=== PATIENT | male | born 1945 | race Caucasian/White ===

== ENCOUNTER 2024-03-20 13:51 | Outpatient (CLI) | payer OTHER, SELFPAY ==
--- OUTSIDE RECORDS SUMMARY | 2024-03-17 13:03 | XMS_ITS | Continuity of Care Document ---
Author Name [facility] Organization [facility] Care Team Providers Care Neon Sign Maker Name Role Phone [facility] Unavailable Unavailable Problems Combined list of problems from Department of Defense and Veterans Affairs facilities. It does not include entries that were removed or entered in error. Problem Status Onset Date Problem Type Date of Resolution Comments Source Numbness Active 010 Condition Apr 17, 2008 Entered By: DENNIS ROLLE Comment: ? left meralgia pareshetica [facility] Acquired complex renal cyst Active Condition [facility] Adenomatous polyp of colon Active Condition Dec 05, 2012 Entered By: LIT MOORE ON B Comment: tubular adenoma x3 12/02/2012 [facility] ASCVD Active Condition Jan 12 05 Entered By: BRINA KAM Comment: 4v CAB 1996 @ [facility] Benign essential hypertension Active Condition [facility] Blood in urine Active Condition [facility] Cerebral infarction due to cerebral artery occlusion Active Condition [facility] Diabetes mellitus type II (SNOMED CT [id number]) Active Condition August 11, 2005 Entered By: BRINA KAM Comment: Diagnosis @ 1999 [facility] Exposure to Agent [place] Active Condition [facility] Exposure to potentially hazardous substance (SCT [id number]) Active Condition Jun 22 4 Entered By: TAO ABARCA Comment: Entered automatically through YURIY Problem List documentation program [facility] Hypercholesterolemia * (ICD-9-CM 272.0) Active Condition [place] [facility] Impotence of organic origin Active Condition [facility] Intracranial hemorrhage Active Condition [facility] Kidney stone Active Condition [place] [facility] Ob[facility], Unspec [facility] Posterior vitreous detachment Active Condition [facility] Shoulder joint pain Active [place] [facility] Thrombosis Active Condition [facility] CAD * (ICD-9-CM 414.9) Inactive Condition 01/12/2005 [facility] Gastroesophageal Reflux Disorder Inactive Condition 01/05/2013 [place] [facility] Hemorrhage, Retinal Inactive Condition 08/11/2005 [facility] Diagnosis: ICD-10-CM H90.3 Sensorineural hearing loss, bilateral Active Diagnosis [facility] Diagnosis: ICD-10-CM H40.003 Preglaucoma, unspecified, bilateral Active Diagnosis [place] [facility] Diagnosis: ICD-10-CM G56.03 Carpal tunnel syndrome, bilateral upper limbs Active Diagnosis [facility] Diagnosis: ICD-10-CM Z02.89 Encounter for other administrative examinations Active Diagnosis [facility] Diagnosis: ICD-10-CM G56.02 Carpal tunnel syndrome, left upper limb Active Diagnosis [facility] Diagnosis: ICD-10-CM M79.10 Myalgia, unspecified site [facility] Diagnosis: ICD-10-CM R52 Pain, unspecified Active Diagnosis KARTHIK MONCADA [facility] Diagnosis: ICD-10-CM M79.642 Pain in left hand Active Diagnosis [facility] Diagnosis: ICD-10-CM M25.551 Pain in right hip Active Diagnosis [facility] Diagnosis: ICD-10-CM M67.442 Ganglion, left hand Active Diagnosis [facility] Diagnosis: ICD-10-CM K63.5 Polyp of colon Active Diagnosis MELINA MELISSA [facility] Diagnosis: ICD-10-CM E11.649 Type 2 diabetes mellitus with hypoglycemia without coma Active Diagnosis [facility] Diagnosis: ICD-10-CM E11.9 Type 2 diabetes mellitus without complications Active Diagnosis [facility] Diagnosis: ICD-10-CM Z23 Encounter for immunization Active Diagnosis [facility] Diagnosis: ICD-10-CM H93.13 Tinnitus, bilateral Active Diagnosis [facility] Medications Combined list of outpatient medications from Department of Defense and [facility] Affairs facilities.Medications provided include 1) outpatient medications from the last 15 months, and 2) patient-reported medications. Medication Details Route Status Patient Instructions Prescription Expires Prescription Number Last Dispense Date Ordering Provider Order Date Order Qty Source ASPIRIN 81MG TAB,EC TAKE ONE TABLET BY MOUTH EVERY DAY ORAL ACTIVE KATTY KAPLAN 2015 [facility] ATORVASTATI N [place] 80MG TAB TAKE ONE TABLET BY MOUTH AT BEDTIME FOR CHOLESTE ROL ORAL ACTIVE 09/20/2024 [id number] 4 SEMAJ LOYD 2023 90 [facility] AT[place]STAT[place] N [place] 80MG TAB TAKE ONE TABLET BY MOUTH AT BEDTIME FOR CHOLESTE ROL ORAL DISCONT INUED 07/25/2023 [id number] 4 SEMAJ LOYD 2022 90 [place] [facility] BISACODYL 5MG TAB,EC TAKE TWO TABLETS BY MOUTH ONCE FOR COLON PREP ORAL 06/30/2023 [id number] BECIVONNEEDA VID A 2023 2 [place] [facility] CARBOXYMETH YLCELLULOSE NA 0.25% SOLN,OPH INSTILL 1 DROP IN BOTH EYES FOUR TIMES A DAY OPHTHA LMIC 03/11/2024 [id number] 4 NATANAEL BALL 2022 15 [place] [facility] CICLOPIROX 8% SOLN,TOP APPLY TOPICALL Y EVERY DAY TO AFFECTED NAILS(S) REMOVE WITH RUBBING ALCOHOL EVERY 7 DAYS* TREAT UNTIL NAIL CLEARANC E OR 48 WEEKS FOR NAIL FUNGUS TO AFFECTED NAILS(S) REMOVE WITH RUBBING ALCOHOL EVERY 7 DAYS* TREAT UNTIL NAIL CLEARANC E OR 48 WEEKS FOR NAIL FUNGUS TOPICA L ACTIVE 03/29/2024 [id number] Kiki NAILS ENJAMIN E 2023 13.2 [place] [facility] EMPAGLIFLOZ IN 25MG TAB TAKE ONE-HALF TABLET BY MOUTH EVERY DAY FOR DIABETES ORAL ACTIVE 05/17/2024 [id number] 4 SEMAJ LOYD 2023 45 [place] [facility] EMPAGLIFLOZ IN 25MG TAB TAKE ONE-HALF TABLET BY MOUTH EVERY DAY FOR DIABETES ORAL DISCONT INUED 04/24/2023 [id number] SEMAJ LOYD 2022 45 [place] [facility] GLIPIZIDE 2.5MG TAB,SA TAKE ONE TABLET BY MOUTH EVERY DAY FOR DIABETES WITH BREAKFAS T ORAL ACTIVE 05/17/2024 [id number] 4 SEMAJ LOYD 2023 90 [place] [facility] GLIPIZIDE 2.5MG TAB,SA TAKE ONE TABLET BY MOUTH EVERY DAY FOR DIABETES WITH BREAKFAS T ORAL DISCONT INUED 09/09/2023 [id number] 3 SEMAJ LOYD 2022 90 [place] [facility] LORATADINE 10MG TAB TAKE ONE TABLET BY MOUTH EVERY MORNING FOR ALLERGIE S ORAL 07/28/2023 [id number] 3 Kiki NAILS ENJAMIN E 2022 90 [place] [facility] LOSARTAN 25MG TAB TAKE ONE-HALF TABLET BY MOUTH TWICE A DAY FOR BLOOD PRESSURE ORAL ACTIVE 07/05/2024 [id number] 4 SEMAJ LOYD 2023 90 [place] [facility] [place] 25MG TAB TAKE ONE-HALF TABLET BY MOUTH TWICE A DAY FOR BLOOD PRESSURE ORAL DISCONT INUED 06/09/2023 [id number] 4 SEMAJ LOYD 2022 90 [place] [facility] POLYETHYLEN E GLYCOL 3350 PWDR,ORAL TAKE ONE BOTTLE BY MOUTH DIRECTED FOR COLON PREP ORAL 06/30/2023 [id number] BECCUE,DA VID A 2023 238 [place] [facility] SEMAGLUTIDE 0.25MG/0.37 5ML INJ,SOLN,PE N,3ML INJECT 0.5MG UNDER THE SKIN EVERY WEEK FOR DIABETES -INJECT ON THE SAME DAY EVERY WEEK -REFRIGE RATE - PEN CONTAINS MULTIPLE DOSES SUBCUT ANEOUS ACTIVE 09/21/2024 [id number] 4 SEMAJ LOYD 2023 1 [place] [facility] SEMAGLUTIDE 0.25MG/0.37 5ML INJ,SOLN,PE N,3ML INJECT 0.5MG UNDER THE SKIN EVERY WEEK FOR DIABETES -INJECT ON THE SAME DAY EVERY WEEK -REFRIGE RATE - PEN CONTAINS MULTIPLE DOSES SUBCUT ANEOUS DISCONT INUED 01/22/2024 [id number] 4 SEMAJ LOYD 2022 1 [place] [facility] SEMAGLUTIDE 0.25MG/0.37 5ML INJ,SOLN,PE N,3ML INJECT 0.5MG UNDER THE SKIN EVERY WEEK FOR DIABETES -INJECT ON THE SAME DAY EVERY WEEK -REFRIGE RATE - PEN CONTAINS MULTIPLE DOSES SUBCUT EFRAIN [place] INUED 07/01/2023 [id number] SEMAJ LOYD 2022 1 [facility] TIZANIDINE HCL 4MG TAB TAKE ONE TABLET BY MOUTH TWICE A DAY NEEDED FOR MUSCLE SPASMS FOR RIGHT GROIN PAIN ORAL ACTIVE 10/12/2024 [id number] 4 OSVALDO SR T 2023 180 [facility] Allergies, Adverse Reactions, Alerts Combined list of allergies from Department of [facility] and [facility] facilities. It does not include entries that were removed or entered in error. Substance Category Reaction Severity Reaction type Status Date Reported Comments Source EZETIMIBE Propensity to adverse reactions to drug (finding) Generalized aches and pains active 7 [facility] LISINOPRIL Propensity to adverse reactions to drug (finding) Cough active 5 [facility] MERTHIOLATE TINCTURE Propensity to adverse reactions to drug (finding) OTHER REACTION, BLISTERING active 4 [facility] METFORMIN Propensity to adverse reactions to drug (finding) Diarrhea active 5 [facility] MINOCYCLINE Propensity to adverse reactions to drug (finding) Headache, Abdominal discomfort active 3 [facility] NIACIN Propensity to adverse reactions to drug (finding) Flushing active 7 [facility] ROSIGLITAZON E Propensity to adverse reactions to drug (finding) Low back pain active 8 [facility] ROSUVASTATIN Propensity to adverse reactions to drug (finding) Paresthesia , Muscle pain active 9 [facility] Immunizations Combined list of available immunizations from the Department of [facility] and [facility] Affairs facilities. Immunization Series Date Given Administered By Site Reaction Lot Number CVX Code Drug Director Chemistry Status Comments Source INFLUENZA, HIGH-DOSE, TRIVALENT, PF 2023 INDER FALK LEFT DELTO ID [id number] 135 complet ed [facility] TDAP 2023 JOHANNA HADDAD LEFT DELTO ID [id number] 115 complet ed [facility] INFLUENZA, HIGH-DOSE, QUADRIVALENT 2022 SULEMNA HENDRICKSON SE E LEFT DELTO ID [id number] 197 complet ed [facility] INFLUENZA VACCINE, QUADRIVALENT, ADJUVANTED 2021 205 complet ed [facility] COVID-19 (PFIZER), MRNA, LNP-S, PF, 30 MCG/0.3 ML DOSE 3 2020 208 complet ed PRF; [id number]; 2 [facility] INFLUENZA, INJECTABLE, QUADRIVALENT, PRESERVATIVE FREE 2020 150 complet ed [facility] COVID-19 (PFIZER), MRNA, LNP-S, PF, 30 MCG/0.3 ML DOSE 2 2020 208 complet ed PFR; [id number]; 1 [facility] COVID-19 (NormOxys), MRNA, LNP-S, PF, 30 MCG/0.3 ML DOSE 1 2020 208 complet ed PFR; [id number]; 1 [facility] INFLUENZA, HIGH-DOSE, QUADRIVALENT 2019 197 complet ed [facility] INFLUENZA, INJECTABLE, MDCK, QUADRIVALENT 2018 186 complet ed [facility] Administ[facility] red by: [facility]ician (NPI=Not Provided) . Partner 7 Lot#: [id number] Mfr: SEQIRUS [facility] ZOSTER RECOMBINANT 2 2018 187 complet ed [facility] ZOSTER RECOMBINANT 1 2018 187 complet ed [facility] INFLUENZA, SEASONAL, INJECTABLE, PRESERVATIVE FREE 2017 140 complet ed [facility] INFLUENZA, HIGH DOSE SEASONAL 2016 135 complet ed [facility] INFLUENZA, HIGH DOSE SEASONAL 2015 135 complet ed [facility] INFLUENZA, SEASONAL, INJECTABLE, PRESERVATIVE FREE 2014 140 complet ed [facility] PNEUMOCOCCAL CONJUGATE PCV 13 2014 133 complet ed carrie'''L [id number]'''0 05/08 [facility] INFLUENZA, HIGH DOSE SEASONAL 2014 135 complet ed [facility] INFLUENZA, UNSPECIFIED FORMULATION 2013 88 complet ed [facility] INFLUENZA, UNSPECIFIED FORMULATION 2012 88 complet ed [facility] PNEUMOCOCCAL, UNSPECIFIED FORMULATION 2012 109 complet ed [id number] [facility] TDAP 2012 115 complet ed [id number] A/ 5 [facility] ZOSTER LIVE 2012 121 [place] [id number] [facility] INFLUENZA, UNSPECIFIED FORMULATION 2011 88 complet ed [facility] INFLUENZA, UNSPECIFIED FORMULATION 2010 88 complet ed [facility] INFLUENZA, UNSPECIFIED FORMULATION 2010 88 complet ed [facility] INFLUENZA, UNSPECIFIED FORMULATION 2008 88 complet ed [facility] INFLUENZA, UNSPECIFIED FORMULATION 2007 88 complet ed [facility] INFLUENZA (HISTORICAL) 2006 88 complet ed [facility] INFLUENZA, UNSPECIFIED FORMULATION 2006 88 complet ed [facility] INFLUENZA, UNSPECIFIED FORMULATION 2005 88 complet ed [facility] INFLUENZA, UNSPECIFIED FORMULATION 2004 88 complet ed [facility] INFLUENZA, UNSPECIFIED FORMULATION 2003 88 complet ed [facility] PNEUMOCOCCAL, UNSPECIFIED FORMULATION 2003 109 complet ed [facility] INFLUENZA, WHOLE 2002 16 complet ed [facility] TD(ADULT) UNSPECIFIED FORMULATION 2002 139 complet ed [facility] Results Combined list of recent chemistry, hematology and other laboratory results from Department of Defense and Veterans Affairs, ranging from 15 months to all on record, depending upon the facility. Order Name Results Value Reference Range Date Interpretation Specimen Comments Source ALBUMIN/C REATININE RATIO URINE CREATININE [MASS/VOLUM E] IN URINE 65.6 mg/dL 58.0 - 161.0 11/17 Specimen Type: URINE Comment: Urine albumin <5 mg/L, unable to calculate ratio Ordering Provider: EMI NAILS Report Released Date/Time: Nov 18, 2023 02:43 PM Reporting Lab: [facility] [address] Performing Lab: [facility] [address] [facility] ALBUMIN/C REATININE RATIO URINE MICROALBUMI N/CREATININ E [MASS RATIO] IN URINE cancmg /g{cre at} <29.9 - 29.9 11/17 Specimen Type: URINE Comment: Urine albumin <5 mg/L, unable to calculate ratio Ordering Provider: EMI NAILS Report Released Date/Time: Nov 18, 2023 02:43 PM Reporting Lab: [facility] [address] Performing Lab: [facility] [address] [facility] ALBUMIN/C REATININE RATIO URINE MICROALBUMI N [MASS/VOLUM E] IN URINE <5.0mg /L <29.9 - 29.9 11/17 Specimen Type: URINE Comment: Urine albumin <5 mg/L, unable to calculate ratio Ordering Provider: EMI NAILS Report Released Date/Time: Nov 18, 2023 02:43 PM Reporting Lab: [facility] [address] Performing Lab: [facility] [address] [facility] HEMOGLOBI N A1C HEMOGLOBIN A1C/HEMOGLO BIN.TOTAL IN BLOOD 7.7 4.0 - 6.0 08/29 H Specimen Type: BLOOD Comment: Values obtained from A1C measurement s can vary. For typical A1C assays, a reported value of 7.0 could actually be between 6.7 and 7.3 if measured by a reference method. A reported value of 9.0 could actually be between 8.7 and 9.3. Ref: http://www. ngsp.org/[place] Pdata.asp Ordering Provider: EMI NAILS Report Released Date/Time: Mar 29, 2023 12:39 PM Reporting Lab: [facility] [address] Performing Lab: [facility] [address] [place] [facility] HEMOGLOBI N A1C HEMOGLOBIN A1C/HEMOGLO BIN.TOTAL IN BLOOD 7.4 4.0 - 6.0 03/11 H Specimen Type: BLOOD Comment: Values obtained from A1C measurement s can vary. For typical A1C assays, a reported value of 7.0 could actually be between 6.7 and 7.3 if measured by a reference method. A reported value of 9.0 could actually be between 8.7 and 9.3. Ref: http://www. ngsp.org/[place] Pdata.asp Ordering Provider: EMI NAILS Report Released Date/Time: Feb 19, 2022 12:12 PM Reporting Lab: [facility] [address] Performing Lab: [facility] [address] [facility] CBC LEUKOCYTES [#/VOLUME] IN BLOOD BY AUTOMATED COUNT 7.09 10*3/u L 4.0 - 11.0 03/11 Specimen Type: BLOOD No comment entered. Ordering Provider: EMI NAILS Report Released Date/Time: Feb 19, 2022 12:12 PM Reporting Lab: [facility] [address] Performing Lab: [facility] [address] [facility] CBC ERYTHROCYTE S [#/VOLUME] IN BLOOD BY AUTOMATED COUNT 4.96 10*6/u L 4.6 - 6.2 03/11 Specimen Type: BLOOD No comment entered. Ordering Provider: EMI NAILS Report Released Date/Time: Feb 19, 2022 12:12 PM Reporting Lab: [facility] [address] Performing Lab: [facility] [address] [facility] CBC HEMOGLOBIN [MASS/VOLUM E] IN BLOOD 15.7 g/dL 13.5 - 17.9 03/11 Specimen Type: BLOOD No comment entered. Ordering Provider: EMI NAILS Report Released Date/Time: Feb 19, 2022 12:12 PM Reporting Lab: [facility] [address] Performing Lab: [facility] [address] [facility] CBC HEMATOCRIT [VOLUME FRACTION] OF BLOOD BY AUTOMATED COUNT 47.5 41 - 54 03/11 Specimen Type: BLOOD No comment entered. Ordering Provider: EMI NAILS Report Released Date/Time: Feb 19, 2022 12:12 PM Reporting Lab: [facility] [address] Performing Lab: [facility] [address] [place] [facility] CBC MCV [ENTITIC VOLUME] BY AUTOMATED COUNT 95.8 fL 80 - 100 03/11 Specimen Type: BLOOD No comment entered. Ordering Provider: EMI NAILS Report Released Date/Time: Feb 19, 2022 12:12 PM Reporting Lab: [facility] [address] Performing Lab: [facility] [address] [place] [facility] CBC MCH [ENTITIC MASS] BY AUTOMATED COUNT 31.7 pg 27 - 33 03/11 Specimen Type: BLOOD No comment entered. Ordering Provider: EMI NAILS Report Released Date/Time: Feb 19, 2022 12:12 PM Reporting Lab: [facility] [address] Performing Lab: [facility] [address] [place] [facility] CBC MCHC [MASS/VOLUM E] BY AUTOMATED COUNT 33.1 g/dL 32.0 - 37.5 03/11 Specimen Type: BLOOD No comment entered. Ordering Provider: EMI NAILS Report Released Date/Time: Feb 19, 2022 12:12 PM Reporting Lab: [facility] [address] Performing Lab: [facility] [address] [place] [facility] CBC PLATELETS [#/VOLUME] IN BLOOD BY AUTOMATED COUNT 220 10*3/u L 150 - 400 03/11 Specimen Type: BLOOD No comment entered. Ordering Provider: EMI NAILS Report Released Date/Time: Feb 19, 2022 12:12 PM Reporting Lab: [facility] [address] Performing Lab: [facility] [address] [place] [facility] CBC PLATELET MEAN VOLUME [ENTITIC VOLUME] IN BLOOD BY AUTOMATED COUNT 9.0 fL 7.4 - 10.4 03/11 Specimen Type: BLOOD No comment entered. Ordering Provider: EMI NAILS Report Released Date/Time: Feb 19, 2022 12:12 PM Reporting Lab: [facility] [address] Performing Lab: [facility] [address] [place] [facility] CBC ERYTHROCYTE DISTRIBUTIO N WIDTH [RATIO] BY AUTOMATED COUNT 12.7 11.5 - 14.5 03/11 Specimen Type: BLOOD No comment entered. Ordering Provider: EMI NAILS Report Released Date/Time: Feb 19, 2022 12:12 PM Reporting Lab: [facility] [address] Performing Lab: [facility] [address] [place] [facility] COMPREHEN SIVE METABOLIC PANEL+MG CREATININE [MASS/VOLUM E] IN SERUM OR PLASMA 1.0 mg/dL 0.7 - 1.2 03/11 Specimen Type: PLASMA No comment entered. Ordering Provider: EMI NAILS Report Released Date/Time: Feb 19, 2022 12:12 PM Reporting Lab: [facility] [address] Performing Lab: [facility] [address] [place] [facility] COMPREHEN SIVE METABOLIC PANEL+MG UREA NITROGEN [MASS/VOLUM E] IN SERUM OR PLASMA 12 mg/dL 8 - 26 03/11 Specimen Type: PLASMA No comment entered. Ordering Provider: EMI NAILS Report Released Date/Time: Feb 19, 2022 12:12 PM Reporting Lab: [facility] [address] Performing Lab: [facility] [address] [place] [facility] COMPREHEN SIVE METABOLIC PANEL+MG GLUCOSE [MASS/VOLUM E] IN SERUM OR PLASMA 139 mg/dL 70 - 100 03/11 H Specimen Type: PLASMA No comment entered. Ordering Provider: EMI NAILS Report Released Date/Time: Feb 19, 2022 12:12 PM Reporting Lab: [facility] [address] Performing Lab: [facility] [address] [place] [facility] COMPREHEN SIVE METABOLIC PANEL+MG SODIUM [MOLES/VOLU ME] IN SERUM OR PLASMA 143 mmol/L 136 - 145 03/11 Specimen Type: PLASMA No comment entered. Ordering Provider: EMI NAILS Report Released Date/Time: Feb 19, 2022 12:12 PM Reporting Lab: [facility] [address] Performing Lab: [facility] [address] [place] [facility] COMPREHEN SIVE METABOLIC PANEL+MG POTASSIUM [MOLES/VOLU ME] IN SERUM OR PLASMA 4.2 mmol/L 3.5 - 5.1 03/11 Specimen Type: PLASMA No comment entered. Ordering Provider: EMI NAILS Report Released Date/Time: Feb 19, 2022 12:12 PM Reporting Lab: [facility] [address] Performing Lab: [facility] [address] [place] [facility] COMPREHEN SIVE METABOLIC PANEL+MG CHLORIDE [MOLES/VOLU ME] IN SERUM OR PLASMA 106 mmol/L 98 - 107 03/11 Specimen Type: PLASMA No comment entered. Ordering Provider: EMI NAILS Report Released Date/Time: Feb 19, 2022 12:12 PM Reporting Lab: [facility] [address] Performing Lab: [facility] [address] [place] [facility] COMPREHEN SIVE METABOLIC PANEL+MG CARBON DIOXIDE, TOTAL [MOLES/VOLU ME] IN SERUM OR PLASMA 29 mmol/L 22 - 29 03/11 Specimen Type: PLASMA No comment entered. Ordering Provider: EMI NAILS Report Released Date/Time: Feb 19, 2022 12:12 PM Reporting Lab: [facility] [address] Performing Lab: [facility] [address] [place] [facility] COMPREHEN SIVE METABOLIC PANEL+MG CALCIUM [MASS/VOLUM E] IN SERUM OR PLASMA 9.5 mg/dL 8.4 - 10.2 03/11 Specimen Type: PLASMA No comment entered. Ordering Provider: EMI NAILS Report Released Date/Time: Feb 19, 2022 12:12 PM Reporting Lab: [facility] [address] Performing Lab: [facility] [address] [place] [facility] COMPREHEN SIVE METABOLIC PANEL+MG PROTEIN [MASS/VOLUM E] IN SERUM OR PLASMA 6.8 g/dL 6.0 - 8.3 03/11 Specimen Type: PLASMA No comment entered. Ordering Provider: EMI NAILS Report Released Date/Time: Feb 19, 2022 12:12 PM Reporting Lab: [facility] [address] Performing Lab: [facility] [address] [place] [facility] COMPREHEN SIVE METABOLIC PANEL+MG ALBUMIN [MASS/VOLUM E] IN SERUM OR PLASMA 4.2 g/dL 3.5 - 5.2 03/11 Specimen Type: PLASMA No comment entered. Ordering Provider: EMI NAILS Report Released Date/Time: Feb 19, 2022 12:12 PM Reporting Lab: [facility] [address] Performing Lab: [facility] [address] [place] [facility] COMPREHEN SIVE METABOLIC PANEL+MG BILIRUBIN.T OTAL [MASS/VOLUM E] IN SERUM OR PLASMA 1.3 mg/dL 0.2 - 1.2 03/11 H Specimen Type: PLASMA No comment entered. Ordering Provider: EMI NAILS Report Released Date/Time: Feb 19, 2022 12:12 PM Reporting Lab: [facility] [address] Performing Lab: [facility] [address] [place] [facility] COMPREHEN SIVE METABOLIC PANEL+MG BILIRUBIN.D IRECT [MASS/VOLUM E] IN SERUM OR PLASMA 0.3 mg/dL <0.5 - 0.5 03/11 Specimen Type: PLASMA No comment entered. Ordering Provider: EMI NAILS Report Released Date/Time: Feb 19, 2022 12:12 PM Reporting Lab: [facility] [address] Performing Lab: [facility] [address] [place] [facility] COMPREHEN SIVE METABOLIC PANEL+MG MAGNESIUM [MASS/VOLUM E] IN SERUM OR PLASMA 2.0 mg/dL 1.6 - 2.6 03/11 Specimen Type: PLASMA No comment entered. Ordering Provider: EMI NAILS Report Released Date/Time: Feb 19, 2022 12:12 PM Reporting Lab: [facility] [address] Performing Lab: [facility] [address] [place] [facility] COMPREHEN SIVE METABOLIC PANEL+MG ANION GAP IN SERUM OR PLASMA 8 mmol/L 5 - 15 03/11 Specimen Type: PLASMA No comment entered. Ordering Provider: EMI NAILS Report Released Date/Time: Feb 19, 2022 12:12 PM Reporting Lab: [facility] [id number] Performing Lab: [facility] [id number] [place] [facility] COMPREHEN SIVE METABOLIC PANEL+MG ALKALINE PHOSPHATASE [ENZYMATIC ACTIVITY/VO LUME] IN SERUM OR PLASMA 120 U/L 40 - 150 03/11 Specimen Type: PLASMA No comment entered. Ordering Provider: EMI NAILS Report Released Date/Time: Feb 19, 2022 12:12 PM Reporting Lab: [facility] [id number] Performing Lab: [facility] [id number] [place] [facility] COMPREHEN SIVE METABOLIC PANEL+MG ALANINE AMINOTRANSF ERASE [ENZYMATIC ACTIVITY/VO LUME] IN SERUM OR PLASMA 33 U/L <55 - 55 03/11 Specimen Type: PLASMA No comment entered. Ordering Provider: EMI NAILS Report Released Date/Time: Feb 19, 2022 12:12 PM Reporting Lab: [facility] [address] Performing Lab: [facility] [address] [place] [facility] COMPREHEN SIVE METABOLIC PANEL+MG ASPARTATE AMINOTRANSF ERASE [ENZYMATIC ACTIVITY/VO LUME] IN SERUM OR PLASMA 25 U/L <34 - 34 03/11 Specimen Type: PLASMA No comment entered. Ordering Provider: EMI NAILS Report Released Date/Time: Feb 19, 2022 12:12 PM Reporting Lab: [facility] [address] Performing Lab: [facility] [address] [place] [facility] COMPREHEN SIVE METABOLIC PANEL+MG GLOMERULAR FILTRATION RATE/1.73 SQ M.PREDICTED [VOLUME RATE/AREA] IN SERUM, PLASMA OR BLOOD BY CREATININE- BASED FORMULA (CKD-EPI 2020) 78 60 03/11 Specimen Type: PLASMA No comment entered. Ordering Provider: EMI NAILS Report Released Date/Time: Feb 19, 2022 12:12 PM Reporting Lab: [facility] [address] Performing Lab: [facility] [address] [place] [facility] HEMOGLOBI N A1C HEMOGLOBIN A1C/HEMOGLO BIN.TOTAL IN BLOOD 7.2 4.0 - 6.0 12/09 H Specimen Type: BLOOD Comment: Values obtained from A1C measurement s can vary. For typical A1C assays, a reported value of 7.0 could actually be between 6.7 and 7.3 if measured by a reference method. A reported value of 9.0 could actually be between 8.7 and 9.3. Ref: [email or web address]/[place] [email or web address] Ordering Provider: Jeff MELCHOR Report Released Date/Time: Nov 10, 2022 10:43 AM Reporting Lab: [facility] [address] Performing Lab: [facility] [address] [place] [facility] HEMOGLOBI N A1C HEMOGLOBIN A1C/HEMOGLO BIN.TOTAL IN BLOOD 8.8 4.0 - 6.0 06/05 H Specimen Type: BLOOD Comment: Values obtained from A1C measurement s can vary. For typical A1C assays, a reported value of 7.0 could actually be between 6.7 and 7.3 if measured by a reference method. A reported value of 9.0 could actually be between 8.7 and 9.3. Ref: [email or web address]://[email or web address]/[email or web address] Ordering Provider: EMI NAILS Report Released Date/Time: Feb 19, 2022 12:12 PM Reporting Lab: [facility] [address] [facility] [address] Performing Lab: [facility] [address] [facility] [address] [place] [facility] Vital Signs Combined list of inpatient and outpatient Vital Signs from Department of Defense and Veterans Affairs, ranging from 12 months to all on record, depending upon the facility. Vital Sign Value Date Comments Source SYSTOLIC BLOOD PRESSURE 152 11/18/2023 12:57:28 [facility] DIASTOLIC BLOOD PRESSURE 71 11/18/2023 12:57:28 [facility] PULSE OXIMETRY 94 11/18/2023 12:57:28 [place] [facility] WEIGHT 176.2 11/18/2023 12:57:28 [place] [facility] BMI 26kg/m2 11/18/2023 12:57:28 [place] [facility] PAIN 2 11/18/2023 12:57:28 [place] [facility] TEMPERATURE 98.1 11/18/2023 12:57:28 [place] [facility] PULSE 67 11/18/2023 12:57:28 [facility] [facility] RESPIRATION 18 11/18/2023 12:57:28 [place] [facility] SYSTOLIC BLOOD PRESSURE 149 10/12/2023 12:57:28 [facility] DIASTOLIC BLOOD PRESSURE 77 10/12/2023 12:57:28 [facility] PULSE OXIMETRY 97 10/12/2023 12:57:28 [place] [facility] WEIGHT 174.4 10/12/2023 12:57:28 [place] [facility] BMI 26kg/m2 10/12/2023 12:57:28 [facility] [facility] PAIN 6 10/12/2023 12:57:28 [facility] [facility] TEMPERATURE 98 10/12/2023 12:57:28 [facility] PULSE 50 10/12/2023 12:57:28 [facility] RESPIRATION 16 10/12/2023 12:57:28 [place] [facility] SYSTOLIC BLOOD PRESSURE 149 08/30/2023 10:13:48 [facility] DIASTOLIC BLOOD PRESSURE 78 08/30/2023 10:13:48 [facility] PULSE OXIMETRY 97 08/30/2023 10:13:48 [facility] WE[facility] 174.9 08/30/2023 10:13:48 [place] [facility] BMI 26kg/m2 08/30/2023 10:13:48 [facility] PAIN 8 08/30/2023 10:13:48 [facility] HEIGHT 68.5 08/30/2023 10:13:48 [place] [facility] TEMPERATURE 97.5 08/30/2023 10:13:48 [facility] [facility] PULSE 68 08/30/2023 10:13:48 [facility] RESPIRATION 18 08/30/2023 10:13:48 [place] [facility] SYSTOLIC BLOOD PRESSURE 137 03/29/2023 11:00:04 [facility] DIASTOLIC BLOOD PRESSURE 75 03/29/2023 11:00:04 [facility] PULSE OXIMETRY 97% 03/29/2023 11:00:04 [facility] WEIGHT 173.4 03/29/2023 11:00:04 [facility] [facility] BMI 26kg/m2 03/29/2023 11:00:04 [facility] [facility] PAIN 0 03/29/2023 11:00:04 [place] [facility] HEIGHT 68.5 03/29/2023 11:00:04 [facility] TEMPERATURE 97.7 03/29/2023 11:00:04 [place] [facility] PULSE 52 03/29/2023 11:00:04 [place] [facility] RESPIRATION 16 03/29/[facility]23 [facility]00:[facility] Encounters Combined list of: 1) Encounters from Department of Veterans Affairs facilities going back up to thelast 18 months. 2) Encounters from the Department of Defense facilities going back up to 280 months. Location Location Details Encounter Type Encounter Number Reason For Visit Attending Provider ADM Date DC Date Status Disposition Source 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
SEMAJ MELCHOR 11/10 [facility] HEARING AID CHECK BOTH EARS [id number] Diagnos is: ICD-10- CM H93.13 Tinnitu s, bilater al
KMETT,LORI N D 12/09 [facility] HC PRO PHONE CALL 21-30 MIN [id number] Diagnos is: ICD-10- CM E11.9 Type 2 diabete s mellitu s without complic ations< br/> KARENAASHLEIGH HURTADO Donny 12/11 [facility] HEARING AID CHECK BOTH EARS [id number] Diagnos is: ICD-10- CM H93.13 Tinnitu s, bilater al
KMETT,LORI N D 01/27 [facility] Outpatient Encounter [id number] 02/08 [facility] IMMUNIZATI ON ADMIN [id number] Diagnos is: ICD-10- CM Z23 Encount er for immuniz ation<b r/> Moses HENDRICKSON ENBETO E 03/11 [facility] OFFICE O/P EST MOD 30-39 MIN [id number] Diagnos is: ICD-10- CM E11.9 Type 2 diabete s mellitu s without complic ations< br/> ARMBRUST,K AREN R 03/11 [facility] OFFICE O/P EST MOD 30 MIN [id number] Diagnos is: ICD-10- CM 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
JASPER NAILS NJAMIN E 03/29 [place] [facility] [place] [facility] Outpatient Encounter [id number] SHELLY HARLEY 03/30 [place] [facility] [place] [facility] Outpatient Encounter [id number] 05/31 [place] [facility] [place] [facility] [place] SED SAME PHYS/[place] [id number] Diagnos is: ICD-10- CM K63.5 Polyp of colon<b r/> THOMPSON GAGE 06/01 [place] [facility] [place] [facility] Outpatient Encounter [id number] 06/01 [place] [facility] [place] [facility] Outpatient Encounter [id number] MARY CARMEN EISENBERG 06/03 [place] [facility] [place] [facility] Outpatient Encounter [id number] 06/06 [place] [facility] [place] [facility] Outpatient Encounter [id number] Anupama POOLE 08[facility]26 [facility] [place] [facility] OFFICE O/P EST MOD 30 MIN [id number] Diagnos is: ICD-10- CM M67.442 Ganglio n, left hand
LUIS JAQUEZ E 08/29 [place] [facility] [place] [facility] Outpatient Encounter [id number] 08/29 [place] [facility] [place] [facility] Outpatient Encounter [id number] Diagnos is: ICD-10- CM M25.551 Pain in right hip<br/ > JASPER NAILS NJAMIN E 09/13 [place] [facility] [place] [facility] OFFICE O/P NEW MOD 45 MIN [id number] Diagnos is: ICD-10- CM M79.642 Pain in left hand
ROMAIN WELSH M 10/03 [facility] OFFICE O/P NEW MOD 45 MIN [id number] Diagnos is: ICD-10- CM R52 Pain, unspeci fied
BERTIN HERZOG M 10/11 [facility] OFF/OP CNSLTJ NEW/EST MOD 40 [id number] Diagnos is: ICD-10- CM M79.10 Myalgia , unspeci fied site
HAILEE SR T 10/11 [facility] Outpatient Encounter [id number] 10/25 [facility] OFFICE O/P EST MOD 30 MIN [id number] Diagnos is: ICD-10- CM G56.02 Carpal tunnel syndrom e, left upper limb
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
NGA ALVARADO J 11/17 [facility] Outpatient Encounter [id number] JIMMY RIVAS A 11/17 [facility] OFF/OP EST MAY X REQ PHY/QHP [id number] Diagnos is: ICD-10- CM Z02.89 Encount er for other adminis trative examina tions<b r/> JIMMY RIVAS A 11/17 [facility] Outpatient Encounter [id number] 11/17 [facility] Outpatient Encounter [id number] ADELIA MAGUIRE 12/05 [facility] Outpatient Encounter [id number] 12/06 [facility] OFFICE O/P EST HI 40 MIN [id number] Diagnos is: ICD-10- CM G56.03 Carpal tunnel syndrom e, bilater al upper limbs<b r/> MELISSA ALCALA 01/04 [facility] Outpatient Encounter [id number] 01/20 [facility] OFFICE O/P EST MOD 30 MIN [id number] Diagnos is: ICD-10- CM H40.003 Preglau coma, unspeci fied, bilater al
DENISSE WALLS 03/09 [facility] HEARING AID REPAIR/MOD IFYING [id number] Diagnos is: ICD-10- CM H90.3 Sensori neural hearing loss, bilater al
NGA LARSON 03/10 [facility] Outpatient Encounter [id number] 03/13 [facility] Social History Combined list of available smoking, tobacco, and other social history from Department of Defense and [facility] Affairs facilities. Social History Type Response Date Comment Sour e Tobacco smoking status MSIS MO-TOBACCO NEVER USED 03/29/20[facility] History of tobacco use MO-TOBACCO FORMER USER 02/19/2022 [facility] History of tobacco use MO-TOBACCO FORMER USER 08/14/2020 [facility] History of tobacco use MO-TOBACCO FORMER USER 07/11/2018 [facility] History of tobacco use FORMER TOBACCO US ER 7Y OR GREATER 08/25/2017 [facility] History of tobacco use FORMER TOBACCO US ER 7Y OR GREATER 11/20/2016 [facility] History of tobacco use FORMER TOBACCO US ER 7Y OR GREATER 10/08/2015 [facility] History of tobacco use FORMER TOBACCO US ER 7Y OR GREATER 12/21/2014 [facility] History of tobacco use FORMER TOBACCO US ER 7Y OR GREATER 01/05/2014 [facility] History of tobacco use FORMER TOBACCO US ER 7Y OR GREATER 05/02/2007 [facility] History of tobacco use FORMER TOBACCO US E >1Y <7Y 05/12/2006 [facility] Plan of Care List of future care activities from [facility] facilities. Additional future care activities may be listed in the Assessment and Plan section. Date/Time Care Activity Care Activity Detail Facili ty 03/30/2024 AMBULATORY - REHAB MEDICINE AMBULATORY - REHAB MEDICINE [facility] 04/24/2024 AMBULATORY - SURGERY AMBULATORY - SURGERY [facility] Advance Directives List of completed, amended, or rescinded Advance Directives on record at [facility] facilities. An actual copy of the Directive is not included. Date Advance Directive Provider Source 03/26/2015 ADVANCE DIRECTIVE DISCUSSION GABBY MISTRY [facility] 01/12/2005 ADVANCE DIRECTIVE [address]ENN GARDUNO [facility]
--- OUTSIDE RECORDS SUMMARY | 2024-03-17 13:06 | XMS_ITS | Encounter Summary ---
Author Name [place] Address [address] [place] [address] Care Team Providers Care J2Ee Android Developer Name Role Phone ALLEN NAILS Primary Care Provider Unav ailable Insurance Providers: All historical and current Section Date Range: From patient's date of to the date document was created. This section includes the names of all active insurance providers for the patient. Insurance Provider Type of Coverage Plan Name Start of Policy Coverage End of Policy Coverage Group Number Member ID Insurance Provider's Telephone Number Policy Gerard's Name Patient's Relationship to Policy Gerard [employer] ([employer]) PRESCRIPT ION [employer] [employer] MACY/C DHP Mar 22, 2009 [id number] [phone] LACI GRIFFITH PATIENT MEDICA HIGH DEDUCTIBL E HEALTH PLAN W/HEALTH REIMBURSE MENT ARRANGEME NT [employer] MACY HRA Mar 22, 2009 [id number] [phone] LACI GRIFFITH PATIENT MED[employer] BEHAVIORAL HEALTH MENTAL HEALTH [place] [employer] MACY HRA Mar 22, 2009 [id number] [phone] LACI GRIFFITH PATIENT MEDICA MCR (WNR) MEDICARE ADVANTAGE [facility] (WNR) Mar 22, 2018 [id number] [phone] LACI GRIFFITH PATIENT MEDICA MCR (WNR) MEDICARE ADVANTAGE [facility] (WNR) Sep 19, 2012 [id number] [phone] LACI GRIFFITH PATIENT MEDICARE (WNR) MEDICARE (M) PART B Aug 20, 2012 PART B [id number] [phone] LACI GRIFFITH PATIENT MEDICARE (WNR) MEDICARE (M) PART A Sep 19, 2010 PART A [id number] [phone] LACI GRIFFITH PATIENT Selected Encounter This section includes the information on record at CT for the Encounter. Date/Time Encounter Type Encounter Description Reason Provider Source Nov 18, 2023 02:42 PM Outpatient Encounter PRIMARY CARE/MEDICINE JESUS RIVAS Encounter Template Text not used by CT Plan of Treatment: Future Appointments (+ 6 months) and Future Tests (+/- 45 days) The Plan of Treatment section includes [facility] care activities for the [facility] This section includes future appointments and future orders which are active, pending or scheduled. Future Appointments This section includes appointments that were scheduled to occur 6 months from the date of the Encounter, up to a maximum of 20 appointments. The data comes from all CT treatment facilities. Appointment Date/Time Appointment Type Appointme nt Facility Name Dec 13, 2023 10:30 AM AMBULATORY - NONE [facility] Jan 05, 2024 11:30 AM AMBULATORY - SURGERY [facility] Mar 09, 2024 12:40 PM AMBULATORY - SURGERY [facility] Mar 10, 2024 12:30 PM AMBULATORY - SURGERY [facility] Mar 30, 2024 10:30 AM AMBULATORY - REHAB MEDICIN [facility] Apr 24, 2024 01:00 PM AMBULATORY - SURGERY [facility] Lab Results: +/- 30 days of the encounter This section includes the Chemistry and Hematology Lab Results on record with CT for the patient. Radiology Reports and Pathology Reports are provided separately, in subsequent sections. Lab Results This section contains the Chemistry/Hematology Results that were resulted 30 days before or 30 daysafter the date of the Encounter. Date/Time Source Result Type Result - Unit Interpretation Reference Range Comment Nov 18, 2023 02:53 PM [facility] ALBUMIN/CREATININE RATIO URINE Specimen Type: URINE Comment: Urine albumin <5 mg/L, unable to calculate ratio Ordering Provider: KAYLI NAILS IN E Report Released Date/Time: Nov 18, 2023 02:43 PM Reporting Lab: [facility] [id number] Performing Lab: [facility] [id number] CREATININ E,UR RANDOM 65.6 mg/dL 58.0-161.0 ALB/CREAT RATIO,UR canc mg/g{creat} <29.9 ALBUMIN,U R <5.0 mg/L <29.9 Vital Signs: All taken on the encounter date This section contains inpatient and outpatient Vital Signs collected on the date of the Encounter. Date/Time Temperature Pulse Blood Pressure Respiratory Rate SP02 Pain Height Weight Body Mass Index Source Nov 18, 2023 01:02 PM 136/71 [facility] Nov 18, 2023 12:57 PM 98.1 67 152/71 18 94 2 176.2 26 [facility] Social History: Smoking Status (Most current) and Tobacco Use (All prior to encounter date) This section includes the most current, and the historical, smoking and tobacco- related health factors from the [place] facility where the Encounter took place. Current Smoking Status This section includes the most current smoking, or tobacco-related health factor, from the [place] facility where the Encounter took place. Date/Time Current Smoking Status Comment Facil ity Mar 29, 2023 11:00 AM VA-TOBACCO NEVER USED [facility] Tobacco Use History This section includes a history of the smoking, or tobacco-related health factors, that were collected on or before the date of the Encounter. The data comes from the [place] facility where the Encounter took place. Date/Time Smoking Status/Tobacco Use Comment F acility Feb 19, 2022 11:30 AM VA-TOBACCO FORMER USER [facility] Feb 19, 2022 11:30 AM VA-TOBACCO QUIT 15 YRS OR MORE [facility] August 14, 2020 08:30 AM VA-TOBACCO FORMER USER [facility] August 14, 2020 08:30 AM VA-TOBACCO QUIT 15 YRS OR MORE [facility] Jul 11, 2018 10:38 AM VA-TOBACCO FORMER USER [facility] Jul 11, 2018 10:38 AM VA-TOBACCO QUIT 15 YRS OR MORE [facility] Aug 25, 2017 10:47 AM FORMER TOBACCO USER 7Y OR GREATE R [facility] Nov 20, 2016 10:21 AM FORMER TOBACCO USER 7Y OR GREATE R [facility] Oct 08, 2015 08:27 AM FORMER TOBACCO USER 7Y OR GREATE R [facility] Dec 21, 2014 11:06 AM FORMER TOBACCO USER 7Y OR GREATE R [facility] Jan 05, 2014 08:09 AM FORMER TOBACCO USER 7Y OR GREATE R [facility] May 02, 2007 09:05 AM FORMER TOBACCO USER 7Y OR GREATE R [facility] May 12, 2006 10:31 AM FORMER TOBACCO USE >1Y <7Y [facility] Advance Directives: All historical and current Section Date Range: From patient's date of to the date document was created. This section includes ALL of a patient's completed or amended CT Advance and Rescinded Directives. The entries below indicate that a directive exists for the patient, but an actual copy is not included with this document. The data comes from all [facility]. Date Advance Directives Provider Source Mar 26, 2015 ADVANCE DIRECTIVE DISCUSSION GABBY MISTRY [facility] Mar 26, 2015 ADVANCE DIRECTIVE MIGUEL MISTRY [facility] Jan 12, 2005 ADVANCE DIRECTIVE JENN GARDUNO [facility] Encounter Notes: All associated encounter notes This section contains the clinical notes associated to the Encounter. Date/Time Encounter Note(s) Provider Source Nov 18, 2023 02:42 PM INTERNAL MEDICINE OUTPATIENT NOTE: LOCAL TITLE: MEDICINE CLINIC NURSING NOTE STANDARD TITLE: INTERNAL MEDICINE OUTPATIENT NOTE DATE OF NOTE: NOV 18, 2023@14:42 ENTRY DATE: NOV 18, 2023@14:42:29 AUTHOR: JESUS RIVAS COSIGNER: URGENCY: STATUS: COMPLETED TYPE OF VISIT: Walkin REASON FOR VISIT: MICRO/CREATININE UA ALLERGIES: FACILITY ALLERGY/ADR -------- No Remote Allergy/ADR Data available for this patient [facility] EZETIMIBE [facility] LISINOPRIL [facility] MERTHIOLATE TINCTURE [facility] METFORMIN [facility] MINOCYCLINE [facility] NIACIN [facility] ROSIGLITAZONE [facility] ROSUVASTATIN EDUCATION: PARTICIPANT(s): Patient Clean Catch Urine Instructed in collection of clean catch urine. Printed instructions provided and participant(s) is able to repeat these instructions accurately. Albumin/Creatinine urine sent to lab Diabetes: Kidney Health Evaluation: uACR (Urine Albumin-Creatinine Ratio) Quantitative urine creatinine and quantitative urine albumin lab tests were ordered. /nghia/ JESUS Payton [facility] ASSOCIATE WEB DEVELOPER Signed: 11/18/2023 14:43 JESUS RIVAS [facility]
--- OUTSIDE RECORDS SUMMARY | 2024-03-17 13:06 | XMS_ITS | Encounter Summary ---
Author Name [facility] [facility] [place] [facility] [place] [facility] [place] [address] [place] [id number] Care Team Providers Care Aesthetician Name Role Phone ALLEN NAILS Primary Care [...] [place] AIR[place] MACY/C DHP Mar 22, 2009 [id number] [phone] LACI GRIFFITH PATIENT MEDICA HIGH DEDUCTIBL E HEALTH PLAN W/HEALTH REIMBURSE MENT ARRANGEME NT [place] AIR[place] MACY HRA Mar 22, 2009 [id number] [phone] LACI GRIFFITH PATIENT MEDICA BEHAVIORAL HEALTH MENTAL HEALTH [place] MACY HRA Mar 22, 2009 [id number] [phone] LACI GRIFFITH PATIENT MEDICA MCR (WNR) MEDICARE ADVANTAGE [facility] (WNR) Mar 22, 2018 [id number] LACI GRIFFITH PATIENT MEDICA MCR (WNR) MEDICARE ADVANTAGE [facility] (WNR) Sep 19, 2012 [id number] [phone] LACI GRIFFITH PATIENT MEDICARE (WNR) MEDICARE (M) PART B Aug 20, 2012 PART B [id number] [phone] LACI GRIFFITH PATIENT MEDICARE (WNR) MEDICARE (M) PART A Sep 19, 2010 PART A [id number] [phone] LACI GRIFFITH PATIENT Selected Encounter This section includes the information on record at [place] for the Encounter. Date/Time Encounter Type Encounter Description Reason Provider Source Dec 06, 2023 10:08 AM Outpatient Encounter TELEPHONE TRIAGE ADELIA MAGUIRE Encounter Template Text not used by [place] Plan of Treatment: Future Appointments (+ 6 months) and Future Tests (+/- 45 days) The Plan of Treatment section includes future care activities for the patient from all [place] [facility] [place]. This section includes future appointments and future orders which are active, pending or scheduled. Future Appointments This section includes appointments that were scheduled to occur 6 months from the date of the Encounter, up to a maximum of 20 appointments. The data comes from all [facility]. Appointment Date/Time Appointment Type Appointme nt Facility Name Dec 13, 2023 10:30 AM AMBULATORY - NONE [facility] Jan 05, 2024 11:30 AM AMBULATORY - SURGERY [facility] Mar 09, 2024 12:40 PM AMBULATORY - SURGERY [facility] Mar 10, 2024 12:30 PM AMBULATORY - SURGERY [facility] Mar 30, 2024 10:30 AM AMBULATORY - REHAB MEDICIN [facility] Apr 24, 2024 01:00 PM AMBULATORY - SURGERY [facility] Active, Pending, and Scheduled Orders This section includes a listing of several types of active, pending, and scheduled orders, including clinic medications orders, diagnostic test orders, procedure orders and consult orders; where the start date of the order is 45 days before the date of the Encounter or 45 days after the date of theEncounter. The data comes from all [facility]. Test Date/Time Test Type Test Details Facility Name Jan 05, 2024 12:28 PM Consult Order [facility] REHAB OUTPT ORTHO Cons [employer] [facility] Lab Results: +/- 30 days of the encounter This section includes the Chemistry and Hematology Lab Results on record with [place] for the patient. Radiology Reports and Pathology Reports are provided separately, in subsequent sections. Lab Results This section contains the Chemistry/Hematology Results that were resulted 30 days before or 30 daysafter the date of the Encounter. Date/Time Source Result Type Result - Unit Interpretation Reference Range Comment Nov 18, 2023 02:53 PM [facility] ALBUMIN/CREATININE RATIO URINE Specimen Type: URINE Comment: Urine albumin <5 mg/L, unable to calculate ratio Ordering Provider: KAYLI NAILS IN E Report Released Date/Time: Nov 18, 2023 02:43 PM Reporting Lab: [facility] [id number] Performing Lab: [facility] [id number] CREATININ E,UR RANDOM 65.6 mg/dL 58.0-161.0 ALB/CREAT RATIO,UR canc mg/g{creat} <29.9 ALBUMIN,U R <5.0 mg/L <29.9 Social History: Smoking Status (Most current) and Tobacco Use (All prior to encounter date) This section includes the most current, and the historical, smoking and tobacco- related health factors from the [place] facility where the Encounter took place. Current Smoking Status This section includes the most current smoking, or tobacco-related health factor, from the [place] facility where the Encounter took place. Date/Time Current Smoking Status Comment Facil ity Mar 29, 2023 11:00 AM VA-TOBACCO NEVER USED [facility] Tobacco Use History This section includes a history of the smoking, or tobacco-related health factors, that were collected on or before the date of the Encounter. The data comes from the [place] facility where the Encounter took place. Date/Time Smoking Status/Tobacco Use Comment F acility Feb 19, 2022 11:30 AM VA-TOBACCO FORMER USER [facility] Feb 19, 2022 11:30 AM VA-TOBACCO QUIT 15 YRS OR MORE [facility] August 14, 2020 08:30 AM VA-TOBACCO FORMER USER [facility] August 14, 2020 08:30 AM VA-TOBACCO QUIT 15 YRS OR MORE [facility] Jul 11, 2018 10:38 AM VA-TOBACCO FORMER USER [facility] Jul 11, 2018 10:38 AM VA-TOBACCO QUIT 15 YRS OR MORE [facility] Aug 25, 2017 10:47 AM FORMER TOBACCO USER 7Y OR GREATE R [facility] Nov 20, 2016 10:21 AM FORMER TOBACCO USER 7Y OR GREATE R [facility] Oct 08, 2015 08:27 AM FORMER TOBACCO USER 7Y OR GREATE R [facility] Dec 21, 2014 11:06 AM FORMER TOBACCO USER 7Y OR GREATE R [facility] Jan 05, 2014 08:09 AM FORMER TOBACCO USER 7Y OR GREATE R [facility] May 02, 2007 09:05 AM FORMER TOBACCO USER 7Y OR GREATE R [facility] May 12, 2006 10:31 AM FORMER TOBACCO USE >1Y <7Y [facility] Advance Directives: All historical and current Section Date Range: From patient's date of to the date document was created. This section includes ALL of a patient's completed or amended [place] Advance and Rescinded Directives. The entries below indicate that a directive exists for the patient, but an actual copy is not included with this document. The data comes from all [place] facilities. Date Advance Directives Provider Source Mar 26, 2015 ADVANCE DIRECTIVE DISCUSSION GABBY MISTRY [facility] Mar 26, 2015 ADVANCE DIRECTIVE MIGUEL MISTRY [facility] Jan 12, 2005 ADVANCE DIRECTIVE JENN GARDUNO [facility] Encounter Notes: All associated encounter notes This section contains the clinical notes associated to the Encounter. Date/Time Encounter Note(s) Provider Source Dec 17, 2023 10:03 AM ADDENDUM: LOCAL TITLE: Addendum STANDARD TITLE: ADDENDUM DATE OF NOTE: DEC 17, 2023@10:03:16 ENTRY DATE: DEC 17, 2023@10:03:17 AUTHOR: MILTON TOLENTINO EXP COSIGNER: URGENCY: STATUS: COMPLETED Alerting Provider Shayla per vet's request regarding change in carpal tunnel/pinched nerve sx. Vet has f/u appt w/ ortho hand on 01/04, concerns could be addressed during this appt. /nghia/ MILTON TOLENTINO REGISTERED NURSE Signed: 12/17/2023 10:04 Receipt Acknowledged By: 12/22/2023 13:25 /nghia/ URBANO ALCALA MD ORTHOPEDIC SURGEON --- Original Document --- 12/06/23 CCC: CLINICAL TRIAGE: Patient Demographics Patient Name: LACI GRIFFITH Patient Primary [address]: [address] [place] [address] [place] [address] Patient Primary Phone: [phone] Patient : 1945 Patient Age: 78 Caller/Recipient Relation to Patient: Self Emergency Contact: trace BARAJAS Triage Summary Conducted triage/discussed symptoms Pain Score: 4 Utilized the Triage Tool: Yes Chief Complaint: Arm Numbness (one arm) System WHEN: Within 24 Hours Nurse's Recommendation / WHEN: Within 3 Days System WHERE: Clinic Nurse's Recommendation / WHERE: Clinic/[facility] Patient Disposition Patient/Caregiver agrees to plan of care: Yes Nursing Plan and Disposition Referred Patient for In-Person Appt Other Other Description: Message Cpr Instructor sent to PACT per request rather than attempting scheduling. Referred patient to higher level of care Advised of Financial Disclaimer: Patient advised that recommendation for care provided during the call does not constitute an approval or authorization for payment by the [place] or its staff. Patient advised to report a community ED visit to the [facility] Office of Community Care at within 72 hours. Other course(s) of action Generated msg to PACT/Provider Provided guidance for worsening symptoms: *Caller/Patient* advised to call facilities [place] Clinical Contact Center or seek immediate medical attention for new or worsening symptoms Nurse Summary Nurse Summary: PATIENT CONCERN/DURATION/ONSET: reports testing (EMG 11/17/28) on his left arm 2 or 3 weeks ago with findings of carpal tunnel and a pinched nerve per . [place] reports 2 or 3 weeks ago he developed intermittent numbness and tingling in his right arm that starts in the wrist and travels to his right shoulder. reports this feels vary similar to his left wrist and reports the pain ranges from 2-5/10. Jian reports the numbness and tingling is not similar to his stroke symptoms he experienced in 2016 and reports his right sided weakness is no worse than since his stroke. Jian is requesting a message be sent to Dr. Rankin on 2F regarding his new onset right arm numbness/tingling. Jian denies recent injury, right neck or shoulder pain, shooting pain down arm from neck, vision changes, difficulty walking or speaking, headache, seizure, confusion, bowel or bladder incontinence, unilateral facial/arm/leg weakness/numbness. WHAT HAS PATIENT TRIED TO TREAT THE SYMPTOMS: Jian reports prn use of Tylenol that he feels may decrease right arm pain slightly and Tizanidine at bedtime helps him sleep. HISTORY/PREVIOUS TREATMENT: CVA, Numbness, Diabetes Mellitus type 2 WHAT IS PATIENT GOAL FOR THE CALL: Message to Dr. Rankin on 2F about experiencing similar carpal tunnel/pinched nerve symptoms on right arm after recent left arm evaluation Was Virtual Care Visit considered (TELE or VVC)? No GREASER HELPER DISPOSITION: Recommended triage down triaged to >24 hour interaction/3 days secondary to severity of symptoms with Jian declining to schedule a PACT appointment and requesting a message be sent. Will forward to PACT for further management of veterans concerns. Jian is expecting a call back. Jian agrees with plan of care and s/s to seek ED (disclaimer read and explained) evaluation as well as home care advice offered (e.g. if symptoms worsen or new symptoms present should seek medical care) and as outlined in education section below. Best contact for jian is ( ). This note was created by a [employer] fabrication technician. Please do not alert this nurse by adding as a signer for future communications. Alerts are not monitored by this user, please reach out to [place] [facility] instead if indicated. * Clinical Contact Center Codes Clinic/Location: V23 [facility] PHONE CCC RN Decision Support System Output: Triage Complete Triage Date: 12/06/2023, 09:56 AM Triage Note: Decision Support Tool Used: [facility] Phone Triage 06 Dec 2023 14:39:01 +0000 [facility] Demographics 78 y/o Male Results CC: Arm Numbness (one arm) Software suggested: Within 24 Hours Software suggested follow-up location: Clinic Values and Measures Duration of CC: 3 Weeks Positive Responses HPI: arm numbness, duration longer than 1 day HPI: arm pain, with arm numbness HPI: weakness, wrist or hand PMH: stroke or TIA Negative Responses Denies: HPI: arm or hand weakness, sudden onset Denies: HPI: arm weakness, unilateral Denies: HPI: cast or splint, arm Denies: HPI: confusion, sudden onset Denies: HPI: difficulty speaking, sudden onset Denies: HPI: difficulty walking, new Denies: HPI: difficulty with balance, sudden onset Denies: HPI: diplopia Denies: HPI: dysarthria, sudden onset Denies: HPI: facial weakness, unilateral, sudden onset Denies: HPI: falling to one side, sudden onset Denies: HPI: headache, severe Denies: HPI: neck injury, within past 48 hours Denies: HPI: neck pain or stiffness, constant, duration longer than 2 weeks Denies: HPI: neck pain, moderate to severe Denies: HPI: neck pain, radiates to arm Denies: HPI: numbness in one arm or hand, sudden onset Denies: HPI: numbness in one foot or leg, sudden onset Denies: HPI: rapidly worsening symptoms Denies: HPI: seizure Denies: HPI: symptoms similar to past stroke or TIA Denies: HPI: unable to walk, sudden onset Denies: HPI: urinary incontinence Denies: HPI: vision loss, sudden onset Denies: HPI: weakness in one leg or foot, sudden onset [place] Education Verbal Education Provided for: Numbness and Tingling Home Care Education Log Home care for numbness or tingling includes: Avoid exposure to secondary smoke. Avoid alcohol. Seek care if you have numbness and tingling and any of the following: Sudden numbness in one arm or leg: Arm numbness (unilateral) Leg numbness (unilateral) Arm and leg numbness (unilateral) Sudden weakness in one arm or leg: Arm weakness (unilateral) Leg weakness (unilateral) Arm and leg weakness (unilateral) Facial weakness (unilateral): Facial drooping Difficulty swallowing Difficulty speaking Difficulty walking Change in vision: Double vision Loss of vision Difficulty with balance Loss of coordination Memory loss Confusion Seizures IMPORTANT: This note was created by [facility] Clinical Contact Center staff. Please do not alert the staff member by adding them as a signer for future communications. Alerts are not monitored by this user. /nghia/ Adelia Maguire RN,BSN VISN 23 [facility] Signed: 12/06/2023 10:08 12/08/2023 ADDENDUM STATUS: COMPLETED Will alert PCP for ortho consult if appropriate. /SARAH Alexander, RN REGISTERED NURSE Signed: 12/08/2023 08:16 Receipt Acknowledged By: 12/16/2023 22:54 /nghia/ ALLEN NAILS MD Staff Physician 12/16/2023 ADDENDUM STATUS: COMPLETED it would be best if this vet were to be examined before ordering an EMG on the right arm. we may decide that he needs an MRI cervical spine, instead, for example. he could be seen in Laser clinic. /nghia/ ALLEN NAILS MD Staff Physician Signed: 12/16/2023 23:02 Receipt Acknowledged By: 12/17/2023 08:37 /SARAH Alexander, RN REGISTERED NURSE 12/17/2023 ADDENDUM STATUS: COMPLETED Will alert PACT RN for f/u. /SARAH Alexander, RN REGISTERED NURSE Signed: 12/17/2023 08:37 Receipt Acknowledged By: 12/17/2023 10:04 /nghia/ MILTON TOLENTINO REGISTERED NURSE MILTON TOLENTINO [facility] Dec 17, 2023 08:37 AM ADDENDUM: LOCAL TITLE: Addendum STANDARD TITLE: ADDENDUM DATE OF NOTE: DEC 17, 2023@08:37:24 ENTRY DATE: DEC 17, 2023@08:37:25 AUTHOR: KHUSHBOO NINO COSIGNER: URGENCY: STATUS: COMPLETED Will alert PACT RN for f/u. /es/ SARAH HUYNH, RN REGISTERED NURSE Signed: 12/17/2023 08:37 Receipt Acknowledged By: 12/17/2023 10:04 /nghia/ MILTON TOLENTINO REGISTERED NURSE --- Original Document --- 12/06/23 CCC: CLINICAL TRIAGE: Patient Demographics Patient Name: LACI GRIFFITH Patient Primary Address: [address] [place] [address] Patient Primary Phone: [phone] Patient : 1945 Patient Age: 78 Caller/Recipient Relation to Patient: Self Emergency Contact: trace BARAJAS Triage Summary Conducted triage/discussed symptoms Pain Score: 4 Utilized the Triage Tool: Yes Chief Complaint: Arm Numbness (one arm) System WHEN: Within 24 Hours Nurse's Recommendation / WHEN: Within 3 Days System WHERE: Clinic Nurse's Recommendation / WHERE: Clinic/[facility] Patient Disposition Patient/Caregiver agrees to plan of care: Yes Nursing Plan and Disposition Referred Patient for In-Person Appt Other Other Description: Message Cpr Instructor sent to PACT per request rather than attempting scheduling. Referred patient to higher level of care Advised of Financial Disclaimer: Patient advised that recommendation for care provided during the call does not constitute an approval or authorization for payment by the [place] or its staff. Patient advised to report a community ED visit to the [place] Office of Community Care at within 72 hours. Other course(s) of action Generated msg to PACT/Provider Provided guidance for worsening symptoms: *Caller/Patient* advised to call facilities [place] Clinical Contact Center or seek immediate medical attention for new or worsening symptoms Nurse Summary Nurse Summary: PATIENT CONCERN/DURATION/ONSET: Jian reports testing (EMG 11/17/28) on his left arm 2 or 3 weeks ago with findings of carpal tunnel and a pinched nerve per . Jian reports 2 or 3 weeks ago he developed intermittent numbness and tingling in his right arm that starts in the wrist and travels to his right shoulder. Jian reports this feels vary similar to his left wrist and reports the pain ranges from 2-5/10. Jian reports the numbness and tingling is not similar to his stroke symptoms he experienced in 2016 and reports his right sided weakness is no worse than since his stroke. Jian is requesting a message be sent to Dr. Rankin on 2F regarding his new onset right arm numbness/tingling. Jian denies recent injury, right neck or shoulder pain, shooting pain down arm from neck, vision changes, difficulty walking or speaking, headache, seizure, confusion, bowel or bladder incontinence, unilateral facial/arm/leg weakness/numbness. WHAT HAS PATIENT TRIED TO TREAT THE SYMPTOMS: Jian reports prn use of Tylenol that he feels may decrease right arm pain slightly and Tizanidine at bedtime helps him sleep. HISTORY/PREVIOUS TREATMENT: CVA, Numbness, Diabetes Mellitus type 2 WHAT IS PATIENT GOAL FOR THE CALL: Message to Dr. Rankin on 2F about experiencing similar carpal tunnel/pinched nerve symptoms on right arm after recent left arm evaluation Was Virtual Care Visit considered (TELE or VVC)? No GREASER HELPER DISPOSITION: Recommended triage down triaged to >24 hour interaction/3 days secondary to severity of symptoms with Jian declining to schedule a PACT appointment and requesting a message be sent. Will forward to PACT for further management of veterans concerns. Jian is expecting a call back. Jian agrees with plan of care and s/s to seek ED (disclaimer read and explained) evaluation as well as home care advice offered (e.g. if symptoms worsen or new symptoms present should seek medical care) and as outlined in education section below. Best contact for jian is ( ). This note was created by a [facility] [employer]ic fabrication technician. Please do not alert this nurse by adding as a signer for future communications. Alerts are not monitored by this user, please reach out to [place] [facility] instead if indicated. * Clinical Contact Center Codes Clinic/Location: 3 [facility] PHONE CCC RN Decision Support System Output: Triage Complete Triage Date: 12/06/2023, 09:56 AM Triage Note: Decision Support Tool Used: [facility] Phone Triage Wed, 06 Dec 2023 14:39:01 +0000 [facility] Demographics 78 y/o Male Results CC: Arm Numbness (one arm) Software suggested: Within 24 Hours Software suggested follow-up location: Clinic Values and Measures Duration of CC: 3 Weeks Positive Responses HPI: arm numbness, duration longer than 1 day HPI: arm pain, with arm numbness HPI: weakness, wrist or hand PMH: stroke or TIA Negative Responses Denies: HPI: arm or hand weakness, sudden onset Denies: HPI: arm weakness, unilateral Denies: HPI: cast or splint, arm Denies: HPI: confusion, sudden onset Denies: HPI: difficulty speaking, sudden onset Denies: HPI: difficulty walking, new Denies: HPI: difficulty with balance, sudden onset Denies: HPI: diplopia Denies: HPI: dysarthria, sudden onset Denies: HPI: facial weakness, unilateral, sudden onset Denies: HPI: falling to one side, sudden onset Denies: HPI: headache, severe Denies: HPI: neck injury, within past 48 hours Denies: HPI: neck pain or stiffness, constant, duration longer than 2 weeks Denies: HPI: neck pain, moderate to severe Denies: HPI: neck pain, radiates to arm Denies: HPI: numbness in one arm or hand, sudden onset Denies: HPI: numbness in one foot or leg, sudden onset Denies: HPI: rapidly worsening symptoms Denies: HPI: seizure Denies: HPI: symptoms similar to past stroke or TIA Denies: HPI: unable to walk, sudden onset Denies: HPI: urinary incontinence Denies: HPI: vision loss, sudden onset Denies: HPI: weakness in one leg or foot, sudden onset [place] Education Verbal Education Provided for: Numbness and Tingling Home Care Education Log Home care for numbness or tingling includes: Avoid exposure to secondary smoke. Avoid alcohol. Seek care if you have numbness and tingling and any of the following: Sudden numbness in one arm or leg: Arm numbness (unilateral) Leg numbness (unilateral) Arm and leg numbness (unilateral) Sudden weakness in one arm or leg: Arm weakness (unilateral) Leg weakness (unilateral) Arm and leg weakness (unilateral) Facial weakness (unilateral): Facial drooping Difficulty swallowing Difficulty speaking Difficulty walking Change in vision: Double vision Loss of vision Difficulty with balance Loss of coordination Memory loss Confusion Seizures IMPORTANT: This note was created by [facility] Clinical Contact Center staff. Please do not alert the staff member by adding them as a signer for future communications. Alerts are not monitored by this user. /es/ Adelia Maguire RN,BSN AMANUEL 23 [facility] Signed: 12/06/2023 10:08 12/08/2023 ADDENDUM STATUS: COMPLETED Will alert PCP for ortho consult if appropriate. /es/ SARAH HUYNH, RN REGISTERED NURSE Signed: 12/08/2023 08:16 Receipt Acknowledged By: 12/16/2023 22:54 /nghia/ ALLNE NAILS MD Staff Physician 12/16/2023 ADDENDUM STATUS: COMPLETED it would be best if this vet were to be examined before ordering an EMG on the right arm. we may decide that he needs an MRI cervical spine, instead, for example. he could be seen in Laser clinic. /es/ ALLEN NAILS MD Staff Physician Signed: 12/16/2023 23:02 Receipt Acknowledged By: 12/17/2023 08:37 /nghia/ SARAH HUYNH, RN REGISTERED NURSE 12/17/2023 ADDENDUM STATUS: COMPLETED Alerting Provider Shayla per vet's request regarding change in carpal tunnel/pinched nerve sx. Vet has f/u appt w/ ortho hand on 01/04, concerns could be addressed during this appt. /es/ MILTON TOLENTINO REGISTERED NURSE Signed: 12/17/2023 10:04 Receipt Acknowledged By: * AWAITING SIGNATURE * URBANO ALCALA VERONICA [facility] Dec 16, 2023 11:01 PM ADDENDUM: LOCAL TITLE: Addendum STANDARD TITLE: ADDENDUM DATE OF NOTE: DEC 16, 2023@23:01:08 ENTRY DATE: DEC 16, 2023@23:01:10 AUTHOR: ZACH NAILS EXP COSIGNER: URGENCY: STATUS: COMPLETED it would be best if this vet were to be examined before ordering an EMG on the right arm. we may decide that he needs an MRI cervical spine, instead, for example. he could be seen in Laser clinic. /es/ ALLEN NAILS MD Staff Physician Signed: 12/16/2023 23:02 Receipt Acknowledged By: 12/17/2023 08:37 /es/ SARAH HUYNH, RN REGISTERED NURSE --- Original Document --- 12/06/23 CCC: CLINICAL TRIAGE: Patient Demographics Patient Name: LACI GRIFFITH Patient Primary Address: [address] [place] [address] Patient Primary Phone: [phone] Patient : 1945 Patient Age: 78 Caller/Recipient Relation to Patient: Self Emergency Contact: [facility] Triage Summary Conducted triage/discussed symptoms Pain Score: 4 Utilized the Triage Tool: Yes Chief Complaint: Arm Numbness (one arm) System WHEN: Within 24 Hours Nurse's Recommendation / WHEN: Within 3 Days System WHERE: Clinic Nurse's Recommendation / WHERE: Clinic/[facility] Patient Disposition Patient/Caregiver agrees to plan of care: Yes Nursing Plan and Disposition Referred Patient for In-Person Appt Other Other Description: Message Cpr Instructor sent to PACT per request rather than attempting scheduling. Referred patient to higher level of care Advised of Financial Disclaimer: Patient advised that recommendation for care provided during the call does not constitute an approval or authorization for payment by the [place] or its staff. Patient advised to report a community ED visit to the [facility] Office of Community Care at within 72 hours. Other course(s) of action Generated msg to PACT/Provider Provided guidance for worsening symptoms: *Caller/Patient* advised to call facilities [place] Clinical Contact Center or seek immediate medical attention for new or worsening symptoms Nurse Summary Nurse Summary: PATIENT CONCERN/DURATION/ONSET: Jian reports testing (EMG 11/17/28) on his left arm 2 or 3 weeks ago with findings of carpal tunnel and a pinched nerve per . Jian reports 2 or 3 weeks ago he developed intermittent numbness and tingling in his right arm that starts in the wrist and travels to his right shoulder. [place] reports this feels vary similar to his left wrist and reports the pain ranges from 2-5/10. Jian reports the numbness and tingling is not similar to his stroke symptoms he experienced in 2016 and reports his right sided weakness is no worse than since his stroke. Jian is requesting a message be sent to Dr. Rankin on 2F regarding his new onset right arm numbness/tingling. Jian denies recent injury, right neck or shoulder pain, shooting pain down arm from neck, vision changes, difficulty walking or speaking, headache, seizure, confusion, bowel or bladder incontinence, unilateral facial/arm/leg weakness/numbness. WHAT HAS PATIENT TRIED TO TREAT THE SYMPTOMS: Jian reports prn use of Tylenol that he feels may decrease right arm pain slightly and Tizanidine at bedtime helps him sleep. HISTORY/PREVIOUS TREATMENT: CVA, Numbness, Diabetes Mellitus type 2 WHAT IS PATIENT GOAL FOR THE CALL: Message to Dr. Rankin on 2F about experiencing similar carpal tunnel/pinched nerve symptoms on right arm after recent left arm evaluation Was Virtual Care Visit considered (TELE or VVC)? No GREASER HELPER DISPOSITION: Recommended triage down triaged to >24 hour interaction/3 days secondary to severity of symptoms with declining to schedule a PACT appointment and requesting a message be sent. Will forward to PACT for further management of veterans concerns. [place] is expecting a call back. agrees with plan of care and s/s to seek ED (disclaimer read and explained) evaluation as well as home care advice offered (e.g. if symptoms worsen or new symptoms present should seek medical care) and as outlined in education section below. Best contact for is ( ). This note was created by a [address] photovoltaic fabrication technician. Please do not alert this nurse by adding as a signer for future communications. Alerts are not monitored by this user, please reach out to [facility] instead if indicated. * Clinical Contact Center Codes Clinic/Location: [address] PHONE [facility] RN Decision Support System Output: Triage Complete Triage Date: 12/06/2023, 09:56 AM Triage Note: Decision Support Tool Used: [facility] Phone Triage 06 Dec 2023 14:39:01 +0000 [facility] Demographics 78 y/o Male Results CC: Arm Numbness (one arm) Software suggested: Within 24 Hours Software suggested follow-up location: Clinic Values and Measures Duration of CC: 3 Weeks Positive Responses HPI: arm numbness, duration longer than 1 day HPI: arm pain, with arm numbness HPI: weakness, wrist or hand PMH: stroke or TIA Negative Responses Denies: HPI: arm or hand weakness, sudden onset Denies: HPI: arm weakness, unilateral Denies: HPI: cast or splint, arm Denies: HPI: confusion, sudden onset Denies: HPI: difficulty speaking, sudden onset Denies: HPI: difficulty walking, new Denies: HPI: difficulty with balance, sudden onset Denies: HPI: diplopia Denies: HPI: dysarthria, sudden onset Denies: HPI: facial weakness, unilateral, sudden onset Denies: HPI: falling to one side, sudden onset Denies: HPI: headache, severe Denies: HPI: neck injury, within past 48 hours Denies: HPI: neck pain or stiffness, constant, duration longer than 2 weeks Denies: HPI: neck pain, moderate to severe Denies: HPI: neck pain, radiates to arm Denies: HPI: numbness in one arm or hand, sudden onset Denies: HPI: numbness in one foot or leg, sudden onset Denies: HPI: rapidly worsening symptoms Denies: HPI: seizure Denies: HPI: symptoms similar to past stroke or TIA Denies: HPI: unable to walk, sudden onset Denies: HPI: urinary incontinence Denies: HPI: vision loss, sudden onset Denies: HPI: weakness in one leg or foot, sudden onset Education Verbal Education Provided for: Numbness and Tingling Home Care Education Log Home care for numbness or tingling includes: Avoid exposure to secondary smoke. Avoid alcohol. Seek care if you have numbness and tingling and any of the following: Sudden numbness in one arm or leg: Arm numbness (unilateral) Leg numbness (unilateral) Arm and leg numbness (unilateral) Sudden weakness in one arm or leg: Arm weakness (unilateral) Leg weakness (unilateral) Arm and leg weakness (unilateral) Facial weakness (unilateral): Facial drooping Difficulty swallowing Difficulty speaking Difficulty walking Change in vision: Double vision Loss of vision Difficulty with balance Loss of coordination Memory loss Confusion Seizures IMPORTANT: This note was created by [facility] Clinical Contact Center staff. Please do not alert the staff member by adding them as a signer for future communications. Alerts are not monitored by this user. /nghia/ Adelia Maguire RN,BSN VISN 23 [facility] Signed: 12/06/2023 10:08 12/08/2023 ADDENDUM STATUS: COMPLETED Will alert PCP for ortho consult if appropriate. /nghia/ SARAH HUYNH, RN REGISTERED NURSE Signed: 12/08/2023 08:16 Receipt Acknowledged By: 12/16/2023 22:54 /zahida NAILS MD Staff Physician 12/17/2023 ADDENDUM STATUS: UNSIGNED You may not VIEW this UNSIGNED Addendum. ALLEN NAILS [facility] Dec 08, 2023 08:16 AM ADDENDUM: LOCAL TITLE: Addendum STANDARD TITLE: ADDENDUM DATE OF NOTE: DEC 08, 2023@08:16:40 ENTRY DATE: DEC 08, 2023@08:16:40 AUTHOR: KHUSHBOO NINO COSIGNER: URGENCY: STATUS: COMPLETED Will alert PCP for ortho consult if appropriate. /nghia/ SARAH HUYNH, RN REGISTERED NURSE Signed: 12/08/2023 08:16 Receipt Acknowledged By: 12/16/2023 22:54 /zahida NAILS MD Staff Physician --- Original Document --- 12/06/23 CCC: CLINICAL TRIAGE: Patient Demographics Patient Name: LACI GRIFFITH Patient Primary Address: [address] [place] [address] Patient Primary Phone: [phone] Patient : 1945 Patient Age: 78 Caller/Recipient Relation to Patient: Self Emergency Contact: trace BARAJAS Triage Summary Conducted triage/discussed symptoms Pain Score: 4 Utilized the Triage Tool: Yes Chief Complaint: Arm Numbness (one arm) System WHEN: Within 24 Hours Nurse's Recommendation / WHEN: Within 3 Days System WHERE: Clinic Nurse's Recommendation / WHERE: Clinic/[facility] Patient Disposition Patient/Caregiver agrees to plan of care: Yes Nursing Plan and Disposition Referred Patient for In-Person Appt Other Other Description: Message Cpr Instructor sent to PACT per request rather than attempting scheduling. Referred patient to higher level of care Advised of Financial Disclaimer: Patient advised that recommendation for care provided during the call does not constitute an approval or authorization for payment by the [place] or its staff. Patient advised to report a community ED visit to the [facility] Office of Community Care at within 72 hours. Other course(s) of action Generated msg to PACT/Provider Provided guidance for worsening symptoms: *Caller/Patient* advised to call facilities [place] Clinical Contact Center or seek immediate medical attention for new or worsening symptoms Nurse Summary Nurse Summary: PATIENT CONCERN/DURATION/ONSET: Jian reports testing (EMG 11/17/28) on his left arm 2 or 3 weeks ago with findings of carpal tunnel and a pinched nerve per . Jian reports 2 or 3 weeks ago he developed intermittent numbness and tingling in his right arm that starts in the wrist and travels to his right shoulder. Jian reports this feels vary similar to his left wrist and reports the pain ranges from 2-5/10. Jian reports the numbness and tingling is not similar to his stroke symptoms he experienced in 2016 and reports his right sided weakness is no worse than since his stroke. Jian is requesting a message be sent to Dr. Rankin on 2F regarding his new onset right arm numbness/tingling. [place] denies recent injury, right neck or shoulder pain, shooting pain down arm from neck, vision changes, difficulty walking or speaking, headache, seizure, confusion, bowel or bladder incontinence, unilateral facial/arm/leg weakness/numbness. WHAT HAS PATIENT TRIED TO TREAT THE SYMPTOMS: Jian reports prn use of Tylenol that he feels may decrease right arm pain slightly and Tizanidine at bedtime helps him sleep. HISTORY/PREVIOUS TREATMENT: CVA, Numbness, Diabetes Mellitus type 2 WHAT IS PATIENT GOAL FOR THE CALL: Message to Dr. Rankin on 2F about experiencing similar carpal tunnel/pinched nerve symptoms on right arm after recent left arm evaluation Was Virtual Care Visit considered (TELE or VVC)? No GREASER HELPER DISPOSITION: Recommended triage down triaged to >24 hour interaction/3 days secondary to severity of symptoms with Jian declining to schedule a PACT appointment and requesting a message be sent. Will forward to PACT for further management of veterans concerns. is expecting a call back. [place] agrees with plan of care and s/s to seek ED (disclaimer read and explained) evaluation as well as home care advice offered (e.g. if symptoms worsen or new symptoms present should seek medical care) and as outlined in education section below. Best contact for is ( ). This note was created by a [address] photovoltaic fabrication technician. Please do not alert this nurse by adding as a signer for future communications. Alerts are not monitored by this user, please reach out to [facility] instead if indicated. * Clinical Contact Center Codes Clinic/Location: [address] PHONE [facility] RN Decision Support System Output: Triage Complete Triage Date: 12/06/2023, 09:56 AM Triage Note: Decision Support Tool Used: [facility] Phone Triage 06 Dec 2023 14:39:01 +0000 [facility] Demographics 78 y/o Male Results CC: Arm Numbness (one arm) Software suggested: Within 24 Hours Software suggested follow-up location: Clinic Values and Measures Duration of CC: 3 Weeks Positive Responses HPI: arm numbness, duration longer than 1 day HPI: arm pain, with arm numbness HPI: weakness, wrist or hand PMH: stroke or TIA Negative Responses Denies: HPI: arm or hand weakness, sudden onset Denies: HPI: arm weakness, unilateral Denies: HPI: cast or splint, arm Denies: HPI: confusion, sudden onset Denies: HPI: difficulty speaking, sudden onset Denies: HPI: difficulty walking, new Denies: HPI: difficulty with balance, sudden onset Denies: HPI: diplopia Denies: HPI: dysarthria, sudden onset Denies: HPI: facial weakness, unilateral, sudden onset Denies: HPI: falling to one side, sudden onset Denies: HPI: headache, severe Denies: HPI: neck injury, within past 48 hours Denies: HPI: neck pain or stiffness, constant, duration longer than 2 weeks Denies: HPI: neck pain, moderate to severe Denies: HPI: neck pain, radiates to arm Denies: HPI: numbness in one arm or hand, sudden onset Denies: HPI: numbness in one foot or leg, sudden onset Denies: HPI: rapidly worsening symptoms Denies: HPI: seizure Denies: HPI: symptoms similar to past stroke or TIA Denies: HPI: unable to walk, sudden onset Denies: HPI: urinary incontinence Denies: HPI: vision loss, sudden onset Denies: HPI: weakness in one leg or foot, sudden onset Education Verbal Education Provided for: Numbness and Tingling Home Care Education Log Home care for numbness or tingling includes: Avoid exposure to secondary smoke. Avoid alcohol. Seek care if you have numbness and tingling and any of the following: Sudden numbness in one arm or leg: Arm numbness (unilateral) Leg numbness (unilateral) Arm and leg numbness (unilateral) Sudden weakness in one arm or leg: Arm weakness (unilateral) Leg weakness (unilateral) Arm and leg weakness (unilateral) Facial weakness (unilateral): Facial drooping Difficulty swallowing Difficulty speaking Difficulty walking Change in vision: Double vision Loss of vision Difficulty with balance Loss of coordination Memory loss Confusion Seizures IMPORTANT: This note was created by [facility] Clinical Contact Center staff. Please do not alert the staff member by adding them as a signer for future communications. Alerts are not monitored by this user. /nghia/ Adelia Maguire RN,BSN VISN 23 [facility] Signed: 12/06/2023 10:08 KHUSHBOO NINO [facility] Dec 06, 2023 10:08 AM RN PROGRESS NOTE: LOCAL TITLE: CCC: CLINICAL TRIAGE STANDARD TITLE: RN PROGRESS NOTE DATE OF NOTE: DEC 06, 2023@10:08:27 ENTRY DATE: DEC 06, 2023@10:08:27 AUTHOR: ADELIA MAGUIRE EXP COSIGNER: URGENCY: STATUS: COMPLETED CCC: CLINICAL TRIAGE Has ADDENDA Patient Demographics Patient Name: LACI GRIFFITH Patient Primary [address]: [address] [place] [id number] Patient Primary Phone: [phone] Patient : 1945 Patient Age: 78 Caller/Recipient Relation to Patient: Self Emergency Contact: trace BARAJAS Triage Summary Conducted triage/discussed symptoms Pain Score: 4 Utilized the Triage Tool: Yes Chief Complaint: Arm Numbness (one arm) System WHEN: Within 24 Hours Nurse's Recommendation / WHEN: Within 3 Days System WHERE: Clinic Nurse's Recommendation / WHERE: Clinic/[facility] Patient Disposition Patient/Caregiver agrees to plan of care: Yes Nursing Plan and Disposition Referred Patient for In-Person Appt Other Other Description: Message Cpr Instructor sent to PACT per request rather than attempting scheduling. Referred patient to higher level of care Advised of Financial Disclaimer: Patient advised that recommendation for care provided during the call does not constitute an approval or authorization for payment by the [place] or its staff. Patient advised to report a community ED visit to the [facility] Office of Community Care at within 72 hours. Other course(s) of action Generated msg to PACT/Provider Provided guidance for worsening symptoms: *Caller/Patient* advised to call facilities [place] Clinical Contact Center or seek immediate medical attention for new or worsening symptoms Nurse Summary Nurse Summary: PATIENT CONCERN/DURATION/ONSET: Jian reports testing (EMG 11/17/28) on his left arm 2 or 3 weeks ago with findings of carpal tunnel and a pinched nerve per jian. Jian reports 2 or 3 weeks ago he developed intermittent numbness and tingling in his right arm that starts in the wrist and travels to his right shoulder. Jian reports this feels vary similar to his left wrist and reports the pain ranges from 2-5/10. Jian reports the numbness and tingling is not similar to his stroke symptoms he experienced in 2016 and reports his right sided weakness is no worse than since his stroke. Jian is requesting a message be sent to Dr. Rankin on 2F regarding his new onset right arm numbness/tingling. Jian denies recent injury, right neck or shoulder pain, shooting pain down arm from neck, vision changes, difficulty walking or speaking, headache, seizure, confusion, bowel or bladder incontinence, unilateral facial/arm/leg weakness/numbness. WHAT HAS PATIENT TRIED TO TREAT THE SYMPTOMS: [place] reports prn use of Tylenol that he feels may decrease right arm pain slightly and Tizanidine at bedtime helps him sleep. HISTORY/PREVIOUS TREATMENT: CVA, Numbness, Diabetes Mellitus type 2 WHAT IS PATIENT GOAL FOR THE CALL: Message to Dr. Rankin on 2F about experiencing similar carpal tunnel/pinched nerve symptoms on right arm after recent left arm evaluation Was Virtual Care Visit considered (TELE or VVC)? No GREASER HELPER DISPOSITION: Recommended triage down triaged to >24 hour interaction/3 days secondary to severity of symptoms with declining to schedule a PACT appointment and requesting a message be sent. Will forward to PACT for further management of veterans concerns. is expecting a call back. agrees with plan of care and s/s to seek ED (disclaimer read and explained) evaluation as well as home care advice offered (e.g. if symptoms worsen or new symptoms present should seek medical care) and as outlined in education section below. Best contact for is ( ). This note was created by a [address] photovoltaic fabrication technician. Please do not alert this nurse by adding as a signer for future communications. Alerts are not monitored by this user, please reach out to [facility] instead if indicated. * Clinical Contact Center Codes Clinic/Location: [address] PHONE [facility] RN Decision Support System Output: Triage Complete Triage Date: 12/06/2023, 09:56 AM Triage Note: Decision Support Tool Used: [facility] Phone Triage 06 Dec 2023 14:39:01 +0000 [facility] Demographics 78 y/o Male Results CC: Arm Numbness (one arm) Software suggested: Within 24 Hours Software suggested follow-up location: Clinic Values and Measures Duration of CC: 3 Weeks Positive Responses HPI: arm numbness, duration longer than 1 day HPI: arm pain, with arm numbness HPI: weakness, wrist or hand PMH: stroke or TIA Negative Responses Denies: HPI: arm or hand weakness, sudden onset Denies: HPI: arm weakness, unilateral Denies: HPI: cast or splint, arm Denies: HPI: confusion, sudden onset Denies: HPI: difficulty speaking, sudden onset Denies: HPI: difficulty walking, new Denies: HPI: difficulty with balance, sudden onset Denies: HPI: diplopia Denies: HPI: dysarthria, sudden onset Denies: HPI: facial weakness, unilateral, sudden onset Denies: HPI: falling to one side, sudden onset Denies: HPI: headache, severe Denies: HPI: neck injury, within past 48 hours Denies: HPI: neck pain or stiffness, constant, duration longer than 2 weeks Denies: HPI: neck pain, moderate to severe Denies: HPI: neck pain, radiates to arm Denies: HPI: numbness in one arm or hand, sudden onset Denies: HPI: numbness in one foot or leg, sudden onset Denies: HPI: rapidly worsening symptoms Denies: HPI: seizure Denies: HPI: symptoms similar to past stroke or TIA Denies: HPI: unable to walk, sudden onset Denies: HPI: urinary incontinence Denies: HPI: vision loss, sudden onset Denies: HPI: weakness in one leg or foot, sudden onset Education Verbal Education Provided for: Numbness and Tingling Home Care Education Log Home care for numbness or tingling includes: Avoid exposure to secondary smoke. Avoid alcohol. Seek care if you have numbness and tingling and any of the following: Sudden numbness in one arm or leg: Arm numbness (unilateral) Leg numbness (unilateral) Arm and leg numbness (unilateral) Sudden weakness in one arm or leg: Arm weakness (unilateral) Leg weakness (unilateral) Arm and leg weakness (unilateral) Facial weakness (unilateral): Facial drooping Difficulty swallowing Difficulty speaking Difficulty walking Change in vision: Double vision Loss of vision Difficulty with balance Loss of coordination Memory loss Confusion Seizures IMPORTANT: This note was created by [facility] Clinical Contact Center staff. Please do not alert the staff member by adding them as a signer for future communications. Alerts are not monitored by this user. /nghia/ Adelia Maguire RN,BSN VISN 23 [facility] Signed: 12/06/2023 10:08 12/08/2023 ADDENDUM STATUS: COMPLETED Will alert PCP for ortho consult if appropriate. /SARAH Alexander, RN REGISTERED NURSE Signed: 12/08/2023 08:16 Receipt Acknowledged By: 12/16/2023 22:54 /nghia/ ALLEN NAILS MD Staff Physician 12/16/2023 ADDENDUM STATUS: COMPLETED it would be best if this vet were to be examined before ordering an EMG on the right arm. we may decide that he needs an MRI cervical spine, instead, for example. he could be seen in Laser clinic. /nghia/ ALLEN NAILS MD Staff Physician Signed: 12/16/2023 23:02 Receipt Acknowledged By: 12/17/2023 08:37 /SARAH Alexander, RN REGISTERED NURSE 12/17/2023 ADDENDUM STATUS: COMPLETED Will alert PACT RN for f/u. /SARAH Alexander, RN REGISTERED NURSE Signed: 12/17/2023 08:37 Receipt Acknowledged By: 12/17/2023 10:04 /zahida TOLENTINO REGISTERED NURSE 12/17/2023 ADDENDUM STATUS: COMPLETED Alerting Provider Shayla per vet's request regarding change in carpal tunnel/pinched nerve sx. Vet has f/u appt w/ ortho hand on 01/04, concerns could be addressed during this appt. /zahida TOLENTINO REGISTERED NURSE Signed: 12/17/2023 10:04 Receipt Acknowledged By: * AWAITING SIGNATURE * [facility]
--- OUTSIDE RECORDS SUMMARY | 2024-03-17 13:06 | XMS_ITS | Encounter Summary ---
Author Name [facility] [place] [facility] [place] [facility] [place] Address [address] [place] [address] Care Team Providers Care Electronics Recycler Name Role Phone ALLEN NAILS Primary Care [...] [place] AIR[place] MACY/C DHP Mar 22, 2009 [id number] [phone] AAKASH GRIFFITH PATIENT MEDICA HIGH DEDUCTIBL E HEALTH PLAN W/HEALTH REIMBURSE MENT ARRANGEME NT [place] MACY HRA Mar 22, 2009 [id number] [phone] AAKASH GRIFFITH PATIENT [facility] BEHAVIORAL HEALTH MENTAL HEALTH [place] MACY HRA Mar 22, 2009 [id number] [phone] AAKASH GRIFFITH PATIENT MEDICA MCR (WNR) MEDICARE ADVANTAGE [facility] (WNR) Mar 22, 2018 [id number] [phone] AAKASH GRIFFITH PATIENT MEDICA MCR (WNR) MEDICARE ADVANTAGE MCR (WNR) Sep 19, 2012 [id number] [phone] AAKASH GRIFFITH PATIENT MEDICARE (WNR) MEDICARE (M) PART B Aug 20, 2012 PART B [id number] [phone] AAKASH GRIFFITH PATIENT MEDICARE (WNR) MEDICARE (M) PART A Sep 19, 2010 PART A [id number] [phone] AAKASH GRIFFITH PATIENT Selected Encounter This section includes the information on record at [place] for the Encounter. Date/Time Encounter Type Encounter Description Reason Provider Source Nov 17, 2023 11:30 AM OFFICE O/P EST MOD 30 MIN ORTHO/JOINT SURG ICD-10-CM G56.02 Carpal tunnel syndrome, left upper limb URBANO MCGUIRE Jeff Encounter Template Text not used by [place] Assessments - Encounter Diagnoses This section includes the primary and secondary diagnoses documented for the Encounter. Date/Time Primary/Secondary Diagnosis Diagnosis Name Provider Source Nov 18, 2023 02:50 PM PRIMARY Carpal tunnel syndrome, left upper limb WAYNE KATHLEEN [facility] Plan of Treatment: Future Appointments (+ 6 months) and Future Tests (+/- 45 days) The Plan of Treatment section includes future care activities for the patient from all [place] [facility] This section includes future appointments and future orders which are active, pending or scheduled. Future Appointments This section includes appointments that were scheduled to occur 6 months from the date of the Encounter, up to a maximum of 20 appointments. The data comes from all [place] treatment facilities. Appointment Date/Time Appointment Type Appointme nt Facility Name Nov 18, 2023 01:00 PM AMBULATORY - REHAB MEDICIN E [facility] Nov 18, 2023 03:00 PM AMBULATORY - MEDICINE [facility] Dec 13, 2023 10:30 AM AMBULATORY - NONE [facility] Jan 05, 2024 11:30 AM AMBULATORY - SURGERY [facility] Mar 09, 2024 12:40 PM AMBULATORY - SURGERY [facility] Mar 10, 2024 12:30 PM AMBULATORY - SURGERY [facility] Mar 30, 2024 10:30 AM AMBULATORY - REHAB MEDICIN E [facility] Apr 24, 2024 01:00 PM AMBULATORY - SURGERY [facility] Lab Results: +/- 30 days of the encounter This section includes the Chemistry and Hematology Lab Results on record with [place] for the patient. Radiology Reports and Pathology Reports are provided separately, in subsequent sections. Lab Results This section contains the Chemistry/Hematology Results that were resulted 30 days before or 30 daysafter the date of the Encounter. Date/Time Source Result Type Result - Unit Interpretation Reference Range Comment Nov 18, 2023 02:53 PM [facility] ALBUMIN/CREATININE RATIO URINE Specimen Type: URINE Comment: Urine albumin <5 mg/L, unable to calculate ratio Ordering Provider: KAYLI NAILS IN E Report Released Date/Time: Nov 18, 2023 02:43 PM Reporting Lab: [facility] [id number] Performing Lab: [facility] [id number] CREATININ E,UR RANDOM 65.6 mg/dL 58.0-161.0 ALB/CREAT RATIO,UR canc mg/g{creat} <29.9 ALBUMIN,U R <5.0 mg/L <29.9 Social History: Smoking Status (Most current) and Tobacco Use (All prior to encounter date) This section includes the most current, and the historical, smoking and tobacco- related health factors from the [place] facility where the Encounter took place. Current Smoking Status This section includes the most current smoking, or tobacco-related health factor, from the [place] facility where the Encounter took place. Date/Time Current Smoking Status Comment Facil ity Mar 29, 2023 11:00 AM VA-TOBACCO NEVER USED [facility] Tobacco Use History This section includes a history of the smoking, or tobacco-related health factors, that were collected on or before the date of the Encounter. The data comes from the [place] facility where the Encounter took place. Date/Time Smoking Status/Tobacco Use Comment F acility Feb 19, 2022 11:30 AM VA-TOBACCO FORMER USER [facility] Feb 19, 2022 11:30 AM VA-TOBACCO QUIT 15 YRS OR MORE [facility] August 14, 2020 08:30 AM VA-TOBACCO FORMER USER [facility] August 14, 2020 08:30 AM VA-TOBACCO QUIT 15 YRS OR MORE [facility] Jul 11, 2018 10:38 AM VA-TOBACCO FORMER USER [facility] Jul 11, 2018 10:38 AM VA-TOBACCO QUIT 15 YRS OR MORE [facility] Aug 25, 2017 10:47 AM FORMER TOBACCO USER 7Y OR GREATE R [facility] Nov 20, 2016 10:21 AM FORMER TOBACCO USER 7Y OR MAYAE R [facility] Oct 08, 2015 08:27 AM FORMER TOBACCO USER 7Y OR MAYAE R [facility] Dec 21, 2014 11:06 AM FORMER TOBACCO USER 7Y OR MAYAE R [facility] Jan 05, 2014 08:09 AM FORMER TOBACCO USER 7Y OR MAYAE R [facility] May 02, 2007 09:05 AM FORMER TOBACCO USER 7Y OR MAYAE R [facility] May 12, 2006 10:31 AM FORMER TOBACCO USE >1Y <7Y [facility] Advance Directives: All historical and current Section Date Range: From patient's date of to the date document was created. This section includes ALL of a patient's completed or amended [place] Advance and Rescinded Directives. The entries below indicate that a directive exists for the patient, but an actual copy is not included with this document. The data comes from all [place] facilities. Date Advance Directives Provider Source Mar 26, 2015 ADVANCE DIRECTIVE DISCUSSION GABBY MISTRY [facility] Mar 26, 2015 ADVANCE DIRECTIVE MIGUEL MISTRY [facility] Jan 12, 2005 ADVANCE DIRECTIVE JENN GARDUNO [facility] Encounter Notes: All associated encounter notes This section contains the clinical notes associated to the Encounter. Date/Time Encounter Note(s) Provider Source Nov 17, 2023 12:19 PM ORTHOPEDIC SURGERY ATTENDING NOTE: LOCAL TITLE: ORTHOPEDIC CLINIC NOTE STANDARD TITLE: ORTHOPEDIC SURGERY ATTENDING NOTE DATE OF NOTE: NOV 17, 2023@12:19 ENTRY DATE: NOV 17, 2023@12:19:21 AUTHOR: WAYNE KATHLEEN COSIGNER: URGENCY: STATUS: COMPLETED ORTHOPEDIC CLINIC NOTE Has ADDENDA Orthopaedic Clinic Follow-up Note CC: c/f L trigger finger Subjective: Is a 78-year-old wcmvj-vwuq-ovyatqyn male presenting for concerning symptoms for carpal tunnel syndrome of the left upper extremity. He does note paresthesias that go from the shoulder to the fingers. Notes numbness in all 5 digits. Denies night pain, pain is worse in the morning. He has trialed Tylenol which offers moderate benefit. He is unable to take NSAIDs due to kidney stones and heart disease. Reports no prior injections to the left wrist. Denies numbness, tingling, fevers, chills, nausea, vomiting, chest pain, or SOB. Objective: Gen: well-appearing, alert and oriented, NAD Pulm: non-labored respirations on room air LUE: 3 mm, mobile mass over the dorsal proximal first phalanx No atrophy of thenar, hypothenar or intrinsics Nontender to palpation over first finger CMC, MP, IP joint, and A1 renetta Full elbow AROM and forearm pro/sup Wrist flexion = 70 degrees Wrist extension = 70 degrees Able to make a composite fist and has full extension of the digits Neg Tinel over carpal tunnel Neg Tinel over cubital tunnel No TTP cubital tunnel 5/5 APB, 1st DI, FDP small SILT r/u - decreased subjective sensation median nerve distribution 2PD IF = 8 mm Cap refill <2sec Imagin view radiographs of the left hand obtained on August 30, 2023 shows no acute fracture or dislocation Assessment: Aakash Mccallum is a 78 year old man who presents with left upper extremity parethesias concern for carpal tunnel syndrome and evaluation of right 1st dorsal phalaynx gaglion cyst. He has an EMG scheduled for tomorrow. In the meantime is recommended that he wear a left wrist brace overnight. We placed a prosthetics consult for him to grain picker downstairs today. Plan to see him in 4 to 6 weeks to review his EMG results and the efficacy of night bracing. Discussion for further to be discussed at that time. Plan: - Will follow up EMG results, currently scheduled for tomorrow. - Removable wrist brace to be prescribed today - Follow up in approximately 4-[address] Mcguire /nghia/ WAYNE KATHLEEN MD Resident Signed: 11/17/2023 13:02 11/17/2023 ADDENDUM STATUS: COMPLETED Edit: CC: c/f left carpal tunnel syndrome /nghia/ WAYNE KATHLEEN MD Resident Signed: 11/17/2023 13:04 WAYNE KATHLEEN [facility]
--- OUTSIDE RECORDS SUMMARY | 2024-03-17 13:06 | XMS_ITS | Encounter Summary ---
Author Name [facility] [place] [facility] [place] [facility] [place] [facility] [place] Address [address] [place] [id number] Care Team Providers Care Cane Pusher Name Role Phone ALLEN NAILS Primary Care [...] [place] AIRLI MACY/C DHP Mar 22, 2009 [id number] [phone] LACI GRIFFITH PATIENT [employer] HIGH DEDUCTIBL E HEALTH PLAN W/HEALTH REIMBURSE MENT ARRANGEME NT [place] MACY HRA Mar 22, 2009 [id number] [phone] LACI GRIFFITH PATIENT [facility] BEHAVIORAL HEALTH MENTAL HEALTH [place] MACY HRA Mar 22, 2009 [id number] [phone] LACI GRIFFITH PATIENT MEDICA MCR (WNR) MEDICARE ADVANTAGE [facility] (WNR) Mar 22, 2018 [id number] [phone] LACI GRIFFITH PATIENT MEDICA MCR (WNR) MEDICARE ADVANTAGE [facility] (WNR) Sep 19, 2012 [id number] [phone] LACI GRIFFITH PATIENT MEDICARE (WNR) MEDICARE (M) PART B Aug 20, 2012 PART B [id number] LACI GRIFFITH PATIENT MEDICARE (WNR) MEDICARE (M) PART A Sep 19, 2010 PART A [id number] [phone] LACI GRIFFITH PATIENT Selected Encounter This section includes the information on record at [place] for the Encounter. Date/Time Encounter Type Encounter Description Reason Pro vider Source Dec 07, 2023 05:34 PM Outpatient Encounter OPHTHALMOLOGY IHE Encounter Template Text not used by [place] Plan of Treatment: Future Appointments (+ 6 months) and Future Tests (+/- 45 days) The Plan of Treatment section includes future care activities for the patient [facility] [place] [facility] This section includes future appointments and future orders which are active, pending or scheduled. Future Appointments This section includes appointments that were scheduled to occur 6 months from the date of the Encounter, up to a maximum of 20 appointments. The data comes from all [facility]. Appointment Date/Time Appointment Type Appointme nt Facility Name Dec 13, 2023 10:30 AM AMBULATORY - NONE [facility] Jan 05, 2024 11:30 AM AMBULATORY - SURGERY [facility] Mar 09, 2024 12:40 PM AMBULATORY - SURGERY [facility] Mar 10, 2024 12:30 PM AMBULATORY - SURGERY [facility] Mar 30, 2024 10:30 AM AMBULATORY - REHAB MEDICIN [facility] Apr 24, 2024 01:00 PM AMBULATORY - SURGERY [facility] Active, Pending, and Scheduled Orders This section includes a listing of several types of active, pending, and scheduled orders, including clinic medications orders, diagnostic test orders, procedure orders and consult orders; where the start date of the order is 45 days before the date of the Encounter or 45 days after the date of theEncounter. The data comes from all [facility]. Test Date/Time Test Type Test Details Facility Name Jan 05, 2024 12:28 PM Consult Order MSK REHAB OUTPT ORTHO Cons [employer] [facility] Lab Results: +/- 30 days of the encounter This section includes the Chemistry and Hematology Lab Results on record with [place] for the patient. Radiology Reports and Pathology Reports are provided separately, in subsequent sections. Lab Results This section contains the Chemistry/Hematology Results that were resulted 30 days before or 30 daysafter the date of the Encounter. Date/Time Source Result Type Result - Unit Interpretation Reference Range Comment Nov 18, 2023 02:53 PM [facility] ALBUMIN/CREATININE RATIO URINE Specimen Type: URINE Comment: Urine albumin <5 mg/L, unable to calculate ratio Ordering Provider: KAYLI NAILS IN E Report Released Date/Time: Nov 18, 2023 02:43 PM Reporting Lab: [facility] [id number] Performing Lab: [facility] [id number] CREATININ E,UR RANDOM 65.6 mg/dL 58.0-161.0 ALB/CREAT RATIO,UR canc mg/g{creat} <29.9 ALBUMIN,U R <5.0 mg/L <29.9 Social History: Smoking Status (Most current) and Tobacco Use (All prior to encounter date) This section includes the most current, and the historical, smoking and tobacco- related health factors from the [place] facility where the Encounter took place. Current Smoking Status This section includes the most current smoking, or tobacco-related health factor, from the [place] facility where the Encounter took place. Date/Time Current Smoking Status Comment Facil ity Mar 29, 2023 11:00 AM VA-TOBACCO NEVER USED [facility] Tobacco Use History This section includes a history of the smoking, or tobacco-related health factors, that were collected on or before the date of the Encounter. The data comes from the [place] facility where the Encounter took place. Date/Time Smoking Status/Tobacco Use Comment F acility Feb 19, 2022 11:30 AM VA-TOBACCO FORMER USER [facility] Feb 19, 2022 11:30 AM VA-TOBACCO QUIT 15 YRS OR MORE [facility] August 14, 2020 08:30 AM VA-TOBACCO FORMER USER [facility] August 14, 2020 08:30 AM VA-TOBACCO QUIT 15 YRS OR MORE [facility] Jul 11, 2018 10:38 AM VA-TOBACCO FORMER USER [facility] Jul 11, 2018 10:38 AM VA-TOBACCO QUIT 15 YRS OR MORE [facility] Aug 25, 2017 10:47 AM FORMER TOBACCO USER 7Y OR GREATE R [facility] Nov 20, 2016 10:21 AM FORMER TOBACCO USER 7Y OR GREATE R [facility] Oct 08, 2015 08:27 AM FORMER TOBACCO USER 7Y OR GREATE R [facility] Dec 21, 2014 11:06 AM FORMER TOBACCO USER 7Y OR GREATE R [facility] Jan 05, 2014 08:09 AM FORMER TOBACCO USER 7Y OR GREATE R [facility] May 02, 2007 09:05 AM FORMER TOBACCO USER 7Y OR GREATE R [facility] May 12, 2006 10:31 AM FORMER TOBACCO USE >1Y <7Y [facility] Advance Directives: All historical and current Section Date Range: From patient's date of to the date document was created. This section includes ALL of a patient's completed or amended [place] Advance and Rescinded Directives. The entries below indicate that a directive exists for the patient, but an actual copy is not included with this document. The data comes from all [place] facilities. Date Advance Directives Provider Source Mar 26, 2015 ADVANCE DIRECTIVE DISCUSSION GABBY MISTRY [facility] Mar 26, 2015 ADVANCE DIRECTIVE MIGUEL MISTRY [facility] Jan 12, 2005 ADVANCE DIRECTIVE JENN GARDUNO [facility] Encounter Notes: All associated encounter notes This section contains the clinical notes associated to the Encounter. Date/Time Encounter Note(s) Provider Source Dec 07, 2023 05:34 PM REPORT OF CONTACT: LOCAL TITLE: APPOINTMENT SCHEDULING NOTE STANDARD TITLE: REPORT OF CONTACT DATE OF NOTE: DEC 07, 2023@17:34 ENTRY DATE: DEC 07, 2023@17:34:26 AUTHOR: NASRIN COLLAZO EXP COSIGNER: URGENCY: STATUS: COMPLETED Attempted to schedule Cancellation Clinic cancellation Contact attempt made to [place] 1st attempt Telephone 2nd attempt Letter - Sent letter by regular [place] mail to address on file: LACI GRIFFITH [place] [address] [place], [place] [address] Left message on voice mail to call back to this number [phone] If calls back, schedule appt for: [facility] EYE OPHTHAL ARMBRUST/W HVF /es/ NASRIN COLLAZO AMSA Signed: 12/07/2023 17:37 NASRIN COLLAZO [facility]
--- OUTSIDE RECORDS SUMMARY | 2024-03-17 13:06 | XMS_ITS | Encounter Summary ---
Author Name [facility] [place] Address [address] [place] [address] Care Team Providers Care Mayonnaise Mixer Name Role Phone ALLEN NAILS Primary Care [...] [place] AIR[place] MACY/C DHP Mar 22, 2009 [id number] [phone] LACI GRIFFITH PATIENT MEDICA HIGH DEDUCTIBL E HEALTH PLAN W/HEALTH REIMBURSE MENT ARRANGEME NT [place] AIR[place] MACY HRA Mar 22, 2009 [id number] [phone] LACI GRIFFITH PATIENT MEDICA BEHAVIORAL HEALTH MENTAL HEALTH [place] MACY HRA Mar 22, 2009 [id number] [phone] LACI GRIFFITH PATIENT MEDICA MCR (WNR) MEDICARE ADVANTAGE [facility] (WNR) Mar 22, 2018 [id number] [phone] LACI GRIFFITH PATIENT MEDICA MCR (WNR) MEDICARE ADVANTAGE MCR (WNR) Sep 19, 2012 [id number] [phone] LACI GRIFFITH PATIENT MEDICARE (WNR) MEDICARE (M) PART B Aug 20, 2012 PART B [id number] [phone] LACI GRIFFITH PATIENT MEDICARE (WNR) MEDICARE (M) PART A Sep 19, 2010 PART A [id number] [phone] LACI GRIFFITH PATIENT Selected Encounter This section includes the information on record at [place] for the Encounter. Date/Time Encounter Type Encounter Description Reason Provider Source Nov 18, 2023 01:00 PM [facility] TEST DONE W/N TEST COMP EMG - ELECTROMYOGRAM ICD-10-CM G56.02 Carpal tunnel syndrome, left upper limb ANGELES ALVARADO Encounter Template Text not used by [place] Assessments - Encounter Diagnoses This section includes the primary and secondary diagnoses documented for the Encounter. Date/Time Primary/Secondary Diagnosis Diagnosis Name Provider Source Nov 19, 2023 12:25 PM PRIMARY Carpal tunnel syndrome, left upper limb JAYSHREE ALVARADO [facility] Nov 19, 2023 12:25 PM SECONDARY Radiculopathy, cervical region JAYSHREE ALVARADO [facility] Nov 19, 2023 12:25 PM SECONDARY Type 2 diabetes mellitus with hypoglycemia without coma JAYSHREE ALVARADO [facility] Plan of Treatment: Future Appointments (+ 6 months) and Future Tests (+/- 45 days) The Plan of Treatment section includes future care activities for the patient [facility] [place] [facility]. This section includes future appointments and future orders which are active, pending or scheduled. Future Appointments This section includes appointments that were scheduled to occur 6 months from the date of the Encounter, up to a maximum of 20 appointments. The data comes from all [place] treatment facilities. Appointment Date/Time Appointment Type Appointme nt Facility Name Dec 13, 2023 10:30 AM AMBULATORY - NONE [facility] Jan 05, 2024 11:30 AM AMBULATORY - SURGERY [facility] Mar 09, 2024 12:40 PM AMBULATORY - SURGERY [facility] Mar 10, 2024 12:30 PM AMBULATORY - SURGERY [facility] Mar 30, 2024 10:30 AM AMBULATORY - REHAB [facility] Apr 24, 2024 01:00 PM AMBULATORY - SURGERY [facility] Lab Results: +/- 30 days of the encounter This section includes the Chemistry and Hematology Lab Results on record with [place] for the patient. Radiology Reports and Pathology Reports are provided separately, in subsequent sections. Lab Results This section contains the Chemistry/Hematology Results that were resulted 30 days before or 30 daysafter the date of the Encounter. Date/Time Source Result Type Result - Unit Interpretation Reference Range Comment Nov 18, 2023 02:53 PM [facility] ALBUMIN/CREATININE RATIO URINE Specimen Type: URINE Comment: Urine albumin <5 mg/L, unable to calculate ratio Ordering Provider: KAYLI NAILS IN E Report Released Date/Time: Nov 18, 2023 02:43 PM Reporting Lab: [facility] [id number] Performing Lab: [facility] [id number] CREATININ E,UR RANDOM 65.6 mg/dL 58.0-161.0 ALB/CREAT RATIO,UR canc mg/g{creat} <29.9 ALBUMIN,U R <5.0 mg/L <29.9 Vital Signs: All taken on the encounter date This section contains inpatient and outpatient Vital Signs collected on the date of the Encounter. Date/Time Temperature Pulse Blood Pressure Respiratory Rate SP02 Pain Height Weight Body Mass Index Source Nov 18, 2023 01:02 PM 136/71 [facility] Nov 18, 2023 12:57 PM 98.1 67 152/71 18 94 2 176.2 26 [facility] Social History: Smoking Status (Most current) and Tobacco Use (All prior to encounter date) This section includes the most current, and the historical, smoking and tobacco- related health factors from the [place] facility where the Encounter took place. Current Smoking Status This section includes the most current smoking, or tobacco-related health factor, from the [place] facility where the Encounter took place. Date/Time Current Smoking Status Comment Bola ayoub Mar 29, 2023 11:00 AM [place]-TOBACCO NEVER USED [facility] Tobacco Use History This section includes a history of the smoking, or tobacco-related health factors, that were collected on or before the date of the Encounter. The data comes from the [place] facility where the Encounter took place. Date/Time Smoking Status/Tobacco Use Comment F acceleste Feb 19, 2022 11:30 AM VA-TOBACCO FORMER USER [facility] Feb 19, 2022 11:30 AM VA-TOBACCO QUIT 15 YRS OR MORE [facility] August 14, 2020 08:30 AM VA-TOBACCO FORMER USER [facility] August 14, 2020 08:30 AM VA-TOBACCO QUIT 15 YRS OR MORE [facility] Jul 11, 2018 10:38 AM VA-TOBACCO FORMER USER [facility] Jul 11, 2018 10:38 AM VA-TOBACCO QUIT 15 YRS OR MORE [facility] Aug 25, 2017 10:47 AM FORMER TOBACCO USER 7Y OR GREATE R [facility] Nov 20, 2016 10:21 AM FORMER TOBACCO USER 7Y OR GREATE R [facility] Oct 08, 2015 08:27 AM FORMER TOBACCO USER 7Y OR GREATE R [facility] Dec 21, 2014 11:06 AM FORMER TOBACCO USER 7Y OR GREATE R [facility] Jan 05, 2014 08:09 AM FORMER TOBACCO USER 7Y OR GREATE R [facility] May 02, 2007 09:05 AM FORMER TOBACCO USER 7Y OR GREATE R [facility] May 12, 2006 10:31 AM FORMER TOBACCO USE >1Y <7Y [facility] Advance Directives: All historical and current Section Date Range: From patient's date of to the date document was created. This section includes ALL of a patient's completed or amended [place] Advance and Rescinded Directives. The entries below indicate that a directive exists for the patient, but an actual copy is not included with this document. The data comes from all [place] facilities. Date Advance Directives Provider Source Mar 26, 2015 ADVANCE DIRECTIVE DISCUSSION GABBY MISTRY [facility] Mar 26, 2015 ADVANCE DIRECTIVE MIGUEL MISTRY [facility] Jan 12, 2005 ADVANCE DIRECTIVE JENN GARDUNO [facility] Encounter Notes: All associated encounter notes This section contains the clinical notes associated to the Encounter. Date/Time Encounter Note(s) Provider Source Nov 18, 2023 01:00 PM NEUROLOGY CONSULT: LOCAL TITLE: EMG CONSULT STANDARD TITLE: NEUROLOGY CONSULT DATE OF NOTE: NOV 18, 2023@13:00 ENTRY DATE: NOV 19, 2023@12:24 AUTHOR: ANGELES ALVARADO COSIGNER: URGENCY: STATUS: COMPLETED Reason for consultation: Patient with history of left arm tingling and numbness. This study is requested to evaluate for myopathy, plexopathy, polyneuropathy, upper extremity entrapment neuropathy, and cervical radiculopathy. Technique: The motor and sensory nerve conduction studies were done with surface recording electrodes. Needle EMG was done with concentric needle electrodes. Risks and benefits of testing explained to the patient including risk of bleeding, bruising and discomfort. Verbal consent obtained prior to testing. Findings: Left median motor nerve conduction study revealed prolonged latency, reduced amplitude, and normal conduction velocity. Left ulnar motor nerve conduction study was normal. Left median and radial sensory nerve comparison studies recorded from digit 1 revealed in the median nerve prolonged latency, reduced amplitude and a normal response in the radial nerve. Left median and ulnar sensory nerve comparison studies recorded from digit 4 produced no response in the median nerve and a normal response in the ulnar nerve. Needle EMG was performed on select muscles of the left upper extremity. There was no abnormal spontaneous activity. With activation increased amplitude with 2+ polyphasic changes and reduced recruitment was identified in the biceps, triceps, and pronator teres muscles. All other sampled muscles revealed normal amplitude, morphology, and recruitment patterns. Interpretation: This is an abnormal study. There is evidence of: 1. 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 Chronic cervical radiculopathy in the C6 region with no evidence of acute denervation. 3. No evidence of myopathy, plexopathy, polyneuropathy, or ulnar neuropathy on the basis of this study. The results were discussed with the patient. /nghia/ ANGELES ALVARADO STAFF NEUROLOGIST Signed: 11/19/2023 12:25 ANGELES ALVARADO [facility] Nov 18, 2023 12:58 PM NEUROLOGY NURSING OUTPATIENT NOTE: LOCAL TITLE: NEUROLOGY CLINIC NURSING NOTE STANDARD TITLE: NEUROLOGY NURSING OUTPATIENT NOTE DATE OF NOTE: NOV 18, 2023@12:58 ENTRY DATE: NOV 18, 2023@12:59:21 AUTHOR: TOR BEASLEY EXP COSIGNER: URGENCY: STATUS: COMPLETED Type of visit: NEUROLOGY Appointment Check In: DR. ALVARADO Reason for Visit: EMG Vital Signs: Blood Pressure: 152/71 (11/18/2023 12:57) RECHECK 136/71 Pulse: 67 (11/18/2023 12:57) Respiration: 18 (11/18/2023 12:57) Temperature: 98.1 F [36.7 C] (11/18/2023 12:57) Weight: 176.2 lb [79.92 kg] (11/18/2023 12:57) Height: 68.5 in [174.0 cm] (08/30/2023 10:13) BMI: 26.5 Pain: 2 (11/18/2023 12:57) Allergies: MERTHIOLATE TINCTURE (Jun 22, 2003) METFORMIN (Jan 12, 2005) NIACIN (Nov 03, 2006) EZETIMIBE (Nov 03, 2006) ROSIGLITAZONE (Aug 31, 2007) ROSUVASTATIN (Apr 17, 2008) MINOCYCLINE (Sep 15, 2012) LISINOPRIL (May 31, 2014) Medications: Active Outpatient Medications and Supplies: Active Outpatient Medications (including Supplies): Active Outpatient Medications Status 1) ATORVASTATIN CALCIUM 80MG TAB TAKE ONE TABLET BY ACTIVE MOUTH AT BEDTIME FOR CHOLESTEROL 2) CARBOXYMETHYLCELLULOSE NA 0.25% OPH SOLN INSTILL 1 ACTIVE DROP IN BOTH EYES FOUR TIMES A DAY 3) CICLOPIROX 8% TOP SOLN APPLY TOPICALLY EVERY DAY TO ACTIVE AFFECTED NAILS(S) REMOVE WITH RUBBING ALCOHOL EVERY 7 DAYS* TREAT UNTIL NAIL CLEARANCE OR 48 WEEKS FOR NAIL FUNGUS 4) EMPAGLIFLOZIN 25MG TAB TAKE ONE-HALF TABLET BY MOUTH ACTIVE EVERY DAY FOR DIABETES 5) GLIPIZIDE 2.5MG SA TAB TAKE ONE TABLET BY MOUTH EVERY ACTIVE DAY FOR DIABETES WITH BREAKFAST 6) LOSARTAN 25MG TAB TAKE ONE-HALF TABLET BY MOUTH TWICE ACTIVE A DAY FOR BLOOD PRESSURE 7) SEMAGLUTIDE 0.25MG/0.375ML INJ PEN 3ML INJECT 0.5MG ACTIVE UNDER THE SKIN EVERY WEEK FOR DIABETES -INJECT ON THE SAME DAY EVERY WEEK -REFRIGERATE - PEN CONTAINS MULTIPLE DOSES 8) TIZANIDINE HCL 4MG TAB TAKE ONE TABLET BY MOUTH TWICE ACTIVE A DAY NEEDED FOR MUSCLE SPASMS FOR RIGHT GROIN PAIN Active Non-VA Medications Status 1) Non-VA ASPIRIN 81MG EC TAB 81MG MOUTH EVERY DAY ACTIVE 9 Total Medications Patient reports the following changes regarding the current pharmacy list of medications: [facility] reports no changes to the above medication list. The above medication list confirmed with patient. A copy of the above medication list given to the MD for review and update. Provider will give printed copy of medication list to patient with any changes documented on printed medication list. /es/ TOR BEASLEY RN Signed: 11/18/2023 13:02 TOR BEASLEY [facility]
--- OUTSIDE RECORDS SUMMARY | 2024-03-17 13:06 | XMS_ITS | Encounter Summary ---
Author Name [facility] [place] [facility] [place] Address [address] [place] [id number] Care Team Providers Care Vascular Radiologist Name Role Phone ALLEN NAILS Primary Care [...] Member ID Insurance Provider's Telephone Number Policy Geradr's Name Patient's Relationship to Policy Gerard [employer] ([employer]) PRESCRIPT ION [place] AIR[place] MACY/C DHP Mar 22, 2009 [id number] [phone] LACI GRIFFITH PATIENT MEDICA HIGH DEDUCTIBL E HEALTH PLAN W/HEALTH REIMBURSE MENT ARRANGEME NT [place] AIR[place] MACY HRA Mar 22, 2009 [id number] [phone] LACI GRIFFITH PATIENT [facility] BEHAVIORAL HEALTH MENTAL HEALTH [place] MACY HRA Mar 22, 2009 [id number] [phone] LACI GRIFFITH PATIENT MEDICA MCR (WNR) MEDICARE ADVANTAGE [facility] (WNR) Mar 22, 2018 [id number] [phone] LACI GRIFFITH PATIENT MEDICA MCR (WNR) MEDICARE ADVANTAGE [facility] (WNR) Sep 19, 2012 [id number] [phone] LACI GRIFFITH PATIENT MEDICARE (WNR) MEDICARE (M) PART B Aug 20, 2012 PART B [id number] LACI GRIFFITH PATIENT MEDICARE (WNR) MEDICARE (M) PART A Sep 19, 2010 PART A [id number] LACI GRIFFITH PATIENT Selected Encounter This section includes the information on record at [place] for the Encounter. Date/Time Encounter Type Encounter Description Reason Pro vider Source Nov 18, 2023 03:55 PM Outpatient Encounter COMMUNITY CARE CONSULT IHE Encounter Template Text not used by [place] Plan of Treatment: Future Appointments (+ 6 months) and Future Tests (+/- 45 days) The Plan of Treatment section includes future care activities for the patient from all [place] [facility]. This section includes future appointments and future orders which are active, pending or scheduled. Future Appointments This section includes appointments that were scheduled to occur 6 months from the date of the Encounter, up to a maximum of 20 appointments. The data comes from all [place] treatment facilities. Appointment Date/Time Appointment Type Appointme nt Facility Name Dec 13, 2023 10:30 AM AMBULATORY - NONE [facility] Jan 05, 2024 11:30 AM AMBULATORY - SURGERY [facility] Mar 09, 2024 12:40 PM AMBULATORY - SURGERY [facility] Mar 10, 2024 12:30 PM AMBULATORY - SURGERY [facility] Mar 30, 2024 10:30 AM AMBULATORY - RE[facility]AB [facility] Apr 24, 2024 01:00 PM AMBULATORY - SURGERY [facility] Lab Results: +/- 30 days of the encounter This section includes the Chemistry and Hematology Lab Results on record with [place] for the patient. Radiology Reports and Pathology Reports are provided separately, in subsequent sections. Lab Results This section contains the Chemistry/Hematology Results that were resulted 30 days before or 30 daysafter the date of the Encounter. Date/Time Source Result Type Result - Unit Interpretation Reference Range Comment Nov 18, 2023 02:53 PM [facility] ALBUMIN/CREATININE RATIO URINE Specimen Type: URINE Comment: Urine albumin <5 mg/L, unable to calculate ratio Ordering Provider: KAYLI NAILS IN E Report Released Date/Time: Nov 18, 2023 02:43 PM Reporting Lab: [facility] [id number] Performing Lab: [facility] [id number] CREATININ E,UR RANDOM 65.6 mg/dL 58.0-161.0 ALB/CREAT RATIO,UR canc mg/g{creat} <29.9 ALBUMIN,U R <5.0 mg/L <29.9 Vital Signs: All taken on the encounter date This section contains inpatient and outpatient Vital Signs collected on the date of the Encounter. Date/Time Temperature Pulse Blood Pressure Respiratory Rate SP02 Pain Height Weight Body Mass Index Source Nov 18, 2023 01:02 PM 136/71 [facility] Nov 18, 2023 12:57 PM 98.1 67 152/71 18 94 2 176.2 26 [facility] Social History: Smoking Status (Most current) and Tobacco Use (All prior to encounter date) This section includes the most current, and the historical, smoking and tobacco- related health factors from the [place] facility where the Encounter took place. Current Smoking Status This section includes the most current smoking, or tobacco-related health factor, from the [place] facility where the Encounter took place. Date/Time Current Smoking Status Comment Facil ity Mar 29, 2023 11:00 AM VA-TOBACCO NEVER USED [facility] Tobacco Use History This section includes a history of the smoking, or tobacco-related health factors, that were collected on or before the date of the Encounter. The data comes from the [place] facility where the Encounter took place. Date/Time Smoking Status/Tobacco Use Comment F acility Feb 19, 2022 11:30 AM VA-TOBACCO FORMER USER [facility] Feb 19, 2022 11:30 AM VA-TOBACCO QUIT 15 YRS OR MORE [facility] August 14, 2020 08:30 AM VA-TOBACCO FORMER USER [facility] August 14, 2020 08:30 AM VA-TOBACCO QUIT 15 YRS OR MORE [facility] Jul 11, 2018 10:38 AM VA-TOBACCO FORMER USER [facility] Jul 11, 2018 10:38 AM VA-TOBACCO QUIT 15 YRS OR MORE [facility] Aug 25, 2017 10:47 AM FORMER TOBACCO USER 7Y OR GREATE R [facility] Nov 20, 2016 10:21 AM FORMER TOBACCO USER 7Y OR GREATE R [facility] Oct 08, 2015 08:27 AM FORMER TOBACCO USER 7Y OR GREATE R [facility] Dec 21, 2014 11:06 AM FORMER TOBACCO USER 7Y OR GREATE R [facility] Jan 05, 2014 08:09 AM FORMER TOBACCO USER 7Y OR GREATE R [facility] May 02, 2007 09:05 AM FORMER TOBACCO USER 7Y OR GREATE R [facility] May 12, 2006 10:31 AM FORMER TOBACCO USE >1Y <7Y [facility] Advance Directives: All historical and current Section Date Range: From patient's date of to the date document was created. This section includes ALL of a patient's completed or amended [place] Advance and Rescinded Directives. The entries below indicate that a directive exists for the patient, but an actual copy is not included with this document. The data comes from all [place] facilities. Date Advance Directives Provider Source Mar 26, 2015 ADVANCE DIRECTIVE DISCUSSION GABBY MISTRY [facility] Mar 26, 2015 ADVANCE DIRECTIVE MIGUEL MISTRY [facility] Jan 12, 2005 ADVANCE DIRECTIVE JENN GARDUNO [facility] Encounter Notes: All associated encounter notes This section contains the clinical notes associated to the Encounter. Date/Time Encounter Note(s) Provider Source Nov 18, 2023 03:55 PM NONVA NOTE: LOCAL TITLE: COMMUNITY CARE PRE-AUTH LETTER (AUTOPRINT) STANDARD TITLE: NONVA NOTE DATE OF NOTE: NOV 18, 2023@15:55 ENTRY DATE: NOV 18, 2023@15:55:38 AUTHOR: MARY WRIGHT COSIGNER: URGENCY: STATUS: COMPLETED Oct LACI GRIFFITH [id number] [address] [place], [place] [address] Dear LACI GRIFFITH, Your [place] provider has referred you to a provider within the community for care. Your medical care for [facility] has been authorized with the community care provider listed below. DO NOT REPORT TO THE [place] MEDICAL CENTER Provider info: Care has been approved for the following vendor: Office name, address, and phone number: [facility] [address] [place] [phone] Please contact the identified provider to schedule your community appointment. If you need assistance with this appointment, please call your facility community care office [facility] Office of Community Care at [phone] during the hours of 8:30AM - 3:00PM. Please follow up with your local [facility] community care office once this is scheduled. This step is needed to ensure your referral duration is maximized and the [place] has accurate referral information for billing purposes. Authorization Number: [id number] Referral Issue Date: Sep Expiration Date: Dec (subject to change based on first appointment) If you are unable to schedule this appointment or the appointment is no longer needed, please contact the community provider above for notification/rescheduling and then call the [facility] Office of Community Care at [phone] during the hours of 8:30AM - 3:00PM. If you need additional care/services not mentioned above or your authorization has and additional care is needed, please contact your primary care provider for a new referral. To review all care/service(s) approved under your referral, please go to the following link: [email or web address]) Co-Payments: If you are required to pay a VA co-payment, you will be billed by the [place] for each authorized visit that you attend. However, you are NOT REQUIRED to make co-payments to a community provider. Thank you for the opportunity to serve you. Sincerely, [place] Community Care ([place]) /nghia/ HERIBERTO WRIGHT Advanced Software Quality Analyst Signed: 11/18/2023 15:57 SHAGGY WRIGHT [facility]
--- OUTSIDE RECORDS SUMMARY | 2024-03-17 13:06 | XMS_ITS | Encounter Summary ---
Author Name [facility] [place] [facility] [place] Address [address] [place] [address] Care Team Providers Care Scientist/Engineer Name Role Phone ALLEN NAILS Primary Care [...] [place] AIRLI MACY/C DHP Mar 22, 2009 [id number] [phone] LACI GRIFFITH PATIENT MEDICA HIGH DEDUCTIBL E HEALTH PLAN W/HEALTH REIMBURSE MENT ARRANGEME NT [place] MACY HRA Mar 22, 2009 [id number] [phone] LACI GRIFFITH PATIENT MEDICA BEHAVIORAL HEALTH MENTAL HEALTH [place] MACY HRA Mar 22, 2009 [id number] [phone] LACI GRIFFITH PATIENT MEDICA MCR (WNR) MEDICARE ADVANTAGE MCR (WNR) Mar 22, 2018 [id number] LACI GRIFFITH PATIENT MEDICA MCR (WNR) MEDICARE ADVANTAGE MCR (WNR) Sep 19, 2012 [id number] [phone] LACI GRIFFITH PATIENT MEDICARE (WNR) MEDICARE (M) PART B Aug 20, 2012 PART B [id number] LACI GRIFFITH PATIENT MEDICARE (WNR) MEDICARE (M) PART A Sep 19, 2010 PART A [id number] LACI GRIFFITH PATIENT Selected Encounter This section includes the information on record at [place] for the Encounter. Date/Time Encounter Type Encounter Description Reason Provider Source Nov 18, 2023 03:00 PM OFF/OP EST JULY X REQ PHY/QHP PRIMARY CARE/MEDICINE ICD-10-CM Z02.89 Encounter for other administrative examinations PARUL RIVAS [facility] Encounter Template Text not used by [place] Assessments - Encounter Diagnoses This section includes the primary and secondary diagnoses documented for the Encounter. Date/Time Primary/Secondary Diagnosis Diagnosis Name Provider Source Nov 18, 2023 02:51 PM PRIMARY Encounter for other administrative examinations PARUL RIVAS [facility] Plan of Treatment: Future Appointments (+ 6 months) and Future Tests (+/- 45 days) The Plan of Treatment section includes future care activities for the patient from all [place] [facility]. This section includes future appointments and future orders which are active, pending or scheduled. Future Appointments This section includes appointments that were scheduled to occur 6 months from the date of the Encounter, up to a maximum of 20 appointments. The data comes from all [place] treatment facilities. Appointment Date/Time Appointment Type Appointme nt Facility Name Dec 13, 2023 10:30 AM AMBULATORY - NONE [facility] Jan 05, 2024 11:30 AM AMBULATORY - SURGERY [facility] Mar 09, 2024 12:40 PM AMBULATORY - SURGERY [facility] Mar 10, 2024 12:30 PM AMBULATORY - SURGERY [facility] Mar 30, 2024 10:30 AM [facility] - [facility] Apr 24, 2024 01:00 PM AMBULATORY - SURGERY [facility] Lab Results: +/- 30 days of the encounter This section includes the Chemistry and Hematology Lab Results on record with [place] for the patient. Radiology Reports and Pathology Reports are provided separately, in subsequent sections. Lab Results This section contains the Chemistry/Hematology Results that were resulted 30 days before or 30 daysafter the date of the Encounter. Date/Time Source Result Type Result - Unit Interpretation Reference Range Comment Nov 18, 2023 02:[address] [facility] ALBUMIN/CREATININE RATIO URINE Specimen Type: URINE Comment: Urine albumin <5 mg/L, unable to calculate ratio Ordering Provider: KAYLI NAILS IN E Report Released Date/Time: Nov 18, 2023 02:43 PM Reporting Lab: [facility] [id number] Performing Lab: [facility] [id number] CREATININ E,UR RANDOM 65.6 mg/dL 58.0-161.0 ALB/CREAT [...] and tobacco- related health factors from the [place] facility where the Encounter took place. Current Smoking Status This section includes the most current smoking, or tobacco-related health factor, from the [place] facility where the Encounter took place. Date/Time Current Smoking Status Comment Bola ayoub Mar 29, 2023 11:00 AM VA-TOBACCO NEVER USED [facility] Tobacco Use History This section includes a history of the smoking, or tobacco-related health factors, that were collected on or before the date of the Encounter. The data comes from the [place] facility where the Encounter took place. Date/Time Smoking Status/Tobacco Use Comment F acility Feb 19, 2022 11:30 AM VA-TOBACCO FORMER USER [facility] Feb 19, 2022 11:30 AM CO-TOBACCO QUIT [address] [facility] August 14, 2020 08:30 AM VA-TOBACCO FORMER USER [facility] August 14, 2020 08:30 AM VA-TOBACCO QUIT [address] [facility] Jul 11, 2018 10:38 AM VA-TOBACCO FORMER USER [facility] Jul 11, 2018 10:38 AM VA-TOBACCO QUIT [address] [facility] Aug 25, 2017 10:47 AM FORMER TOBACCO USER 7Y OR GREATE R [facility] Nov 20, 2016 10:21 AM FORMER TOBACCO USER 7Y OR GREATE R [facility] Oct 08, 2015 08:27 AM FORMER TOBACCO USER 7Y OR GREATE R [facility] Dec 21, 2014 11:06 AM FORMER TOBACCO USER 7Y OR GREATE R [facility] Jan 05, 2014 08:09 AM FORMER TOBACCO USER 7Y OR GREATE R [facility] May 02, 2007 09:05 AM FORMER TOBACCO USER 7Y OR GREATE R [facility] May 12, 2006 10:31 AM FORMER TOBACCO USE >1Y <7Y [facility] Advance Directives: All historical and current Section Date Range: From patient's date of to the date document was created. This section includes ALL of a patient's completed or amended [place] Advance and Rescinded Directives. The entries below indicate that a directive exists for the patient, but an actual copy is not included with this document. The data comes from all [place] facilities. Date Advance Directives Provider Source Mar 26, 2015 ADVANCE DIRECTIVE DISCUSSION GABBY MISTRY [facility] Mar 26, 2015 ADVANCE DIRECTIVE MIGUEL MISTRY [facility] Jan 12, 2005 ADVANCE DIRECTIVE JENN GARDUNO [facility]
--- OUTSIDE RECORDS SUMMARY | 2024-03-17 13:06 | XMS_ITS | Encounter Summary ---
Author Name [facility] [place] Address [address] [place] [address] Care Team Providers Care Jig Filler Name Role Phone ALLEN NAILS Primary Care [...] [place] AIR[place] MACY/C DHP Mar 22, 2009 [id number] [phone] LACI GRIFFITH PATIENT MEDICA HIGH DEDUCTIBL E HEALTH PLAN W/HEALTH REIMBURSE MENT ARRANGEME NT [place] MACY HRA Mar 22, 2009 [id number] [phone] LACI GRIFFITH PATIENT MEDICA BEHAVIORAL HEALTH MENTAL HEALTH [place] MACY HRA Mar 22, 2009 [id number] [phone] LACI GRIFFITH PATIENT MEDICA MCR (WNR) MEDICARE ADVANTAGE [facility] (WNR) Mar 22, 2018 [id number] [phone] LACI GRIFFITH PATIENT MEDICA MCR (WNR) MEDICARE ADVANTAGE MCR (WNR) Sep 19, 2012 [id number] [phone] LACI GRIFFITH PATIENT MEDICARE (WNR) MEDICARE (M) PART B Aug 20, 2012 PART B [id number] [phone] LACI GRIFFITH PATIENT MEDICARE (WNR) MEDICARE (M) PART A Sep 19, 2010 PART A [id number] [phone] LACI GRIFFITH PATIENT Selected Encounter This section includes the information on record at [place] for the Encounter. Date/Time Encounter Type Encounter Description Reason Provider Source Jan 05, 2024 11:30 AM OFFICE O/P EST HI 40 MIN ORTHO/JOINT SURG ICD-10-CM G56.03 Carpal tunnel syndrome, bilateral upper limbs URBANO MCGUIRE Jeff Encounter Template Text not used by [place] Assessments - Encounter Diagnoses This section includes the primary and secondary diagnoses documented for the Encounter. Date/Time Primary/Secondary Diagnosis Diagnosis Name Provider Source Jan 05, 2024 12:38 PM PRIMARY Carpal tunnel syndrome, bilateral upper limbs NINFA RAM [facility] Jan 05, 2024 12:38 PM SECONDARY Encounter for immunization INDER CAPONE [facility] Plan of Treatment: Future Appointments (+ 6 months) and Future Tests (+/- 45 days) The Plan of Treatment section includes future care activities for the patient from all [place] [facility]. This section includes future appointments and future orders which are active, pending or scheduled. Future Appointments This section includes appointments that were scheduled to occur 6 months from the date of the Encounter, up to a maximum of 20 appointments. The data comes from all [place] treatment facilities. Appointment Date/Time Appointment Type Appointme nt Facility Name Mar 09, 2024 12:40 PM AMBULATORY - SURGERY [facility] Mar 10, 2024 12:30 PM AMBULATORY - SURGERY [facility] Mar 30, 2024 10:30 AM AMBULATORY - REHAB [facility] Apr 24, 2024 01:00 PM AMBULATORY - SURGERY [facility] Active, Pending, and Scheduled Orders This section includes a listing of several types of active, pending, and scheduled orders, including clinic medications orders, diagnostic test orders, procedure orders and consult orders; where the start date of the order is 45 days before the date of the Encounter or 45 days after the date of theEncounter. The data comes from all [place] treatment facilities. Test Date/Time Test Type Test Details Facility Name Jan 05, 2024 12:28 PM Consult Order [facility] REHAB OUTPT ORTHO Cons Jailkeeper's Choice [facility] Immunizations: All administered on the encounter date This section contains immunizations associated to the Encounter. Immunization Series Date Issued Reaction Comments INFLUENZA, HIGH-DOSE, TRIVALENT, PF Jan 04 Social History: Smoking Status (Most current) and Tobacco Use (All prior to encounter date) This section includes the most current, and the historical, smoking and tobacco- related health factors from the [place] facility where the Encounter took place. Current Smoking Status This section includes the most current smoking, or tobacco-related health factor, from the [place] facility where the Encounter took place. Date/Time Current Smoking Status Comment Facil ity Mar 29, 2023 11:00 AM VA-TOBACCO NEVER USED [facility] Tobacco Use History This section includes a history of the smoking, or tobacco-related health factors, that were collected on or before the date of the Encounter. The data comes from the [place] facility where the Encounter took place. Date/Time Smoking Status/Tobacco Use Comment F acility Feb 19, 2022 11:30 AM VA-TOBACCO FORMER USER [facility] Feb 19, 2022 11:30 AM VA-TOBACCO QUIT 15 YRS OR MORE [facility] August 14, 2020 08:30 AM VA-TOBACCO FORMER USER [facility] August 14, 2020 08:30 AM VA-TOBACCO QUIT 15 YRS OR MORE [facility] Jul 11, 2018 10:38 AM VA-TOBACCO FORMER USER [facility] Jul 11, 2018 10:38 AM VA-TOBACCO QUIT 15 YRS OR MORE [facility] Aug 25, 2017 10:47 AM FORMER TOBACCO USER 7Y OR GREATE R [facility] Nov 20, 2016 10:21 AM FORMER TOBACCO USER 7Y OR GREATE R [facility] Oct 08, 2015 08:27 AM FORMER TOBACCO USER 7Y OR GREATE R [facility] Dec 21, 2014 11:06 AM FORMER TOBACCO USER 7Y OR GREATE R [facility] Jan 05, 2014 08:09 AM FORMER TOBACCO USER 7Y OR GREATE R [facility] May 02, 2007 09:05 AM FORMER TOBACCO USER 7Y OR GREATE R [facility] May 12, 2006 10:31 AM FORMER TOBACCO USE >1Y <7Y [facility] Advance Directives: All historical and current Section Date Range: From patient's date of to the date document was created. This section includes ALL of a patient's completed or amended [place] Advance and Rescinded Directives. The entries below indicate that a directive exists for the patient, but an actual copy is not included with this document. The data comes from all [place] facilities. Date Advance Directives Provider Source Mar 26, 2015 ADVANCE DIRECTIVE DISCUSSION GABBY MISTRY [facility] Mar 26, 2015 ADVANCE DIRECTIVE MIGUEL MISTRY [facility] Jan 12, 2005 ADVANCE DIRECTIVE JENN GARDUNO [facility] Encounter Notes: All associated encounter notes This section contains the clinical notes associated to the Encounter. Date/Time Encounter Note(s) Provider Source Jan 05, 2024 12:42 PM IMMUNIZATION NOTE: LOCAL TITLE: INFLUENZA VACCINATION STANDARD TITLE: IMMUNIZATION NOTE DATE OF NOTE: JAN 05, 2024@12:42 ENTRY DATE: JAN 05, 2024@12:43:01 AUTHOR: INDER CAPONE EXP COSIGNER: URGENCY: STATUS: COMPLETED Influenza, High-Dose, Trivalent, Preservative Free (Fluzone-Syringe) Administered: INFLUENZA, HIGH-DOSE, TRIVALENT, PF Date Administered: Jan 05, 2024 11:30 Supervisor [employer]aming [employer]: SANOFI PASTEUR Lot: [id number] Exp Date: Sep 18, 2024 Admin Route/Site: INTRAMUSCULAR/LEFT DELTOID Dosage: 0.5mL Vaccine Information Statement(s): INFLUENZA(FLU) VACC(INACTIVATED OR RECOMBINANT)VIS Oct 25, 2020 (VIET[place]ESE) Order By: Policy Administered By: Inder Capone The Influenza Vaccine Information Statement (VIS) was reviewed with the patient/caregiver which lists the benefits and risks of the vaccine and the risks of not receiving the Influenza vaccine. The patient/caregiver denied any prior severe reaction to this vaccine or its components or a severe allergic reaction, such as anaphylaxis, to any vaccine or any injectable therapy. The patient/caregiver gave verbal consent to receive the vaccine. /nghia/ Inder Capone Registered Nurse Signed: 01/05/2024 12:43 INDER CAPONE [facility] Jan 05, 2024 11:56 AM ORTHOPEDIC SURGERY ATTENDING NOTE: LOCAL TITLE: ORTHOPEDIC CLINIC NOTE STANDARD TITLE: ORTHOPEDIC SURGERY ATTENDING NOTE DATE OF NOTE: JAN 05, 2024@11:56 ENTRY DATE: JAN 05, 2024@11:56:41 AUTHOR: WHIT RAM: URGENCY: STATUS: COMPLETED Orthopaedic Surgery Clinic Note CC: Follow up left carpal tunnel syndrome Subjective: HPI: Laci is a 78 RHD male who presents for follow up of left upper extremity numbness and weakness. He is here to discuss his EMG results. He has been wearing nightime braces, which he does find helpful but does not relieve all of his symptoms. His primary concern is weakness. He denies dropping objects. He does report occasionally feeling like his paresthesias travel up his left arm and into the neck. He does report numbness in all five digits, though worst in the thumb, index, and middle fingers. He also reports that similar symptoms have started on the right hand with paresthesias, though it is not nearly as bad as his right. He reports intermittent pain over the left thumb at the level of his cyst, though his numbness/weakness is much more bothersome to hime. Objective: Gen: well-appearing, alert and oriented, NAD Pulm: non-labored respirations on room air LUE: 3 mm, mobile mass over the dorsal proximal first phalanx No atrophy of thenar, hypothenar or intrinsics Nontender to palpation over first finger CMC, MP, IP joint, and A1 renetta Full elbow AROM and forearm pro/sup Able to make a composite fist and has full extension of the digits Pos Tinel over carpal tunnel Pos Tinel over cubital tunnel Pos scratch collapse testing 4/5 APB, 1st DI, FDP small SILT r - decreased subjective sensation median and ulnar nerve distribution 2PD IF = Cap refill <2sec RUE: No skin changes, masses No atrophy of thenar, hypothenar or intrinsics Nontender to palpation over first finger CMC, MP, IP joint, and A1 renetta Full elbow AROM and forearm pro/sup Able to make a composite fist and has full extension of the digits Pos Tinel over carpal tunnel Pos Tinel over cubital tunnel Pos scratch collapse testing 5/5 APB, 1st DI, FDP small SILT r/u - decreased subjective sensation median nerve distribution 2PD IF = Cap refill <2sec Imaging EMG LUE 11/17 Interpretation: This is an abnormal study. There is evidence of: 1. 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 Chronic cervical radiculopathy in the C6 region with no evidence of acute denervation. 3. No evidence of myopathy, plexopathy, polyneuropathy, or ulnar neuropathy on the basis of this study. Assessment/Plan: Laci is a 78M RHD who presents for ongoing follow up of left carpal tunnel syndrome and left thumb mass. He has also starting exhibiting s/sx of right carpal tunnel sydrome. Discussed that his EMG demonstrates both compression of the median nerve at the level of the carpal tunnel as well as a C6 radioculopathy. We discussed that his symptoms could be related to either or both of these findings and it is difficult to determine how much intervention of one would provide relief. He also does ahve some clinical findings of ulnar nerve involvement, though his EMG was negative for ulnar nerve entrapment. We also discussed that weakness may not be able to be improved with any interventions. The patient and I had an extensive conversation today regarding treatment options for carpal tunnel syndrome in detail. We discussed treatment options such as activity modification, nerve glides, therapy, splinting, corticosteroid injections and finally release of the transverse carpal ligament. The patient was interested in proceeding with an injection. He would like to have both carpal tunnels addressed with injetions with the upcoming season. He We discussed that potential relief from todays injection would mimic potential relief offered obtained with surgical release of the transverse carpal ligament. The risks of the carpal tunnel injection including, but not limited to infection, pain, nerve injury, tendon injection, fat atrophy, and skin bleaching were explained to the patient. Please see above procedure for details. Patient will return to clinic based on response to the injection. All questions were answered. - Bilateral image guided injections to BL carpal tunnel - Brace for right wrist provided in clinic today - Follow up in clinic early April to discuss results of injection and further steps Patient seen and discussed [facility] Dr. Mcguire who is in agreeement with this plan. Whit Ram MD PGY 3 Orthopedic Surgery /es/ WHIT RAM MD RESIDENT Signed: 01/05/2024 12:37 WHIT RAM [facility]
--- OUTSIDE RECORDS SUMMARY | 2024-03-17 13:06 | XMS_ITS | Encounter Summary ---
Author Name [facility] [place] Address [address] [place] [address] Care Team Providers Care Bill Recapitulation Clerk Name Role Phone ALLEN NAILS Primary Care [...] DELTA AIRLI MACY/C DHP Mar 22, 2009 [id number] [phone] LACI GRIFFITH PATIENT MEDICA HIGH DEDUCTIBL E HEALTH PLAN W/HEALTH REIMBURSE MENT ARRANGEME NT [place] AIR[place] MACY HRA Mar 22, 2009 [id number] [phone] LACI GRIFFITH PATIENT MEDICA BEHAVIORAL HEALTH MENTAL HEALTH [place] MACY HRA Mar 22, 2009 [id number] [phone] LACI GRIFFITH PATIENT MEDICA MCR (WNR) MEDICARE ADVANTAGE [facility] (WNR) Mar 22, 2018 [id number] LACI GRIFFITH PATIENT MEDICA MCR (WNR) MEDICARE ADVANTAGE [facility] (WNR) Sep 19, 2012 [id number] [phone] LACI GRIFFITH PATIENT MEDICARE (WNR) MEDICARE (M) PART B Aug 20, 2012 PART B [id number] [phone] LACI GRIFFITH PATIENT MEDICARE (WNR) MEDICARE (M) PART A Sep 19, 2010 PART A [id number] [phone] LACI GRIFFITH PATIENT Selected Encounter This section includes the information on record at [place] for the Encounter. Date/Time Encounter Type Encounter Description Reason Pro vider Source Jan 21, 2024 04:03 PM Outpatient Encounter EVENT (HISTORICAL) IHE Encounter Template Text not used by [place] Plan of Treatment: Future Appointments (+ 6 months) and Future Tests (+/- 45 days) The Plan of Treatment section includes future care activities for the patient from all [place] [facility] This section includes future appointments and future orders which are active, pending or scheduled. Future Appointments This section includes appointments that were scheduled to occur 6 months from the date of the Encounter, up to a maximum of 20 appointments. The data comes from all [facility]. Appointment Date/Time Appointment Type Appointme nt Facility Name Mar 09, 2024 12:40 PM AMBULATORY - SURGERY [facility] Mar 10, 2024 12:30 PM AMBULATORY - SURGERY [facility] Mar 30, 2024 10:30 AM AMBULATORY - REHAB MEDICIN E [facility] Apr 24, 2024 01:00 PM AMBULATORY - SURGERY [facility] Active, Pending, and Scheduled Orders This section includes a listing of several types of active, pending, and scheduled orders, including clinic medications orders, diagnostic test orders, procedure orders and consult orders; where the start date of the order is 45 days before the date of the Encounter or 45 days after the date of theEncounter. The data comes from all [facility]. Test Date/Time Test Type Test Details Facility Name Jan 05, 2024 12:28 PM Consult Order [facility] REHAB OUTPT ORTHO Cons Productivity Engineer's Choice [facility] Social History: Smoking Status (Most current) and Tobacco Use (All prior to encounter date) This section includes the most current, and the historical, smoking and tobacco- related health factors from the [place] facility where the Encounter took place. Current Smoking Status This section includes the most current smoking, or tobacco-related health factor, from the [place] facility where the Encounter took place. Date/Time Current Smoking Status Comment Facil ity Mar 29, 2023 11:00 AM VA-TOBACCO NEVER USED [facility] Tobacco Use History This section includes a history of the smoking, or tobacco-related health factors, that were collected on or before the date of the Encounter. The data comes from the [place] facility where the Encounter took place. Date/Time Smoking Status/Tobacco Use Comment F acility Feb 19, 2022 11:30 AM VA-TOBACCO FORMER USER [facility] Feb 19, 2022 11:30 AM VA-TOBACCO QUIT 15 YRS OR MORE [facility] August 14, 2020 08:30 AM VA-TOBACCO FORMER USER [facility] August 14, 2020 08:30 AM VA-TOBACCO QUIT 15 YRS OR MORE [facility] Jul 11, 2018 10:38 AM VA-TOBACCO FORMER USER [facility] Jul 11, 2018 10:38 AM VA-TOBACCO QUIT 15 YRS OR MORE [facility] Aug 25, 2017 10:47 AM FORMER TOBACCO USER 7Y OR GREATE R [facility] Nov 20, 2016 10:21 AM FORMER TOBACCO USER 7Y OR GREATE R [facility] Oct 08, 2015 08:27 AM FORMER TOBACCO USER 7Y OR GREATE R [facility] Dec 21, 2014 11:06 AM FORMER TOBACCO USER 7Y OR GREATE R [facility] Jan 05, 2014 08:09 AM FORMER TOBACCO USER 7Y OR GREATE R [facility] May 02, 2007 09:05 AM FORMER TOBACCO USER 7Y OR GREATE R [facility] May 12, 2006 10:31 AM FORMER TOBACCO USE >1Y <7Y [facility] Advance Directives: All historical and current Section Date Range: From patient's date of to the date document was created. This section includes ALL of a patient's completed or amended [place] Advance and Rescinded Directives. The entries below indicate that a directive exists for the patient, but an actual copy is not included with this document. The data comes from all [facility]. Date Advance Directives Provider Source Mar 26, 2015 ADVANCE DIRECTIVE DISCUSSION GABBY MISTRY [facility] Mar 26, 2015 ADVANCE DIRECTIVE MIGUEL MISTRY [facility] Jan 12, 2005 ADVANCE DIRECTIVE JENN GARDUNO [facility]
--- OUTSIDE RECORDS SUMMARY | 2024-03-17 13:07 | XMS_ITS | Encounter Summary ---
Author Name [facility] [facility] [place] [facility] [facility] [place] Address [address] [place] [address] Care Team Providers Care Digital Technician Name Role Phone ALLEN NAILS Primary Care [...] [place] MACY/C DHP Mar 22, 2009 [id number] [phone] LACI GRIFFITH PATIENT MEDICA HIGH DEDUCTIBL E HEALTH PLAN W/HEALTH REIMBURSE MENT ARRANGEME NT [place] MACY HRA Mar 22, 2009 [id number] [phone] LACI GRIFFITH PATIENT MEDICA BEHAVIORAL HEALTH MENTAL HEALTH [place] MACY HRA Mar 22, 2009 [id number] [phone] LACI GRIFFITH PATIENT MEDICA MCR (WNR) MEDICARE ADVANTAGE [facility] (WNR) Mar 22, 2018 [id number] LACI GRIFFITH PATIENT MEDICA MCR (WNR) MEDICARE ADVANTAGE MCR (WNR) Sep 19, 2012 [id number] [phone] LACI GRIFFITH PATIENT MEDICARE (WNR) MEDICARE (M) PART B Aug 20, 2012 PART B [id number] [phone] LACI GRIFFITH PATIENT MEDICARE (WNR) MEDICARE (M) PART A Sep 19, 2010 PART A [id number] [phone] LACI GRIFFITH PATIENT Selected Encounter This section includes the information on record at [place] for the Encounter. Date/Time Encounter Type Encounter Description Reason Provider Source Oct 12, 2023 11:00 AM OFFICE O/P NEW MOD 45 MIN UROLOGY CLINIC ICD-10-CM R52 Pain, unspecified BERTIN NAVARRO Jeff Encounter Template Text not used by [place] Assessments - Encounter Diagnoses This section includes the primary and secondary diagnoses documented for the Encounter. Date/Time Primary/Secondary Diagnosis Diagnosis Name Provider Source Oct 12, 2023 03:27 PM PRIMARY Pain, unspecified BERTIN NAVARRO [facility] Oct 12, 2023 03:27 PM SECONDARY Calculus of kidney BERTIN NAVARRO [facility] Plan of Treatment: Future Appointments (+ 6 months) and Future Tests (+/- 45 days) The Plan of Treatment section includes future care activities for the patient from all [place] [facility] This section includes future appointments and future orders which are active, pending or scheduled. Future Appointments This section includes appointments that were scheduled to occur 6 months from the date of the Encounter, up to a maximum of 20 appointments. The data comes from all [place] treatment facilities. Appointment Date/Time Appointment Type Appointme nt Facility Name Nov 17, 2023 11:30 AM AMBULATORY - SURGERY [facility] Nov 18, 2023 01:00 PM AMBULATORY - REHAB [facility]IC[facility] Nov 18, 2023 03:00 PM AMBULATORY - MEDICINE [facility] Dec 13, 2023 10:30 AM AMBULATORY - NONE [facility] Jan 05, 2024 11:30 AM AMBULATORY - SURGERY [facility] Mar 09, 2024 12:40 PM AMBULATORY - SURGERY [facility] Mar 10, 2024 12:30 PM AMBULATORY - SURGERY [facility] Mar 30, 2024 10:30 AM AMBULATORY - REHAB MEDICIN E [facility] Vital Signs: All taken on the encounter date This section contains inpatient and outpatient Vital Signs collected on the date of the Encounter. Date/Time Temperature Pulse Blood Pressure Respiratory Rate SP02 Pain Height Weight Body Mass Index Source Oct 12, 2023 01:05 PM 150/75 [facility] Oct 12, 2023 12:57 PM 98 50 149/77 16 97 6 174.4 26 [facility] Social History: Smoking Status (Most current) [...] 29, 2023 11:00 AM VA-TOBACCO NEVER USED [facility] Tobacco Use History This section includes a history of the smoking, or tobacco-related health factors, that were collected on or before the date of the Encounter. The data comes from the [place] facility where the Encounter took place. Date/Time Smoking Status/Tobacco Use Comment F acility Feb 19, 2022 11:30 AM VA-TOBACCO FORMER USER [facility] Feb 19, 2022 11:30 AM VA-TOBACCO QUIT 15 YRS OR MORE [facility] August 14, 2020 08:30 AM VA-TOBACCO FORMER USER [facility] August 14, 2020 08:30 AM VA-TOBACCO QUIT 15 YRS OR MORE [facility] Jul 11, 2018 10:38 AM VA-TOBACCO FORMER USER [facility] Jul 11, 2018 10:38 AM VA-TOBACCO QUIT 15 YRS OR MORE [facility] Aug 25, 2017 10:47 AM FORMER TOBACCO USER 7Y OR GREATE R [facility] Nov 20, 2016 10:21 AM FORMER TOBACCO USER 7Y OR GREATE R [facility] Oct 08, 2015 08:27 AM FORMER TOBACCO USER 7Y OR GREATE R [facility] Dec 21, 2014 11:06 AM FORMER TOBACCO USER 7Y OR GREATE R [facility] Jan 05, 2014 08:09 AM FORMER TOBACCO USER 7Y OR GREATE R [facility] May 02, 2007 09:05 AM FORMER TOBACCO USER 7Y OR GREATE R [facility] May 12, 2006 10:31 AM FORMER TOBACCO USE >1Y <7Y [facility] Advance Directives: All historical and [...] 26, 2015 ADVANCE DIRECTIVE DISCUSSION GABBY MISTRY [facility] Mar 26, 2015 ADVANCE DIRECTIVE MIGUEL MISTRY [facility] Jan 12, 2005 ADVANCE DIRECTIVE JENN GARDUNO [facility] Radiology Reports: +/- 30 days of the encounter Radiology Reports For cases when an order for radiology services may have been completed prior to the date of the Encounter, the report list includes the Radiology Reports that were completed up to 30 days before dateof the Encounter. For cases when an order for radiology services may have been completed after the date of the Encounter, the report list also includes the Radiology Reports that were completed up to30 days after date of the Encounter. The data comes from all [place] treatment facilities. Date/Time Radiology Report Provider Source Sep 20, 2023 03:[address] RENAL COLIC PRO TOCOL (P): LACI GRIFFITH [id number] -[id number] M Ex Date: SEP 20, 2023@15:36 Req Phys: MARILIN JAQUEZ Loc: [facility] PACT RAINBOW PA 4E (Req'g Img Loc: CT IMAGING Service: [place] [address] (Case [id number] COMPLETE) CT (AP) ABDOMEN/PELVIS W/O CONTRA(CT Detailed) CPT:43308 Reason for Study: rule out kidney stones and eval for R quadrant pain Clinical History: c/o RUQ pain. Has occured intermittently since stroke related to past kidney stones and pain has become more frequent. Patient concerned if new kidneys stones. Pain changes with position. Sometimes will get massage and have massage therapist massage the area with some relief but pain returns. Denies urinary issues. rule out kidney stones as had complication of stroke in past and right sided pain increasing lately but not emergently Per Joint Commission Standards, by signing this diagnostic imaging request the ordering provider confirms they have considered patients age and recent imaging history. Defer to radiologist for final CT protocol. Contact number for responsible provider who can be reached for any questions or notifications of critical findings: Marilin Jaquez PA-C; cell [phone] na LAST 3: Collection DT Specimen Test Name Result Units Ref Range 03/11/2023 11:41 PLASMA CREATININE 1.0 mg/dL 0.7 - 1.2 02/19/2022 10:17 PLASMA CREATININE 1.0 mg/dL 0.7 - 1.2 02/03/2021 10:23 PLASMA CREATININE 1.1 mg/dL 0.7 - 1.2 03/11/2023 11:41 PLASMA .CREAT EGFR(CKD-E 78 Ref: >=60 02/19/2022 10:17 PLASMA .CREAT EGFR(CKD-E 78 Ref: >=60 Allergies: ([place] only) MERTHIOLATE TINCTURE (Jun 22, 2003) METFORMIN (Jan 12, 2005) NIACIN (Nov 03, 2006) EZETIMIBE (Nov 03, 2006) ROSIGLITAZONE (Aug 31, 2007) ROSUVASTATIN (Apr 17, 2008) MINOCYCLINE (Sep 15, 2012) LISINOPRIL (May 31, 2014) Report Status: Verified Date Reported: SEP 20, 2023 Date Verified: SEP 20, 2023 Ring Attacher E-Sig:/ES/ROSANNE HERNANDEZ MD Report: DATE/TIME REGISTERED: 09/20/2023 3:36 PM STUDY: CT (AP) ABDOMEN/PELVIS W/O CONTRAST HISTORY: rule out kidney stones and eval for R quadrant pain Prior CT 12/22/2016. TECHNIQUE: Helical CT scan of the abdomen and pelvis was performed from the domes of the diaphragms through the pelvis. No IV or oral contrast was given. Coronal reconstructions were reviewed. DLP = 378 mGy*m. FINDINGS: The current study reveals bilateral renal stones with at least 5 on the left and 3 on the right. The largest stone measures 11 mm in the mid to upper pole of the left kidney no ureteral calculi are identified and there is no evidence of hydronephrosis. No solid masses are identified. There is a 6.7 cm simple cyst off the lateral aspect of the right kidney. The bladder is nearly empty. The prostate gland measures 5.1 x 4.1 cm transverse. The abdominal aorta is normal caliber. Extensive calcified plaque is seen in the right external iliac artery. There is mild fullness to both adrenal glands without discrete mass. There is no pathologic retroperitoneal or pelvic adenopathy. There is moderate colonic redundancy. No wall thickening or inflammatory changes are appreciated. No mass lesions are seen. The small bowel is not dilated. Mild degenerative changes are seen in the spine. No fractures or destructive lesions are appreciated. The liver is unremarkable. No mass lesions are identified however the dome the liver is not included. The gallbladder has been removed. The common bile duct is generous however there is no intrahepatic biliary dilatation. There is moderate fatty replacement of the pancreas. The spleen is not enlarged. The stomach is empty. The lower lungs are unremarkable. Impression: 1. Negative CT scan of the abdomen and pelvis. No ureteral stone or evidence of hydronephrosis. 2. Bilateral renal stones with a right renal cyst. 3. Status post cholecystectomy. 4. 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 5. Other incidental findings as above. Primary Interpreting Staff: ROSANNE HERNANDEZ MD, RADIOLOGIST (Ring Attacher) /ROSANNE [facility]FE[facility]FFER [facility] Encounter Notes: All associated encounter notes This section contains the clinical notes associated to the Encounter. Date/Time Encounter Note(s) Provider Source Nov 04, 2023 04:49 PM ADDENDUM: LOCAL TITLE: Addendum STANDARD TITLE: ADDENDUM DATE OF NOTE: NOV 04, 2023@16:49:04 ENTRY DATE: NOV 04, 2023@16:49:06 AUTHOR: MARILIN JAQUEZ EXP COSIGNER: URGENCY: STATUS: COMPLETED Appreciate BLOOD BANK SPECIALIST Ramon's evaluation and suggested considerations. 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 Thank you! /nghia/ MARILIN JAQUEZ PA-C PHYSICIAN [facility] [facility] [facility] TECHNICIAN Signed: 11/04/2023 16:51 Receipt Acknowledged By: 11/12/2023 14:22 /nghia/ ALLEN NAILS MD Staff Physician --- Original Document --- 10/12/23 UROLOGY CONSULT: Chief Complaint: right upper quadrant pain A/P LACI Tong is a 77 year old [place] who presents for right upper quadrant pain. PLAN: 1. Pain - none of the urologic findings on CT can explain the pain he describes. - reviewed the imaging with Dr. Eller. - will monitor renal stones with CT in 1 year - primary could review non urologic findings on CT and decide whether to repeat with contrast - he may benefit from core strengthening PT. 2. Kidney stones - stable and not obstructing - CT in 1 year 3. Kidney cyst - stable and not likely contributing to described pain. HPI: LACI Tong is a 77 year old [place] who presents for right upper quadrant pain. This pain is mainly right upper quadrant but radiates into his side and down into his groin. He's had this pain waxing and waning since 2016. Getting a massage helps this pain. Sitting reclined with his right leg straight also relieves the pain. Sitting too long makes the pain worse. He's had imaging since 2016 to work up this pain. CT abdomen and pelvis shows bilateral renal stones. No ureteral stones. Also a 6 cm right renal cyst. Not much change in any of the findings since 2016. He did pass a stone in 2016. He believes the pain in his right upper quadrant started around the time he passed the stone but he had a stroke at that time and since then the pain has waxed and waned. He has history of bilateral inguinal hernia repair but pelvic US showed nothing remarkable in the pelvis or groin. He had polyp removed during colonoscopy 05/2023 but otherwise unremarkable colonoscopy. He's had a significant weight loss in the last couple of years due to Semaglutide. URINARY SYMPTOMS ====== Daytime freq: denies Nocturia: denies Urinary stream: weak Urgency: denies Incontinence: denies Hesitancy: denies Double voiding: denies Incomplete emptying: denies Hematuria: denies History of UTI: denies Hx prostate surgery: denies Alpha caesar: denies Finasteride: denies Bowel movements: reg Fluid intake: water Caffeine intake: denies SEXUAL SYMPTOMS ====== Erectile dysfunction: NA this visit PAST MEDICAL HISTORY ===== Diabetes mellitus type II ([facility] 87675220)Obesity, Unspec (ICD-9-CM 278.00) Hypercholesterolemia (ICD-9-CM 272.0) ASCVD (ICD-9-CM 429.2) Impotence of organic origin (ICD-9-CM 60Numbness (ICD-9-CM 782.0) Adenomatous polyp of colon (SCT 29734997Dehmhdcao vitreous detachment ([facility] 837672918) Shoulder joint pain ([facility] 790656974) Benign essential hypertension ([facility] 9905481) Kidney stone ([facility] 04477235) Cerebral infarction due to cerebral artery occlusion ([facility] 707438214354126) Blood in urine ([facility] 00919160) Thrombosis ([facility] 781640482) Intracranial hemorrhage ([facility] 7394571) Acquired complex renal cyst ([facility] [id number]) Exposure to Agent Caroline ([facility] [id number])Exposure to potentially hazardous substance ([facility] [id number]) PAST SURGICAL HISTORY ===== MAR 31, 2017 Proc: CE IOL left eye FEB 03, 2017 Proc: KPE/IOL right eye DEC 25, 2016 Proc: Laparoscopic cholecystectomy and appendectomy MAY 29, 2015 Proc: Cysto Left RPG Ureteroscopy Left Stent Placement Medications: Active Outpatient Medications (including Supplies): Active Outpatient [...] TAB TAKE ONE-HALF TABLET BY MOUTH ACTIVE (S) EVERY DAY FOR DIABETES 5) GLIPIZIDE 2.5MG [...] WEEK -REFRIGERATE - PEN CONTAINS MULTIPLE DOSES Active Non-VA Medications Status 1) Non-VA ASPIRIN 81MG EC TAB 81MG MOUTH EVERY DAY ACTIVE 8 Total Medications Allergies: MERTHIOLATE TINCTURE (Jun 22, 2003) METFORMIN (Jan 12, 2005) NIACIN (Nov 03, 2006) EZETIMIBE (Nov 03, 2006) ROSIGLITAZONE (Aug 31, 2007) ROSUVASTATIN (Apr 17, 2008) MINOCYCLINE (Sep 15, 2012) LISINOPRIL (May 31, 2014) FAMILY HISTORY ===== Hx of prostate cancer: denies Hx of renal cancer: denies Hx of bladder cancer: denies Father age 97 Mother age 74 CHF SOCIAL HISTORY ===== Lives at home with: Children: 3 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 Tobacco use: quit 1965 Alcohol use: denies Illicit drug use: denies Branch of service: [employer] orange exposure: yes Chemical/dye exposure: denies REVIEW OF SYSTEMS == General: denies weight loss/gain, fevers, chills HEENT: denies complaints of headache, change in vision Cardio: denies chest pain/palpitations Gastro: denies dysphagia, nausea, vomiting : See HPI Musc: denies any new back pain, arthralgias, muscle ache Neuro: denies weakness, numbness, gait difficulties Psych: denies new onset depression, mood changes, anxiety Skin: denies rashes Heme: denies easy bruising/bleeding PHYSICAL EXAM Gen: no acute distress, alert and oriented x 3 Neck: no JVD, trachea midline, no abnormal adenopathy Resp: breathing comfortably, room air Abd: Soft, nontender, nondistended, no flank pain bilat Skin: Warm and dry, no visible rashes/bruises Ext: No cyanosis, or edema. Neuro: Cranial nerves II-XII grossly intact : Penis uncircumcised Normal orthotopic meatus. No drainage is noted. No palpable penile plaques Testes descended bilat, no masses noted. KIMBERLY: deferred PVR today: 0 LABS: None for today's visit IMAGING Impression 1. Negative CT scan of the abdomen and pelvis. No ureteral stone or evidence of hydronephrosis. 2. Bilateral renal stones with a right renal cyst. 3. Status post cholecystectomy. 4. 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 5. Other incidental findings as above. FINDINGS: The current study reveals bilateral renal stones with at least 5 on the left and 3 on the right. The largest stone measures 11 mm in the mid to upper pole of the left kidney no ureteral calculi are identified and there is no evidence of hydronephrosis. No solid masses are identified. There is a 6.7 cm simple cyst off the lateral aspect of the right kidney. The bladder is nearly empty. The prostate gland measures 5.1 x 4.1 cm transverse. The abdominal aorta is normal caliber. Extensive calcified plaque is seen in the right external iliac artery. There is mild fullness to both adrenal glands without discrete mass. There is no pathologic retroperitoneal or pelvic adenopathy. There is moderate colonic redundancy. No wall thickening or inflammatory changes are appreciated. No mass lesions are seen. The small bowel is not dilated. Mild degenerative changes are seen in the spine. No fractures or destructive lesions are appreciated. The liver is unremarkable. No mass lesions are identified however the dome the liver is not included. The gallbladder has been removed. The common bile duct is generous however there is no intrahepatic biliary dilatation. There is moderate fatty replacement of the pancreas. The spleen is not enlarged. The stomach is empty. The lower lungs are unremarkable. All questions were answered. The understands the plan and is in agreement. I spent 45 minutes on this visit including review of records, labs, medications, imaging, examination, education, and documentation. Bertin Navarro NP /nghia/ BERTIN NAVARRO NP NURSE PRACTITIONER Signed: 10/12/2023 15:30 MARILIN JAQUEZ [facility] Oct 12, 2023 11:44 AM UROLOGY CONSULT: LOCAL TITLE: UROLOGY CONSULT STANDARD TITLE: UROLOGY CONSULT DATE OF NOTE: OCT 12, 2023@11:44 ENTRY DATE: OCT 12, 2023@11:44:36 AUTHOR: BERTIN NAVARRO EXP COSIGNER: URGENCY: STATUS: COMPLETED UROLOGY CONSULT Has ADDENDA Chief Complaint: right upper quadrant pain A/P LACI Tong is a 77 year old [place] who presents for right upper quadrant pain. PLAN: 1. Pain - none of the urologic findings on CT can explain the pain he describes. - reviewed the imaging with Dr. Eller. - will monitor renal stones with CT in 1 year - primary could review non urologic findings on CT and decide whether to repeat with contrast - he may benefit from core strengthening PT. 2. Kidney stones - stable and not obstructing - CT in 1 year 3. Kidney cyst - stable and not likely contributing to described pain. HPI: LACI Tong is a 77 year old who presents for right upper quadrant pain. This pain is mainly right upper quadrant but radiates into his side and down into his groin. He's had this pain waxing and waning since 2016. Getting a massage helps this pain. Sitting reclined with his right leg straight also relieves the pain. Sitting too long makes the pain worse. He's had imaging since 2016 to work up this pain. CT abdomen and pelvis shows bilateral renal stones. No ureteral stones. Also a 6 cm right renal cyst. Not much change in any of the findings since 2016. He did pass a stone in 2016. He believes the pain in his right upper quadrant started around the time he passed the stone but he had a stroke at that time and since then the pain has waxed and waned. He has history of bilateral inguinal hernia repair but pelvic US showed nothing remarkable in the pelvis or groin. He had polyp removed during colonoscopy 05/2023 but otherwise unremarkable colonoscopy. He's had a significant weight loss in the last couple of years due to Semaglutide. URINARY SYMPTOMS ====== Daytime freq: denies Nocturia: denies Urinary stream: weak Urgency: denies Incontinence: denies Hesitancy: denies Double voiding: denies Incomplete emptying: denies Hematuria: denies History of UTI: denies Hx prostate surgery: denies Alpha caesar: denies Finasteride: denies Bowel movements: reg Fluid intake: water Caffeine intake: denies SEXUAL SYMPTOMS ====== Erectile dysfunction: NA this visit PAST MEDICAL HISTORY ===== Diabetes mellitus type II (SCT 59405307)Obesity, Unspec (ICD-9-CM 278.00) Hypercholesterolemia (ICD-9-CM 272.0) ASCVD (ICD-9-CM 429.2) Impotence of organic origin (ICD-9-CM 60Numbness (ICD-9-CM 782.0) Adenomatous polyp of colon (SCT 57633020Kpbxoyzbh vitreous detachment ([facility] 900862482) Shoulder joint pain ([facility]CT 034190983) Benign essential hypertension (SCT 3973638) Kidney stone (SCT 53396362) Cerebral infarction due to cerebral artery occlusion ([facility] 851926258535479) Blood in urine ([facility]CT 29123622) Thrombosis (SCT 141137352) Intracranial hemorrhage (SCT 4232821) Acquired complex renal cyst ([facility] 12798296653209) Exposure to Agent Caroline ([facility]CT 590758684)Exposure to potentially hazardous substance ([facility] [id number]) PAST SURGICAL HISTORY ===== MAR 31, 2017 Proc: CE IOL left eye FEB 03, 2017 Proc: KPE/IOL right eye DEC 25, 2016 Proc: Laparoscopic cholecystectomy and appendectomy MAY 29, 2015 Proc: Cysto Left RPG Ureteroscopy Left Stent Placement Medications: Active Outpatient Medications (including Supplies): Active Outpatient [...] TAB TAKE ONE-HALF TABLET BY MOUTH ACTIVE (S) EVERY DAY FOR DIABETES 5) GLIPIZIDE 2.5MG [...] WEEK -REFRIGERATE - PEN CONTAINS MULTIPLE DOSES Active Non-VA Medications Status 1) Non-VA ASPIRIN 81MG EC TAB 81MG MOUTH EVERY DAY ACTIVE 8 Total Medications Allergies: MERTHIOLATE TINCTURE (Jun 22, 2003) METFORMIN (Jan 12, 2005) NIACIN (Nov 03, 2006) EZETIMIBE (Nov 03, 2006) ROSIGLITAZONE (Aug 31, 2007) ROSUVASTATIN (Apr 17, 2008) MINOCYCLINE (Sep 15, 2012) LISINOPRIL (May 31, 2014) FAMILY HISTORY ===== Hx of prostate cancer: denies Hx of renal cancer: denies Hx of bladder cancer: denies Father age 97 Mother age 74 CHF SOCIAL HISTORY ===== Lives at home with: Children: 3 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 Tobacco 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: quit 1965 Alcohol use: denies Illicit drug use: denies Branch of service: [employer] Agent orange exposure: yes Chemical/dye exposure: denies REVIEW OF SYSTEMS == General: denies weight loss/gain, fevers, chills HEENT: denies complaints of headache, change in vision Cardio: denies chest pain/palpitations Gastro: denies dysphagia, nausea, vomiting : See HPI Musc: denies any new back pain, arthralgias, muscle ache Neuro: denies weakness, numbness, gait difficulties Psych: denies new onset depression, mood changes, anxiety Skin: denies rashes Heme: denies easy bruising/bleeding PHYSICAL EXAM Gen: no acute distress, alert and oriented x 3 Neck: no JVD, trachea midline, no abnormal adenopathy Resp: breathing comfortably, room air Abd: Soft, nontender, nondistended, no flank pain bilat Skin: Warm and dry, no visible rashes/bruises Ext: No cyanosis, or edema. Neuro: Cranial nerves II-XII grossly intact : Penis uncircumcised Normal orthotopic meatus. No drainage is noted. No palpable penile plaques Testes descended bilat, no masses noted. KIMBERLY: deferred PVR today: 0 LABS: None for today's visit IMAGING Impression 1. Negative CT scan of the abdomen and pelvis. No ureteral stone or evidence of hydronephrosis. 2. Bilateral renal stones with a right renal cyst. 3. Status post cholecystectomy. 4. 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 5. Other incidental findings as above. FINDINGS: The current study reveals bilateral renal stones with at least 5 on the left and 3 on the right. The largest stone measures 11 mm in the mid to upper pole of the left kidney no ureteral calculi are identified and there is no evidence of hydronephrosis. No solid masses are identified. There is a 6.7 cm simple cyst off the lateral aspect of the right kidney. The bladder is nearly empty. The prostate gland measures 5.1 x 4.1 cm transverse. The abdominal aorta is normal caliber. Extensive calcified plaque is seen in the right external iliac artery. There is mild fullness to both adrenal glands without discrete mass. There is no pathologic retroperitoneal or pelvic adenopathy. There is moderate colonic redundancy. No wall thickening or inflammatory changes are appreciated. No mass lesions are seen. The small bowel is not dilated. Mild degenerative changes are seen in the spine. No fractures or destructive lesions are appreciated. The liver is unremarkable. No mass lesions are identified however the dome the liver is not included. The gallbladder has been removed. The common bile duct is generous however there is no intrahepatic biliary dilatation. There is moderate fatty replacement of the pancreas. The spleen is not enlarged. The stomach is empty. The lower lungs are unremarkable. All questions were answered. The understands the plan and is in agreement. I spent 45 minutes on this visit including review of records, labs, medications, imaging, examination, education, and documentation. Bertin Navarro NP /nghia/ BERTIN NAVARRO NP NURSE PRACTITIONER Signed: 10/12/2023 15:30 11/04/2023 ADDENDUM STATUS: COMPLETED Appreciate ROSEMARY Navarro's evaluation and suggested considerations. 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 Thank you! /nghia/ MARILIN JAQUEZ PA-C PHYSICIAN [facility] TECHNICIAN Signed: 11/04/2023 16:51 Receipt Acknowledged By: * AWAITING SIGNATURE * ALLEN NAILS JUDY M [facility] Oct 12, 2023 11:40 AM UROLOGY NURSING OUTPATIENT NOTE: LOCAL TITLE: UROLOGY CLINIC NURSING NOTE STANDARD TITLE: UROLOGY NURSING OUTPATIENT NOTE DATE OF NOTE: OCT 12, 2023@11:40 ENTRY DATE: OCT 12, 2023@11:40:52 AUTHOR: INA HADDAD EXP COSIGNER: URGENCY: STATUS: COMPLETED Nursing Procedures: Residual Urine (RU) Patient instructed and verbalizes that s/he has emptied the bladder completely. Ultrasound RU: 0 cc Participant instructed and verbalized understanding of procedure. /nghia/ INA HADDAD LPN LICENSED PRACTICAL NURSE Signed: 10/12/2023 11:42 INA HADDAD [facility]
--- OUTSIDE RECORDS SUMMARY | 2024-03-17 13:07 | XMS_ITS | Encounter Summary ---
Author Name [facility] [place] [facility] Address [address] [place] [address] Care Team Providers Care Deliverer Merchandise Name Role Phone KWAN NAILS Primary Care Provider Unav ailable Insurance [...] [employer] MACY/C DHP Mar 22, 2009 [id number] [phone] LACI GRIFFITH PATIENT [employer] HIGH DEDUCTIBL E HEALTH PLAN W/HEALTH REIMBURSE MENT ARRANGEME NT [employer] [employer] MACY HRA Mar 22, 2009 [id number] [phone] LACI GRIFFITH PATIENT [employer] BEHAVIORAL HEALTH MENTAL HEALTH [place] [employer] MACY HRA Mar 22, 2009 [id number] [phone] LACI GRIFFITH PATIENT MEDICA MCR (WNR) MEDICARE ADVANTAGE [facility] (WNR) Mar 22, 2018 [id number] [phone] LACI GRIFFITH PATIENT [employer] MCR (WNR) MEDICARE ADVANTAGE [facility] (WNR) Sep 19, 2012 [id number] [phone] LACI GRIFFITH PATIENT MEDICARE (WNR) MEDICARE (M) PART B Aug 20, 2012 PART B [id number] [phone] LACI GRIFFITH PATIENT MEDICARE (WNR) MEDICARE (M) PART A Sep 19, 2010 PART A [id number] [phone] LACI GRIFFITH PATIENT Selected Encounter This section includes the information on [place] at [place] for the Encounter. Date/Time Encounter Type Encounter Description Reason Pro vider Source Jun 02, 2023 01:11 PM Outpatient Encounter EVENT (HISTORICAL) IHE Encounter Template Text not used by [place] Plan of Treatment: Future Appointments (+ 6 months) and Future Tests (+/- 45 days) The Plan of Treatment section includes future care activities for the patient from all [place] treatmentfacilities. This section includes future appointments and future orders which are active, pending or scheduled. Future Appointments This section includes appointments that were scheduled to occur 6 months from the date of the Encounter, up to a maximum of 20 appointments. The data comes from all [place] treatment facilities. Appointment Date/Time Appointment Type Appointme nt Facility Name Aug 30, 2023 10:30 AM AMBULATORY - MEDICINE [facility] Aug 30, 2023 12:00 PM AMBULATORY - NONE [facility] Sep 14, 2023 01:00 PM AMBULATORY - MEDICINE [facility] Sep 20, 2023 04:15 PM AMBULATORY - NONE [facility] Oct 04, 2023 12:45 PM AMBULATORY - SURGERY [facility] Oct 12, 2023 11:00 AM AMBULATORY - SURGERY [facility] Oct 12, 2023 01:00 PM AMBULATORY - REHAB MEDICIN [facility] Nov 17, 2023 11:30 AM AMBULATORY - SURGERY [facility] Nov 18, 2023 01:00 PM AMBULATORY - REHAB MEDICIN E [facility] Nov 18, 2023 03:00 PM AMBULATORY - MEDICINE [facility] Social History: Smoking Status (Most current) and Tobacco Use (All prior to encounter date) This section includes the most current, and the historical, smoking and tobacco- related health factors from the [place] facility where the Encounter took place. Current Smoking Status This section includes the most current smoking, or tobacco-related health factor, from the [place] facility where the Encounter took place. Date/Time Current Smoking Status Comment Facil ity Mar 29, 2023 11:00 AM VA-TOBACCO NEVER USED [facility] Tobacco Use History This section includes a history of the smoking, or tobacco-related health factors, that were collected on or before the date of the Encounter. The data comes from the [place] facility where the Encounter took place. Date/Time Smoking Status/Tobacco Use Comment F acility Feb 19, 2022 11:30 AM VA-TOBACCO FORMER USER [facility] Feb 19, 2022 11:30 AM VA-TOBACCO QUIT 15 YRS OR MORE [facility] August 14, 2020 08:30 AM VA-TOBACCO FORMER USER [facility] August 14, 2020 08:30 AM VA-TOBACCO QUIT 15 YRS OR MORE [facility] Jul 11, 2018 10:38 AM VA-TOBACCO FORMER USER [facility] Jul 11, 2018 10:38 AM [place] QUIT 15 YRS OR MORE [facility] Aug 25, 2017 10:47 AM FORMER TOBACCO USER 7Y OR GREATE R [facility] Nov 20, 2016 10:21 AM FORMER TOBACCO USER 7Y OR GREATE R [facility] Oct 08, 2015 08:27 AM FORMER TOBACCO USER 7Y OR GREATE R [facility] Dec 21, 2014 11:06 AM FORMER TOBACCO USER 7Y OR GREATE R [facility] Jan 05, 2014 08:09 AM FORMER TOBACCO USER 7Y OR GREATE R [facility] May 02, 2007 09:05 AM FORMER TOBACCO USER 7Y OR GREATE R [facility] May 12, 2006 10:31 AM FORMER TOBACCO USE >1Y <7Y [facility] Advance Directives: All historical and current Section Date Range: From patient's date of to the date document was created. This section includes ALL of a patient's completed or amended [place] Advance and Rescinded Directives. The entries below indicate that a directive exists for the patient, but an actual copy is not included with this document. The data comes from all [facility]. Date Advance Directives Provider Source Mar 26, 2015 ADVANCE DIRECTIVE DISCUSSION GABBY MISTRY [facility] Mar 26, 2015 ADVANCE DIRECTIVE MIGUEL MISTRY [facility] Jan 12, 2005 ADVANCE DIRECTIVE JENN GARDUNO [facility] Pathology Reports: +/- 30 days of the encounter Pathology Reports For cases when an order for pathology services may have been completed prior to the date of the Encounter, the report list includes the Pathology Reports that were completed up to 30 days before dateof the Encounter. For cases when an order for pathology services may have been completed after the date of the Encounter, the report list also includes the Pathology Reports that were completed up to30 days after date of the Encounter. The data comes from all [place] treatment facilities. Date/Time Pathology Report Provider Source Jun 04, 2023 11:55 AM LR SURGICAL PATHOL OGY REPORT: LOCAL TITLE: LR SURGICAL PATHOLOGY REPORT STANDARD TITLE: PATHOLOGY REPORT DATE OF NOTE: JUN 04, 2023@11:55:04 ENTRY DATE: JUN 04, 2023@11:55:04 AUTHOR: AILYN EISENBERG EXP COSIGNER: URGENCY: STATUS: COMPLETED $APHDR Reporting Lab: [facility] [CLIA# [id number]] [place] [address] - - - - - - - - - - - - - - - - - - - - - - - - - - - - - - - - - - - - - - - - MEDICAL RECORD SURGICAL PATHOLOGY - - - - - - - - - - - - - - - - - - - - - - - - - - - - - - - - - - - - - - - - PATHOLOGY REPORT Accession No. [id number] - - - - - - - - - - - - - - - - - - - - - - - - - - - - - - - - - - - - - - - - $TEXT Submitted by: GIACOMO GAGE Date obtained: Jun 02, 2023 - - - - - - - - - - - - - - - - - - - - - - - - - - - - - - - - - - - - - - - - Specimen (Received Jun 03, 2023 07:58): 1. POLYPECTOMY COLON ASCENDING 2. POLYPECTOMY COLON TRANSVERSE - - - - - - - - - - - - - - - - - - - - - - - - - - - - - - - - - - - - - - - - BRIEF CLINICAL HISTORY: Polyps Procedure: Colonoscopy - - - - - - - - - - - - - - - - - - - - - - - - - - - - - - - - - - - - - - - - PREOPERATIVE DIAGNOSIS: R/O Adenoma - - - - - - - - - - - - - - - - - - - - - - - - - - - - - - - - - - - - - - - - OPERATIVE FINDINGS: - - - - - - - - - - - - - - - - - - - - - - - - - - - - - - - - - - - - - - - - POSTOPERATIVE DIAGNOSIS: Surgeon/physician: GIACOMO LUND =-=-=-=-=-=-=-=-=-=-=-=-=- =-=-=-=-=-=-=-=-=-=-=-=-=- =-=-=-=-=-=-=-=-=-=-=-=-=- = - - - - - - - - - - - - - - - - - - - - - - - - - - - - - - - - - - - - - - - - PATHOLOGY REPORT Accession No. [id number] - - - - - - - - - - - - - - - - - - - - - - - - - - - - - - - - - - - - - - - - GROSS DESCRIPTION: The requisition form and specimen(s) identification is confirmed. SPEC. 1 is labeled as colon-ascending and consists of multiple null tissue fragments measuring 2.5 x 0.6 x 0.3 cm in aggregate. CE SPEC. 2 is labeled as colon-transverse and consists of 2 null tissue fragments measuring 0.6 and 1.0 cm in greatest dimension. CE [facility]OS[facility]: SPECS. 1, 2. Microscopic examination performed. RS. DIAGNOSES: SPEC. 1 Colon, ascending polyp, polypectomy-- - Tubular adenoma, fragments - No evidence of high-grade dysplasia or malignancy SPEC. 2 Colon, transverse polyp, polypectomy-- - Tubular adenoma - No evidence of high-grade dysplasia or malignancy /nghia/ AILYN EISENBERG STAFF PATHOLOGIST, PATHOLOGY & LABORATORY [facility] Signed Jun 04, 2023@11:55 Performing Laboratory: Surgical Pathology Report Performed By: [facility] [CLIA# [id number]] [place] [address] $FTR - - - - - - - - - - - - - - - - - - - - - - - - - - - - - - - - - - - - - - - - (End of report) AILYN EISENBERG MD rks Date Jun 04, 2023 - - - - - - - - - - - - - - - - - - - - - - - - - - - - - - - - - - - - - - - - LACI GRIFFITH STANDARD FORM 515 ID:[id number] SEX:M :[id number] AGE: 77 LOC:[id number] PCP: Kwan Nails MD /nghia/ AILYN EISENBERG STAFF PATHOLOGIST, PATHOLOGY & LABORATORY [facility] Signed: 06/04/2023 11:55 AILYN EISENBERG [facility]
--- OUTSIDE RECORDS SUMMARY | 2024-03-17 13:07 | XMS_ITS | Encounter Summary ---
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 Operator Name Role Phone ALLEN NAILS Primary Care [...] [place] [facility] MACY/C DHP Mar 22, 2009 [id number] [phone] LACI GRIFFITH PATIENT MEDICA HIGH DEDUCTIBL E HEALTH PLAN W/HEALTH REIMBURSE MENT ARRANGEME NT [place] MACY HRA Mar 22, 2009 [id number] [phone] LACI GRIFFITH PATIENT [facility] BEHAVIORAL HEALTH MENTAL HEALTH [place] MACY HRA Mar 22, 2009 [id number] [phone] LACI GRIFFITH PATIENT MEDICA MCR (WNR) MEDICARE ADVANTAGE MCR (WNR) Mar 22, 2018 [id number] LACI GRIFFITH PATIENT MEDICA MCR (WNR) MEDICARE ADVANTAGE MCR (WNR) Sep 19, 2012 [id number] [phone] LACI GRIFFITH PATIENT MEDICARE (WNR) MEDICARE (M) PART B Aug 20, 2012 PART B [id number] LACI GRIFFITH PATIENT MEDICARE (WNR) MEDICARE (M) PART A Sep 19, 2010 PART A [id number] [phone] LACI GRIFFITH PATIENT Selected Encounter This section includes the information on record at [place] for the Encounter. Date/Time Encounter Type Encounter Description Reason Provider Source Oct 12, 2023 01:00 PM OFF/OP CNSLTJ NEW/EST MOD 40 PAIN CLINIC ICD-10-CM M79.10 Myalgia, unspecified site ROBBIN SR Jeff Encounter Template Text not used by [place] Assessments - Encounter Diagnoses This section includes the primary and secondary diagnoses documented for the Encounter. Date/Time Primary/Secondary Diagnosis Diagnosis Name Provider Source Oct 12, 2023 01:28 PM PRIMARY Myalgia, unspecified site ROBBIN SR [facility] Plan of Treatment: Future Appointments (+ 6 months) and Future Tests (+/- 45 days) The Plan of Treatment section includes future care activities for the [facility] [place] [facility] This section includes future appointments and future orders which are active, pending or scheduled. Future Appointments This section includes appointments that were scheduled to occur 6 months from the date of the Encounter, up to a maximum of 20 appointments. The data comes from all [place] treatment facilities. Appointment Date/Time Appointment Type Appointme nt Facility Name Nov 17, 2023 11:30 AM AMBULATORY - SURGERY [facility] Nov 18, 2023 01:00 PM AMBULATORY - REHAB MEDICIN [facility] Nov 18, 2023 03:00 PM AMBULATORY - MEDICINE MELINA [facility]ISSA [facility] Dec 13, 2023 10:30 AM AMBULATORY - NONE [facility] Jan 05, 2024 11:30 AM AMBULATORY - SURGERY [facility] Mar 09, 2024 12:40 PM AMBULATORY - SURGERY [facility] Mar 10, 2024 12:30 PM AMBULATORY - SURGERY [facility] Mar 30, 2024 10:30 [facility] Vital Signs: All taken on the encounter date This section contains inpatient and outpatient Vital Signs collected on the date of the Encounter. Date/Time Temperature Pulse Blood Pressure Respiratory Rate SP02 Pain Height Weight Body Mass Index Source Oct 12, 2023 01:05 PM 150/75 [facility] Oct 12, 2023 12:57 PM 98 50 149/77 16 97 6 174.4 26 [facility] Social History: Smoking Status (Most current) and Tobacco Use (All prior to encounter date) This section includes the most current, and the historical, smoking and tobacco- related health factors from the [place] facility where the Encounter took place. Current Smoking Status This section includes the most current smoking, or tobacco-related health factor, from the [place] facility where the Encounter took place. Date/Time Current Smoking Status Comment Facil ity Mar 29, 2023 11:00 AM VA-TOBACCO NEVER USED [facility] Tobacco Use History This section includes a history of the smoking, or tobacco-related health factors, that were collected on or before the date of the Encounter. The data comes from the [place] facility where the Encounter took place. Date/Time Smoking Status/Tobacco Use Comment F acility Feb 19, 2022 11:30 AM VA-TOBACCO FORMER USER [facility] Feb 19, 2022 11:30 AM VA-TOBACCO QUIT 15 YRS OR MORE [facility] August 14, 2020 08:30 AM VA-TOBACCO FORMER USER [facility] August 14, 2020 08:30 AM VA-TOBACCO QUIT 15 YRS OR MORE [facility] Jul 11, 2018 10:38 AM VA-TOBACCO FORMER USER [facility] Jul 11, 2018 10:38 AM VA-TOBACCO QUIT 15 YRS OR MORE [facility] Aug 25, 2017 10:47 AM FORMER TOBACCO USER 7Y OR GREATE R [facility] Nov 20, 2016 10:21 AM FORMER TOBACCO USER 7Y OR GREATE R [facility] Oct 08, 2015 08:27 AM FORMER TOBACCO USER 7Y OR GREATE R [facility] Dec 21, 2014 11:06 AM FORMER TOBACCO USER 7Y OR GREATE R [facility] Jan 05, 2014 08:09 AM FORMER TOBACCO USER 7Y OR GREATE R [facility] May 02, 2007 09:05 AM FORMER TOBACCO USER 7Y OR GREATE R [facility] May 12, 2006 10:31 AM FORMER TOBACCO USE >1Y <7Y [facility] Advance Directives: All historical and current Section Date Range: From patient's date of to the date document was created. This section includes ALL of a patient's completed or amended [place] Advance and Rescinded Directives. The entries below indicate that a directive exists for the patient, but an actual copy is not included with this document. The data comes from all [place] facilities. Date Advance Directives Provider Source Mar 26, 2015 ADVANCE DIRECTIVE DISCUSSION GABBY MISTRY [facility] Mar 26, 2015 ADVANCE DIRECTIVE MIGUEL MISTRY [facility] Jan 12, 2005 ADVANCE DIRECTIVE SHAANDEMARCUSJeff [facility] Radiology Reports: +/- 30 days of the [...] the Encounter. The data comes from all [place] treatment facilities. Date/Time Radiology Report Provider Source Sep 20, 2023 03:[address] RENAL COLIC PRO TOCOL (P): LACI GRIFFITH Carin [id number] -[id number] M Exm Date: SEP 20, 2023@15:36 Req Phys: MARILIN NOBLE Loc: [facility] PACT RAINBOW PA 4E (Req'g Img Loc: CT IMAGING Service: [place] [address] (Case [id number] COMPLETE) CT (AP) ABDOMEN/PELVIS W/O CONTRA(CT Detailed) CPT:66946 Reason for Study: rule out kidney stones [...] questions or notifications of critical findings: Marilin Noble PA-C; cell [phone] na LAST 3: Collection DT Specimen Test Name Result Units Ref Range 03/11/2023 11:41 PLASMA CREATININE 1.0 mg/dL 0.7 - 1.2 02/19/2022 10:17 PLASMA CREATININE 1.0 mg/dL 0.7 - 1.2 02/03/2021 10:23 PLASMA CREATININE 1.1 mg/dL 0.7 - 1.2 03/11/2023 11:41 PLASMA .CREAT EGFR(CKD-E 78 Ref: >=60 02/19/2022 10:17 PLASMA .CREAT EGFR(CKD-E 78 Ref: >=60 Allergies: ([facility]) MERTHIOLATE TINCTURE (Jun 22, 2003) METFORMIN (Jan 12, 2005) NIACIN (Nov 03, 2006) EZETIMIBE (Nov 03, 2006) ROSIGLITAZONE (Aug 31, 2007) ROSUVASTATIN (Apr 17, 2008) MINOCYCLINE (Sep 15, 2012) LISINOPRIL (May 31, 2014) Report Status: Verified Date Reported: SEP 20, 2023 Date Verified: SEP 20, 2023 Tape Editor E-Sig:/ES/ROSANNE HERNANDEZ MD Report: DATE/TIME REGISTERED: 09/20/2023 [...] Primary Interpreting Staff: ROSANNE HERNANDEZ MD, RADIOLOGIST (Tape Editor) /ROSANNE PFEIFFER RUSTSHILPA [facility] Encounter Notes: All associated encounter notes This section contains the clinical notes associated to the Encounter. Date/Time Encounter Note(s) Provider Source Oct 12, 2023 01:17 PM PHYSICAL MEDICINE REHAB CONSULT: LOCAL TITLE: PAIN CENTER CONSULT STANDARD TITLE: PHYSICAL MEDICINE REHAB CONSULT DATE OF NOTE: OCT 12, 2023@13:17 ENTRY DATE: OCT 12, 2023@13:17:26 AUTHOR: ROBBIN SR EXP COSIGNER: URGENCY: STATUS: COMPLETED PAIN CLINIC NEW PATIENT EVALUATION CHIEF COMPLAINT right abdominal pain HISTORY This patient is a 77 yo male with history of CAD, CVA, DMII, with chronic right lower abdomen pain since his CVA in 2016. Pain is located in the right lower quadrant with radiation to the groin and flank. It is constant. He denies weakness, falls, numbness/tingling. Pain is improved with walking and worse with prolonged sitting. It feels better to stretch his leg out straight as well. He has done some massage therapy for it, with good relief for several days. He takes Tylenol with mild help. TIMING OF PAIN How often does patient have pain: daily, constant PAIN QUALITY Description of pain: Sharp, Dull/aching, Pressure RELIEVING AND AGGRAVATING FACTORS Aggravating positions/activities include: straighten leg Alleviating positions/activities include: GAIT/FALLS does not use a gait aid denies falls within the past 6 months RED FLAGS The patient: denies Bowel/Bladder incontinence denies Unexplained weight loss denies Progressive weakness denies Pain with resting denies Recent Fever/infection/IV Drug use denies History of Cancer PROMIS 6b Baseline PROMIS Pain Interference 6b PROMIS Pain Interference - short form 6b In the past 7 days... How much did pain interfere with your enjoyment of life? Somewhat (3) How much did pain interfere with your ability to concentrate? Somewhat (3) How much did pain interfere with your day to day activities? Somewhat (3) How much did pain interfere with your enjoyment of recreational activities? Somewhat (3) How much did pain interfere with doing your tasks away from home (e.g., getting groceries, running errands)? Somewhat (3) How often did pain keep you from socializing with others? Sometimes (3) RAW SCORE CONVERSION TO T-SCORE: T-Score value indicates how score relates to normative samples (a standardized score with a mean of 50 and a standard deviation (SD) of 10). T-Scores >=60 indicate patient is outside the normal range, being 1+ SD worse than average. RAW T-SCORE 18 61.8 WHOLE HEALTH: Why is addressing your overall health important to you? feel better What do you want your health for (why do you want to be healthy)? sit longer ENDURANCE How long can patient walk before having to stop secondarily to pain? 45 minutes hours How long can patient sit before having to get up and move about? 10 minutes hours How long can patient stand before patient has to sit down? 45 minutes hours PRIOR TREATMENTS Acupuncture: No Chiropractic: No Pain Psychology: No Surgery: No Injections: No Physical Therapy: Yes, was it helpful? No CURRENT MEDICATIONS: Active Outpatient Medications (excluding Supplies): Outpatient Medications Status 1) ATORVASTATIN CALCIUM 80MG [...] WEEK -REFRIGERATE - PEN CONTAINS MULTIPLE DOSES Non-VA Medications Status 1) Non-VA ASPIRIN 81MG EC TAB 81MG MOUTH EVERY DAY ACTIVE 8 Total Medications MEDICATIONS - OPIOID ANALGESICS The patient is NOT currently using Opioid analgesic medications. NON OPIOID PAIN MEDICATIONS: Tylenol PSYCHOLOGICAL TREATMENT Has patient ever had psychiatric, psychological, or social work evaluations or treatments for any problem, including current pain complaint? No PAST MEDICAL PROBLEMS Has patient every had any of the following medical conditions? Stroke, Heart problems, High cholesterol, High blood pressure SOCIAL HISTORY Marital Status: Social Support: Employment History Current work status? Retired Current or former primary occupation: [employer]ence [employer] Does patient drink caffeine? No TOBACCO Does patient use tobacco products? No Has patient used tobacco in the past? Yes How much? quit 60's ALCOHOL Does patient drink alcohol? No RECREATIONAL SUBSTANCES Does patient use recreational substances? No REVIEW OF SYSTEMS HEENT: hearing loss Remainder of the 12 point review of systems is negative or as per HPI. PHYSICAL EXAM Patient ambulates nonantalgically without assistive device. TTP in the right lower quadrants and right adductors, reproduce his normal pain. Strength 5/5 in the bilateral lower extremities throughout. No decreased sensation to light touch L2-S1 dermatomes bilaterally. Reflexes 2/4 bilateral patella and achilles. IMAGING MRI R HIP 2017 Impression: Mildly increased T2 signal near the adductor insertions onto the proximal femur and adjacent to the distal iliopsoas tendon. Question strain. Right hip otherwise unremarkable. No evidence of significant degenerative changes, labral tear, hip effusion, or AVN. No acute bone injuries identified. No significant abductor tendinopathy or proximal hamstring tendinopathy. No evidence to suggest trochanteric bursitis. Degenerative changes lumbosacral intervertebral discs. No intrapelvic abnormalities noted. ABD CT 2023 Impression: 1. Negative CT scan of the abdomen and pelvis. No ureteral stone or evidence of hydronephrosis. 2. Bilateral renal stones with a right renal cyst. 3. Status post cholecystectomy. 4. 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 ASSESSMENT/PLAN 77 yo male with history of CAD, CVA, DMII, with chronic right lower abdomen pain since his CVA in 2016. Pain is located in the right lower quadrant with radiation to the groin and flank. It is constant. He denies weakness, falls, numbness/tingling. Pain is improved with walking and worse with prolonged sitting. It feels better to stretch his leg out straight as well. He has done some massage therapy for it, with good relief for several days. He takes Tylenol with mild help. Patient with chronic myofascial abdomen/hip flexor/adductor pain s/p CVA in 2016. Does not seem like central post stroke pain given its regional distribution and lack of neuropathic features. He was educated that his pain is unlikely to fully go away given its' chronicity. 1. Medications: Continue with Tylenol OTC. Will Rx Zanaflex 4mg po bid prn. 2. Therapy: He has been through PT without much help. 3. Alternative: Will refer to [facility] chiro for myofascial treatments. Could consider acupuncture if minimal benefit from the above. Patient and understood the above noted findings, assessment and plan. All questions answered. No follow up necessary. /nghia/ ROBBIN SR MD STAFF PHYSICIAN Signed: 10/12/2023 13:28 ROBBIN SR [facility] Oct 12, 2023 12:59 PM PHYSICAL MEDICINE REHAB NURSING NOTE: LOCAL TITLE: REHAB MEDICINE CLINIC NURSING NOTE STANDARD TITLE: PHYSICAL MEDICINE REHAB NURSING NOTE DATE OF NOTE: OCT 12, 2023@12:59 ENTRY DATE: OCT 12, 2023@12:59:46 AUTHOR: MARTHA BRUNSON COSIGNER: URGENCY: STATUS: COMPLETED C-SSRS Screening [place] Suicide Severity Rating Scale (C-SSRS) screener 1. Over the past month, have you wished you were or wished you could go to sleep and not wake up? No 2. Over the past month, have you had any actual thoughts of killing yourself? No 3. Over the past month, have you been thinking about how you might do this? Response not required due to responses to other questions. 4. Over the past month, have you had these thoughts and had some intention of acting on them? Response not required due to responses to other questions. 5. Over the past month, have you started to work out or worked out the details of how to kill yourself? Response not required due to responses to other questions. 6. If yes, at any time in the past month did you intend to carry out this plan? Response not required due to responses to other questions. 7. In your lifetime, have you ever done anything, started to do anything, or prepared to do anything to end your life (for example, collected pills, obtained a gun, gave away valuables, went to the roof but didn't jump)? No 8. If YES, was this within the past 3 months? Response not required due to responses to other questions. Type of visit: Appointment Check In Reason for Visit: New pain evaluation. Vital Signs: Blood Pressure: 149/77 (10/12/2023 12:57) Pulse: 50 (10/12/2023 12:57) Respiration: 16 (10/12/2023 12:57) Temperature: 98 F [36.7 C] (10/12/2023 12:57) Weight: 174.4 lb [79.11 kg] (10/12/2023 12:57) Height: 68.5 in [174.0 cm] (08/30/2023 10:13) BMI: 26.2 Pain: 6 (10/12/2023 12:57) Allergies: MERTHIOLATE TINCTURE (Jun 22, 2003) [...] MOUTH EVERY DAY ACTIVE 8 Total Medications Patient reports the following changes regarding the current pharmacy list of medications: The above medication list confirmed with patient. A copy of the above medication list given to the MD for review and update. Provider will give printed copy of medication list to patient with any changes documented on printed medication list. /nghia/ MARTHA BRUNSON LPN LICENSED PRACTICAL NURSE Signed: 10/12/2023 13:00 MARTHA BRUNSON [facility]
--- OUTSIDE RECORDS SUMMARY | 2024-03-17 13:07 | XMS_ITS | Encounter Summary ---
Author Name [facility] [facility] [place] Address [address] [place] [address] Care Team Providers Care Excavating Supervisor Name Role Phone ALLEN NAILS Primary Care [...] [facility] [facility] MACY/C DHP Mar 22, 2009 [id number] [phone] LACI GRIFFITH PATIENT MEDICA HIGH DEDUCTIBL E HEALTH PLAN W/HEALTH REIMBURSE MENT ARRANGEME NT [place] [facility] MACY HRA Mar 22, 2009 [id number] [phone] LACI GRIFFITH PATIENT [facility] BEHAVIORAL HEALTH MENTAL HEALTH [place] [facility] MACY HRA Mar 22, 2009 [id number] [phone] LACI GRIFFITH PATIENT MEDICA MCR (WNR) MEDICARE ADVANTAGE [facility] (WNR) Mar 22, 2018 [id number] LACI GRIFFITH PATIENT MEDICA MCR (WNR) MEDICARE ADVANTAGE MCR (WNR) Sep 19, 2012 [id number] [phone] LACI GRIFFITH PATIENT MEDICARE (WNR) MEDICARE (M) PART B Aug 20, 2012 PART B [id number] LACI GRIFFITH PATIENT MEDICARE (WNR) MEDICARE (M) PART A Sep 19, 2010 PART A [id number] [phone] LACI GRIFFITH PATIENT Selected Encounter This section includes the information on record at [facility] for the Encounter. Date/Time Encounter Type Encounter Description Reason Provider Source Oct 04, 2023 12:45 PM OFFICE O/P NEW MOD 45 MIN ORTHO/JOINT SURG ICD-10-CM M79.642 Pain in left hand SAIMA WLESH Jeff Encounter Template Text not used by [place] Assessments - Encounter Diagnoses This section includes the primary and secondary diagnoses documented for the Encounter. Date/Time Primary/Secondary Diagnosis Diagnosis Name Provider Source Oct 04, 2023 01:26 PM PRIMARY Pain in left hand SAIMA WELSH [facility] Plan of Treatment: Future Appointments (+ 6 months) and Future Tests (+/- 45 days) The Plan of Treatment section includes future care activities for the patient from [facility]. This section includes future appointments and future orders which are active, pending or scheduled. Future Appointments This section includes appointments that were scheduled to occur 6 months from the date of the Encounter, up to a maximum of 20 appointments. The data comes from all [place] treatment facilities. Appointment Date/Time Appointment Type Appointme nt Facility Name Oct 12, 2023 11:00 AM AMBULATORY - SURGERY [facility] Oct 12, 2023 01:00 PM AMBULATORY - REHAB MEDICIN E [facility] Nov 17, 2023 11:30 AM AMBULATORY - SURGERY [facility] Nov 18, 2023 01:00 PM AMBULATORY - REHAB MEDICIN E [facility] Nov 18, 2023 03:00 PM AMBULATORY - MEDICINE [facility] Dec 13, 2023 10:30 AM AMBULATORY - NONE [facility] Jan 05, 2024 11:30 AM AMBULATORY - SURGERY [facility] Mar 09, 2024 12:40 PM AMBULATORY - SURGERY [facility] Mar 10, 2024 12:30 PM AMBULATORY - SURGERY [facility] Mar 30, 2024 10:30 AM AMBULATORY - REHAB MEDICIN Jeff [facility] Social History: Smoking Status (Most current) and Tobacco Use (All prior to encounter date) This section includes the most current, and the historical, smoking and tobacco- related health factors from the [place] facility where the Encounter took place. Current Smoking Status This section includes the most current smoking, or tobacco-related health factor, from the [place] facility where the Encounter took place. Date/Time Current Smoking Status Comment Facil ity Mar 29, 2023 11:00 AM VA-TOBACCO NEVER USED [facility] Tobacco Use History This section includes a history of the smoking, or tobacco-related health factors, that were collected on or before the date of the Encounter. The data comes from the [place] facility where the Encounter took place. Date/Time Smoking Status/Tobacco Use Comment F acility Feb 19, 2022 11:30 AM VA-TOBACCO FORMER USER [facility] Feb 19, 2022 11:30 AM VA-TOBACCO QUIT 15 YRS OR MORE [facility] August 14, 2020 08:30 AM VA-TOBACCO FORMER USER [facility] August 14, 2020 08:30 AM VA-TOBACCO QUIT 15 YRS OR MORE [facility] Jul 11, 2018 10:38 AM VA-TOBACCO FORMER USER [facility] Jul 11, 2018 10:38 AM VA-TOBACCO QUIT 15 YRS OR MORE [facility] Aug 25, 2017 10:47 AM FORMER TOBACCO USER 7Y OR GREATE R [facility] Nov 20, 2016 10:21 AM FORMER TOBACCO USER 7Y OR GREATE R [facility] Oct 08, 2015 08:27 AM FORMER TOBACCO USER 7Y OR GREATE R [facility] Dec 21, 2014 11:06 AM FORMER TOBACCO USER 7Y OR GREATE R [facility] Jan 05, 2014 08:09 AM FORMER TOBACCO USER 7Y OR GREATE R [facility] May 02, 2007 09:05 AM FORMER TOBACCO USER 7Y OR GREATE R [facility] May 12, 2006 10:31 AM FORMER TOBACCO USE >1Y <7Y [facility] Advance Directives: All historical and current Section Date Range: From patient's date of to the date document was created. This section includes ALL of a patient's completed or amended [place] Advance and Rescinded Directives. The entries below indicate that a directive exists for the patient, but an actual copy is not included with this document. The data comes from all [place] facilities. Date Advance Directives Provider Source Mar 26, 2015 ADVANCE DIRECTIVE DISCUSSION GABBY MISTRY [facility] Mar 26, 2015 ADVANCE DIRECTIVE NAVARROAnupamaMIGUEL KARTHIK [facility] Jan 12, 2005 ADVANCE DIRECTIVE SHAANJENN ANDERSON PINGESPERANZAArash [facility] Radiology Reports: +/- 30 days [...] the Encounter. The data comes from all [place] treatment facilities. Date/Time Radiology Report Provider Source Sep 20, 2023 03:[address] RENAL COLIC PRO TOCOL (P): LACI GRIFFITH Carin [id number] -[id number] M Exm Date: SEP 20, 2023@15:36 Req Phys: MARILIN NOBLE Loc: [facility] PACT RAINBOW PA 4E (Req'g Img Loc: CT IMAGING Service: [place] [address] (Case [id number] COMPLETE) CT (AP) ABDOMEN/PELVIS W/O CONTRA(CT Detailed) CPT:06657 Reason for Study: rule out kidney stones [...] of critical findings: Marilin Noble PA-C; cell [phone] na LAST 3: Collection DT Specimen Test Name Result Units Ref Range 03/11/2023 11:41 PLASMA CREATININE 1.0 mg/dL 0.7 - 1.2 02/19/2022 10:17 PLASMA CREATININE 1.0 mg/dL 0.7 - 1.2 02/03/2021 10:23 PLASMA CREATININE 1.1 mg/dL 0.7 - 1.2 03/11/2023 11:41 PLASMA .CREAT EGFR(CKD-E 78 Ref: >=60 02/19/2022 10:17 PLASMA .CREAT EGFR(CKD-E 78 Ref: >=60 Allergies: ([place] only) MERTHIOLATE TINCTURE (Jun 22, 2003) METFORMIN (Jan 12, 2005) NIACIN (Nov 03, 2006) EZETIMIBE (Nov 03, 2006) ROSIGLITAZONE (Aug 31, 2007) ROSUVASTATIN (Apr 17, 2008) MINOCYCLINE (Sep 15, 2012) LISINOPRIL (May 31, 2014) Report Status: Verified Date Reported: SEP 20, 2023 Date Verified: SEP 20, 2023 Tracer Bullet Section Supervisor E-Sig:/ES/ROSANNE HERNANDEZ MD Report: DATE/TIME REGISTERED: 09/20/2023 [...] Primary Interpreting Staff: ROSANNE HERNANDEZ MD, RADIOLOGIST (Tracer Bullet Section Supervisor) /ROSANNE PFEIFFER [facility] Encounter Notes: All associated encounter notes This section contains the clinical notes associated to the Encounter. Date/Time Encounter Note(s) Provider Source Oct 04, 2023 01:14 PM ORTHOPEDIC SURGERY CONSULT: LOCAL TITLE: ORTHOPEDIC CONSULT STANDARD TITLE: ORTHOPEDIC SURGERY CONSULT DATE OF NOTE: OCT 04, 2023@13:14 ENTRY DATE: OCT 04, 2023@13:14:27 AUTHOR: SAIMA WELSH EXP COSIGNER: URGENCY: STATUS: COMPLETED ORTHOPEDIC CONSULT Has ADDENDA ASSESSMENT: 1. Left hand pain, tingling, numbness, weakness 2. Left first dorsal phalanx ganglion cyst PLAN: 1. Left upper extremity EMG/nerve conduction study 2. Follow-up with Dr. Mcguier 6 weeks may cancel pending EMG findings Discussed with Laci and his significant other today that certainly he does have a ganglion cyst at the left thumb. Discussed that this cyst would not bring on the extent of his symptoms include fairly diffuse hand/lower arm pain, tingling, numbness along with his weakness noted on finger extension, triceps, pronator teres. Discussed potential for some type of nerve pathology as well. I would recommend further investigation with a left upper extremity EMG/nerve conduction study prior to any type of intervention such as injection, surgery involving ganglion cyst. Discussed that certainly may be 2 separate problems. We will have him follow-up in [address] Mcguire to discuss whether not be beneficial removing the ganglion cyst. Briefly reviewed what this would entail but again discussed that this removed likely would not help with his other areas of pain, numbness, weakness. I spent 40 minutes on patient care, including reviewing chart and history. With over 50% of time spent on [id number] education relating to medical condition. DISCLAIMER: This dictation was completed using [employer]. Although I attest that I diligently review and edit my dictations, insensible words or phrases may still be present. Chief Complaint: Left thumb nodule, weakness, tingling, numbness History of Present Illness: Laci is a pleasant [id number] 77-year-old male comes in the clinic today accompanied by his significant other for 8+ month history of what started as a left nodule of the mid dorsal thumb. He states that over the winter he was hammering in which he actually struck his finger. Had immediate onset of pain shortly after cystic-like nodule formed. States that this is been ongoing pain the above symptoms of pain now having tingling, numbness, weakness. He states that the pain is fairly diffuse feels it more base of the thumb, wrist but now feeling into the second, third digit along with over the dorsal aspect of the forearm biceps stopping at the deltoid. He notes becoming week on the left. 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 Denies any history of neck pain, neck injuries, elbow pain, elbow injuries, wrist pain, wrist injuries. Today he has only tried Tylenol with some degree of relief in his pain but not other symptoms. Pertinent Medical History: Type II diabetic last A1c 7.7, ASCVD, CVA Allergies: MERTHIOLATE TINCTURE (Jun 22, 2003) METFORMIN (Jan 12, 2005) NIACIN (Nov 03, 2006) EZETIMIBE (Nov 03, 2006) ROSIGLITAZONE (Aug 31, 2007) ROSUVASTATIN (Apr 17, 2008) MINOCYCLINE (Sep 15, 2012) LISINOPRIL (May 31, 2014) Current Medications: Active Outpatient Medications (including Supplies): ATORVASTATIN CALCIUM 80MG TAB TAKE ONE TABLET BY MOUTH AT ACTIVE BEDTIME FOR CHOLESTEROL CARBOXYMETHYLCELLULOSE NA 0.25% OPH SOLN INSTILL 1 DROP IN ACTIVE BOTH EYES FOUR TIMES A DAY CICLOPIROX 8% TOP SOLN APPLY TOPICALLY EVERY DAY TO ACTIVE AFFECTED NAILS(S) REMOVE WITH RUBBING ALCOHOL EVERY 7 DAYS* TREAT UNTIL NAIL CLEARANCE OR 48 WEEKS FOR NAIL FUNGUS EMPAGLIFLOZIN 25MG TAB TAKE ONE-HALF TABLET BY MOUTH EVERY ACTIVE (S) DAY FOR DIABETES GLIPIZIDE 2.5MG SA TAB TAKE ONE TABLET BY MOUTH EVERY DAY ACTIVE FOR DIABETES WITH BREAKFAST LOSARTAN 25MG TAB TAKE ONE-HALF TABLET BY MOUTH TWICE A ACTIVE DAY FOR BLOOD PRESSURE SEMAGLUTIDE 0.25MG/0.375ML INJ PEN 3ML INJECT 0.5MG UNDER ACTIVE THE SKIN EVERY WEEK FOR DIABETES -INJECT ON THE SAME DAY EVERY WEEK -REFRIGERATE - PEN CONTAINS MULTIPLE DOSES Non-VA ASPIRIN 81MG EC TAB 81MG MOUTH EVERY DAY ACTIVE REVIEW OF SYSTEMS: See the above Physical Exam: Pain Score: 8 (08/30/2023 10:13) Temperature: 97.5 F [36.4 C] (08/30/2023 10:13) Pulse: 68 (08/30/2023 10:13) Blood Pressure: 148/76 (08/30/2023 10:19) Weight: 174.9 lb [79.33 kg] (08/30/2023 10:13) Height: 68.5 in [174.0 cm] (08/30/2023 10:13) BMI: 26.3 General: Alert and oriented x4. No acute distress Muscoskeletal: Visual assessment of the bilateral hands does not note any thenar, hypothenar eminence atrophy. There is a 0.5 cm circular mobile semifirm nodule to the dorsal medial first digit mid phalanx. This is minimally tender. This does transilluminate. Distal sensation to all digits bilaterally is intact. 4/5 weakness noted with left first and second digit extension in comparison to all other digits. Is noted with triceps 4/5 in comparison to right 5/5. Left 3/5 weakness with pronator teres in comparison to contralateral 5/5. Although strength intact of the hand, wrist, biceps, deltoid. Positive Tinel's, Phalen's at the left carpal tunnel. Positive scratch collapse on the left carpal tunnel. Negative cubital tunnel Tinel's and scratch collapse. Range of motion with elbow, wrist fingers all 5/5 Review of Xrays: X-rays of the left hand: No evidence of acute fracture or malalignment. Chondrocalcinosis. Mild first CMC and triscaphe osteoarthrosis. Scattered early to mild degenerative changes at the interphalangeal joints. No erosions. Remote posttraumatic morphology of the ulnar styloid process. Latest Labs: HGB 15.7 (03/11/23) MCV 95.8 (03/11/23) WBC 7.09 (03/11/23) PLT 220 (03/11/23) GLUCOSE 139 H (03/11/23) RHEUMATOID FACTOR____ C-REACTIVE PROTEIN____ ALBUMIN 4.2 (03/11/23) Collection DT Specimen Test Name Result Units Ref Range 08/31/2007 12:27 PLASMA CK,TOTAL 160 IU/L 30 - 200 URIC ACID____ CALCIUM 9.5 (03/11/23) MAGNESIUM 2.0 (03/11/23) PO4____ CREATININE 1.0 (03/11/23) UREA NITROGEN 12 (03/11/23) No data available for: VIT D 25-OH,TOTAL TSH ____ No data available LAB TESTS SELECTED Collection DT Specimen Test Name Result Units Ref Range 08/30/2023 11:24 BLOOD !! HEMOGLOBIN A1C 7.7 H % 4.0 - 6.0 !! Indicates COMMENTS AVAILABLE...Refer to Interim Lab Report. Lipids: CHOLESTEROL____ HDL____ LDL CALCULATION____ LDL Measured: /es/ SAIMA WELSH NP NURSE PRACTITIONER Signed: 10/04/2023 13:26 11/24/2023 ADDENDUM STATUS: COMPLETED I called patient to review his recent EMG/nerve conduction study. Overall symptoms are similar. He has been doing nightly splinting which she does feel like there is relief in the morning with his tingling numbness. Again he does clarify that symptoms are fairly diffuse to the hand and he also does experience some pain or proximal through the arm. Denies any neck pain 1. 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 Chronic cervical radiculopathy in the C6 region with no evidence of acute denervation. 3. No evidence of myopathy, plexopathy, polyneuropathy, or ulnar neuropathy on the basis of this study. Reviewed the above. Difficult determine how much of his symptoms are actually coming from the median neuropathy versus cervical radiculopathy or is ganglion cyst. Reassuring that he does get a good deal of relief with the nightly splinting. Overall we will keep plan to see him with splinting for the next 4 weeks and follow-up with Dr. Mgcuire which they can discuss whether or not carpal tunnel release versus injection to further delineate /nghia/ SAIMA WELSH NP NURSE PRACTITIONER Signed: 11/24/2023 10:00 SAIMA WELSH [facility]
--- OUTSIDE RECORDS SUMMARY | 2024-03-17 13:07 | XMS_ITS | Encounter Summary ---
Author Name [facility] [place] Organization [facility] [place] Address [address] [place] [address] Care Team Providers Care Trace Evidence Technician Name Role Phone ALLEN NAILS Primary [...] [place] MACY/C DHP Mar 22, 2009 [id number] [phone] LACI GRIFFITH PATIENT MEDICA HIGH DEDUCTIBL E HEALTH PLAN W/HEALTH REIMBURSE MENT ARRANGEME NT [place] AMCY HRA Mar 22, 2009 [id number] [phone] LACI GRIFFITH PATIENT MEDICA BEHAVIORAL HEALTH MENTAL HEALTH [place] MACY HRA Mar 22, 2009 [id number] [phone] LACI GRIFFITH PATIENT MEDICA MCR (WNR) MEDICARE ADVANTAGE [facility] (WNR) Mar 22, 2018 [id number] LACI GRIFFITH PATIENT MEDICA MCR (WNR) MEDICARE ADVANTAGE MCR (WNR) Sep 19, 2012 [id number] [phone] LACI GRIFFITH PATIENT MEDICARE (WNR) MEDICARE (M) PART B Aug 20, 2012 PART B [id number] [phone] LACI GRIFFITH PATIENT MEDICARE (WNR) MEDICARE (M) PART A Sep 19, 2010 PART A [id number] [phone] LACI GRIFFITH PATIENT Selected Encounter This section includes the information on record at [place] for the Encounter. Date/Time Encounter Type Encounter Description Reason Provider Source Aug 30, 2023 10:30 AM OFFICE O/P EST MOD 30 MIN PRIMARY CARE/MEDICINE ICD-10-CM M67.442 Ganglion, left hand MARILIN JAQUEZ Encounter Template Text not used by [place] Assessments - Encounter Diagnoses This section includes the primary and secondary diagnoses documented for the Encounter. Date/Time Primary/Secondary Diagnosis Diagnosis Name Provider Source Aug 30, 2023 03:49 PM PRIMARY Ganglion, left hand MARILIN JAQUEZ [facility] Aug 30, 2023 03:49 PM SECONDARY Right upper quadrant pain MARILIN JAQUEZ [facility] Plan of Treatment: Future Appointments (+ 6 months) and Future Tests (+/- 45 days) The Plan of Treatment section includes future care activities for the [facility] This section includes future appointments and future orders which are active, pending or scheduled. Future Appointments This section includes appointments that were scheduled to occur 6 months from the date of the Encounter, up to a maximum of 20 appointments. The data comes from all [place] treatment facilities. Appointment Date/Time Appointment Type Appointme nt Facility Name Sep 14, 2023 01:00 PM AMBULATORY - MEDICINE [place] [facility] Sep 20, 2023 04:15 PM AMBULATORY - NONE [facility] Oct 04, 2023 12:45 PM AMBULATORY - SURGERY [facility] Oct 12, 2023 11:00 AM AMBULATORY - SURGERY [facility] Oct 12, 2023 01:00 PM AMBULATORY - REHAB MEDICIN [facility] Nov 17, 2023 11:30 AM AMBULATORY - SURGERY [facility] Nov 18, 2023 01:00 PM AMBULATORY - REHAB MEDICIN [facility] Nov 18, 2023 03:00 PM AMBULATORY - [place]IC[place] [facility] Dec 13, 2023 10:30 AM AMBULATORY - NONE KARLI CARUSO [facility] Jan 05, 2024 11:30 AM AMBULATORY - SURGERY [place] [facility] Lab Results: +/- 30 days of the encounter This section includes the Chemistry and Hematology Lab Results on record with [place] for the patient. Radiology Reports and Pathology Reports are provided separately, in subsequent sections. Lab Results This section contains the Chemistry/Hematology Results that were resulted 30 days before or 30 daysafter the date of the Encounter. Date/Time Source Result Type Result - Unit Interpretation Reference Range Comment Aug 30, 2023 11:[address] [facility] HEMOGLOBIN A1C Specimen Type: BLOOD Comment: Values obtained from A1C measurements can vary. For typical A1C assays, a reported value of 7.0 could actually be between 6.7 and 7.3 if measured by a reference method. A reported value of 9.0 could actually be between 8.7 and 9.3. Ref: http://www.ngs p.org/CAPdata. asp Ordering Provider: KAYLI NAILS IN E Report Released Date/Time: Mar 29, 2023 12:39 PM Reporting Lab: [facility] [id number] Performing Lab: [facility] [id number] HEMOGLOBIN A1C 7.7 H 4.0-6.0 Vital Signs: All taken on the encounter date This section contains inpatient and outpatient Vital Signs collected on the date of the Encounter. Date/Time Temperature Pulse Blood Pressure Respiratory Rate SP02 Pain Height Weight Body Mass Index Source Aug 30, 2023 10:19 AM 148/76 [facility] Aug 30, 2023 10:13 AM 97.5 68 149/78 18 97 8 68.5 174.9 26 [facility] Social History: Smoking Status (Most current) and Tobacco Use (All prior to encounter date) This section includes the most current, and the historical, smoking and tobacco- related health factors from the [place] facility where the Encounter took place. Current Smoking Status This section includes the most current smoking, or tobacco-related health factor, from the [place] facility where the Encounter took place. Date/Time Current Smoking Status Comment Bola ayoub Mar 29, 2023 11:00 AM VA-TOBACCO NEVER USED [facility] Tobacco Use History This section includes a history of the smoking, or tobacco-related health factors, that were collected on or before the date of the Encounter. The data comes from the [place] facility where the Encounter took place. Date/Time Smoking Status/Tobacco Use Comment F acility Feb 19, 2022 11:30 AM VA-TOBACCO FORMER USER [facility] Feb 19, 2022 11:30 AM VA-TOBACCO QUIT [address] [facility] August 14, 2020 08:30 AM VA-TOBACCO FORMER USER [facility] August 14, 2020 08:30 AM VA-TOBACCO QUIT [address] [facility] Jul 11, 2018 10:38 AM VA-TOBACCO FORMER USER [facility] Jul 11, 2018 10:38 AM VA-TOBACCO QUIT [address] [facility] Aug 25, 2017 10:47 AM FORMER TOBACCO USER 7Y OR GREATE R [facility] Nov 20, 2016 10:21 AM FORMER TOBACCO USER 7Y OR GREATE R [facility] Oct 08, 2015 08:27 AM FORMER TOBACCO USER 7Y OR GREATE R [facility] Dec 21, 2014 11:06 AM FORMER TOBACCO USER 7Y OR GREATE R [facility] Jan 05, 2014 08:09 AM FORMER TOBACCO USER 7Y OR GREATE R [facility] May 02, 2007 09:05 AM FORMER TOBACCO USER 7Y OR GREATE R [facility] May 12, 2006 10:31 AM FORMER TOBACCO USE >1Y <7Y [facility] Advance Directives: All historical and current Section Date Range: From patient's date of to the date document was created. This section includes ALL of a patient's completed or amended [place] Advance and Rescinded Directives. The entries below indicate that a directive exists for the patient, but an actual copy is not included with this document. The data comes from all [facility]. Date Advance Directives Provider Source Mar 26, 2015 ADVANCE DIRECTIVE DISCUSSION GABBY MISTRY [facility] Mar 26, 2015 ADVANCE DIRECTIVE MIGUEL MISTRY [facility] Jan 12, 2005 ADVANCE DIRECTIVE JENN GARDUNO [facility] Radiology Reports: +/- 30 days of [...] the Encounter. The data comes from all [place] treatment facilities. Date/Time Radiology Report Provider Source Sep 20, 2023 03:[address] RENAL COLIC PRO TOCOL (P): LACI GRIFFITH [id number] M Exm Date: SEP 20, 2023@15:36 Req Phys: MARILIN JAQUEZ Loc: [facility] PACT ELVIA GENTILE 4E (Req'g Img Loc: CT IMAGING Service: [place] [address] (Case [id number] COMPLETE) CT (AP) ABDOMEN/PELVIS W/O CONTRA(CT Detailed) CPT:11121 Reason for Study: rule out kidney stones [...] of critical findings: Marilin Jaquez PA-C; cell [phone] na LAST 3: Collection DT Specimen Test Name Result Units Ref Range 03/11/2023 11:41 PLASMA CREATININE 1.0 mg/dL 0.7 - 1.2 02/19/2022 10:17 PLASMA CREATININE 1.0 mg/dL 0.7 - 1.2 02/03/2021 10:23 PLASMA CREATININE 1.1 mg/dL 0.7 - 1.2 03/11/2023 11:41 PLASMA .CREAT EGFR(CKD-E 78 Ref: >=60 02/19/2022 10:17 PLASMA .CREAT EGFR(CKD-E 78 Ref: >=60 Allergies: (Index only) MERTHIOLATE TINCTURE (Jun 22, 2003) METFORMIN (Jan 12, 2005) NIACIN (Nov 03, 2006) EZETIMIBE (Nov 03, 2006) ROSIGLITAZONE (Aug 31, 2007) ROSUVASTATIN (Apr 17, 2008) MINOCYCLINE (Sep 15, 2012) LISINOPRIL (May 31, 2014) Report Status: Verified Date Reported: SEP 20, 2023 Date Verified: SEP 20, 2023 Electrical Transmission Engineer E-Sig:/ES/ROSANNE HERNANDEZ MD Report: DATE/TIME REGISTERED: 09/20/2023 [...] incidental findings as above. Primary Interpreting Staff: ORSANNE HERNANDEZ MD, RADIOLOGIST (Electrical Transmission Engineer) /ROSANNE PFEIFFER [facility] Aug 30, 2023 11:42 AM HAND LEFT 3 VIEWS OR MORE: LACI GRIFFITH [id number] -[id number] M Exm Date: AUG 30, 2023@11:42 Req Phys: MARILIN JAQUEZ Loc: [facility] PACT RAINBOW PA 4E (Req'g Img Loc: MAIN X-RAY Service: [place] [address] (Case [id number] COMPLETE) HAND LEFT 3 VIEWS OR MORE (RAD Detailed) CPT:20301 Proc Modifiers : LEFT Reason for Study: pre-req for ortho Clinical History: IS NOT under investigation for COVID-19 or is COVID-19 negative left hand pain, trauma to thumb 2-3 mos ago; Signs and symptoms most consistent with ganglion cyst Responsible provider name and phone number to notify for critical findings if other than user placing the order and pager listed below: User placing orders pager: LAST Archiver's 1.0 (03/11/23) Report Status: Verified Date Reported: SEP 02, 2023 Date Verified: SEP 02, 2023 Electrical Transmission Engineer E-Sig: Report: HAND LEFT 3 VIEWS OR MORE HISTORY: pre-req for ortho COMPARISON: None TECHNIQUE: 3 view(s) of the left hand, submitted to the [place] National Teleradiology Program (NTP) for interpretation. FINDINGS: No evidence of acute fracture or malalignment. Chondrocalcinosis. Mild first CMC and triscaphe osteoarthrosis. Scattered early to mild degenerative changes at the interphalangeal joints. No erosions. Remote posttraumatic morphology of the ulnar styloid process. Impression: No acute osseous abnormalities. READING PHYSICIAN: Rosanne Ag MD -[id number] 09/02/2023 2:47 PDT [facility] National Teleradiology Program [phone] (For Medical Practitioner Use Only) Attention Patients / Veterans: If you have questions or concerns about these test results, please contact your ordering provider or primary care team. Primary Interpreting Staff: RADIOLOGY,OUTSIDE SERVICE, Staff Physician / RADIOLOGY,OUTSIDE SERVICE [facility] Encounter Notes: All associated encounter notes This section contains the clinical notes associated to the Encounter. Date/Time Encounter Note(s) Provider Source Sep 20, 2023 10:17 PM LETTERS: LOCAL TITLE: FOLLOW UP RESULTS LETTER STANDARD TITLE: LETTERS DATE OF NOTE: SEP 20, 2023@22:17 ENTRY DATE: SEP 20, 2023@22:17:27 AUTHOR: MARILIN JAQUEZ EXP COSIGNER: URGENCY: STATUS: COMPLETED [facility] [address] [place] [address] Sep LACI GRIFFITH [id number] [place] [address] Dear : I am writing to inform you of the results of testing that you had done recently at the [facility]. Additional Comments: Your CT scan shows 5 stones in left kidney and 3 in the right; however, no stones seen in the ureter, which is the tube connecting kidneys to bladder. The pain occurs when stones get stuck in the ureter. Since you have hx kidney stones and you have several currently, I will refer you to urology for further evaluation. If you have any further questions or problems, please contact our nursing staff or provider at the following number: [phone]. Sincerely, MARILIN JAQUEZ PA-C PHYSICIAN FASHION PATTERNMAKER MARILIN JAQUEZ [facility] Aug 30, 2023 11:05 AM INTERNAL MEDICINE NOTE: LOCAL TITLE: MEDICINE CLINIC NOTE STANDARD TITLE: INTERNAL MEDICINE NOTE DATE OF NOTE: AUG 30, 2023@11:05 ENTRY DATE: AUG 30, 2023@11:05:39 AUTHOR: MARILIN JAQUEZ EXP COSIGNER: URGENCY: STATUS: COMPLETED Nurses noted reviewed. Patient seen today in [facility]. CC: left thumb pain PHONE TECHNICIAN NOTE 08/26 PATIENT CONCERN/DURATION/ONSET: [place] phones in he hit his left hand with a hammer over the winter. 2-3 months ago he noticed a marble sized lump or knot on his left thumb base and now he is having numbness and pain 5/10 to the left thumb and index finger the pain travels into his wrist also. S: Laci Griffith is a 77 year-old MALE who presents to [facility]. Confirms above history. Additionally, tried soaking left thumb and hand in warm water with epsom salt a few times, which has helped some. Also, takes acetaminophen 500mg prn with moderate relief. Of note, c/o RUQ pain. Has occured intermittently since stroke related to past kidney stones and pain has become more frequent. Patient concerned if new kidneys stones. Pain changes with position. Sometimes will get massage and have massage therapist massage the area with some relief but pain returns. Denies urinary issues. 12 Review of Systems completed and unremarkable unless otherwise noted in HPI. --- PMHx: Active problems - Computerized Problem List is the source for the followin. Diabetes mellitus type II (SNOMED CT 73686568) - Diagnosis @ 1999 2. Obesity, Unspec 3. Hypercholesterolemia * 4. ASCVD - 4v CAB 1995 @ [facility] 5. Impotence of organic origin 6. 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 Adenomatous polyp of colon - tubular adenoma x3 12/02/2012 8. Posterior vitreous detachment 9. Shoulder joint pain 10. Benign essential hypertension 11. Kidney stone 12. 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 Blood in urine 14. Thrombosis 15. Intracranial hemorrhage 16. Acquired complex renal cyst 17. Exposure to Agent [place] 18. Exposure to potentially hazardous substance ([facility] [id number]) - Entered automatically through YURI[employer] Problem List documentation program Active Outpatient Medications (including Supplies): Active Outpatient Medications Status 1) CARBOXYMETHYLCELLULOSE NA 0.25% OPH SOLN INSTILL 1 ACTIVE DROP IN BOTH EYES FOUR TIMES A DAY 2) CICLOPIROX 8% TOP SOLN APPLY TOPICALLY EVERY DAY TO ACTIVE AFFECTED NAILS(S) REMOVE WITH RUBBING ALCOHOL EVERY 7 DAYS* TREAT UNTIL NAIL CLEARANCE OR 48 WEEKS FOR NAIL FUNGUS 3) EMPAGLIFLOZIN 25MG TAB TAKE ONE-HALF TABLET BY MOUTH ACTIVE EVERY DAY FOR DIABETES 4) GLIPIZIDE 2.5MG SA TAB TAKE ONE TABLET BY MOUTH EVERY ACTIVE DAY FOR DIABETES WITH BREAKFAST 5) LOSARTAN 25MG TAB TAKE ONE-HALF TABLET BY MOUTH TWICE ACTIVE A DAY FOR BLOOD PRESSURE 6) SEMAGLUTIDE 0.25MG/0.375ML INJ PEN 3ML INJECT 0.5MG ACTIVE UNDER THE SKIN EVERY WEEK FOR DIABETES -INJECT ON THE SAME DAY EVERY WEEK -REFRIGERATE - PEN CONTAINS MULTIPLE DOSES Active Non-VA Medications Status 1) Non-VA ASPIRIN 81MG EC TAB 81MG MOUTH EVERY DAY ACTIVE 7 Total Medications Vitals: Temperature: 97.5 F [36.4 C] (08/30/2023 10:) Blood Pressure: 148/76 (08/30/2023 10:19) Pulse: 68 (08/30/2023 10:) Respiration: 18 (08/30/2023 10:) PO2: 97% (08/30/2023 10:) Pain: 8 (08/30/2023 10:) BMI: 26.3 Wt: 174.9 lb [79.33 kg] (08/30/2023 10:) EXAM: gen geriatric male in nad L hand dorsum 5-8mm subcutanous, soft, mobile nodule base of left thumb; mild tenderness to palpation; full ROM wrist and hand abd soft, no tenderness to palpation RUQ or RLQ neuro A&Ox4 Diagnostics Imaging: CT abd/pelvis; xray left hand Labs: A1c ordered by PCP to be done 09/13 A/P: # Ganglion cyst, left thumb Signs and symptoms most consistent with ganglion cyst. - refer ortho hand # RUQ pain Given hx kidney stones complicated by stroke will obtain CT abd/pelvis to rule out stones and then pt will f/u PCP - CT abd/pelvis kidney stone rule out; will order on [facility] status so that patient will have result by phone appt with PCP in 2 weeks # Lab appt Patient prefers to have blood draw for A1c that PCP ordered for 09/13 done today to avoid 90 min round trip for only 10 min appt - lab today Return to clinic: as outlined above Total time of 30 minutes spent reviewing patient's records, assessing patient, and documenting in patient's chart. Medication Reconciliation: Education Evaluations *Was medication education provided for NEW medications or CHANGES to medications? (including medication name, dose, route, reason for use, and potential side effects). No new medications or medication changes during this encounter. TERATOGENIC MED & CONTRACEPTION REVIEW (Optional)... MEDICATION RECONCILIATION Review Done: The medication list shown below was verified for accuracy and it includes all pending medications/active medications/all medications or discontinued within the last 90 days/all remote medications and non-VA medications. If a given category (i.e. remote meds) is not shown, that means that a patient doesn't have a medication(s) in that category. Allergies listed below were also reviewed/updated for accuracy. Allergies/ADR from [employer]D may not display in CPRS. Use JLV MRT5 - Allergies/ADRs FACILITY ALLERGY/ADR -------- No Remote Allergy/ADR Data available for this patient [facility] EZETIMIBE [facility] LISINOPRIL [facility] MERTHIOLATE TINCTURE [facility] METFORMIN [facility] MINOCYCLINE [facility] NIACIN [facility] ROSIGLITAZONE [facility] ROSUVASTATIN Active and Recently Outpatient Medications (including Supplies): Issue Date Status Last Fill Active Outpatient Medications Refills Expiration 1) CARBOXYMETHYLCELLULOSE NA 0.25% OPH SOLN ACTIVE Issu:03-11-23 Qty: 15 for 30 days Sig: INSTILL 1 Refills: 11 Last:03-12-23 DROP IN BOTH EYES FOUR TIMES A DAY Expr:03-11-24 2) CICLOPIROX 8% TOP SOLN Qty: 13.2 for 90 ACTIVE Issu:03-29-23 days Sig: APPLY TOPICALLY EVERY DAY Refills: 3 Last:04-05-23 TO AFFECTED NAILS(S) REMOVE WITH Expr:03-29-24 RUBBING ALCOHOL EVERY 7 DAYS* TREAT UNTIL NAIL CLEARANCE OR 48 WEEKS FOR NAIL FUNGUS 3) EMPAGLIFLOZIN 25MG TAB Qty: 45 for 90 ACTIVE Issu:05-17-23 days Sig: TAKE ONE-HALF TABLET BY Refills: 2 Last:08-06-23 MOUTH EVERY DAY FOR DIABETES Expr:05-17-24 4) GLIPIZIDE 2.5MG SA TAB Qty: 90 for 90 ACTIVE Issu:05-17-23 days Sig: TAKE ONE TABLET BY MOUTH Refills: 2 Last:08-14-23 EVERY DAY FOR DIABETES WITH BREAKFAST Expr:05-17-24 5) LOSARTAN 25MG TAB Qty: 90 for 90 days ACTIVE Issu:07-05-23 Sig: TAKE ONE-HALF TABLET BY MOUTH Refills: 3 Last:07-05-23 TWICE A DAY FOR BLOOD PRESSURE Expr:07-05-24 6) SEMAGLUTIDE 0.25MG/0.375ML INJ PEN 3ML ACTIVE Issu:01-21-23 Qty: 1 for 28 days Sig: INJECT 0.5MG Refills: 0 Last:08-23-23 UNDER THE SKIN EVERY WEEK FOR DIABETES Expr:01-22-24 -INJECT ON THE SAME DAY EVERY WEEK -REFRIGERATE - PEN CONTAINS MULTIPLE DOSES Issue Date Status Last Fill Inactive Outpatient Medications Refills Expiration 1) ACCU-CHEK GUIDE (GLUCOSE) TEST STRIP Issu:07-02-22 Qty: 100 for 90 days Sig: USE 1 STRIP Refills: 1 Last:03-23-23 TWICE WEEKLY TO CHECK BLOOD SUGAR--USE Expr:07-03-23 WITHIN 3 MINUTES OF REMOVING FROM CONTAINER 2) ACETAMINOPHEN 500MG TAB Qty: 100 for 30 Issu:07-27-22 days Sig: TAKE ONE TABLET BY MOUTH Refills: 3 Last:07-27-22 THREE TIMES A DAY NEEDED FOR PAIN Expr:07-28-23 *NOT TO EXCEED 4000MG IN 24 HOURS* FOR PAIN 3) ATORVASTATIN CALCIUM 80MG TAB Qty: 90 Issu:07-24-22 for 90 days Sig: TAKE ONE TABLET BY Refills: 0 Last:06-11-23 MOUTH AT BEDTIME FOR CHOLESTEROL Expr:07-25-23 4) BISACODYL 5MG EC TAB Qty: 2 for 10 days Issu:05-31-23 Sig: TAKE TWO TABLETS BY MOUTH ONCE Refills: 0 Last:05-31-23 FOR COLON PREP Expr:06-30-23 5) FLUTICASONE PROP 50MCG 120D NASAL INHL Issu:06-09-22 Qty: 3 for 90 days Sig: SPRAY 2 Refills: 2 Last:08-28-22 SPRAYS IN EACH NOSTRIL EVERY DAY FOR Expr:06-10-23 CONGESTION FOR ALLERGIES 6) GLIPIZIDE 2.5MG SA TAB Qty: 90 for 90 DISCONTINUED Issu:09-08-22 days Sig: TAKE ONE TABLET BY MOUTH Refills: 0 Last:02-25-23 EVERY DAY FOR DIABETES WITH BREAKFAST Expr:09-09-23 7) GLIPIZIDE 5MG TAB Qty: 90 for 90 days DISCONTINUED Issu:06-08-22 Sig: TAKE ONE TABLET BY MOUTH EVERY Refills: 2 Last:08-28-22 DAY FOR DIABETES 30 MINUTES BEFORE Expr:06-09-23 LARGEST MEAL 8) LORATADINE 10MG TAB Qty: 90 for 90 days Issu:07-27-22 Sig: TAKE ONE TABLET BY MOUTH EVERY Refills: 2 Last:01-21-23 MORNING FOR ALLERGIES Expr:07-28-23 9) LOSARTAN 25MG TAB Qty: 90 for 90 days DISCONTINUED Issu:06-08-22 Sig: TAKE ONE-HALF TABLET BY MOUTH Refills: 1 Last:04-06-23 TWICE A DAY FOR BLOOD PRESSURE Expr:06-09-23 10) POLYETHYLENE GLYCOL 3350 ORAL PWDR Qty: Issu:05-31-23 238 for 10 days Sig: TAKE ONE BOTTLE Refills: 0 Last:05-31-23 BY MOUTH DIRECTED FOR COLON PREP Expr:06-30-23 11) SEMAGLUTIDE 0.25MG/0.375ML INJ PEN 3ML DISCONTINUED Issu:06-30-22 Qty: 1 for 28 days Sig: INJECT 0.5MG Refills: 0 Last:12-28-22 UNDER THE SKIN EVERY WEEK FOR DIABETES Expr:07-01-23 -INJECT ON THE SAME DAY EVERY WEEK -REFRIGERATE - PEN CONTAINS MULTIPLE DOSES 12) TERBINAFINE HCL 1% CREAM Qty: 60 for 90 Issu:06-02-22 days Sig: APPLY THIN LAYER TOPICALLY Refills: 3 Last:06-04-22 TWICE A DAY FOR TOENAIL FUNGUS Expr:06-03-23 Start Date Active Non-VA Medications Refills Expiration 1) Non-VA ASPIRIN 81MG EC TAB SiMG ACTIVE MOUTH EVERY DAY 19 Total Medications /nghia/ MARILIN JAQUEZ PA-C PHYSICIAN FASHION PATTERNMAKER Signed: 08/30/2023 15:50 Receipt Acknowledged By: 08/31/2023 16:32 /nghia/ ALLEN NAILS MD Staff Physician MARILIN JAQUEZ [facility] Aug 30, 2023 10:07 AM INTERNAL MEDICINE OUTPATIENT NOTE: LOCAL TITLE: MEDICINE CLINIC NURSING NOTE STANDARD TITLE: INTERNAL MEDICINE OUTPATIENT NOTE DATE OF NOTE: AUG 30, 2023@10:07 ENTRY DATE: AUG 30, 2023@10:07:46 AUTHOR: NIALL JONES EXP COSIGNER: URGENCY: STATUS: COMPLETED TYPE OF VISIT: Appointment Check In Type of appointment: In-person appointment REASON FOR VISIT: LEFT HAND THUMB KNOW PAIN AND NUMBNESS ALLERGIES: MERTHIOLATE TINCTURE (Jun 22, 2003) METFORMIN (Jan 12, 2005) NIACIN (Nov 03, 2006) EZETIMIBE (Nov 03, 2006) ROSIGLITAZONE (Aug 31, 2007) ROSUVASTATIN (Apr 17, 2008) MINOCYCLINE (Sep 15, 2012) LISINOPRIL (May 31, 2014) Vital Signs: Blood Pressure: 149/78 (08/30/2023 10:13) BP RECHECK 148/76, ASYMPTOMATIC. STATES HE HAS A HOME BP CUFF. PCP NOTIFIED. Pulse: 68 (08/30/2023 10:13) Respiration: 18 (08/30/2023 10:13) Temperature: 97.5 F [36.4 C] (08/30/2023 10:13) Weight: 174.9 lb [79.33 kg] (08/30/2023 10:13) Height: 68.5 in [174.0 cm] (08/30/2023 10:13) BMI: 26.3 Pain: 8 (08/30/2023 10:13) PAIN SCREEN: Patient is having significant pain that they would like to talk to their provider about today. Old (Chronic) (began more than 6 months ago) Patient states their average pain this past week is 8 Patient states the average number on how the chronic pain affects their enjoyment of life the past week is 8 Patient states during the past week the average number on how the pain has interfered with their general activity is 8 Pain Education Patient indicates readiness to learn and verbalizes understanding of the following: Has concerns/questions, advised to discuss with provider MEDICATION Over the Counter/Herbal Medications: The patient denies taking any outside medications or herbals. COVID-19 Immunization: Refused Pfizer Monovalent COVID-19 vaccine Immunization: COVID-19 (PFIZER), MRNA, LNP-S, PF, ELOY-SUCROSE, 30 MCG/0.3 ML (AGES 12+ YEARS) Refusal Reason: PATIENT DECISION Patient refuses all immunization(s) in the COVID-19 group Date Documented: 08/30/23 10:13 /nghia/ NIALL JONES LPN Signed: 08/30/2023 10:[address] [facility]
--- OUTSIDE RECORDS SUMMARY | 2024-03-17 13:07 | XMS_ITS | Encounter Summary ---
Author Name [facility] [place] Address [address] [place] [address] Care Team Providers Care [place] Worker Name Role Phone KWAN NAILS Primary Care [...] [place] MACY/C DHP Mar 22, 2009 [id number] [phone] LACI GRIFFITH PATIENT MEDICA HIGH DEDUCTIBL E HEALTH PLAN W/HEALTH REIMBURSE MENT ARRANGEME NT [place] MACY HRA Mar 22, 2009 [id number] [phone] LACI GRIFFITH PATIENT [facility] BEHAVIORAL HEALTH MENTAL HEALTH [place] MACY HRA Mar 22, 2009 [id number] [phone] LACI GRIFFITH PATIENT MEDICA MCR (WNR) MEDICARE ADVANTAGE [facility] (WNR) Mar 22, 2018 [id number] LACI GRIFFITH PATIENT MEDICA MCR (WNR) MEDICARE ADVANTAGE [facility] (WNR) Sep 19, 2012 [id number] [phone] LACI GRIFFITH PATIENT MEDICARE (WNR) MEDICARE (M) PART B Aug 20, 2012 PART B [id number] [phone] LACI GRIFFITH PATIENT MEDICARE (WNR) MEDICARE (M) PART A Sep 19, 2010 PART A [id number] LACI GRIFFITH PATIENT Selected Encounter This section includes the information on record at [place] for the Encounter. Date/Time Encounter Type Encounter Description Reason Pro vider Source Jun 07, 2023 12:00 AM Outpatient Encounter EVENT (HISTORICAL) IHE Encounter Template Text not used by [place] Plan of Treatment: Future Appointments (+ 6 months) and Future Tests (+/- 45 days) The Plan of Treatment section includes future care activities for the patient from all [place] treatmentfacilities. This section includes future appointments and future orders which are active, pending or scheduled. Future Appointments This section includes appointments that were scheduled to occur 6 months from the date of the Encounter, up to a maximum of 20 appointments. The data comes from all [place] treatment facilities. Appointment Date/Time Appointment Type Appointme nt Facility Name Aug 30, 2023 10:30 AM AMBULATORY - MEDICINE [facility] Aug 30, 2023 12:00 PM AMBULATORY - NONE [facility] Sep 14, 2023 01:00 PM AMBULATORY - MEDICINE [facility] Sep 20, 2023 04:15 PM AMBULATORY - NONE [facility] Oct 04, 2023 12:45 PM AMBULATORY - SURGERY [facility] Oct 12, 2023 11:00 AM AMBULATORY - SURGERY [facility] Oct 12, 2023 01:00 PM AMBULATORY - REHAB MEDICIN [facility] Nov 17, 2023 11:30 AM AMBULATORY - SURGERY [facility] Nov 18, 2023 01:00 PM AMBULATORY - REHAB MEDICIN E [facility] Nov 18, 2023 03:00 PM AMBULATORY - MEDICINE [facility] Social History: Smoking Status (Most current) and Tobacco Use (All prior to encounter date) This section includes the most current, and the historical, smoking and tobacco- related health factors from the [place] facility where the Encounter took place. Current Smoking Status This section includes the most current smoking, or tobacco-related health factor, from the [place] facility where the Encounter took place. Date/Time Current Smoking Status Comment Facil ity Mar 29, 2023 11:00 AM VA-TOBACCO NEVER USED [facility] Tobacco Use History This section includes a history of the smoking, or tobacco-related health factors, that were collected on or before the date of the Encounter. The data comes from the [place] facility where the Encounter took place. Date/Time Smoking Status/Tobacco Use Comment F acility Feb 19, 2022 11:30 AM VA-TOBACCO FORMER USER [facility] Feb 19, 2022 11:30 AM VA-TOBACCO QUIT 15 YRS OR MORE [facility] August 14, 2020 08:30 AM VA-TOBACCO FORMER USER [facility] August 14, 2020 08:30 AM VA-TOBACCO QUIT 15 YRS OR MORE [facility] Jul 11, 2018 10:38 AM VA-TOBACCO FORMER USER [facility] Jul 11, 2018 10:38 AM [place]-TO[place]ACCO QUIT 15 YRS OR MORE [facility] Aug 25, 2017 10:47 AM FORMER TOBACCO USER 7Y OR GREATE R [facility] Nov 20, 2016 10:21 AM FORMER TOBACCO USER 7Y OR GREATE R [facility] Oct 08, 2015 08:27 AM FORMER TOBACCO USER 7Y OR GREATE R [facility] Dec 21, 2014 11:06 AM FORMER TOBACCO USER 7Y OR GREATE R [facility] Jan 05, 2014 08:09 AM FORMER TOBACCO USER 7Y OR GREATE R [facility] May 02, 2007 09:05 AM FORMER TOBACCO USER 7Y OR GREATE R [facility] May 12, 2006 10:31 AM FORMER TOBACCO USE >1Y <7Y [facility] Advance Directives: All historical and current Section Date Range: From patient's date of to the date document was created. This section includes ALL of a patient's completed or amended [place] Advance and Rescinded Directives. The entries below indicate that a directive exists for the patient, but an actual copy is not included with this document. The data comes from all [facility]. Date Advance Directives Provider Source Mar 26, 2015 ADVANCE DIRECTIVE DISCUSSION GABBY MISTRY [facility] Mar 26, 2015 ADVANCE DIRECTIVE MIGUEL MISTRY [facility] Jan 12, 2005 ADVANCE DIRECTIVE JENN GARDUNO [facility] Pathology Reports: +/- 30 days of [...] the Encounter. The data comes from all [place] treatment facilities. Date/Time Pathology Report Provider Source Jun 04, 2023 11:55 AM LR SURGICAL PATHOL OGY REPORT: LOCAL TITLE: LR SURGICAL PATHOLOGY REPORT STANDARD TITLE: PATHOLOGY REPORT DATE OF NOTE: JUN 04, 2023@11:55:04 ENTRY DATE: JUN 04, 2023@11:55:04 AUTHOR: AILYN EISENBERG EXP COSIGNER: URGENCY: STATUS: COMPLETED $APHDR Reporting Lab: [facility] [CLIA# [id number]] [place] [address] - - - - - - - [...] 1.0 cm in greatest dimension. CE (D) [facility] MICROSCOPIC DESCRIPTION: SPECS. 1, 2. Microscopic examination performed. RS. DIAGNOSES: SPEC. 1 Colon, ascending polyp, polypectomy-- - Tubular adenoma, fragments - No evidence of high-grade dysplasia or malignancy SPEC. 2 Colon, transverse polyp, polypectomy-- - Tubular adenoma - No evidence of high-grade dysplasia or malignancy /nghia/ AILYN EISENBERG STAFF PATHOLOGIST, PATHOLOGY & LABORATORY [facility] [place] Signed Jun 04, 2023@11:55 Performing Laboratory: Surgical Pathology Report Performed By: [facility] [CLIA# [id number]] [place] [address] $FTR - - - - - - [...] - - LACI GRIFFITH STANDARD FORM 515 ID:[id number] SEX:M :1945 AGE: 77 LOC:[id number] PCP: Kwan Nails MD /nghia/ AILYN EISENBERG STAFF PATHOLOGIST, PATHOLOGY & LABORATORY [facility] [place] Signed: 06/04/2023 11:55 AILYN EISENBERG [facility]
--- OUTSIDE RECORDS SUMMARY | 2024-03-17 13:07 | XMS_ITS | Encounter Summary ---
Author Name [facility] [place] [facility] [place] Address [address] [place] [address] Care Team Providers Care Manager City Name Role Phone ALLEN NAILS Primary Care [...] [place] AIRLI MACY/C DHP Mar 22, 2009 [id number] [phone] LACI GRIFFITH PATIENT MEDICA HIGH DEDUCTIBL E HEALTH PLAN W/HEALTH REIMBURSE MENT ARRANGEME NT [place] MACY HRA Mar 22, 2009 [id number] [phone] LACI GRIFFITH PATIENT [facility] MENTAL HEALTH [place] MACY HRA Mar 22, 2009 [id number] [phone] LACI GRIFFITH PATIENT MEDICA MCR (WNR) MEDICARE ADVANTAGE [facility] (WNR) Mar 22, 2018 [id number] [phone] LACI GRIFFITH PATIENT MEDICA MCR (WNR) MEDICARE ADVANTAGE [facility] (WNR) Sep 19, 2012 [id number] [phone] LACI GRIFFITH PATIENT MEDICARE (WNR) MEDICARE (M) PART B Aug 20, 2012 PART B [id number] LACI GRIFFITH PATIENT MEDICARE (WNR) MEDICARE (M) PART A Sep 19, 2010 PART A [id number] LACI GRIFFITH PATIENT Selected Encounter This section includes the information on record at [place] for the Encounter. Date/Time Encounter Type Encounter Description Reason Pro vider Source Aug 30, 2023 11:25 AM Outpatient Encounter PRIMARY CARE/MEDICINE IHE Encounter Template Text not used by [place] Plan of Treatment: Future Appointments (+ 6 months) and Future Tests (+/- 45 days) The Plan of Treatment section includes future care activities for the [facility] [place] [facility] This section includes future appointments and [...] 2023 01:00 PM AMBULATORY - MEDICINE [facility] Sep 20, 2023 04:15 PM AMBULATORY - NONE [facility] Oct 04, 2023 12:45 PM AMBULATORY - SURGERY [facility] Oct 12, 2023 11:00 AM AMBULATORY - SURGERY [facility] Oct 12, 2023 01:00 PM AMBULATORY - REHAB MEDICIN E [facility] Nov 17, 2023 11:30 AM AMBULATORY - SURGERY [facility] Nov 18, 2023 01:00 PM AMBULATORY - REHAB MEDICIN E [facility] Nov 18, 2023 03:00 PM AMBULATORY - MEDICINE [facility] Dec 13, 2023 10:30 AM [facility] Jan 05, 2024 11:30 AM AMBULATORY - SURGERY [facility] Lab Results: +/- 30 days of the encounter This section includes the Chemistry and Hematology Lab Results on record with [place] for the patient. Radiology Reports and Pathology Reports are provided separately, in subsequent sections. Lab Results This section contains the Chemistry/Hematology Results that were resulted 30 days before or 30 daysafter the date of the Encounter. Date/Time Source Result Type Result - Unit Interpretation Reference Range Comment Aug 30, 2023 11:24 AM [facility] HEMOGLOBIN A1C Specimen Type: BLOOD Comment: [...] Mar 29, 2023 12:39 PM Reporting Lab: [facility] [id number] Performing Lab: [facility] [id number] HEMOGLOBIN A1C 7.7 H 4.0-6.0 Vital Signs: All taken on the encounter date This section contains inpatient and outpatient Vital Signs collected on the date of the Encounter. Date/Time Temperature Pulse Blood Pressure Respiratory Rate SP02 Pain Height Weight Body Mass Index Source Aug 30, 2023 10:19 AM 148/76 [facility] Aug 30, 2023 10:13 AM 97.5 68 149/78 18 97 8 68.5 174.9 26 [facility] Social History: Smoking Status [facility] Feb 19, 2022 11:30 AM [place]-TOBACCO QUIT 15 YRS OR MORE [facility] [...] this document. The data comes from all [place] facilities. Date Advance Directives Provider Source Mar 26, 2015 ADVANCE DIRECTIVE DISCUSSION GABBY MISTRY [facility] Mar 26, 2015 ADVANCE DIRECTIVE MIGUEL MISTRY [facility] Jan 12, 2005 ADVANCE DIRECTIVE JENN GARDUNO [facility] Radiology Reports: +/- 30 days of [...] comes from all [place] treatment facilities. Date/Time Radiology Report Provider Source Sep 20, 2023 03:[address] RENAL COLIC PRO TOCOL (P): LACI GRIFFITH [id number] -1945 M Exm Date: SEP 20, 2023@15:36 Req Phys: MARILIN JAQUEZ Loc: [facility] PACT RAINBOW SEFERINO 4E (Req'g Img Loc: CT IMAGING Service: [place] [address] (Case [id number] COMPLETE) CT (AP) ABDOMEN/PELVIS W/O CONTRA(CT Detailed) CPT:99712 Reason for Study: rule out kidney stones [...] of critical findings: Marilin Jaquez PA-C; cell [phone] na LAST 3: Collection DT Specimen Test Name Result Units Ref Range 03/11/2023 11:41 PLASMA CREATININE 1.0 mg/dL 0.7 - 1.2 02/19/2022 10:17 PLASMA CREATININE 1.0 mg/dL 0.7 - 1.2 02/03/2021 10:23 PLASMA CREATININE 1.1 mg/dL 0.7 - 1.2 03/11/2023 11:41 PLASMA .CREAT EGFR(CKD-E 78 Ref: >=60 02/19/2022 10:17 PLASMA .CREAT EGFR(CKD-E 78 Ref: >=60 Allergies: ([place] only) MERTHIOLATE TINCTURE (Jun 22, 2003) METFORMIN (Jan 12, 2005) NIACIN (Nov 03, 2006) EZETIMIBE (Nov 03, 2006) ROSIGLITAZONE (Aug 31, 2007) ROSUVASTATIN (Apr 17, 2008) MINOCYCLINE (Sep 15, 2012) LISINOPRIL (May 31, 2014) Report Status: Verified Date Reported: SEP 20, 2023 Date Verified: SEP 20, 2023 Electronics Engineering Professor E-Sig:/ES/ROSANNE HERNANDEZ MD Report: DATE/TIME REGISTERED: 09/20/2023 [...] Primary Interpreting Staff: ROSANNE HERNANDEZ MD, RADIOLOGIST (Electronics Engineering Professor) /[facility] Aug 30, 2023 11:42 AM HAND LEFT 3 VIEWS OR MORE: LACI GRIFFITH [id number] -1945 M Exm Date: AUG 30, 2023@11:42 Req Phys: MARILIN JAQUEZ Loc: [facility] PACT RAINBOW PA 4E (Req'g Img Loc: MAIN X-RAY Service: [place] [address] (Case [id number] COMPLETE) HAND LEFT 3 VIEWS OR MORE (RAD Detailed) CPT:65433 Proc Modifiers : LEFT Reason for Study: [...] listed below: User placing orders pager: LAST CREATININE 1.0 (03/11/23) Report Status: Verified Date Reported: SEP 02, 2023 Date Verified: SEP 02, 2023 Electronics Engineering Professor E-Sig: Report: HAND LEFT 3 VIEWS OR MORE HISTORY: pre-req for ortho COMPARISON: None TECHNIQUE: 3 view(s) of the left hand, submitted to the [place] National Teleradiology Program (NTP) for interpretation. FINDINGS: No evidence of acute fracture or malalignment. Chondrocalcinosis. Mild first CMC and triscaphe osteoarthrosis. Scattered early to mild degenerative changes at the interphalangeal joints. No erosions. Remote posttraumatic morphology of the ulnar styloid process. Impression: No acute osseous abnormalities. READING PHYSICIAN: Rosanne Ag MD -[id number] 09/02/2023 2:47 PDT [facility] National Teleradiology Program [phone] (For Medical Practitioner Use Only) Attention Patients / Veterans: If you have questions or concerns about these test results, please contact your ordering provider or primary care team. Primary Interpreting Staff: RADIOLOGY,OUTSIDE SERVICE, Staff Physician / RADIOLOGY,OUTSIDE SERVICE [facility] Encounter Notes: All associated encounter notes This section contains the clinical notes associated to the Encounter. Date/Time Encounter Note(s) Provider Source Sep 06, 2023 10:23 AM ADDENDUM: LOCAL TITLE: Addendum STANDARD TITLE: ADDENDUM DATE OF NOTE: SEP 06, 2023@10:23:37 ENTRY DATE: SEP 06, 2023@10:23:38 AUTHOR: NIGEL CALERO EXP COSIGNER: URGENCY: STATUS: COMPLETED stated he attended an appointment 08/29@1030 and had xray done. /nghia/ Donny [id number] [facility] Signed: 09/06/2023 10:24 Receipt Acknowledged By: 09/06/2023 12:42 /nghia/ SARAH HUYNH, RN REGISTERED NURSE for TED Lopes DAISY --- Original Document --- 08/30/23 APPOINTMENT SCHEDULING NOTE: Attempted to schedule No show Contact: automated no-show letter queued to be sent Contact: Called [place] at: If calls back, schedule appointment for: [place] pact rover 2 phone. Pt refused f2f annual /nghia/ CLINT CHANDLER [facility] Signed: 08/30/2023 11:26 09/06/2023 ADDENDUM STATUS: COMPLETED [place] requesting a call. // [address] Signed: 09/06/2023 10:24 09/06/2023 ADDENDUM STATUS: COMPLETED requesting the xray results and what is next. /[address] Signed: 09/06/2023 10:27 [facility] Aug 30, 2023 11:25 AM REPORT OF CONTACT: LOCAL TITLE: APPOINTMENT SCHEDULING NOTE STANDARD TITLE: REPORT OF CONTACT DATE OF NOTE: AUG 30, 2023@11:25 ENTRY DATE: AUG 30, 2023@11:25:23 AUTHOR: CLINT CHANDLER EXP COSIGNER: URGENCY: STATUS: COMPLETED APPOINTMENT SCHEDULING NOTE Has ADDENDA Attempted to schedule No show Contact: automated no-show letter queued to be sent Contact: Called at: If calls back, schedule appointment for: [facility] pact rover 2 phone. Pt refused f2f annual /nghia/ CLINT CHANDLER [facility] Signed: 08/30/2023 11:26 09/06/2023 ADDENDUM STATUS: COMPLETED stated he attended an appointment 08/29@1030 and had xray done. /zahida [facility] Signed: 09/06/2023 10:24 Receipt Acknowledged By: 09/06/2023 12:42 /SARAH Alexander, RN REGISTERED NURSE for TED Lopes DAISY 09/06/2023 ADDENDUM STATUS: COMPLETED requesting a call. /zahida [facility] Signed: 09/06/2023 10:24 09/06/2023 ADDENDUM STATUS: COMPLETED [place] requesting the xray results and what is next. /zahida [id number] [facility] Signed: 09/06/2023 10:27 09/06/2023 ADDENDUM STATUS: COMPLETED Master Data Analyst spoke with pt and educated him on Xray results and orho consult. He v/u and will await ortho scheduling. /SARAH Alexander, RN REGISTERED NURSE Signed: 09/06/2023 12:43 [facility]
--- OUTSIDE RECORDS SUMMARY | 2024-03-17 13:07 | XMS_ITS | Encounter Summary ---
Author Name [facility] [place] [facility] [place] [address] [place] [id number] Care Team Providers Care Indian Nanny Name Role Phone ALLEN NAILS Primary Care [...] [place] MACY/C DHP Mar 22, 2009 [id number] [phone] LACI GRIFFITH PATIENT MEDICA HIGH DEDUCTIBL E HEALTH PLAN W/HEALTH REIMBURSE MENT ARRANGEME NT [place] MACY HRA Mar 22, 2009 [id number] [phone] LACI GRIFFITH PATIENT MEDICA BEHAVIORAL HEALTH MENTAL HEALTH [place] MACY HRA Mar 22, 2009 [id number] [phone] LACI GRIFFITH PATIENT MEDICA MCR (WNR) MEDICARE ADVANTAGE [facility] (WNR) Mar 22, 2018 [id number] [phone] LACI GRIFFITH PATIENT MEDICA MCR (WNR) MEDICARE ADVANTAGE [facility] (WNR) Sep 19, 2012 [id number] [phone] LACI GRIFFITH PATIENT MEDICARE (WNR) MEDICARE (M) PART B Aug 20, 2012 PART B [id number] [phone] LACI GRIFFITH PATIENT MEDICARE (WNR) MEDICARE (M) PART A Sep 19, 2010 PART A [id number] [phone] LACI GRIFFITH PATIENT Selected Encounter This section includes the information on record at [place] for the Encounter. Date/Time Encounter Type Encounter Description Reason Provider Source Aug 27, 2023 07:57 AM Outpatient Encounter TELEPHONE TRIAGE ALFIE POOLE E Encounter Template Text not used by [place] Plan of Treatment: Future Appointments (+ 6 months) and Future Tests (+/- 45 days) The Plan of Treatment section includes future care activities for the patient from all [place] [facility]. This section includes future appointments and future orders which are active, pending or scheduled. Future Appointments This section includes appointments that were scheduled to occur 6 months from the date of the Encounter, up to a maximum of 20 appointments. The data comes from all [place] treatment facilities. Appointment Date/Time Appointment Type Appointme nt Facility Name Aug 30, 2023 10:30 AM [facility] Aug 30, 2023 12:00 PM AMBULATORY - NONE [facility] Sep 14, 2023 01:00 PM AMBULATORY - MEDICINE [facility] Sep 20, 2023 04:15 PM [facility] Oct 04, 2023 12:45 PM AMBULATORY - SURGERY [facility] Oct 12, 2023 11:00 AM AMBULATORY - SURGERY [facility] Oct 12, 2023 01:00 PM AMBULATORY - REHAB MEDICIN E [facility] Nov 17, 2023 11:30 AM AMBULATORY - SURGERY [facility] Nov 18, 2023 01:00 PM AMBULATORY - REHAB MEDICIN E [facility] Nov 18, 2023 03:00 PM [facility] Dec 13, 2023 10:30 AM [facility] Jan 05, 2024 11:30 AM AMBULATORY - SURGERY [facility] Lab Results: +/- 30 days of the encounter This section includes the Chemistry and Hematology Lab Results on record with [place] for the patient. Radiology Reports and Pathology Reports are provided separately, in subsequent sections. Lab Results This section contains the Chemistry/Hematology Results that were resulted 30 days before or 30 daysafter the date of the Encounter. Date/Time Source Result Type Result - Unit Interpretation Reference Range Comment Aug 30, 2023 11:24 AM [facility] HEMOGLOBIN A1C Specimen Type: BLOOD Comment: [...] 29, 2023 12:39 PM Reporting Lab: [facility] [id number] Performing Lab: [facility] [id number] HEMOGLOBIN A1C 7.7 H 4.0-6.0 Social History: Smoking Status (Most current) and Tobacco Use (All prior to encounter date) This section includes the most current, and the historical, smoking and tobacco- related health factors from the [place] facility where the Encounter took place. Current Smoking Status This section includes the most current smoking, or tobacco-related health factor, from the [place] facility where the Encounter took place. Date/Time Current Smoking Status Comment Bola ayoub Mar 29, 2023 11:00 AM VA-TOBACCO NEVER USED [facility] Tobacco Use History This section includes a history of the smoking, or tobacco-related health factors, that were collected on or before the date of the Encounter. The data comes from the [place] facility where the Encounter took place. Date/Time Smoking Status/Tobacco Use Comment F acility Feb 19, 2022 11:30 AM VA-TOBACCO FORMER USER [facility] Feb 19, 2022 11:30 AM VA-TOBACCO QUIT 15 YRS OR MORE [facility] August 14, 2020 08:30 AM VA-TOBACCO FORMER USER [facility] August 14, 2020 08:30 AM VA-TOBACCO QUIT 15 YRS OR MORE [facility] Jul 11, 2018 10:38 AM VA-TOBACCO FORMER USER [facility] Jul 11, 2018 10:38 AM VA-TOBACCO QUIT 15 YRS OR MORE [facility] Aug 25, 2017 10:47 AM FORMER TOBACCO USER 7Y OR GREATE R [facility] Nov 20, 2016 10:21 AM FORMER TOBACCO USER 7Y OR GREATE R [facility] Oct 08, 2015 08:27 AM FORMER TOBACCO USER 7Y OR GREATE R [facility] Dec 21, 2014 11:06 AM FORMER TOBACCO USER 7Y OR GREATE R [facility] Jan 05, 2014 08:09 AM FORMER TOBACCO USER 7Y OR GREATE R [facility] May 02, 2007 09:05 AM FORMER TOBACCO USER 7Y OR GREATE R [facility] May 12, 2006 10:31 AM FORMER TOBACCO USE >1Y <7Y [facility] Advance Directives: All historical and current Section Date Range: From patient's date of to the date document was created. This section includes ALL of a patient's completed or amended [place] Advance and Rescinded Directives. The entries below indicate that a directive exists for the patient, but an actual copy is not included with this document. The data comes from all [place] facilities. Date Advance Directives Provider Source Mar 26, 2015 ADVANCE DIRECTIVE DISCUSSION GABBY MISTRY [facility] Mar 26, 2015 ADVANCE DIRECTIVE MIGUEL MISTRY [facility] Jan 12, 2005 ADVANCE DIRECTIVE JENN GARDUNO [facility] Radiology Reports: +/- 30 days of the [...] the Encounter. The data comes from all [place] treatment facilities. Date/Time Radiology Report Provider Source Sep 20, 2023 03:[address] RENAL COLIC PRO TOCOL (P): LACI GRIFFITH Carin [id number] -1945 M Exm Date: SEP 20, 2023@15:36 Req Phys: MARILIN JAQUEZ Loc: [facility] PACT RAINBOW PA 4E (Req'g Img Loc: CT IMAGING Service: [place] [address] (Case [id number] COMPLETE) CT (AP) ABDOMEN/PELVIS W/O CONTRA(CT Detailed) CPT:76811 Reason for Study: rule out kidney stones [...] of critical findings: Marilin Jaquez PA-C; cell [phone] na LAST 3: Collection DT Specimen Test Name Result Units Ref Range 03/11/2023 11:41 PLASMA CREATININE 1.0 mg/dL 0.7 - 1.2 02/19/2022 10:17 PLASMA CREATININE 1.0 mg/dL 0.7 - 1.2 02/03/2021 10:23 PLASMA CREATININE 1.1 mg/dL 0.7 - 1.2 03/11/2023 11:41 PLASMA .CREAT EGFR(CKD-E 78 Ref: >=60 02/19/2022 10:17 PLASMA .CREAT EGFR(CKD-E 78 Ref: >=60 Allergies: ([place] only) MERTHIOLATE TINCTURE (Jun 22, 2003) METFORMIN (Jan 12, 2005) NIACIN (Nov 03, 2006) EZETIMIBE (Nov 03, 2006) ROSIGLITAZONE (Aug 31, 2007) ROSUVASTATIN (Apr 17, 2008) MINOCYCLINE (Sep 15, 2012) LISINOPRIL (May 31, 2014) Report Status: Verified Date Reported: SEP 20, 2023 Date Verified: SEP 20, 2023 Auto Service Station Attendant E-Sig:/ES/ROSANNE HERNANDEZ MD Report: DATE/TIME REGISTERED: 09/20/2023 [...] Primary Interpreting Staff: ROSANNE HERNANDEZ MD, RADIOLOGIST (Auto Service Station Attendant) /ROSANNE PFEIFFER [facility] Aug 30, 2023 11:42 AM HAND LEFT 3 VIEWS OR MORE: LACI GRIFFITH [id number] -1945 M Ex Date: AUG 30, 2023@11:42 Req Phys: MARILIN JAQUEZ Loc: [facility] PACT RAINBOW PA 4E (Req'g Img Loc: MAIN X-RAY Service: [place] [address] (Case [id number] COMPLETE) HAND LEFT 3 VIEWS OR MORE (RAD Detailed) CPT:99925 Proc Modifiers : LEFT Reason for Study: pre-req for ortho Clinical History: [place] IS NOT under investigation for COVID-19 or [...] 02, 2023 Date Verified: SEP 02, 2023 Auto Service Station Attendant E-Sig: Report: HAND LEFT 3 VIEWS OR MORE HISTORY: pre-req for ortho COMPARISON: None TECHNIQUE: 3 view(s) of the left hand, submitted to the [place] National Teleradiology Program (NTP) for interpretation. FINDINGS: No evidence of acute fracture or malalignment. Chondrocalcinosis. Mild first CMC and triscaphe osteoarthrosis. Scattered early to mild degenerative changes at the interphalangeal joints. No erosions. Remote posttraumatic morphology of the ulnar styloid process. Impression: No acute osseous abnormalities. READING PHYSICIAN: Rosanne Ag MD -[id number] 09/02/2023 2:47 PDT [facility] National Teleradiology Program [phone] (For Medical Practitioner Use Only) Attention Patients / Veterans: If you have questions or concerns about these test results, please contact your ordering provider or primary care team. Primary Interpreting Staff: RADIOLOGY,OUTSIDE SERVICE, Staff Physician / RADIOLOGY,OUTSIDE SERVICE [facility] Encounter Notes: All associated encounter notes This section contains the clinical notes associated to the Encounter. Date/Time Encounter Note(s) Provider Source Aug 27, 2023 11:11 AM ADDENDUM: LOCAL TITLE: Addendum STANDARD TITLE: ADDENDUM DATE OF NOTE: AUG 27, 2023@11:11:50 ENTRY DATE: AUG 27, 2023@11:11:51 AUTHOR: TED VILLA EXP COSIGNER: URGENCY: STATUS: COMPLETED RTC order placed - please reach out to to get this scheduled. Thank you! /SARAH Landrum RN REGISTERED NURSE Signed: 08/27/2023 11:14 Receipt Acknowledged By: 08/27/2023 11:52 /nghia/ BRITTA HOUGH AMSA --- Original Document --- 08/27/23 CCC: CLINICAL TRIAGE: Patient Demographics Patient Name: LACI GRIFFITH Patient Primary [address]: [address] [place] [address] [place] [address] Patient Primary Phone: [phone] Patient : 1945 Patient Age: 77 Caller/Recipient Relation to Patient: Self Emergency Contact: trace BARAJAS Triage Summary Conducted triage/discussed symptoms Pain Score: 5 (Moderate to Severe Pain) Utilized the Triage Tool: Yes Chief Complaint: Hand Numbness (one hand) System WHEN: Within 2 Weeks Nurse's Recommendation / WHEN: Within 2 Weeks System WHERE: Clinic Nurse's Recommendation / WHERE: Clinic/[facility] Patient Disposition Patient/Caregiver agrees to plan of care: Yes Nursing Plan and Disposition Referred Patient for In-Person Appt Transferred patient to Sched & Admin-Apt Nurse Summary Nurse Summary: PATIENT CONCERN/DURATION/ONSET: phones in he hit his left hand with a hammer over the winter. 2-3 months ago he noticed a marble sized lump or knot on his left thumb base and now he is having numbness and pain 5/10 to the left thumb and index finger the pain travels into his wrist also. WHAT HAS PATIENT TRIED TO TREAT THE SYMPTOMS: None HISTORY/PREVIOUS TREATMENT: See above. WHAT IS PATIENT GOAL FOR THE CALL: Pact Appointment Was Care Now considered (TELE or VVC)? Recommend in person PACT evaluation. ELECTRICAL SYSTEMS DRAFTER DISPOSITION: Recommended triage within two weeks secondary to left thumb and index finger pain and numbness x 2-3 months. No appointment available within recommended triage time. Forwarding to PACT for further management of care. Notified via Message Textile Conversion Manager. Best contact for [place] is (Verified). [phone] [place] verbalizes understanding of home care advice listed below. This note was created by a 3 [facility] RN. Please do not alert this nurse by adding as a signer for future communications. Alerts are not monitored by this user, please reach out to [facility] Leadership instead if indicated. Clinical Contact Center Codes Clinic/Location: [address] PHONE CCC RN TXCC Triage Complete Triage Date: 08/27/2023, 07:55 AM Triage Note: Phone Triage 27 Aug 2023 12:54:43 +0000 [facility] Demographics 77 y/o Male Results CC: Hand Numbness (one hand) Software suggested: Within 2 Weeks Software suggested follow-up location: Clinic, consider virtual care Values and Measures Duration of CC: 2 Months Positive Responses HPI: hand or arm pain with numbness Negative Responses Denies: HPI: arm numbness, new Denies: HPI: cast or splint, arm Denies: HPI: hand numbness, worsens with neck movement Denies: HPI: neck pain Denies: HPI: numbness in all digits Denies: HPI: numbness in one arm or hand, sudden onset Denies: HPI: weakness, wrist or hand Denies: PMH: pinched nerve in neck in the past Denies: PMH: stroke or TIA Education Verbal Education Provided for: Numbness and Tingling Home Care Education Log Home care for numbness or tingling includes: Avoid exposure to secondary smoke. Avoid alcohol. Avoid exposure to chemicals. If you have diabetes: Check your blood sugar every day. Keep a log of your results. If you have high blood pressure: Learn how to take your blood pressure. Check your blood pressure every day. Keep a log of your results. /nghia/ SARAH DASILVA, RN VISN 23 [facility] Signed: 08/27/2023 07:57 TED VILLA [facility] Aug 27, 2023 07:57 AM RN PROGRESS NOTE: LOCAL TITLE: CCC: CLINICAL TRIAGE STANDARD TITLE: RN PROGRESS NOTE DATE OF NOTE: AUG 27, 2023@07:57:38 ENTRY DATE: AUG 27, 2023@07:57:38 AUTHOR: OFE POOLEIGNER: URGENCY: STATUS: COMPLETED CCC: CLINICAL TRIAGE Has ADDENDA Patient Demographics Patient Name: LACI GRIFFITH Patient Primary [address]: [address] [place] [address] [place] [address] Patient Primary Phone: [phone] Patient : 1945 Patient Age: 77 Caller/Recipient Relation to Patient: Self Emergency Contact: trace BARAJAS Triage Summary Conducted triage/discussed symptoms Pain Score: 5 (Moderate to Severe Pain) Utilized the Triage Tool: Yes Chief Complaint: Hand Numbness (one hand) System WHEN: Within 2 Weeks Nurse's Recommendation / WHEN: Within 2 Weeks System WHERE: Clinic Nurse's Recommendation / WHERE: Clinic/[facility] Patient Disposition Patient/Caregiver agrees to plan of care: Yes Nursing Plan and Disposition Referred Patient for In-Person Appt Transferred patient to Sched & Admin-Apt Nurse Summary Nurse Summary: PATIENT CONCERN/DURATION/ONSET: [place] phones in he hit his left hand with a hammer over the winter. 2-3 months ago he noticed a marble sized lump or knot on his left thumb base and now he is having numbness and pain 5/10 to the left thumb and index finger the pain travels into his wrist also. WHAT HAS PATIENT TRIED TO TREAT THE SYMPTOMS: None HISTORY/PREVIOUS TREATMENT: See above. WHAT IS PATIENT GOAL FOR THE CALL: Pact Appointment Was Care Now considered (TELE or VVC)? Recommend in person PACT evaluation. ELECTRICAL SYSTEMS DRAFTER DISPOSITION: Recommended triage within two weeks secondary to left thumb and index finger pain and numbness x 2-3 months. No appointment available within recommended triage time. Forwarding to PACT for further management of care. Notified via Message Textile Conversion Manager. Best contact for [place] is (Verified). [phone] verbalizes understanding of home care advice listed below. This note was created by a V23 [place] [facility] RN. Please do not alert this nurse by adding as a signer for future communications. Alerts are not monitored by this user, please reach out to [facility] Leadership instead if indicated. Clinical Contact Center Codes Clinic/Location: [address] PHONE CCC RN TXCC Triage Complete Triage Date: 08/27/2023, 07:55 AM Triage Note: Phone Triage 27 Aug 2023 12:54:43 +0000 UTC Demographics 77 y/o Male Results CC: Hand Numbness (one hand) Software suggested: Within 2 Weeks Software suggested follow-up location: Clinic, consider virtual care Values and Measures Duration of CC: 2 Months Positive Responses HPI: hand or arm pain with numbness Negative Responses Denies: HPI: arm numbness, new Denies: HPI: cast or splint, arm Denies: HPI: hand numbness, worsens with neck movement Denies: HPI: neck pain Denies: HPI: numbness in all digits Denies: HPI: numbness in one arm or hand, sudden onset Denies: HPI: weakness, wrist or hand Denies: PMH: pinched nerve in neck in the past Denies: PMH: stroke or TIA [place] Education Verbal Education Provided for: Numbness and Tingling Home Care Education Log Home care for numbness or tingling includes: Avoid exposure to secondary smoke. Avoid alcohol. Avoid exposure to chemicals. If you have diabetes: Check your blood sugar every day. Keep a log of your results. If you have high blood pressure: Learn how to take your blood pressure. Check your blood pressure every day. Keep a log of your results. /nghia/ SARAH DASILVA, RN VISN 23 [facility] Signed: 08/27/2023 07:57 08/27/2023 ADDENDUM STATUS: COMPLETED RTC order placed - please reach out to to get this scheduled. Thank you! /nghia/ ERNESTINE InmanN RN REGISTERED NURSE Signed: 08/27/2023 11:14 Receipt Acknowledged By: * AWAITING SIGNATURE * BRITTA HOUGH [facility]
--- OUTSIDE RECORDS SUMMARY | 2024-03-17 13:07 | XMS_ITS | Encounter Summary ---
Author Name [facility] [place] [facility] [place] Address [address] [place] [id number] Care Team Providers Care Refueler Name Role Phone ALLEN NAILS Primary Care [...] DELTA AIRLI MACY/C DHP Mar 22, 2009 [id number] [phone] LACI GRIFFITH PATIENT MEDICA HIGH DEDUCTIBL E HEALTH PLAN W/HEALTH REIMBURSE MENT ARRANGEME NT [place] AIRLI MACY HRA Mar 22, 2009 [id number] [phone] LACI GRIFFITH PATIENT MEDICA BEHAVIORAL HEALTH MENTAL HEALTH [place] AIR[place] MACY HRA Mar 22, 2009 [id number] [phone] LACI GRIFFITH PATIENT MEDICA MCR (WNR) MEDICARE ADVANTAGE [facility] (WNR) Mar 22, 2018 [id number] LACI GRIFFITH PATIENT MEDICA MCR (WNR) MEDICARE ADVANTAGE [facility] (WNR) Sep 19, 2012 [id number] [phone] LACI GRIFFITH PATIENT MEDICARE (WNR) MEDICARE (M) PART B Aug 20, 2012 PART B [id number] [phone] LACI GRIFFITH PATIENT MEDICARE (WNR) MEDICARE (M) PART A Sep 19, 2010 PART A [id number] [phone] LACI GRIFFITH PATIENT Selected Encounter This section includes the information on record at [place] for the Encounter. Date/Time Encounter Type Encounter Description Reason Pro vider Source Oct 26, 2023 10:49 AM Outpatient Encounter COMMUNITY CARE CONSULT IHE Encounter Template Text not used by [place] Plan of Treatment: Future Appointments (+ 6 months) and Future Tests (+/- 45 days) The Plan of Treatment section includes future care activities for the patient from all [place] [facility] This section includes future appointments and future orders which are active, pending or scheduled. Future Appointments This section includes appointments that were scheduled to occur 6 months from the date of the Encounter, up to a maximum of 20 appointments. The data comes from all [place] treatment facilities. Appointment Date/Time Appointment Type Appointme nt Facility Name Nov 17, 2023 11:30 AM AMBULATORY - SURGERY [facility] Nov 18, 2023 01:00 PM [facility] Nov 18, 2023 03:00 PM AMBULATORY - MEDICINE [facility] Dec 13, 2023 10:30 AM AMBULATORY - NONE [facility] Jan 05, 2024 11:30 AM AMBULATORY - SURGERY [facility] Mar 09, 2024 12:40 PM AMBULATORY - SURGERY [facility] Mar 10, 2024 12:30 PM AMBULATORY - SURGERY [facility] Mar 30, 2024 10:30 AM [facility]ATORY - [facility]AB [facility] Apr 24, 2024 01:00 PM AMBULATORY - SURGERY [facility] Lab Results: +/- 30 days of the encounter This section includes the Chemistry and Hematology Lab Results on record with [place] for the patient. Radiology Reports and Pathology Reports are provided separately, in subsequent sections. Lab Results This section contains the Chemistry/Hematology Results that were resulted 30 days before or 30 daysafter the date of the Encounter. Date/Time Source Result Type Result - Unit Interpretation Reference Range Comment Nov 18, 2023 02:53 PM [facility] ALBUMIN/CREATININE RATIO URINE Specimen Type: URINE Comment: Urine albumin <5 mg/L, unable to calculate ratio Ordering Provider: KAYLI NAILS E Report Released Date/Time: Nov 18, 2023 02:43 PM Reporting Lab: [facility] [address] [facility] [id number] Performing Lab: [facility] [id number] CREATININ E,UR RANDOM 65.6 mg/dL 58.0-161.0 ALB/CREAT RATIO,UR canc mg/g{creat} <29.9 ALBUMIN,U R <5.0 mg/L <29.9 Social History: Smoking Status (Most current) and Tobacco Use (All prior to encounter date) This section includes the most current, and the historical, smoking and tobacco- related health factors from the [place] facility where the Encounter took place. Current Smoking Status This section includes the most current smoking, or tobacco-related health factor, from the [place] facility where the Encounter took place. Date/Time Current Smoking Status Comment Facil ity Mar 29, 2023 11:00 AM VA-TOBACCO NEVER USED [facility] Tobacco Use History This section includes a history of the smoking, or tobacco-related health factors, that were collected on or before the date of the Encounter. The data comes from the [place] facility where the Encounter took place. Date/Time Smoking Status/Tobacco Use Comment F acility Feb 19, 2022 11:30 AM VA-TOBACCO FORMER USER [facility] Feb 19, 2022 11:30 AM VA-TOBACCO QUIT 15 YRS OR MORE [facility] August 14, 2020 08:30 AM VA-TOBACCO FORMER USER [facility] August 14, 2020 08:30 AM VA-TOBACCO QUIT 15 YRS OR MORE [facility] Jul 11, 2018 10:38 AM VA-TOBACCO FORMER USER [facility] Jul 11, 2018 10:38 AM VA-TOBACCO QUIT 15 YRS OR MORE [facility] Aug 25, 2017 10:47 AM FORMER TOBACCO USER 7Y OR GREATE R [facility] Nov 20, 2016 10:21 AM FORMER TOBACCO USER 7Y OR GREATE R [facility] Oct 08, 2015 08:27 AM FORMER TOBACCO USER 7Y OR GREATE R [facility] Dec 21, 2014 11:06 AM FORMER TOBACCO USER 7Y OR GREATE R [facility] Jan 05, 2014 08:09 AM FORMER TOBACCO USER 7Y OR JAMES Del Rosario [facility] May 02, 2007 09:05 AM FORMER TOBACCO USER 7Y OR JAMES Del Rosario [facility] May 12, 2006 10:31 AM FORMER TOBACCO USE >1Y <7Y [facility] Advance Directives: All historical and current Section Date Range: From patient's date of to the date document was created. This section includes ALL of a patient's completed or amended [place] Advance and Rescinded Directives. The entries below indicate that a directive exists for the patient, but an actual copy is not included with this document. The data comes from all [place] facilities. Date Advance Directives Provider Source Mar 26, 2015 ADVANCE DIRECTIVE DISCUSSION GABBY MISTRY [facility] Mar 26, 2015 ADVANCE DIRECTIVE MIGUEL MISTRY [facility] Jan 12, 2005 ADVANCE DIRECTIVE JENN GARDUNO [facility] Encounter Notes: All associated encounter notes This section contains the clinical notes associated to the Encounter. Date/Time Encounter Note(s) Provider Source Oct 26, 2023 10:49 AM NONVA NOTE: LOCAL TITLE: COMMUNITY CARE PRE-AUTH LETTER (AUTOPRINT) STANDARD TITLE: NONVA NOTE DATE OF NOTE: OCT 26, 2023@10:49 ENTRY DATE: OCT 26, 2023@10:49:30 AUTHOR: BEVERLY MILLER EXP COSIGNER: URGENCY: STATUS: COMPLETED Oct LACI GRIFFITH [address] [place], [place] [address] Dear LACI GRIFFITH, Your VA provider has referred you to a provider within the community for care. Your medical care for Chiropractic has been authorized with the community care provider listed below. DO NOT REPORT TO THE [place] [facility] Provider info: Care has been approved for the following vendor: Office name, address, and phone number: [facility] [address] [place] [address] [place] [address] Please contact the identified provider to schedule your community appointment. If you need assistance with this appointment, please call your facility community care office [facility] Office of Community Care at [phone] during the hours of 8:30AM - 3:00PM. Please follow up with your local [facility] community care office once this is scheduled. This step is needed to ensure your referral duration is maximized and the VA has accurate referral information for billing purposes. Authorization Number: [id number] Referral Issue Date: Sep Expiration Date: Dec (subject to change based on first appointment) If you are unable to schedule this appointment or the appointment is no longer needed, please contact the community provider above for notification/rescheduling and then call the [facility] Office of Community Care at [phone] during the hours of 8:30AM - 3:00PM. If you need additional care/services not mentioned above or your authorization has and additional care is needed, please contact your primary care provider for a new referral. To review all care/service(s) approved under your referral, please go to the following link: Empathy Coan [employer]([email or web address]) Co-Payments: If you are required to pay a VA co-payment, you will be billed by the [place] for each authorized visit that you attend. However, you are NOT REQUIRED to make co-payments to a community provider. Thank you for the opportunity to serve you. Sincerely, [place] Community Care (VACC) /nghia/ BEVERLY MILLER Advance Gamer Signed: 10/26/2023 10:50 BEVERLY MILLER [facility]
--- OUTSIDE RECORDS SUMMARY | 2024-03-17 13:07 | XMS_ITS | Encounter Summary ---
Author Name [facility] [place] [facility] [place] Address [address] [place] [address] Care Team Providers Care Security Engineer Name Role Phone ALLEN NAILS Primary Care [...] DELTA AIRLI MACY/C DHP Mar 22, 2009 [id number] [phone] LACI GRIFFITH PATIENT MEDICA HIGH DEDUCTIBL E HEALTH PLAN W/HEALTH REIMBURSE MENT ARRANGEME NT [place] AIRLI MACY HRA Mar 22, 2009 [id number] [phone] LACI GRIFFITH PATIENT [facility] BEHAVIORAL HEALTH MENTAL HEALTH [place] MACY HRA Mar 22, 2009 [id number] [phone] LACI GRIFFITH PATIENT MEDICA MCR (WNR) MEDICARE ADVANTAGE [facility] (WNR) Mar 22, 2018 [id number] LACI GRIFFITH PATIENT MEDICA MCR (WNR) MEDICARE ADVANTAGE [facility] (WNR) Sep 19, 2012 [id number] [phone] LACI GRIFFITH PATIENT MEDICARE (WNR) MEDICARE (M) PART B Aug 20, 2012 PART B [id number] LACI GRIFFITH PATIENT MEDICARE (WNR) MEDICARE (M) PART A Sep 19, 2010 PART A [id number] [phone] LACI GRIFFITH PATIENT Selected Encounter This section includes the information on record at [place] for the Encounter. Date/Time Encounter Type Encounter Description Reason Provider Source Sep 14, 2023 01:00 PM Outpatient Encounter TELEPHONE PRIMARY CARE ICD-10-CM M25.551 Pain in right hip KAYLI NAILS IN [facility] Encounter Template Text not used by [place] Assessments - Encounter Diagnoses This section includes the primary and secondary diagnoses documented for the Encounter. Date/Time Primary/Secondary Diagnosis Diagnosis Name Provider Source Sep 14, 2023 01:00 PM PRIMARY Pain in right hip KAYLI NAILS IN [facility] Plan of Treatment: Future Appointments (+ 6 months) and Future Tests (+/- 45 days) The Plan of Treatment section includes future care activities for the patient from all [place] [facility]. This section includes future appointments and future orders which are active, pending or scheduled. Future Appointments This section includes appointments that were scheduled to occur 6 months from the date of the Encounter, up to a maximum of 20 appointments. The data comes from all [place] treatment facilities. Appointment Date/Time Appointment Type Appointme nt Facility Name Sep 20, 2023 04:15 PM AMBULATORY - NONE [facility] Oct 04, 2023 12:45 PM AMBULATORY - SURGERY [facility] Oct 12, 2023 11:00 AM AMBULATORY - SURGERY [facility] Oct 12, 2023 01:00 PM AMBULATORY - REHAB MEDICIN E [facility] Nov 17, 2023 11:30 AM AMBULATORY - SURGERY [facility] Nov 18, 2023 01:00 PM AMBULATORY - REHAB MEDICIN E [facility] Nov 18, 2023 03:00 PM AMBULATORY - MEDICINE [facility] Dec 13, 2023 10:30 AM AMBULATORY - NONE [facility] Jan 05, 2024 11:30 AM AMBULATORY - SURGERY [facility] Mar 09, 2024 12:40 PM AMBULATORY - SURGERY [facility] Mar 10, 2024 12:30 PM AMBULATORY - SURGERY [facility] Lab Results: +/- 30 days of the encounter This section includes the Chemistry and Hematology Lab Results on record with [place] for the patient. Radiology Reports and Pathology Reports are provided separately, in subsequent sections. Lab Results This section contains the Chemistry/Hematology Results that were resulted 30 days before or 30 daysafter the date of the Encounter. Date/Time Source Result Type Result - Unit Interpretation Reference Range Comment Aug 30, 2023 11:24 AM [facility] HEMOGLOBIN A1C Specimen Type: BLOOD Comment: Values [...] Mar 29, 2023 12:39 PM Reporting Lab: [facility] [id number] Performing Lab: [facility] [id number] HEMOGLOBIN A1C 7.7 H 4.0-6.0 Social History: Smoking Status (Most current) and Tobacco Use (All prior to encounter date) This section includes the most current, and the historical, smoking and tobacco- related health factors from the [place] facility where the Encounter took place. Current Smoking Status This section includes the most current smoking, or tobacco-related health factor, from the [place] facility where the Encounter took place. Date/Time Current Smoking Status Comment Bola ayoub Mar 29, 2023 11:00 AM VA-TOBACCO NEVER USED [facility] Tobacco Use History This section includes a history of the smoking, or tobacco-related health factors, that were collected on or before the date of the Encounter. The data comes from the [place] facility where the Encounter took place. Date/Time Smoking Status/Tobacco Use Comment Rosy acceleste Feb 19, 2022 11:30 AM VA-TOBACCO FORMER USER [facility] Feb 19, 2022 11:30 AM VA-TOBACCO QUIT 15 YRS OR MORE [facility] August 14, 2020 08:30 AM VA-TOBACCO FORMER USER [facility] August 14, 2020 08:30 AM VA-TOBACCO QUIT 15 YRS OR MORE [facility] Jul 11, 2018 10:38 AM VA-TOBACCO FORMER USER [facility] Jul 11, 2018 10:38 AM VA-TOBACCO QUIT 15 YRS OR MORE [facility] Aug 25, 2017 10:47 AM FORMER TOBACCO USER 7Y OR GREATE R [facility] Nov 20, 2016 10:21 AM FORMER TOBACCO USER 7Y OR GREATE R [facility] Oct 08, 2015 08:27 AM FORMER TOBACCO USER 7Y OR GREATE R [facility] Dec 21, 2014 11:06 AM FORMER TOBACCO USER 7Y OR GREATE R [facility] Jan 05, 2014 08:09 AM FORMER TOBACCO USER 7Y OR GREATE R [facility] May 02, 2007 09:05 AM FORMER TOBACCO USER 7Y OR GREATE R [facility] May 12, 2006 10:31 AM FORMER TOBACCO USE >1Y <7Y [facility] Advance Directives: All historical and current Section Date Range: From patient's date of to the date document was created. This section includes ALL of a patient's completed or amended [place] Advance and Rescinded Directives. The entries below indicate that a directive exists for the patient, but an actual copy is not included with this document. The data comes from all [facility]. Date Advance Directives Provider Source Mar 26, 2015 ADVANCE DIRECTIVE DISCUSSION GABBY MISTRY [facility] Mar 26, 2015 ADVANCE DIRECTIVE MIGUEL MISTRY [facility] Jan 12, 2005 ADVANCE DIRECTIVE JENN GARDUNO [facility] Radiology Reports: +/- 30 days [...] the Encounter. The data comes from all [place] treatment facilities. Date/Time Radiology Report Provider Source Sep 20, 2023 03:[address] RENAL COLIC PRO TOCOL (P): LACI GRIFFITH [id number] -1945 M Exm Date: SEP 20, 2023@15:36 Req Phys: MARILIN NOBLE Loc: [facility] PACT ELVIA GENTILE 4E (Req'g Img Loc: CT IMAGING Service: [place] [address] (Case [id number] COMPLETE) CT (AP) ABDOMEN/PELVIS W/O CONTRA(CT Detailed) CPT:19206 Reason for Study: rule out kidney stones [...] of critical findings: Marilin Noble PA-C; cell [phone] na LAST 3: Collection DT Specimen Test Name Result Units Ref Range 03/11/2023 11:41 PLASMA CREATININE 1.0 mg/dL 0.7 - 1.2 02/19/2022 10:17 PLASMA CREATININE 1.0 mg/dL 0.7 - 1.2 02/03/2021 10:23 PLASMA CREATININE 1.1 mg/dL 0.7 - 1.2 03/11/2023 11:41 PLASMA .CREAT EGFR(CKD-E 78 Ref: >=60 02/19/2022 10:17 PLASMA .CREAT EGFR(CKD-E 78 Ref: >=60 Allergies: ([place] only) MERTHIOLATE TINCTURE (Jun 22, 2003) METFORMIN (Jan 12, 2005) NIACIN (Nov 03, 2006) EZETIMIBE (Nov 03, 2006) ROSIGLITAZONE (Aug 31, 2007) ROSUVASTATIN (Apr 17, 2008) MINOCYCLINE (Sep 15, 2012) LISINOPRIL (May 31, 2014) Report Status: Verified Date Reported: SEP 20, 2023 Date Verified: SEP 20, 2023 Collection Support Specialist E-Sig:/ES/ROSANNE HERNANDEZ MD Report: DATE/TIME REGISTERED: 09/20/2023 [...] Primary Interpreting Staff: ROSANNE HERNANDEZ MD, RADIOLOGIST (Collection Support Specialist) /ROSANNE PFEIFFER [facility] Aug 30, 2023 11:42 AM HAND LEFT 3 VIEWS OR MORE: LACI GRIFFITH [id number] -1945 M Exm Date: AUG 30, 2023@11:42 Req Phys: MARILIN NOBLE Loc: [facility] PACT ELVIA GENTILE 4E (Req'g Img Loc: MAIN X-RAY Service: [place] [address] (Case [id number] COMPLETE) HAND LEFT 3 VIEWS OR MORE (RAD Detailed) CPT:80814 Proc Modifiers : LEFT Reason for Study: pre-req for ortho Clinical History: [place] IS NOT under investigation for COVID-19 or [...] 02, 2023 Date Verified: SEP 02, 2023 Collection Support Specialist E-Sig: Report: HAND LEFT 3 VIEWS OR MORE HISTORY: pre-req for ortho COMPARISON: None TECHNIQUE: 3 view(s) of the left hand, submitted to the [place] National Teleradiology Program (NTP) for interpretation. FINDINGS: No evidence of acute fracture or malalignment. Chondrocalcinosis. Mild first CMC and triscaphe osteoarthrosis. Scattered early to mild degenerative changes at the interphalangeal joints. No erosions. Remote posttraumatic morphology of the ulnar styloid process. Impression: No acute osseous abnormalities. READING PHYSICIAN: Rosanne Ag MD -[id number] 09/02/2023 2:47 PDT [facility] National Teleradiology Program [phone] (For Medical Practitioner Use Only) Attention Patients / Veterans: If you have questions or concerns about these test results, please contact your ordering provider or primary care team. Primary Interpreting Staff: RADIOLOGY,OUTSIDE SERVICE, Staff Physician / RADIOLOGY,OUTSIDE SERVICE [facility] Encounter Notes: All associated encounter notes This section contains the clinical notes associated to the Encounter. Date/Time Encounter Note(s) Provider Source Sep 14, 2023 11:20 AM PACT NOTE: LOCAL TITLE: MEDICINE CLINIC PROVIDER TELEPHONE NOTE STANDARD TITLE: PACT NOTE DATE OF NOTE: SEP 14, 2023@11:20 ENTRY DATE: SEP 14, 2023@11:20:21 AUTHOR: ZACH NAILS EXP COSIGNER: URGENCY: STATUS: COMPLETED History: Right hip pain: Pain intermittent and has recurred this Spring. Has to stretch and keep his R leg straight when he sits. Takes tylenol 500 mg 1-2 tablets as needed. Had this pain since he had the stent placement May 2015. This is worse when he is sitting and improves when he is standing or laying down. No leg claudication, groin swelling, constipation. He continues to work with a massage therapist which has been helpful. he had a lap wilfredo and appendectomy, but he still has pain. MRI right hip showed tendinopathy with mildly increased T2 signal near the adductor insertions onto the proximal femur and adjacent to the distal iliopsoas tendon. Doesn't feel that he needs PT for now. Objective: Assessment/Plan: # right groin pain: Negative hip x-ray in the past. MRI of the right hip showed tendinopathy. massage has been helpful, but he isn't getting as much benefit as he did in the past. - Encouraged him to stretch/exercise for pain - continue comm care for massage - Pain team referral Education/Counseling: Time spent director business integration: 11-20 minutes /nghia/ ALLEN NAILS MD Staff Physician Signed: 09/14/2023 11:36 ALLEN NAILS [facility]
--- OUTSIDE RECORDS SUMMARY | 2024-03-17 13:07 | XMS_ITS | Encounter Summary ---
Author Name [facility] [place] [facility] [place] Address [address] [place] [address] Care Team Providers Care Account Manager B2B Name Role Phone KWAN NAILS Primary Care [...] [place] AIR[place] MACY/C DHP Mar 22, 2009 [id number] [phone] LACI GRIFFITH PATIENT MEDICA HIGH DEDUCTIBL E HEALTH PLAN W/HEALTH REIMBURSE MENT ARRANGEME NT [place] MACY HRA Mar 22, 2009 [id number] [phone] LACI GRIFFITH PATIENT [facility] BEH[facility]IORAL HEALTH MENTAL HEALTH [place] MACY HRA Mar 22, 2009 [id number] [phone] LACI GRIFFITH PATIENT MEDICA MCR (WNR) MEDICARE ADVANTAGE [facility] (WNR) Mar 22, 2018 [id number] LACI GRIFFITH PATIENT MEDICA MCR (WNR) MEDICARE ADVANTAGE [facility] (WNR) Sep 19, 2012 [id number] [phone] LACI GRIFFITH PATIENT MEDICARE (WNR) MEDICARE (M) PART B Aug 20, 2012 PART B [id number] LACI GRIFFITH PATIENT MEDICARE (WNR) MEDICARE (M) PART A Sep 19, 2010 PART A [id number] LACI GRIFFITH PATIENT Selected Encounter This section includes the information on record at [place] for the Encounter. Date/Time Encounter Type Encounter Description Reason Provider Source Jun 04, 2023 11:55 AM Outpatient Encounter EVENT (HISTORICAL) AILYN EISENBERG Encounter Template Text not used by [place] Plan of Treatment: Future Appointments (+ 6 months) and Future Tests (+/- 45 days) The Plan of Treatment section includes future care activities for the patient from [facility] [place] [facility] This section includes future appointments and future orders which are active, pending or scheduled. Future Appointments This section includes appointments that were scheduled to occur 6 months from the date of the Encounter, up to a maximum of 20 appointments. The data comes from all [facility] facilities. Appointment Date/Time Appointment Type Appointme nt Facility Name Aug 30, 2023 10:30 AM AMBULATORY - MEDICINE [facility] Aug 30, 2023 12:00 PM AMBULATORY - NONE [facility] Sep 14, 2023 01:00 PM AMBULATORY - MEDICINE [facility] Sep 20, 2023 04:15 PM AMBULATORY - NONE [facility] Oct 04, 2023 12:45 PM AMBULATORY - SURGERY [facility] Oct 12, 2023 11:00 AM AMBULATORY - SURGERY [facility] Oct 12, 2023 01:00 PM AMBULATORY - REHAB MEDICIN E [facility] Nov 17, 2023 11:30 AM AMBULATORY - SURGERY [facility] Nov 18, 2023 01:00 PM AMBULATORY - REHAB MEDICIN E [facility] Nov 18, 2023 03:00 PM AMBULATORY - MEDICINE [facility] Social History: Smoking Status (Most [...] 29, 2023 11:00 AM VA-TOBACCO NEVER USED [facility] Tobacco Use History This section includes a history of the smoking, or tobacco-related health factors, that were collected on or before the date of the Encounter. The data comes from the [place] facility where the Encounter took place. Date/Time Smoking Status/Tobacco Use Comment F acility Feb 19, 2022 11:30 AM VA-TOBACCO FORMER USER [facility] Feb 19, 2022 11:30 AM VA-TOBACCO QUIT 15 YRS OR MORE [facility] August 14, 2020 08:30 AM VA-TOBACCO FORMER USER [facility] August 14, 2020 08:30 AM VA-TOBACCO QUIT 15 YRS OR MORE [facility] Jul 11, 2018 10:38 AM VA-TOBACCO FORMER USER [facility] Jul 11, 2018 10:38 AM VA-TOBACCO QUIT 15 YRS OR MORE [facility] Aug 25, 2017 10:47 AM FORMER TOBACCO USER 7Y OR GREATE R [facility] Nov 20, 2016 10:21 AM FORMER TOBACCO USER 7Y OR GREATE R [facility] Oct 08, 2015 08:27 AM FORMER TOBACCO USER 7Y OR GREATE R [facility] Dec 21, 2014 11:06 AM FORMER TOBACCO USER 7Y OR GREATE R [facility] Jan 05, 2014 08:09 AM FORMER TOBACCO USER 7Y OR GREATE R [facility] May 02, 2007 09:05 AM FORMER TOBACCO USER 7Y OR GREATE R [facility] May 12, 2006 10:31 AM FORMER TOBACCO USE >1Y <7Y [facility] Advance Directives: All historical and current Section Date Range: From patient's date of to the date document was created. This section includes ALL of a patient's completed or amended [place] Advance and Rescinded Directives. The entries below indicate that a directive exists for the patient, but an actual copy is not included with this document. The data comes from all [facility]. Date Advance Directives Provider Source Mar 26, 2015 ADVANCE DIRECTIVE DISCUSSION GABBY MISTRY [facility] Mar 26, 2015 ADVANCE DIRECTIVE MIGUEL MISTRY [facility] Jan 12, 2005 ADVANCE DIRECTIVE JENN GARDUNO [facility] Pathology Reports: +/- 30 days of [...] comes from all [place] treatment facilities. Date/Time Pathology Report Provider Source Jun 04, 2023 11:55 AM LR SURGICAL PATHOL OGY REPORT: LOCAL TITLE: LR SURGICAL PATHOLOGY REPORT STANDARD TITLE: PATHOLOGY REPORT DATE OF NOTE: JUN 04, 2023@11:55:04 ENTRY DATE: JUN 04, 2023@11:55:04 AUTHOR: AILYN EISENBERG EXP COSIGNER: URGENCY: STATUS: COMPLETED $APHDR Reporting Lab: [facility] [CLIA# [id number]] [place] [address] - - - - - - - [...] 1.0 cm in greatest dimension. CE (D) SMcCoy/sk MICROSCOPIC DESCRIPTION: SPECS. 1, 2. Microscopic examination performed. RS. DIAGNOSES: SPEC. 1 Colon, ascending polyp, polypectomy-- - Tubular adenoma, fragments - No evidence of high-grade dysplasia or malignancy SPEC. 2 Colon, transverse polyp, polypectomy-- - Tubular adenoma - No evidence of high-grade dysplasia or malignancy /nghia/ AILYN EISENBERG STAFF PATHOLOGIST, PATHOLOGY & LABORATORY MED [facility] Signed Jun 04, 2023@11:55 Performing Laboratory: Surgical Pathology Report Performed By: [facility] [CLIA# [id number]] [place] [address] $FTR - - - - - - [...] - - - - - - - NACHOLACI R STANDARD FORM 515 ID:[id number] SEX:M :1945 AGE: 77 LOC:[id number] PCP: Kwan Nails MD /nghia/ AILYN EISENBERG STAFF PATHOLOGIST, PATHOLOGY & LABORATORY MED C Signed: 06/04/2023 11:55 AILYN EISENBERG [facility] Encounter Notes: All associated encounter notes This section contains the clinical notes associated to the Encounter. Date/Time Encounter Note(s) Provider Source Jun 04, 2023 11:55 AM PATHOLOGY REPORT: LOCAL TITLE: LR SURGICAL PATHOLOGY REPORT STANDARD TITLE: PATHOLOGY REPORT DATE OF NOTE: JUN 04, 2023@11:55:04 ENTRY DATE: JUN 04, 2023@11:55:04 AUTHOR: AILYN EISENBERG EXP COSIGNER: URGENCY: STATUS: COMPLETED $APHDR Reporting Lab: [facility] [CLIA# [id number]] [place] [address] - - - - - - - [...] 1.0 cm in greatest dimension. CE (D) SMcCoy/sk MICROSCOPIC DESCRIPTION: SPECS. 1, 2. Microscopic examination performed. RS. DIAGNOSES: SPEC. 1 Colon, ascending polyp, polypectomy-- - Tubular adenoma, fragments - No evidence of high-grade dysplasia or malignancy SPEC. 2 Colon, transverse polyp, polypectomy-- - Tubular adenoma - No evidence of high-grade dysplasia or malignancy /nghia/ AILYN EISENBERG STAFF PATHOLOGIST, PATHOLOGY & LABORATORY MED [facility] Signed Jun 04, 2023@11:55 Performing Laboratory: Surgical Pathology Report Performed By: [facility] [CLIA# [id number]] [facility] [employer] [place] [address] $FTR - - - - - - - - - - - - - - - - - - - - - - - - - - - - - - - - - - - - - - - - (End of report) AILYN EISENBERG MD [facility] Date Jun 04, 2023 - - - - - - - - - - - - - - - - - - - - - - - - - - - - - - - - - - - - - - - - LACI GRIFFITH STANDARD FORM 515 ID:[id number] SEX:M :1945 AGE: 77 LOC:32532 PCP: Kwan Nails MD /nghia/ AILYN EISENBERG STAFF PATHOLOGIST, PATHOLOGY & LABORATORY MED [facility] Signed: 06/04/2023 11:55 AILYN EISENBERG [facility]
--- OUTSIDE RECORDS SUMMARY | 2024-03-17 13:08 | XMS_ITS | Encounter Summary ---
Author Name [facility] [place] [facility] [place] Address [address] [place] [address] Care Team Providers Care Incident Response Lead Name Role Phone ALLEN NAILS Primary Care [...] [place] AIRLI MACY/C DHP Mar 22, 2009 [id number] [phone] LACI GRIFFITH PATIENT MEDICA HIGH DEDUCTIBL E HEALTH PLAN W/HEALTH REIMBURSE MENT ARRANGEME NT [place] MACY HRA Mar 22, 2009 [id number] [phone] LACI GRIFFITH PATIENT [facility] BEH[facility]IORAL HE[facility] MENTAL HEALTH [place] MACY HRA Mar 22, 2009 [id number] [phone] LACI GRIFFITH PATIENT MEDICA MCR (WNR) MEDICARE ADVANTAGE [facility] (WNR) Mar 22, 2018 [id number] LACI GRIFFITH PATIENT MEDICA MCR (WNR) MEDICARE ADVANTAGE MCR (WNR) Sep 19, 2012 [id number] [phone] LACI GRIFFITH PATIENT MEDICARE (WNR) MEDICARE (M) PART B Aug 20, 2012 PART B [id number] LACI GRIFFITH PATIENT MEDICARE (WNR) MEDICARE (M) PART A Sep 19, 2010 PART A [id number] LACI GRIFFITH PATIENT Selected Encounter This section includes the information on record at [place] for the Encounter. Date/Time Encounter Type Encounter Description Reason Provider Source Mar 09, 2024 12:40 PM OFFICE O/P EST MOD 30 MIN OPHTHALMOLOGY ICD-10-CM H40.003 Preglaucoma, unspecified, bilateral KHADIJAH WALLS Jeff Encounter Template Text not used by [place] Assessments - Encounter Diagnoses This section includes the primary and secondary diagnoses documented for the Encounter. Date/Time Primary/Secondary Diagnosis Diagnosis Name Provider Source Mar 09, 2024 12:55 PM PRIMARY Preglaucoma, unspecified, bilateral KHADIJAH WALLS [facility] Mar 09, 2024 12:55 PM SECONDARY Presence of intraocular lens SHELBI TAN [facility] Mar 09, 2024 12:55 PM SECONDARY Type 2 diabetes mellitus without complications SHELBI TAN [facility] Mar 09, 2024 12:55 PM SECONDARY Unspecified corneal degeneration SHELBI TAN [facility] Plan of Treatment: Future Appointments (+ 6 months) and Future Tests (+/- 45 days) The Plan of Treatment section includes future care activities for the patient from all [place] [facility]. This section includes future appointments and future orders which are active, pending or scheduled. Future Appointments This section includes appointments that were scheduled to occur 6 months from the date of the Encounter, up to a maximum of 20 appointments. The data comes from all [place] treatment facilities. Appointment Date/Time Appointment Type Appointme nt Facility Name Mar 10, 2024 12:30 PM AMBULATORY - SURGERY [facility] Mar 30, 2024 10:30 AM AMBULATORY - REHAB MEDICIN E [facility] Apr 24, 2024 01:00 PM AMBULATORY - SURGERY [facility] Social History: Smoking Status (Most current) and Tobacco Use (All prior to encounter date) This section includes the most current, and the historical, smoking and tobacco- related health factors from the [place] facility where the Encounter took place. Current Smoking Status This section includes the most current smoking, or tobacco-related health factor, from the [place] facility where the Encounter took place. Date/Time Current Smoking Status Comment Facil ity Mar 29, 2023 11:00 AM VA-TOBACCO NEVER USED [facility] Tobacco Use History This section includes a history of the smoking, or tobacco-related health factors, that were collected on or before the date of the Encounter. The data comes from the [place] facility where the Encounter took place. Date/Time [...] ALL of a patient's completed or amended [place] Advance and Rescinded Directives. The entries below indicate that a directive exists for the patient, but an actual copy is not included with this document. The data comes from all [facility]. Date Advance Directives Provider Source Mar 26, 2015 ADVANCE DIRECTIVE DISCUSSION GABBY MISTRY [facility] Mar 26, 2015 ADVANCE DIRECTIVE NARMIGUEL CL[facility]KE [facility] Jan 12, 2005 ADVANCE DIRECTIVE JENN GARDUNO [facility] Encounter Notes: All associated encounter notes This section contains the clinical notes associated to the Encounter. Date/Time Encounter Note(s) Provider Source Mar 09, 2024 01:56 PM OPHTHALMOLOGY ATTENDING NOTE: LOCAL TITLE: OPHTHALMOLOGY CLINIC NOTE STANDARD TITLE: OPHTHALMOLOGY ATTENDING NOTE DATE OF NOTE: MAR 09, 2024@13:56 ENTRY DATE: MAR 09, 2024@13:56:28 AUTHOR: HERMILO TAN EXP COSIGNER: URGENCY: STATUS: COMPLETED HPI: 78 y/o male rtc for yearly follow-up of Glaucoma suspect, Fuchs and DM2 A1c 7.27 August 2023 HPI: Patient returns to clinic for DFE/DM exam. VA OU described a fair. Not as sharp as he would like. Has been this way since CVA. Also notes loss of periphery, right eye temp quads. Not a new problem. Patient always feels the HVF is too hard. Denies pain and discomfort. No new fl/fl. Denies diplopia. Photophobia - not new but very bothersome. Hx ECCY OU - patient unbothered, using lubricating drops as directed. Has been having discomfort right side of torso. Has been a problem since the stroke. Flares from time to time. Now doing accupressure, and chiropractic treatments. Denies falls, accidents, injury. Active Problems List: Active problems - Computerized Problem List is the source for the followin. Diabetes mellitus type II (SNOMED CT 85013052) - Diagnosis @ 1999 2. Obesity, Unspec 3. Hypercholesterolemia * 4. ASCVD - 4v CAB 1995 @ [facility] 5. Impotence of organic origin 6. 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 Adenomatous polyp of colon - tubular adenoma x3 12/02/2012 8. Posterior vitreous detachment 9. Shoulder joint pain 10. Benign essential hypertension 11. Kidney stone 12. 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 Blood in urine 14. Thrombosis 15. Intracranial hemorrhage 16. Acquired complex renal cyst 17. Exposure to Agent Pine 18. Exposure to potentially hazardous substance ([facility] [id number]) - Entered automatically through [employer] Problem List documentation program Surgeries: MAR 31, 2017 Proc: CE IOL left eye FEB 03, 2017 Proc: KPE/IOL right eye DEC 25, 2016 Proc: Laparoscopic cholecystectomy and appendectomy MAY 29, 2015 Proc: Cysto Left RPG Ureteroscopy Left Stent Placement Follow Up Exam Eye Medications Allergies: MERTHIOLATE TINCTURE (Jun 22, 2003) METFORMIN (Jan 12, 2005) NIACIN (Nov 03, 2006) EZETIMIBE (Nov 03, 2006) ROSIGLITAZONE (Aug 31, 2007) ROSUVASTATIN (Apr 17, 2008) MINOCYCLINE (Sep 15, 2012) LISINOPRIL (May 31, 2014) No new Allergies. scVA: OD: 20/30+2 OS: 20/30+ c last MR in phor. OD: -0.25 +0.50 x 015 20/20-3 OS: -0.25 +0.25 x 160 20/25 Today's MRx: OD: -0.25 +0.50 x 015 20/20-3 OS: -0.25 +0.25 x 160 20/25 ADD: +2.50 20/20 Comment - no change or improvement with attempted MRx. Confrontational Zavaleta: Full to finger counting: Right: No - temp quads Left: No - nasal quads Extra Ocular Movement: Normal Pupils: Right: Round Left: Round Size: Right: 3 Left: 3 React to light: Right: Yes Left: Yes Afferent pupil defect: Right:No Grade: Left: No Grade: Note: Intra-ocular pressure (IOP): Applanation Declined iCare 11/29 Dilation: OU I have reviewed and agree with the technicians examination General Eye Exam (bilateral unless noted otherwise): The patient is alert and oriented x 3 External: Adnexa/Orbit- wnl OU Eyelids/Lashes- dermatochalasis SLE: Conjunctiva- clear Sclera- white and quiet Cornea- 2+ confluent gutatta AC- Deep and clear Iris- wnl and round Lens- PC IOL with early PCO Vitreous- clear Fundus: ON- C/D- OD 0.7 ; OS 0.7 Vessels- normal caliber, no heme Macula- flat Periphery- flat without significant pathology Impression/Plan: 1. Diabetes mellitus, diagnosed ~1999, HbA1c 7.4 (Feb 2023). - No diabetic retinopathy OU - BP/BG/lipids control - Yearly dilated eye exams # ERM OU mild erm and thickening OU, no hole or fluid FU 1 y with OCT 2. Glaucoma suspect based on enlarged C:D OU and abnl RNFL OCT. Low IOP and stable HVF are reassuring. - IOP max: 16 on routine exam (24 POD1 after CEIOL) - IOP today: 11/29 - Prior CCT: 546/544 - RNFL OCT 03.09.24 OD: thin NS, other segments wnl, stable vs 02/2021 ) OS: subtly change to borderline TS - 24-2 HVF 03/09/24: right homonymous hemianopia, stable - Continue monitoring, repeat HVF and RNFL OCT next year 3. Fuch's endothelial corneal dystrophy OU, could be adding to his photophogia and keeping him from seeing 20/20 - Kavya oint hs FU 1 y repeat pach 4. Pseudophakia, OU early PCO not central - Monitor RTC 1y or sooner as needed VTD/MR HVF, RNFL, mac OCT and Pach /es/ HERMILO TAN MD OPHTHALMOLOGY STAFF SURGEON Signed: 03/09/2024 14:[address] [facility] Mar 09, 2024 01:41 PM OPHTHALMOLOGY CONSULT: LOCAL TITLE: OPHTHALMOLOGY IMAGING MSP OUTPT CONSULT STANDARD TITLE: OPHTHALMOLOGY CONSULT DATE OF NOTE: MAR 09, 2024@13:41 ENTRY DATE: MAR 09, 2024@13:41:10 AUTHOR: MERVIN CASTELLANOS EXP COSIGNER: URGENCY: STATUS: COMPLETED Requested test(s) done, OCT of maculae and rNFL OU results uploaded to server software engineer for review. /nghia/ SYDNEE LIPSCOMB CRA Vascular Radiologist Signed: 03/09/2024 13:[address] [facility] Mar 09, 2024 01:01 PM BED AND BREAKFAST OPERATOR NOTE: LOCAL TITLE: BED AND BREAKFAST OPERATOR NOTE STANDARD TITLE: BED AND BREAKFAST OPERATOR NOTE DATE OF NOTE: MAR 09, 2024@13:01 ENTRY DATE: MAR 09, 2024@13:02:02 AUTHOR: JASWANT SIMON EXP COSIGNER: URGENCY: STATUS: COMPLETED CC: CEE - v/t/d, MRx, rnfl, mac, hvf. HPI: Patient returns to clinic for DFE/DM exam. Oc Hx -- DM, Glaucoma suspect based on enlarged C:D OU, Fuch's, Pseudophakia, CECY, Presbyopia OU. VA OU described a fair. Not as sharp as he would like. Has been this way since CVA. Also notes loss of periphery, right eye temp quads. Not a new problem. Patient always feels the HVF is too hard. Denies pain and discomfort. No new fl/fl. Denies diplopia. Photophobia - not new but very bothersome. Hx CECY OU - patient unbothered, using lubricating drops as directed. Has been having discomfort right side of torso. Has been a problem since the stroke. Flares from time to time. Now doing accupressure, and chiropractic treatments. Denies falls, accidents, injury. Active Problems List: Active problems - Computerized Problem List is the source for the followin. Diabetes mellitus type II (SNOMED CT 46979195) - Diagnosis @ 1999 2. Obesity, Unspec 3. Hypercholesterolemia * 4. ASCVD - 4v CAB 1995 @ [facility] 5. Impotence of organic origin 6. 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 Adenomatous polyp of colon - tubular adenoma x3 12/02/2012 8. Posterior vitreous detachment 9. Shoulder joint pain 10. Benign essential hypertension 11. Kidney stone 12. 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 Blood in urine 14. Thrombosis 15. Intracranial hemorrhage 16. Acquired complex renal cyst 17. Exposure to Agent Pine 18. Exposure to potentially hazardous substance ([facility] [id number]) - Entered automatically through [employer] Problem List documentation program Surgeries: MAR 31, 2017 Proc: CE IOL left eye FEB 03, 2017 Proc: KPE/IOL right eye DEC 25, 2016 Proc: Laparoscopic cholecystectomy and appendectomy MAY 29, 2015 Proc: Cysto Left RPG Ureteroscopy Left Stent Placement Follow Up Exam Eye Medications Allergies: MERTHIOLATE TINCTURE (Jun 22, 2003) METFORMIN (Jan 12, 2005) NIACIN (Nov 03, 2006) EZETIMIBE (Nov 03, 2006) ROSIGLITAZONE (Aug 31, 2007) ROSUVASTATIN (Apr 17, 2008) MINOCYCLINE (Sep 15, 2012) LISINOPRIL (May 31, 2014) No new Allergies. scVA: OD: 20/30+2 OS: 20/30+ c last MR in phor. OD: -0.25 +0.50 x 015 20/20-3 OS: -0.25 +0.25 x 160 20/25 Today's MRx: OD: -0.25 +0.50 x 015 20/20-3 OS: -0.25 +0.25 x 160 20/25 ADD: +2.50 20/20 Comment - no change or improvement with attempted MRx. Confrontational Zavaleta: Full to finger counting: Right: No - temp quads Left: No - nasal quads Extra Ocular Movement: Normal Pupils: Right: Round Left: Round Size: Right: 3 Left: 3 React to light: Right: Yes Left: Yes Afferent pupil defect: Right:No Grade: Left: No Grade: Note: Intra-ocular pressure (IOP): Applanation Declined iCare 11/29 Dilation: OU /es/ JASWANT SIMON [employer] [facility] Signed: 03/09/2024 13:29 JASWANT SIMON [facility] Mar 09, 2024 12:54 PM BED AND BREAKFAST OPERATOR NOTE: LOCAL TITLE: BED AND BREAKFAST OPERATOR NOTE STANDARD TITLE: BED AND BREAKFAST OPERATOR NOTE DATE OF NOTE: MAR 09, 2024@12:54 ENTRY DATE: MAR 09, 2024@12:54:28 AUTHOR: KHADIJAH WALLS EXP COSIGNER: URGENCY: STATUS: COMPLETED HVF 24-2c Kamini Faster OU was done today. Good cooperation, good fixation OU. Reports uploaded for review. /nghia/ KHADIJAH WALLS [employer] Signed: 03/09/2024 13:[address] [facility]
--- OUTSIDE RECORDS SUMMARY | 2024-03-17 13:08 | XMS_ITS | Encounter Summary ---
Author Name [facility] [facility] [place] [facility] [place] Address [address] [place] [address] Care Team Providers Care Differential Repairer Name Role Phone ALLEN NAILS Primary Care [...] [place] MACY/C DHP Mar 22, 2009 [id number] [phone] LACI GRIFFITH PATIENT MEDICA HIGH DEDUCTIBL E HEALTH PLAN W/HEALTH REIMBURSE MENT ARRANGEME NT [place] MACY HRA Mar 22, 2009 [id number] [phone] LACI GRIFFITH PATIENT MEDICA BEHAVIORAL HEALTH MENTAL HEALTH [place] MACY HRA Mar 22, 2009 [id number] [phone] LACI GRIFFITH PATIENT MEDICA MCR (WNR) MEDICARE ADVANTAGE [facility] (WNR) Mar 22, 2018 [id number] LACI GRIFFITH PATIENT MEDICA MCR (WNR) MEDICARE ADVANTAGE [facility] (WNR) Sep 19, 2012 [id number] [phone] LACI GRIFFITH PATIENT MEDICARE (WNR) MEDICARE (M) PART B Aug 20, 2012 PART B [id number] [phone] LACI GRIFFITH PATIENT MEDICARE (WNR) MEDICARE (M) PART A Sep 19, 2010 PART A [id number] [phone] LACI GRIFFITH PATIENT Selected Encounter This section includes the information on record at [place] for the Encounter. Date/Time Encounter Type Encounter Description Reason Provider Source Mar 10, 2024 12:30 PM HEARING AID REPAIR/MODIFYIN G AUDIOLOGY ICD-10-CM H90.3 Sensorineural hearing loss, bilateral JAYSHREE LARSON Jeff Encounter Template Text not used by [place] Assessments - Encounter Diagnoses This section includes the primary and secondary diagnoses documented for the Encounter. Date/Time Primary/Secondary Diagnosis Diagnosis Name Provider Source Mar 10, 2024 01:22 PM PRIMARY Sensorineural hearing loss, bilateral JAYSHREE LARSON [facility] Mar 10, 2024 01:22 PM SECONDARY Encounter for fitting and adjustment of hearing aid JAYSHREE LARSON [facility] Plan of Treatment: Future Appointments (+ 6 months) and Future Tests (+/- 45 days) The Plan of Treatment section includes future care activities for the [facility] [place] [facility] This section includes future appointments and future orders which are active, pending or scheduled. Future Appointments This section includes appointments that were scheduled to occur 6 months from the date of the Encounter, up to a maximum of 20 appointments. The data comes from all [place] treatment facilities. Appointment Date/Time Appointment Type Appointme nt Facility Name Mar 30, 2024 10:30 AM AMBULATORY - REHAB MEDICIN E [facility] Apr 24, 2024 01:00 PM AMBULATORY - SURGERY [facility] Social History: Smoking Status (Most current) and Tobacco Use (All prior to encounter date) This section includes the most current, and the historical, smoking and tobacco- related health factors from the [facility] facility where the Encounter took place. Current Smoking Status This section includes the most current smoking, or tobacco-related health factor, from the [place] facility where the Encounter took place. Date/Time Current Smoking Status Comment Bola ayoub Mar 29, 2023 11:00 AM VA-TOBACCO NEVER USED [facility] Tobacco Use History This section includes a history of the smoking, or tobacco-related health factors, that were collected on or before the date of the Encounter. The data comes from the [place] facility where the Encounter took place. Date/Time Smoking Status/Tobacco Use Comment F acility Feb 19, 2022 11:30 AM VA-TOBACCO FORMER USER [facility] Feb 19, 2022 11:30 AM VA-TOBACCO QUIT 15 YRS OR MORE [facility] August 14, 2020 08:30 AM VA-TOBACCO FORMER USER [facility] August 14, 2020 08:30 AM VA-TOBACCO QUIT 15 YRS OR MORE [facility] Jul 11, 2018 10:38 AM VA-TOBACCO FORMER USER [facility] Jul 11, 2018 10:38 AM VA-TOBACCO QUIT 15 YRS OR MORE [facility] Aug 25, 2017 10:47 AM FORMER TOBACCO USER 7Y OR GREATE R [facility] Nov 20, 2016 10:21 AM FORMER TOBACCO USER 7Y OR GREATE R [facility] Oct 08, 2015 08:27 AM FORMER TOBACCO USER 7Y OR GREATE R [facility] Dec 21, 2014 11:06 AM FORMER TOBACCO USER 7Y OR GREATE R [facility] Jan 05, 2014 08:09 AM FORMER TOBACCO USER 7Y OR GREATE R [facility] May 02, 2007 09:05 AM FORMER TOBACCO USER 7Y OR GREATE R [facility] May 12, 2006 10:31 AM FORMER TOBACCO USE >1Y <7Y [facility] Advance Directives: All historical and current Section Date Range: From patient's date of to the date document was created. This section includes ALL of a patient's completed or amended [place] Advance and Rescinded Directives. The entries below indicate that a directive exists for the patient, but an actual copy is not included with this document. The data comes from all [place] facilities. Date Advance Directives Provider Source Mar 26, 2015 ADVANCE DIRECTIVE DISCUSSION GABBY MISTRY [facility] Mar 26, 2015 ADVANCE DIRECTIVE MIGUEL MISTRY [facility] Jan 12, 2005 ADVANCE DIRECTIVE JENN GARDUNO [facility] Encounter Notes: All associated encounter notes This section contains the clinical notes associated to the Encounter. Date/Time Encounter Note(s) Provider Source Mar 10, 2024 01:14 PM AUDIOLOGY NOTE: LOCAL TITLE: AUDIOLOGY CLINIC NOTE STANDARD TITLE: AUDIOLOGY NOTE DATE OF NOTE: MAR 10, 2024@13:14 ENTRY DATE: MAR 10, 2024@13:14:56 AUTHOR: ANGELES LARSON COSIGNER: NAIMA CORTES URGENCY: STATUS: COMPLETED DIAGNOSIS Encounter for fitting and Adjustment of Hearing Aids Sensorineural Hearing Loss, Bilateral Reason for Visit: Hearing Aid Service Location of Visit(Room Number):2S-109 was seen for Hearing Aid Service/Repair: 30 minute Appointment Otoscopy: Free of Excessive Cerumen, Normal anatomy bilaterally DIAGNOSIS History: Patient seen for a hearing aid service/hearing aid check Make:SIGNIA Model: PURE 7AX R-MARLEEN Serial Number:[id number] Dome/Mold: SMALL SLEEVE The following Hearing aid problem(s) were presented Right Hearing Aid:BROKEN CONCRETE PLACEMENT EQUIPMENT OPERATOR, CLEAN AND CHECK Left Hearing Aid:CLEAN AND CHECK Action: Hearing Aids were cleaned and checked. A listening check revealed good sound quality: REPLACED BOTH 2M RECEIVERS, DOMES AND SPORT LOCKS RIGHT AID SEEMED WEAK, BUT PATIENT WAS RELUCTANT TO SEND FOR REPAIR DURING THE HOLIDAYS-PROVIDED A REPAIR BOX IF THE AID GETS WORSE [place] was counseled using a curriculum on the cleaning,care and use of hearing aids. Plan: Vet will contact call center as needed for follow up Patient is in agreement with this plan. Salon Professional: /nghia/ ANGELES LARSON AUDIO TECH Signed: 03/10/2024 13:23 /ngiha/ NAIMA CORTES Fur Cleaner Cosigned: 03/10/2024 17:03 ANGELES LARSON [facility]
--- OUTSIDE RECORDS SUMMARY | 2024-03-17 13:08 | XMS_ITS | Encounter Summary ---
Author Name [facility] [facility] [place] [facility] [place] Address [address] [place] [address] Care Team Providers Care Language Assistant Name Role Phone KWAN NAILS Primary Care [...] [place] AIR[place] MACY/C DHP Mar 22, 2009 [id number] [phone] LACI GRIFFITH PATIENT MED[employer] HIGH DEDUCTIBL E HEALTH PLAN W/HEALTH REIMBURSE MENT ARRANGEME NT [place] MACY HRA Mar 22, 2009 [id number] [phone] LACI GRIFFITH PATIENT [facility] BEHAVIORAL HEALTH MENTAL HEALTH [place] MACY HRA Mar 22, 2009 [id number] [phone] LACI GRIFFITH PATIENT MEDICA MCR (WNR) MEDICARE ADVANTAGE [facility] (WNR) Mar 22, 2018 [id number] LACI GRIFFITH PATIENT MEDICA MCR (WNR) MEDICARE ADVANTAGE [facility] (WNR) Sep 19, 2012 [id number] [phone] LACI GRIFFITH PATIENT MEDICARE (WNR) MEDICARE (M) PART B Aug 20, 2012 PART B [id number] LACI GRIFFITH PATIENT MEDICARE (WNR) MEDICARE (M) PART A Sep 19, 2010 PART A [id number] LACI GRIFFITH PATIENT Selected Encounter This section includes the information on record at [place] for the Encounter. Date/Time Encounter Type Encounter Description Reason Provider Source Mar 30, 2023 03:46 PM Outpatient Encounter EVENT (HISTORICAL) TEOFILO HARLEY Encounter Template Text not used by [place] Plan of Treatment: Future Appointments (+ 6 months) and Future Tests (+/- 45 days) The Plan of Treatment section includes future care activities for the patient [facility] [place] [facility]. This section includes future appointments and future orders which are active, pending or scheduled. Future Appointments This section includes appointments that were scheduled to occur 6 months from the date of the Encounter, up to a maximum of 20 appointments. The data comes from all [facility]. Appointment Date/Time Appointment Type Appointme nt Facility Name Jun 02, 2023 01:00 PM AMBULATORY - MEDICINE [facility] Aug 30, 2023 10:30 AM AMBULATORY - MEDICINE [facility] Aug 30, 2023 12:00 PM AMBULATORY - NONE [facility] Sep 14, 2023 01:00 PM AMBULATORY - MEDICINE [facility] Sep 20, 2023 04:15 PM AMBULATORY NONE [facility] Active, Pending, and Scheduled Orders This section includes a listing of several types of active, pending, and scheduled orders, including clinic medications orders, diagnostic test orders, procedure orders and consult orders; where the start date of the order is 45 days before the date of the Encounter or 45 days after the date of theEncounter. The data comes from all [facility]. Test Date/Time Test Type Test Details Facility Name Mar 30, 2023 11:36 PM Laboratory - Chemi stry Order MICROALBUMIN/CREATIN INE RATIO URINE URINE WC ONCE [facility] Lab Results: +/- 30 days of the encounter This section includes the Chemistry and Hematology Lab Results on record with [place] for the patient. Radiology Reports and Pathology Reports are provided separately, in subsequent sections. Lab Results This section contains the Chemistry/Hematology Results that were resulted 30 days before or 30 daysafter the date of the Encounter. Date/Time Source Result Type Result - Unit Interpretation Reference Range Comment Mar 11, 2023 11:41 AM [facility] HEMOGLOBIN A1C Specimen Type: BLOOD Comment: Values obtained from A1C measurements can vary. For typical A1C assays, a reported value of 7.0 could actually be between 6.7 and 7.3 if measured by a reference method. A reported value of 9.0 could actually be between 8.7 and 9.3. Ref: http://www.ng sp.org/CAPdat a.asp Ordering Provider: DENIS NAILS Report Released Date/Time: Feb 19, 2022 12:12 PM Reporting Lab: [facility] [id number] Performing Lab: [facility] [id number] HEMOGLOBIN A1C 7.4 H 4.0-6.0 Mar 11, 2023 11:41 AM [facility] CBC Specimen Type: BLOOD No comment entered. Ordering Provider: DENIS NAILS Report Released Date/Time: Feb 19, 2022 12:12 PM Reporting Lab: [facility] [id number] Performing Lab: [facility] [id number] WBC 7.09 10*3/uL 4.0-11.0 RBC 4.96 10*6/uL 4.6-6.2 HGB 15.7 g/dL 13.5-17.9 HCT 47.5 41-54 MCV 95.8 fL 80-100 MCH 31.7 pg 27-33 MCHC 33.1 g/dL 32.0-37.5 PLT 220 10*3/uL 150-400 MPV 9.0 fL 7.4-10.4 RDW 12.7 11.5-14.5 Mar 11, 2023 11:41 AM [facility] COMPREHENSIVE METABOLIC PANEL+MG Specimen Type: PLASMA No comment entered. Ordering Provider: DENIS NAILS Report Released Date/Time: Feb 19, 2022 12:12 PM Reporting Lab: [facility] [id number] Performing Lab: [facility] [id number] CREATININE 1.0 mg/dL 0.7-1.2 UREA NITROGEN 12 mg/dL 8-26 GLUCOSE 139 mg/dL H 70-100 SODIUM 143 mmol/L 136-145 POTASSIUM 4.2 mmol/L 3.5-5.1 CHLORIDE 106 mmol/L 98-107 CO2 29 mmol/L 22-29 CALCIUM 9.5 mg/dL 8.4-10.2 PROTEIN,TOTAL 6.8 g/dL 6.0-8.3 ALBUMIN 4.2 g/dL 3.5-5.2 BILIRUBIN, TOTAL 1.3 mg/dL H 0.2-1.2 DIR. BILIRUBIN 0.3 mg/dL <0.5 MAGNESIUM 2.0 mg/dL 1.6-2.6 ANION GAP 8 mmol/L 5-15 ALKALINE PHOSPHATASE 120 U/L 40-150 ALT/SGPT 33 U/L <55 AST/SGOT 25 U/L <34 .CREAT EGFR(CKD-EPI) 78 >60 Social History: Smoking Status (Most current) and Tobacco Use (All prior to encounter date) This section includes the most current, and the historical, smoking and tobacco- related health factors from the [place] facility where the Encounter took place. Current Smoking Status This section includes the most current smoking, or tobacco-related health factor, from the [place] facility where the Encounter took place. Date/Time Current Smoking Status Comment Facil ity Mar 29, 2023 11:00 AM VA-TOBACCO NEVER USED [facility] Tobacco Use History This section includes a history of the smoking, or tobacco-related health factors, that were collected on or before the date of the Encounter. The data comes from the [place] facility where the Encounter took place. Date/Time Smoking Status/Tobacco Use Comment F acility Feb 19, 2022 11:30 AM VA-TOBACCO FORMER USER [facility] Feb 19, 2022 11:30 AM VA-TOBACCO QUIT 15 YRS OR MORE [facility] August 14, 2020 08:30 AM VA-TOBACCO FORMER USER [facility] August 14, 2020 08:30 AM VA-TOBACCO QUIT 15 YRS OR MORE [facility] Jul 11, 2018 10:38 AM VA-TOBACCO FORMER USER [facility] Jul 11, 2018 10:38 AM VA-TOBACCO QUIT 15 YRS OR MORE [facility] Aug 25, 2017 10:47 AM FORMER TOBACCO USER 7Y OR GREATE R [facility] Nov 20, 2016 10:21 AM FORMER TOBACCO USER 7Y OR GREATE R [facility] Oct 08, 2015 08:27 AM FORMER TOBACCO USER 7Y OR GREATE R [facility] Dec 21, 2014 11:06 AM FORMER TOBACCO USER 7Y OR GREATE R [facility] Jan 05, 2014 08:09 AM FORMER TOBACCO USER 7Y OR GREATE R [facility] May 02, 2007 09:05 AM FORMER TOBACCO USER 7Y OR GREATE R [facility] May 12, 2006 10:31 AM FORMER TOBACCO USE >1Y <7Y [facility] Advance Directives: All historical and current Section Date Range: From patient's date of to the date document was created. This section includes ALL of a patient's completed or amended [place] Advance and Rescinded Directives. The entries below indicate that a directive exists for the patient, but an actual copy is not included with this document. The data comes from all [place] facilities. Date Advance Directives Provider Source Mar 26, 2015 ADVANCE DIRECTIVE DISCUSSION GABBY MISTRY [facility] Mar 26, 2015 ADVANCE DIRECTIVE MIGUEL MISTRY [facility] Jan 12, 2005 ADVANCE DIRECTIVE JENN GARDUNO [facility] Pathology Reports: +/- 30 days of the [...] the Encounter. The data comes from all [place] treatment facilities. Date/Time Pathology Report Provider Source Mar 30, 2023 03:46 PM LR SURGICAL PATHOL OGY REPORT: LOCAL TITLE: LR SURGICAL PATHOLOGY REPORT STANDARD TITLE: PATHOLOGY REPORT DATE OF NOTE: MAR 30, 2023@15:46:16 ENTRY DATE: MAR 30, 2023@15:46:16 AUTHOR: TEOFILO HARLEY COSIGNER: URGENCY: STATUS: COMPLETED $APHDR Reporting Lab: [facility] [CLIA# [id number]] [place] [employer] [address] - - - - - - - [...] - PATHOLOGY REPORT Accession No. [id number] - - - - - - - - - - - - - - - - - - - - - - - - - - - - - - - - - - - - - - - - $TEXT Submitted by: KWAN NAILS Date obtained: Mar 29, 2023 - - - - - - - - - - - - - - - - - - - - - - - - - - - - - - - - - - - - - - - - Specimen (Received Mar 29, 2023 14:47): LEFT GREAT TOENAIL - - - - - - - - - - - - - - - - - - - - - - - - - - - - - - - - - - - - - - - - BRIEF CLINICAL HISTORY: Thickened toenail Procedure: Clipping - - - - - - - - - - - - - - - - - - - - - - - - - - - - - - - - - - - - - - - - PREOPERATIVE DIAGNOSIS: Onychomycosis - - - - - - - [...] - - - - POSTOPERATIVE DIAGNOSIS: Surgeon/physician: KWAN NAILS MD =-=-=-=-=-=-=-=-=-=-=-=-=-= -=-=-=-=-=-=-=-=-=-=-=-=-=- =-=-=-=-=-=-=-=-=-=-=-=-= - - - - - - - - - - - - - - - - - - - - - - - - - - - - - - - - - - - - - - - - PATHOLOGY REPORT Accession No. [id number] - - - - - - - - - - - - - - - - - - - - - - - - - - - - - - - - - - - - - - - - GROSS DESCRIPTION: The requisition form and specimen identification is confirmed. The specimen is labeled left great toenail and consists of a white nail clipping measuring 0.8 X 0.4 cm. A PAS stain is ordered. ce (I) RSolomon/er MICROSCOPIC DESCRIPTION: Microscopic examination performed. PAS fungus stain was performed with appropriate control reaction and is negative. EPI DIAGNOSIS: Left great toenail, clipping-- - Hyperkeratosis - PAS stain negative for fungal organisms /nghia/ TEOFILO HARLEY MD PATHOLOGIST,PATHOLOGY AND LABORATORY MEDIC[facility] Signed Mar 30, 2023@15:46 Performing Laboratory: Surgical Pathology Report Performed By: [facility] [CLIA# [id number]] [place] [address] $FTR - - - - - - - - - - - - - - - - - - - - - - - - - - - - - - - - - - - - - - - - (End of report) TEOFILO HARLEY MD [facility] Date Mar 30, 2023 - - - - - - - - - - - - - - - - - - - - - - - - - - - - - - - - - - - - - - - - LACI GRIFFITH STANDARD FORM 515 ID:[id number] SEX:M :1945 AGE: 77 LOC:[phone] PCP: Kwan Nails MD /nghia/ TEOFILO HARLEY MD PATHOLOGIST,PATHOLOGY AND LABORATORY MEDICINE [facility] Signed: 03/30/2023 15:46 TEOFILO HARLEY [facility] Encounter Notes: All associated encounter notes This section contains the clinical notes associated to the Encounter. Date/Time Encounter Note(s) Provider Source Mar 30, 2023 03:46 PM PATHOLOGY REPORT: LOCAL TITLE: LR SURGICAL PATHOLOGY REPORT STANDARD TITLE: PATHOLOGY REPORT DATE OF NOTE: MAR 30, 2023@15:46:16 ENTRY DATE: MAR 30, 2023@15:46:16 AUTHOR: TEOFILO HARLEY EXP COSIGNER: URGENCY: STATUS: COMPLETED $APHDR Reporting Lab: [facility] [CLIA# [id number]] [place] [address] - - - - - - - [...] - - - PATHOLOGY REPORT Accession No. [id number] - - - - - - - - - - - - - - - - - - - - - - - - - - - - - - - - - - - - - - - - $TEXT Submitted by: KWAN NAILS Date obtained: Mar 29, 2023 - - - - - - - - - - - - - - - - - - - - - - - - - - - - - - - - - - - - - - - - Specimen (Received Mar 29, 2023 14:47): LEFT GREAT TOENAIL - - - - - - - - - - - - - - - - - - - - - - - - - - - - - - - - - - - - - - - - BRIEF CLINICAL HISTORY: Thickened toenail Procedure: Clipping - - - - - - - - - - - - - - - - - - - - - - - - - - - - - - - - - - - - - - - - PREOPERATIVE DIAGNOSIS: Onychomycosis - - - - - - - [...] - - - - POSTOPERATIVE DIAGNOSIS: Surgeon/physician: KWAN NAILS MD =-=-=-=-=-=-=-=-=-=-=-=-=-= -=-=-=-=-=-=-=-=-=-=-=-=-=- =-=-=-=-=-=-=-=-=-=-=-=-= - - - - - - - - - - - - - - - - - - - - - - - - - - - - - - - - - - - - - - - - PATHOLOGY REPORT Accession No. [id number] - - - - - - - - - - - - - - - - - - - - - - - - - - - - - - - - - - - - - - - - GROSS DESCRIPTION: The requisition form and specimen identification is confirmed. The specimen is labeled left great toenail and consists of a white nail clipping measuring 0.8 X 0.4 cm. A PAS stain is ordered. ce (I) RSolomon/er MICROSCOPIC DESCRIPTION: Microscopic examination performed. PAS fungus stain was performed with appropriate control reaction and is negative. EPI DIAGNOSIS: Left great toenail, clipping-- - Hyperkeratosis - PAS stain negative for fungal organisms /nghia/ TEOFILO HARLEY MD PATHOLOGIST,PATHOLOGY AND LABORATORY MEDICINE [facility] Signed Mar 30, 2023@15:46 Performing Laboratory: Surgical Pathology Report Performed By: [facility] [CLIA# [id number]] [place] [address] $FTR - - - - - - - - - - - - - - - - - - - - - - - - - - - - - - - - - - - - - - - - (End of report) TEOFILO HARLEY MD [facility] Date Mar 30, 2023 - - - - - - - - - - - - - - - - - - - - - - - - - - - - - - - - - - - - - - - - LACI GRIFFITH STANDARD FORM 515 ID:[id number] SEX:M :1945 AGE: 77 LOC:[phone] PCP: Kwan Nails MD /nghia/ TEOFILO HARLEY MD PATHOLOGIST,PATHOLOGY AND LABORATORY MEDICINE [facility] Signed: 03/30/2023 15:46 TEOFILO HARLEY [facility]
--- OUTSIDE RECORDS SUMMARY | 2024-03-17 13:08 | XMS_ITS | Encounter Summary ---
Author Name [facility] [facility] [place] Address [address] [place] [address] Care Team Providers Care Hand Shaker Name Role Phone [facility] Primary Care [...] [place] [facility] MACY/C DHP Mar 22, 2009 [id number] [phone] LACI GRIFFITH PATIENT [employer] HIGH DEDUCTIBL E HEALTH PLAN W/HEALTH REIMBURSE MENT ARRANGEME NT [place] [facility] MACY HRA Mar 22, 2009 [id number] [phone] LACI GRIFFITH PATIENT [facility] MENTAL HEALTH [place] [facility] MACY HRA Mar 22, 2009 [id number] [phone] LACI GRIFFITH PATIENT MEDICA MCR (WNR) MEDICARE ADVANTAGE [facility] (WNR) Mar 22, 2018 [id number] LACI GRIFFITH PATIENT [employer] MCR (WNR) MEDICARE ADVANTAGE [facility] (WNR) Sep 19, 2012 [id number] [phone] LACI GRIFFITH PATIENT MEDICARE (WNR) MEDICARE (M) PART B Aug 20, 2012 PART B [id number] [phone] LACI GRIFFITH PATIENT MEDICARE (WNR) MEDICARE (M) PART A Sep 19, 2010 PART A [id number] [phone] LACI GRIFFITH PATIENT Selected Encounter This section includes the information on record at [place] for the Encounter. Date/Time Encounter Type Encounter Description Reason Pro vider Source Mar 13, 2024 01:42 PM Outpatient Encounter EVENT (HISTORICAL) IHE Encounter Template Text not used by [place] Plan of Treatment: Future Appointments (+ 6 months) and Future Tests (+/- 45 days) The Plan of Treatment section includes future care activities for the patient from all [place] treatmentfacilities. This section includes future appointments and future orders which are active, pending or scheduled. Future Appointments This section includes appointments that were scheduled to occur 6 months from the date of the Encounter, up to a maximum of 20 appointments. The data comes from all [place] treatment facilities. Appointment Date/Time Appointment Type Appointme nt Facility Name Mar 30, 2024 10:30 AM AMBULATORY - [facility] Apr 24, 2024 01:00 PM AMBULATORY - SURGERY [facility] Social History: Smoking Status (Most current) and Tobacco Use (All prior to encounter date) This section includes the most current, and the historical, smoking and tobacco- related health factors from the [place] facility where the Encounter took place. Current Smoking Status This section includes the most current smoking, or tobacco-related health factor, from the [place] facility where the Encounter took place. Date/Time Current Smoking Status Comment Bola ayoub Mar 29, 2023 11:00 AM VA-TOBACCO NEVER USED [facility] Tobacco Use History This section includes a history of the smoking, or tobacco-related health factors, that were collected on or before the date of the Encounter. The data comes from the [place] facility where the Encounter took place. Date/Time Smoking Status/Tobacco Use Comment F acility Feb 19, 2022 11:30 AM VA-TOBACCO FORMER USER [facility] Feb 19, 2022 11:30 AM VA-TOBACCO QUIT 15 YRS OR MORE [facility] August 14, 2020 08:30 AM VA-TOBACCO FORMER USER [facility] August 14, 2020 08:30 AM VA-TOBACCO QUIT 15 YRS OR MORE [facility] Jul 11, 2018 10:38 AM VA-TOBACCO FORMER USER [facility] Jul 11, 2018 10:38 AM VA-TOBACCO QUIT 15 YRS OR MORE [facility] Aug 25, 2017 10:47 AM FORMER TOBACCO USER 7Y OR GREATE R [facility] Nov 20, 2016 10:21 AM FORMER TOBACCO USER 7Y OR GREATE R [facility] Oct 08, 2015 08:27 AM FORMER TOBACCO USER 7Y OR GREATE R [facility] Dec 21, 2014 11:06 AM FORMER TOBACCO USER 7Y OR GREATE R [facility] Jan 05, 2014 08:09 AM FORMER TOBACCO USER 7Y OR GREATE R [facility] May 02, 2007 09:05 AM FORMER TOBACCO USER 7Y OR GREATE R [facility] May 12, 2006 10:31 AM FORMER TOBACCO USE >1Y <7Y [facility] Advance Directives: All historical and current Section Date Range: From patient's date of to the date document was created. This section includes ALL of a patient's completed or amended [place] Advance and Rescinded Directives. The entries below indicate that a directive exists for the patient, but an actual copy is not included with this document. The data comes from all [place] facilities. Date Advance Directives Provider Source Mar 26, 2015 ADVANCE DIRECTIVE DISCUSSION GABBY MISTRY [facility] Mar 26, 2015 ADVANCE DIRECTIVE MIGUEL MISTRY [facility] Jan 12, 2005 ADVANCE DIRECTIVE JENN GARDUNO [facility]
--- OUTSIDE RECORDS SUMMARY | 2024-03-17 13:08 | XMS_ITS | Encounter Summary ---
Author Name [facility] Address [address] [place] [address] Care Team Providers Care Wheel And Caster Repairer Name Role Phone KWAN NAILS Primary Care [...] [place] MACY/C DHP Mar 22, 2009 [id number] [phone] LACI GRIFFITH PATIENT MEDICA HIGH DEDUCTIBL E HEALTH PLAN W/HEALTH REIMBURSE MENT ARRANGEME NT [place] MACY HRA Mar 22, 2009 [id number] [phone] LACI GRIFFITH PATIENT MEDICA BEHAVIORAL HEALTH MENTAL HEALTH [place] MACY HRA Mar 22, 2009 [id number] [phone] LACI GRIFFITH PATIENT MEDICA MCR (WNR) MEDICARE ADVANTAGE [facility] (WNR) Mar 22, 2018 [id number] LACI GRIFFITH PATIENT MEDICA MCR (WNR) MEDICARE ADVANTAGE MCR (WNR) Sep 19, 2012 [id number] [phone] LACI GRIFFITH PATIENT MEDICARE (WNR) MEDICARE (M) PART B Aug 20, 2012 PART B [id number] [phone] LACI GRIFFITH PATIENT MEDICARE (WNR) MEDICARE (M) PART A Sep 19, 2010 PART A [id number] [phone] LACI GRIFFITH PATIENT Selected Encounter This section includes the information on record at [place] for the Encounter. Date/Time Encounter Type Encounter Description Reason Provider Source Mar 29, 2023 11:00 AM OFFICE O/P EST MOD 30 MIN PRIMARY CARE/MEDICINE ICD-10-CM E11.649 Type 2 diabetes mellitus with hypoglycemia without coma DENIS NAILS Jeff Encounter Template Text not used by [place] Assessments - Encounter Diagnoses This section includes the primary and secondary diagnoses documented for the Encounter. 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 DENIS NAILS [facility] Mar 30, 2023 11:32 PM SECONDARY Encounter for immunization CHESTERJACLYN HAROON [facility] Mar 30, 2023 11:32 PM SECONDARY Essential (primary) hypertension DENIS NAILS [facility] Mar 30, 2023 11:32 PM SECONDARY Nontraumatic intracranial hemorrhage, unspecified DENIS NAILS [facility] Mar 30, 2023 11:32 PM SECONDARY Personal history of other venous thrombosis and embolism DENIS NAILS [facility] Mar 30, 2023 11:32 PM SECONDARY Polyp of colon DENIS NAILS [facility] Plan of Treatment: Future Appointments (+ 6 months) and Future Tests (+/- 45 days) The Plan of Treatment section includes future care activities for the patient from all [place] treatmentfacilities. This section includes future appointments and future orders which are active, pending or scheduled. Future Appointments This section includes appointments that were scheduled to occur 6 months from the date of the Encounter, up to a maximum of 20 appointments. The data comes from all [facility]. Appointment Date/Time Appointment Type Appointme nt Facility Name Jun 02, 2023 01:00 PM AMBULATORY - MEDICINE [facility] Aug 30, 2023 10:30 AM AMBULATORY - MEDICINE [facility] Aug 30, 2023 12:00 PM AMBULATORY - NONE [facility] Sep 14, 2023 01:00 PM AMBULATORY - MEDICINE [facility] Sep 20, 2023 04:15 PM AMBULATORY - NONE [facility] Active, Pending, and Scheduled Orders This section includes a listing of several types of active, pending, and scheduled orders, including clinic medications orders, diagnostic test orders, procedure orders and consult orders; where the start date of the order is 45 days before the date of the Encounter or 45 days after the date of theEncounter. The data comes from all [facility]. Test Date/Time Test Type Test Details Facility Name Mar 30, 2023 11:36 PM Laboratory - Chemi stry Order MICROALBUMIN/CREATIN INE RATIO URINE URINE WC ONCE [facility] Lab Results: +/- 30 days of the encounter This section includes the Chemistry and Hematology Lab Results on record with [place] for the patient. Radiology Reports and Pathology Reports are provided separately, in subsequent sections. Lab Results This section contains the Chemistry/Hematology Results that were resulted 30 days before or 30 daysafter the date of the Encounter. Date/Time Source Result Type Result - Unit Interpretation Reference Range Comment Mar 11, 2023 11:41 AM [facility] HEMOGLOBIN A1C Specimen Type: BLOOD Comment: Values [...] Feb 19, 2022 12:12 PM Reporting Lab: [facility] [id number] Performing Lab: [facility] [id number] HEMOGLOBIN A1C 7.4 H 4.0-6.0 Mar 11, 2023 11:41 AM [facility] CBC Specimen Type: BLOOD No comment entered. Ordering Provider: DENIS NAILS Report Released Date/Time: Feb 19, 2022 12:12 PM Reporting Lab: [facility] [id number] Performing Lab: [facility] [id number] WBC 7.09 10*3/uL 4.0-11.0 RBC 4.96 10*6/uL 4.6-6.2 HGB 15.7 g/dL 13.5-17.9 HCT 47.5 41-54 MCV 95.8 fL 80-100 MCH 31.7 pg 27-33 MCHC 33.1 g/dL 32.0-37.5 PLT 220 10*3/uL 150-400 MPV 9.0 fL 7.4-10.4 RDW 12.7 11.5-14.5 Mar 11, 2023 11:41 AM [facility] COMPREHENSIVE METABOLIC PANEL+MG Specimen Type: PLASMA No comment entered. Ordering Provider: DENIS NAILS Report Released Date/Time: Feb 19, 2022 12:12 PM Reporting Lab: [facility] [id number] Performing Lab: [facility] [id number] CREATININE 1.0 mg/dL 0.7-1.2 UREA NITROGEN 12 [...] 25 U/L <34 .CREAT EGFR(CKD-EPI) 78 >60 Vital Signs: All taken on the encounter date This section contains inpatient and outpatient Vital Signs collected on the date of the Encounter. Date/Time Temperature Pulse Blood Pressure Respiratory Rate SP02 Pain Height Weight Body Mass Index Source Mar 29, 2023 11:00 AM 97.7 F 52 /min 137/75 mm[Hg] 16 /min 97 % 0 68.5 in 173.4 lb 26 [facility] Immunizations: All administered on the encounter date This section contains immunizations associated to the Encounter. Immunization Series Date Issued Reaction Comments TDAP Mar 29, 2023 Social History: Smoking Status (Most current) and Tobacco Use (All prior to encounter date) This section includes the most current, and the historical, smoking and tobacco- related health factors from the [place] facility where the Encounter took place. Current Smoking Status This section includes the most current smoking, or tobacco-related health factor, from the [place] facility where the Encounter took place. Date/Time Current Smoking Status Comment Facil ity Mar 29, 2023 11:00 AM VA-TOBACCO NEVER USED [facility] Tobacco Use History This section includes a history of the smoking, or tobacco-related health factors, that were collected on or before the date of the Encounter. The data comes from the [place] facility where the Encounter took place. Date/Time Smoking Status/Tobacco Use Comment F acility Feb 19, 2022 11:30 AM VA-TOBACCO FORMER USER [facility] Feb 19, 2022 11:30 AM VA-TOBACCO QUIT 15 YRS OR MORE [facility] August 14, 2020 08:30 AM VA-TOBACCO FORMER USER [facility] August 14, 2020 08:30 AM VA-TOBACCO QUIT 15 YRS OR MORE [facility] Jul 11, 2018 10:38 AM VA-TOBACCO FORMER USER [facility] Jul 11, 2018 10:38 AM VA-TOBACCO QUIT 15 YRS OR MORE [facility] Aug 25, 2017 10:47 AM FORMER TOBACCO USER 7Y OR GREATE R [facility] Nov 20, 2016 10:21 AM FORMER TOBACCO USER 7Y OR GREATE R [facility] Oct 08, 2015 08:27 AM FORMER TOBACCO USER 7Y OR GREATE R [facility] Dec 21, 2014 11:06 AM FORMER TOBACCO USER 7Y OR GREATE R [facility] Jan 05, 2014 08:09 AM FORMER TOBACCO USER 7Y OR GREATE R [facility] May 02, 2007 09:05 AM FORMER TOBACCO USER 7Y OR GREATE R [facility] May 12, 2006 10:31 AM FORMER TOBACCO USE >1Y <7Y [facility] Advance Directives: All historical and current Section Date Range: From patient's date of to the date document was created. This section includes ALL of a patient's completed or amended [place] Advance and Rescinded Directives. The entries below indicate that a directive exists for the patient, but an actual copy is not included with this document. The data comes from all [place] facilities. Date Advance Directives Provider Source Mar 26, 2015 ADVANCE DIRECTIVE DISCUSSION GABBY MISTRY [facility] Mar 26, 2015 ADVANCE DIRECTIVE MIGUEL MISTRY [facility] Jan 12, 2005 ADVANCE DIRECTIVE JENN GARDUNO [facility] Pathology Reports: +/- 30 days [...] the Encounter. The data comes from all [facility] facilities. Date/Time Pathology Report Provider Source Mar 30, 2023 03:46 PM LR SURGICAL PATHOL OGY REPORT: LOCAL TITLE: LR SURGICAL PATHOLOGY REPORT STANDARD TITLE: PATHOLOGY REPORT DATE OF NOTE: MAR 30, 2023@15:46:16 ENTRY DATE: MAR 30, 2023@15:46:16 AUTHOR: TEOFILO HARLEY EXP COSIGNER: URGENCY: STATUS: COMPLETED $APHDR Reporting Lab: [facility] [CLIA# [id number]] [place] [address] - - - - - - - [...] - - - PATHOLOGY REPORT Accession No. -[id number] - - - - - [...] TEOFILO HARLEY MD PATHOLOGIST,PATHOLOGY AND LABORATORY MEDICINE [facility] Signed Mar 30, 2023@15:46 Performing Laboratory: Surgical Pathology Report Performed By: [facility] [CLIA# [id number]] [place] [address] $FTR - - - - - - - - - - - - - - - - - - - - - - - - - - - - - - - - - - - - - - - - (End of report) TEOFILO HARLEY MD [facility] Date Mar 30, 2023 - - - - - - - - - - - - - - - - - - - - - - - - - - - - - - - - - - - - - - - - LACI GRIFFITH STANDARD FORM 515 ID:[id number] SEX:M :1945 AGE: 77 LOC:[id number] PCP: Kwan Nails MD /nghia/ TEOFILO HARLEY MD PATHOLOGIST,PATHOLOGY AND LABORATORY MEDICINE [facility] Signed: 03/30/2023 15:46 TEOFILO HARLEY [facility] Encounter Notes: All associated encounter notes This section contains the clinical notes associated to the Encounter. Date/Time Encounter Note(s) Provider Source Apr 11, 2023 10:51 AM LETTERS: LOCAL TITLE: FOLLOW UP RESULTS LETTER STANDARD TITLE: LETTERS DATE OF NOTE: APR 11, 2023@10:51 ENTRY DATE: APR 11, 2023@10:52:01 AUTHOR: ZACH NAILS EXP COSIGNER: URGENCY: STATUS: COMPLETED [facility] [address] Mar LACI GRIFFITH [id number] [facility] [id number] Dear : Thank you for your 03/29/23 11:00 Primary Care Appointment. I am writing to provide your test results. LABORATORY REPORTS: Laboratory tests are normal unless designated with H for Higher than normal or L for Lower than normal. toenail clipping analysis: MICROSCOPIC DESCRIPTION: Microscopic examination performed. PAS fungus stain was performed with appropriate control reaction and is negative. EPI DIAGNOSIS: Left great toenail, clipping-- - Hyperkeratosis - PAS stain negative for fungal organisms There was no evidence of fungus, which is surprising to me. It is possible that this is a false negative test. Perhaps home treatments have reduced the burden of fungus on the nail prior to the test. I think that it would be reasonable to continue with the topical treatment prescribed, which would be safe. Let me know how this goes. FUTURE APPOINTMENTS: AUG 24, 2023@10:00 Clinic: [facility] BLOOD DRAWING ROOM AUG 24, 2023@14:00 Clinic: [facility] PACT GRAPE PHONE MAR 09, 2024@12:40 Clinic: [facility] TECH VISUAL FIELD MAR 09, 2024@13:00 Clinic: [facility] OPHTHAL [facility] A Primary Care appt is planned once yearly to stay enrolled in primary care. You should be contacted by the [place] [facility] as a reminder to schedule. The [place] [facility] Call [facility] line is [phone] [press 4 for Attendant]. Please call if you have any questions or concerns. Thank you for choosing [facility] for your Primary Care. Sincerely, KWAN NAILS MD Staff Physician KWAN NAILS [facility] Mar 29, 2023 11:05 AM INTERNAL MEDICINE OUTPATIENT NOTE: LOCAL TITLE: MEDICINE CLINIC NURSING NOTE STANDARD TITLE: INTERNAL MEDICINE OUTPATIENT NOTE DATE OF NOTE: MAR 29, 2023@11:05 ENTRY DATE: MAR 29, 2023@11:05:08 AUTHOR: ZULMA MATHUR EXP COSIGNER: URGENCY: STATUS: COMPLETED MEDICINE CLINIC NURSING NOTE Has ADDENDA TYPE OF VISIT: Appointment Check In Type of appointment: In-person appointment REASON FOR VISIT: annual ALLERGIES: MERTHIOLATE TINCTURE (Jun 22, 2003) METFORMIN (Jan 12, 2005) NIACIN (Nov 03, 2006) EZETIMIBE (Nov 03, 2006) ROSIGLITAZONE (Aug 31, 2007) ROSUVASTATIN (Apr 17, 2008) MINOCYCLINE (Sep 15, 2012) LISINOPRIL (May 31, 2014) VITAL SIGNS: Blood Pressure: 137/75 (03/29/2023 11:00) Pulse: 52 (03/29/2023 11:00) Respiration: 16 (03/29/2023 11:00) Temperature: 97.7 F [36.5 C] (03/29/2023 11:00) Weight: 173.4 lb [78.65 kg] (03/29/2023 11:00) Height: 68.5 in [174.0 cm] (03/29/2023 11:00) BMI: 26.0 O2 Sat: 97% (03/29/2023 11:00) Pain: 0 (03/29/2023 11:00) PAIN SCREEN: Patient is not having significant pain that they wish to discuss with their provider today. MEDICATION Over the Counter/Herbal Medications: The patient denies taking any outside medications or herbals. Suicide Screen: C-SSRS Screening [place] Suicide Severity Rating Scale (C-SSRS) screener 1. [...] required due to responses to other questions. Depression Screening: Perform PHQ-2 A PHQ-2 screen was performed. The score was 0 which is a negative screen for depression. Over the past two weeks, how often have you been bothered by the following problems? 1. Little interest or pleasure in doing things Not at all 2. Feeling down, depressed, or hopeless Not at all Alcohol Use Screen (AUDIT-C): Alcohol Screen: SCREEN FOR ALCOHOL (AUDIT-C) An alcohol screening test (AUDIT-C) was negative (score=0). 1. How often did you have a drink containing alcohol in the past year? Never 2. How many drinks containing alcohol did you have on a typical day when you were drinking in the past year? Response not required due to responses to other questions. 3. How often did you have six or more drinks on one occasion in the past year? Response not required due to responses to other questions. Tobacco Use Screening: The patient has never used tobacco. COVID-19 Immunization: Refused Moderna Monovalent COVID-19 vaccine Immunization: COVID-19 (MODERNA), MRNA, LNP-S, PF, 50 MCG/0.5 ML (AGES 12+ YEARS) Refusal Reason: PATIENT DECISION Patient refuses all immunization(s) in the COVID-19 group Date Documented: 03/29/23 11:07 Homelessness/Food Insecurity Screen: In the past 2 months, have you been living in stable housing that you own, rent, or stay in as part of a household? Yes - Living in stable housing. Are you worried or concerned that in the next 2 months you may NOT have stable housing that you own, rent, or stay in as part of a household? No - Not worried about housing near future The reports the following: Within the past 12 months, you worried whether your food would run out before you got money to buy more. Never true Within the past 12 months, the food you bought just didn't last and you didn't have money to get more. Never true Food Insecurity Resources Nursing Annual Screening: Fall History Screen During the past 12 months, have you had any falls? Patient does not report any falls in the past 12 months. MEDICATIONS: Patient is on one of the following medication classes: Antihypertensives, Antidepressants, Antipsychotics, Diuretics, or Controlled substance medication used for pain. FALL RISK ADVICE: Fall Risk Advice provided. Handout entitled Fall Prevention At Home reviewed and given to patient and/or significant other. Script Talk Screen Are you able to read your prescription bottles with your glasses, magnifiers or other aids? Yes or patient not taking any prescriptions. Skin Screen Patient reports any current pressure ulcers, a history of pressure ulcers, or a wound from a medical cash poster or Patient is bed-confined or a wheelchair-user or Patient requires assistance to transfer/change position No, Skin Screen is Negative Home Abuse/Violence Screen Is your home free of abuse and violence? Yes MOVE! Program Screen Body Mass Index (BMI)= 26.0 [place]: Collection DT Specimen Test Name Result Units Ref Range 03/11/2023 11:41 BLOOD !! HEMOGLOBIN A1C 7.4 H % 4.0 - 6.0 !! Indicates COMMENTS AVAILABLE...Refer to Interim Lab Report. [place] Hgb A1C: No data available [place] Hgb A1C: No data available Point of Care Hgb A1C: POC HGB A1C____ Outpatient Nutrition Screen Body Mass Index (BMI)= 26.0 [place]: Collection DT Specimen Test Name Result Units Ref Range 03/11/2023 11:41 BLOOD !! HEMOGLOBIN A1C 7.4 H % 4.0 - 6.0 !! Indicates COMMENTS AVAILABLE...Refer to Interim Lab Report. [place] Hgb A1C: No data available [place] Hgb A1C: No data available Point of Care Hgb A1C: POC HGB A1C____ Is patient's BMI less than 18.5? No Does patient have swallowing, coughing, or chewing problems affecting oral intake? No Has patient experienced unplanned weight loss or gain greater than 10 pounds over the last 2 months? No Is patient's Hgb A1C (Glycosylated Hemoglobin) greater than 9.5? Information not available Is patient receiving Total Parenteral Nutrition (TPN) or Tube Feedings? No Patient Health Education Screen BARRIERS/SPECIAL NEEDS: No barriers identified PREFERRED STYLE OF LEARNING: Listening Reading Client Assistive Service (XI) Screen Does the patient require assistance with outpatient visit? 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 /nghia/ JACLYN CHESTER LPN Signed: 03/29/2023 12:58 ZULMA MATHUR [facility] Mar 29, 2023 10:39 AM INTERNAL MEDICINE NOTE: LOCAL TITLE: MEDICINE CLINIC NOTE STANDARD TITLE: INTERNAL MEDICINE NOTE DATE OF NOTE: MAR 29, 2023@10:39 ENTRY DATE: MAR 29, 2023@10:39:14 AUTHOR: IMTIAZ RASMUSSEN EXP COSIGNER: KWAN NAILS URGENCY: STATUS: COMPLETED MEDICINE CLINIC NOTE Has ADDENDA ASSESSMENT/PLAN: # DMT2: Last hemoglobin A1c 7.4 (02/2023). Has dizziness and blurry vision 1-2 a month when BG is around the lower end at 95. doing better off insulin and currently on semaglutide, glipizide, and empagliflozin. No evidence of microalbuminuria. Normal microfiliment foot exam today, but noted onychomycosis of left great toe. He had hx of peripheral neuropathy and diminished dorsalis pedis pulses w/o features of critical ischemia and no leg cluaudication. NUSRAT obtained 03/2022 which showed non-compressible arteries, limiting accuracy. Seen in our eye clinic on a regular basis. no retinopathy. - continue empagliflozin 12.5 Qday - continue semaglutide 0.5 mg Qweek - continue glipizide 2.5 mg DQday - Repeat A1c in 6 months - continue following with Diabetes top case assembler - continue following with ophthamologist - treat onychomycosis of left great toe as outlined below #Onychomycosis of Left Great Toe -Start Topical Ciclopirox -Anatomic Pathology of clipping submitted # HTN: blood pressures recorded at home and average is appropriate. - losartan to 12.5 mg BID # sinus bradycardia: worked up by [facility] in 2018. no reurrent sx. # CVA/ right hemifield deficit/ DVT/ ICH: treated w/ lovenox. however, this was discontinued due to subsequent ICH, due to hemorrhagic transformation. Plavix has been stopped. ASA was held and then restarted when CT head was stable. there was a tiny PFO seen on RED. Cardiology commented that repair would not be indicated. OT/ PT at [facility] completed. IVC filter placed at [facility]. -Continue aspirin and statin # dyspnea on exertion/ CAD/CABG: No physical exam findings to support CHF. Not a concern today. previous BNP normal. TTE 03/2022 showed LVEF of 50-55%, abnormal septal motion which can be seen after prior chest surgery, and mild tricuspid regurgitation. PFTs 02/2022 were normal. - Continue to follow clinically - On Aspirin/statin # bladder frequency: nocturia 2-3x a night. probably is related to BPH. # renal colic: No further symptoms # right groin pain: Negative hip x-ray in the past. MRI of the right hip showed tendinopathy. massage has been helpful. - Encouraged him to stretch/exercise for pain - continue comm care for massage # colon polyp: had polyp seen on colonoscopy in 08/07. Due again in 2023. - [facility] referral for colonoscopy 2023 # screening: no prostate cancer or colon cancer sx or fam hx. screening for AAA negative in 2011. UTD on vacc. - Tdap today, declined covid shot - f/u in 6 mo over the phone SUBJECTIVE: 77 year old male who presents for an annual exam. HPI: DMT2: off insulin. Avg blood sugars are 95-140s. Gets lightheaded with slight blurry vision and would eat candy. Lower BG episodes occur about 1-2 times a month. He watches his diet. Previously had normal urine microalbumin. Saw the eye doctor on a regular basis. Last saw them 02/2023. Denies neuropathy in his feet, but did previously have cold feet with numbness and absent dorsalis pedis pulses and was evaluated for PAD. Seamusetnly on glipizide, semaglutide, and empagliflozin. Lost about 30 lbs on ozempic. Follows with diabetic top case assembler. Hypertension: BPs at home averages around 120s-130s/60s-70s. Denies lightheadedness, dizziness, or CP. CVA/ DVT/ R hemifield deficit/ PFO: left ureteric stent placed on 05/29/15. right lateral visual field cut noted on 05/31. 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 tele was normal. RED did reveal tiny PFO w/ R->L shunt. he was evaluated by Cards, who felt that PFO closure was not indicated. 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 he was started on lovenox. there is reduced weakness in his right arm and leg. currently, no headache, nausea, new weakness, dysphasia, dyphagia. he has persistent right homonymous hemianopsia. rpt U/S in lower limbs was negative. No longer on lovenox. 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 there was a small bleed on the CT. enoxaparin and ASA were stopped. IVC filter was placed. thrombophilia w/u was negative. He developed some light sensitivity and flashing colored lights, which were thought to be related to migraine. Neurology did not think they were seizure related, as EEG was normal. The symptoms passed. CAD/ CABG (1995): No chest pain. dyspnea on exertion: Currently not worsening. Previously, when he walks up a hill, he will more feel more short of breath. States that he walks up and down the hill 1-2x every so often and has only needed to stop once when going uphill. Used to smoke many yrs ago. no chest pain, dizziness, claudication, swelling in legs. renal colic: he had ureteral stent placement on 05/29/15 here at the [facility]. left ureteral stent removed on 06/05 by [facility] at [facility]. No further symptoms. Drinks 100 oz of water a day. Denies flank pain, fever, chills, dysuria. Right hip pain: Pain is occasional, not worsening. Has to stretch and keep his R [...] feel that he needs PT for now. urinary frequency: tends to go once every few hrs and twice per night. no dysuria or hematuria. endorses slow stream. 2-3x nocturia. Family/Social History: Social History: lives w/ at home Family History Positive for: ASCVD: F-carotid, [place] Diabetes: M Other: M-CHF exposed to Agent orange and a chemical used in water treatment in [place] Active problems - Computerized Problem List is the source for the followin. Diabetes mellitus type II (SNOMED CT [id number]) - Diagnosis @ 1999 2. Obesity, Unspec 3. Hypercholesterolemia * 4. ASCVD - 4v CAB 1995 @ [facility] 5. Impotence of organic origin [...] complex renal cyst 17. Exposure to Agent [place] Allergies: MERTHIOLATE TINCTURE (Jun 22, 2003) METFORMIN (Jan 12, 2005) NIACIN (Nov 03, 2006) EZETIMIBE (Nov 03, 2006) ROSIGLITAZONE (Aug 31, 2007) ROSUVASTATIN (Apr 17, 2008) MINOCYCLINE (Sep 15, 2012) LISINOPRIL (May 31, 2014) Meds: Active and Recently Outpatient Medications (including Supplies): Active Outpatient Medications Status 1) ACCU-CHEK GUIDE (GLUCOSE) TEST STRIP USE 1 STRIP ACTIVE TWICE WEEKLY TO CHECK BLOOD SUGAR--USE WITHIN 3 MINUTES OF REMOVING FROM CONTAINER 2) ACETAMINOPHEN 500MG TAB TAKE ONE TABLET BY MOUTH ACTIVE THREE TIMES A DAY NEEDED FOR PAIN *NOT TO EXCEED 4000MG IN 24 HOURS* FOR PAIN 3) ATORVASTATIN CALCIUM 80MG TAB TAKE ONE TABLET BY ACTIVE MOUTH AT BEDTIME FOR CHOLESTEROL 4) CARBOXYMETHYLCELLULOSE NA 0.25% OPH SOLN INSTILL 1 ACTIVE DROP IN BOTH EYES FOUR TIMES A DAY 5) EMPAGLIFLOZIN 25MG TAB TAKE ONE-HALF TABLET BY MOUTH ACTIVE EVERY DAY FOR DIABETES 6) FLUTICASONE PROP 50MCG 120D NASAL INHL SPRAY 2 SPRAYS ACTIVE IN EACH NOSTRIL EVERY DAY FOR CONGESTION FOR ALLERGIES 7) GLIPIZIDE 2.5MG SA TAB TAKE ONE TABLET BY MOUTH EVERY ACTIVE DAY FOR DIABETES WITH BREAKFAST 8) LORATADINE 10MG TAB TAKE ONE TABLET BY MOUTH EVERY ACTIVE MORNING FOR ALLERGIES 9) LOSARTAN 25MG TAB TAKE ONE-HALF TABLET BY MOUTH TWICE ACTIVE A DAY FOR BLOOD PRESSURE 10) SEMAGLUTIDE 0.25MG/0.375ML INJ PEN 3ML INJECT 0.5MG ACTIVE UNDER THE SKIN EVERY WEEK FOR DIABETES -INJECT ON THE SAME DAY EVERY WEEK -REFRIGERATE - PEN CONTAINS MULTIPLE DOSES 11) TERBINAFINE HCL 1% CREAM APPLY THIN LAYER TOPICALLY ACTIVE TWICE A DAY FOR TOENAIL FUNGUS Inactive Outpatient Medications Status 1) CARBOXYMETHYLCELLULOSE NA 0.25% OPH SOLN INSTILL 1 DISCONTINUED DROP IN BOTH EYES FOUR TIMES A DAY 2) GLIPIZIDE 5MG TAB TAKE ONE TABLET BY MOUTH EVERY DAY DISCONTINUED FOR DIABETES 30 MINUTES BEFORE LARGEST MEAL 3) LIDOCAINE 4% TOP CREAM APPLY MODERATE AMOUNT TOPICALLY THREE TIMES A DAY NEEDED PAINFUL/ COLD FEET 4) SEMAGLUTIDE 0.25MG/0.375ML INJ PEN 3ML INJECT 0.5MG DISCONTINUED UNDER THE SKIN EVERY WEEK FOR DIABETES -INJECT ON THE SAME DAY EVERY WEEK -REFRIGERATE - PEN CONTAINS MULTIPLE DOSES 5) SEMAGLUTIDE 0.5MG/0.375ML INJ PEN 1.5ML INJECT 0.5MG DISCONTINUED UNDER THE SKIN EVERY WEEK FOR DIABETES -INJECT ON THE SAME DAY EVERY WEEK -REFRIGERATE -EACH PEN CONTAINS MULTIPLE DOSES Active Non-VA Medications Status 1) Non-VA ASPIRIN 81MG EC TAB 81MG MOUTH EVERY DAY ACTIVE 17 Total Medications OBJECTIVE: Temperature: 97.7 F [36.5 C] (03/29/2023 11:00) Blood Pressure: 137/75 (03/29/2023 11:00) Pulse: 52 (03/29/2023 11:00) Respiration: 16 (03/29/2023 11:00) Pain: 0 (03/29/2023 11:00) Pulse Oximetry: 97% (03/29/2023 11:00) Weight: WEIGHTS IN LAST 6 MONTHS: 173.4 (MAR 29, 2023@11:00:04) Body Mass Index: 26.0 General appearance: alert, oriented, NAD Head: atraumatic, normocephalic Eyes: EOMI, anicteric sclera Ears: [place] TM, no drainage, uses hearing aids Neck: neck supple, no cervical lymphadenopathy Cardiovascular: Regular rhythm, borderline bradycardia with HR ~60 bpm, no murmurs/gallops/rubs. Respiratory: CTAB, no wheezes or crackles auscultated Abdominal: + Bowel sounds, soft, non-distended. Non-tender with palpation. Extremeties: No LE edema b/l. Dorsalis pedis pulses present b/l. Diabetic monofiliment foot exam was normal with intact sensation bilaterally. Musculoskeletal: Left great toe appears to have fungal infection LABS/RADIOLOGY: Today's Labs: LAB RESULTS TODAY - NONE FOUND Lipids: CHOLESTEROL____ HDL____ LDL CALCULATION____ MEASURED LDL____ TRIGLYCERIDE____ SMA-7: SODIUM 143 (03/11/23) POTASSIUM 4.2 (03/11/23) CHLORIDE 106 (03/11/23) CO2 29 (03/11/23) UREA NITROGEN 12 (03/11/23) CREATININE 1.0 (03/11/23) GLUCOSE 139 H (03/11/23) CBC: WBC 7.09 (03/11/23) HGB 15.7 (03/11/23) HCT 47.5 (03/11/23) MCV 95.8 (03/11/23) PLT 220 (03/11/23) LFTs: SGOT 25 (03/11/23) SGPT 33 (03/11/23) TSH ____ Patient was seen and discussed with attending, Dr. Nails, who agrees with the assessment and plan. /nghia/ IMTIAZ RASMUSSEN MEDICAL STUDENT Signed: 03/29/2023 16:55 /nghia/ KWAN NAILS MD Staff Physician Cosigned: 03/30/2023 23:32 03/30/2023 ADDENDUM STATUS: COMPLETED I was present during the medical student visit and hereby confirm the accuracy of the student's note as to the gibson aspect of the history of present illness, physical examination, and medical decision making with any exceptions or corrections noted. I independently performed the gibson aspects of the physical examination and medical decision making. Medication Reconciliation: Education Evaluations *Was medication education provided for NEW medications or CHANGES to medications? (including medication name, dose, route, reason for use, and potential side effects). Yes. Verbal education was provided to patient/caregiver and patient/caregiver verbalized understanding. TERATOGENIC MED & CONTRACEPTION REVIEW (Optional)... MEDICATION RECONCILIATION List Given: An updated medication list was provided to the patient/caregiver. Review Done: The medication list shown below [...] Remote Allergy/ADR Data available for this patient [facility] EZETIMIBE [facility] LISINOPRIL [facility] MERTHIOLATE TINCTURE [facility] METFORMIN [facility] MINOCYCLINE [facility] NIACIN [facility] ROSIGLITAZONE [facility] ROSUVASTATIN Active and Recently Outpatient Medications (including Supplies): Issue Date Status Last Fill Active Outpatient Medications Refills Expiration 1) ACCU-CHEK GUIDE (GLUCOSE) TEST STRIP ACTIVE Issu:07-02-22 Qty: 100 for 90 days Sig: USE 1 STRIP Refills: 1 Last:03-23-23 TWICE WEEKLY TO CHECK BLOOD SUGAR--USE Expr:07-03-23 WITHIN 3 MINUTES OF REMOVING FROM CONTAINER 2) ACETAMINOPHEN 500MG TAB Qty: 100 for 30 ACTIVE Issu:07-27-22 days Sig: TAKE ONE TABLET BY MOUTH Refills: 3 Last:07-27-22 THREE TIMES A DAY NEEDED FOR PAIN Expr:07-28-23 *NOT TO EXCEED 4000MG IN 24 HOURS* FOR PAIN 3) ATORVASTATIN CALCIUM 80MG TAB Qty: 90 ACTIVE Issu:07-24-22 for 90 days Sig: TAKE ONE TABLET BY Refills: 1 Last:03-23-23 MOUTH AT BEDTIME FOR CHOLESTEROL Expr:07-25-23 4) CARBOXYMETHYLCELLULOSE NA 0.25% OPH SOLN ACTIVE Issu:03-11-23 Qty: 15 for 30 days Sig: INSTILL 1 Refills: 11 Last:03-12-23 DROP IN BOTH EYES FOUR TIMES A DAY Expr:03-11-24 5) EMPAGLIFLOZIN 25MG TAB Qty: 45 for 90 ACTIVE Issu:04-23-22 days Sig: TAKE ONE-HALF TABLET BY Refills: 0 Last:02-12-23 MOUTH EVERY DAY FOR DIABETES Expr:04-24-23 6) FLUTICASONE PROP 50MCG 120D NASAL INHL ACTIVE Issu:06-09-22 Qty: 3 for 90 days Sig: SPRAY 2 Refills: 2 Last:08-28-22 SPRAYS IN EACH NOSTRIL EVERY DAY FOR Expr:06-10-23 CONGESTION FOR ALLERGIES 7) GLIPIZIDE 2.5MG SA TAB Qty: 90 for 90 ACTIVE Issu:09-08-22 days Sig: TAKE ONE TABLET BY MOUTH Refills: 0 Last:02-25-23 EVERY DAY FOR DIABETES WITH BREAKFAST Expr:09-09-23 8) LORATADINE 10MG TAB Qty: 90 for 90 days ACTIVE Issu:07-27-22 Sig: TAKE ONE TABLET BY MOUTH EVERY Refills: 2 Last:01-21-23 MORNING FOR ALLERGIES Expr:07-28-23 9) LOSARTAN 25MG TAB Qty: 90 for 90 days ACTIVE Issu:06-08-22 Sig: TAKE ONE-HALF TABLET BY MOUTH Refills: 2 Last:12-28-22 TWICE A DAY FOR BLOOD PRESSURE Expr:06-09-23 10) SEMAGLUTIDE 0.25MG/0.375ML INJ PEN 3ML ACTIVE Issu:01-21-23 Qty: 1 for 28 days Sig: INJECT 0.5MG Refills: 4 Last:03-23-23 UNDER THE SKIN EVERY WEEK FOR DIABETES Expr:01-22-24 -INJECT ON THE SAME DAY EVERY WEEK -REFRIGERATE - PEN CONTAINS MULTIPLE DOSES 11) TERBINAFINE HCL 1% CREAM Qty: 60 for 90 ACTIVE Issu:06-02-22 days Sig: APPLY THIN LAYER TOPICALLY Refills: 3 Last:06-04-22 TWICE A DAY FOR TOENAIL FUNGUS Expr:06-03-23 Issue Date Status Last Fill Pending Outpatient Medications Refills Expiration 1) CICLOPIROX 8% TOP SOLN Qty: 13.2 Sig: PENDING APPLY TOPICALLY EVERY DAY Refills: 0 Issue Date Status Last Fill Inactive Outpatient Medications Refills Expiration 1) CARBOXYMETHYLCELLULOSE NA 0.25% OPH SOLN DISCONTINUED Issu:03-03-22 Qty: 15 for 30 days Sig: INSTILL 1 Refills: 11 Last:03-09-22 DROP IN BOTH EYES FOUR TIMES A DAY Expr:03-04-23 2) GLIPIZIDE 5MG TAB Qty: 90 for 90 days DISCONTINUED Issu:06-08-22 Sig: TAKE ONE TABLET BY MOUTH EVERY Refills: 2 Last:08-28-22 DAY FOR DIABETES 30 MINUTES BEFORE Expr:06-09-23 LARGEST MEAL 3) LIDOCAINE 4% TOP CREAM Qty: 60 for 30 Issu:02-19-22 days Sig: APPLY MODERATE AMOUNT Refills: 2 Last:07-27-22 TOPICALLY THREE TIMES A DAY NEEDED Expr:02-20-23 PAINFUL/ COLD FEET 4) SEMAGLUTIDE 0.25MG/0.375ML INJ PEN 3ML DISCONTINUED Issu:06-30-22 Qty: 1 for 28 days Sig: INJECT 0.5MG Refills: 0 Last:12-28-22 UNDER THE SKIN EVERY WEEK FOR DIABETES Expr:07-01-23 -INJECT ON THE SAME DAY EVERY WEEK -REFRIGERATE - PEN CONTAINS MULTIPLE DOSES 5) SEMAGLUTIDE 0.5MG/0.375ML INJ PEN 1.5ML DISCONTINUED Issu:02-17-22 Qty: 1 for 28 days Sig: INJECT 0.5MG Refills: 6 Last:06-30-22 UNDER THE SKIN EVERY WEEK FOR DIABETES Expr:02-18-23 -INJECT ON THE SAME DAY EVERY WEEK -REFRIGERATE -EACH PEN CONTAINS MULTIPLE DOSES Start Date Active Non-VA Medications Refills Expiration 1) Non-VA ASPIRIN 81MG EC TAB SiMG ACTIVE MOUTH EVERY DAY 18 Total Medications Diabetes: Kidney Health Evaluation: uACR (Urine Albumin-Creatinine Ratio) Quantitative urine creatinine and quantitative urine albumin lab tests were ordered. PAVE Foot Check: A complete foot check was completed at this encounter. VISUAL INSPECTION: Includes inspection for skin breaks, deformity, erythema, trauma, pallor on elevation, dependent rubor, nail deformities, extensive callus and pitting edema. Visual exam results: Abnormal Observations: Thickened toenails PEDAL PULSES: Includes palpation of dorsalis and posterior tibial pulses and signs/symptoms of vascular compromise like pain, pallor, parasthesia or paralysis. Present (even if diminished) SENSORY CHECK: Includes 10 gram Monofilament ([place]) test of sensation. Intact (Greater than or equal to 80% of sites checked) Abnormal (Less than 80% of sites checked): Intact LOW-RISK LOW RISK FOOT EDUCATION: 1. Advised patient not to walk barefoot. Instructed the patient to pay close attention to the style and fit of shoes. 2. Explained the importance of daily foot checks. Explained that loss of sensation leads to callouses. Callouses break down, which result in ulcers that may lead to gangrene and amputation. 3. Stressed the importance of daily foot hygiene. Warm (not hot) bathing of the feet, complete drying and thorough inspection for changes in the condition of the skin constitute daily foot care. Demonstrated how to do a thorough foot check. 4. Emphasized the use of clean, non-restrictive socks/stockings and well fitting shoes. 5. Stressed the importance of immediate follow-up of any foot injuries or ulcers. Explained that he/she should be non-weight bearing whenever there are lesions on the foot, to prevent cellular damage. Level of Understanding: Good /nghia/ KWAN NAILS MD Staff Physician Signed: 03/30/2023 23:36 IMTIAZ RASMUSSEN [facility]
--- OUTSIDE RECORDS SUMMARY | 2024-03-17 13:08 | XMS_ITS | Encounter Summary ---
Author Name [facility] [place] [facility] [place] [facility] [facility] [place] Address [address] [place] [id number] Care Team Providers Care Ticket Taker Ferryboat Name Role Phone KWAN NAILS Primary Care [...] [place] MACY/C DHP Mar 22, 2009 [id number] [phone] LACI GRIFFITH PATIENT MEDICA HIGH DEDUCTIBL E HEALTH PLAN W/HEALTH REIMBURSE MENT ARRANGEME NT [place] MACY HRA Mar 22, 2009 [id number] [phone] LACI GRIFFITH PATIENT MEDICA BEHAVIORAL HEALTH MENTAL HEALTH [place] MACY HRA Mar 22, 2009 [id number] [phone] LACI GRIFFITH PATIENT MEDICA MCR (WNR) MEDICARE ADVANTAGE [facility] (WNR) Mar 22, 2018 [id number] LACI GRIFFITH PATIENT MEDICA MCR (WNR) MEDICARE ADVANTAGE [facility] (WNR) Sep 19, 2012 [id number] [phone] LACI GRIFFITH PATIENT MEDICARE (WNR) MEDICARE (M) PART B Aug 20, 2012 PART B [id number] [phone] LACI GRIFFITH PATIENT MEDICARE (WNR) MEDICARE (M) PART A Sep 19, 2010 PART A [id number] [phone] LACI GRIFFITH PATIENT Selected Encounter This section includes the information on record at [place] for the Encounter. Date/Time Encounter Type Encounter Description Reason Pro vider Source Jun 01, 2023 03:40 PM Outpatient Encounter GI ENDOSCOPY IHE Encounter Template Text not used by [place] Plan of Treatment: Future Appointments (+ 6 months) and Future Tests (+/- 45 days) The Plan of Treatment section includes future care activities for the [facility] [place] [facility] This section includes future appointments and [...] 02, 2023 01:00 PM AMBULATORY - MEDICINE [facility] Aug 30, 2023 10:30 AM AMBULATORY - MEDICINE [facility] Aug 30, 2023 12:00 PM AMBULATORY - NONE [facility] Sep 14, 2023 01:00 PM AMBULATORY - MEDICINE [facility] Sep 20, 2023 04:15 PM AMBULATORY - NONE [facility] Oct 04, 2023 12:45 PM AMBULATORY - SURGERY [facility] Oct 12, 2023 11:00 AM AMBULATORY - SURGERY [facility] Oct 12, 2023 01:00 PM AMBULATORY - REHAB MEDICIN E [facility] Nov 17, 2023 11:30 AM AMBULATORY - SURGERY [facility] Nov 18, 2023 01:00 PM AMBULATORY - REHAB MEDICIN E [facility] Nov 18, 2023 03:00 PM AMBULATORY - MEDICINE [facility] Social History: Smoking Status (Most current) [...] GREATE R [facility] May 02, 2007 09:05 AM FORMER TOBACCO USER 7Y OR GREATE R [facility] May 12, [...] this document. The data comes from all [facility]. Date Advance Directives Provider Source Mar 26, 2015 ADVANCE DIRECTIVE DISCUSSION GABBY MISTRY [facility] Mar 26, 2015 ADVANCE DIRECTIVE MIGUEL MISTRY [facility] Jan 12, 2005 ADVANCE DIRECTIVE VENECIA GARDUNO [facility] Pathology Reports: +/- 30 days of the [...] comes from all [place] treatment facilities. Date/Time Pathology Report Provider Source Jun 04, 2023 11:55 AM LR SURGICAL PATHOL OGY REPORT: LOCAL TITLE: LR SURGICAL PATHOLOGY REPORT STANDARD TITLE: PATHOLOGY REPORT DATE OF NOTE: JUN 04, 2023@11:55:04 ENTRY DATE: JUN 04, 2023@11:55:04 AUTHOR: AILYN EISENBERG EXP COSIGNER: URGENCY: STATUS: COMPLETED $APHDR Reporting Lab: [facility] [CLIA# [id number]] [place] [address] - - - - - - - [...] - - - - $TEXT Submitted by: KAREN GAGE Date obtained: Jun 02, 2023 - [...] - - - - POSTOPERATIVE DIAGNOSIS: Surgeon/physician: KAREN LUND =-=-=-=-=-=-=-=-=-=-=-=-=- =-=-=-=-=-=-=-=-=-=-=-=-=- =-=-=-=-=-=-=-=-=-=-=-=-=- = - - [...] EISENBERG STAFF PATHOLOGIST, PATHOLOGY & LABORATORY MED [facility] Signed Jun 04, 2023@11:55 Performing Laboratory: Surgical Pathology Report Performed By: [facility] [CLIA# [id number]] [place] [address] $FTR - - - - - - [...] - - LACI GRIFFITH STANDARD FORM 515 ID:[id number] SEX:M :1945 AGE: 77 LOC:[id number] PCP: Kwan Nails MD /nghia/ AILYN EISENBERG STAFF PATHOLOGIST, PATHOLOGY & LABORATORY MED [facility] Signed: 06/04/2023 11:55 AILYN EISENBERG [facility] Encounter Notes: All associated encounter notes This section contains the clinical notes associated to the Encounter. Date/Time Encounter Note(s) Provider Source Jun 02, 2023 03:19 PM GASTROENTEROLOGY PROCEDURE NOTE: LOCAL TITLE: CP GASTROENTEROLOGY PROCEDURE STANDARD TITLE: GASTROENTEROLOGY PROCEDURE NOTE DATE OF NOTE: JUN 02, 2023@15:19:45 ENTRY DATE: JUN 02, 2023@15:19:45 AUTHOR: CLINICAL,DEVICE PRO EXP COSIGNER: URGENCY: STATUS: COMPLETED PROCEDURE SUMMARY CODE: Machine Resulted DATE/TIME PERFORMED: JUN 02, 2023@12:42:4 DOCUMENT IN [facility] IMAGING SEE FULL REPORT IN [facility] SIGNATURE NOT REQUIRED SEE SIGNATURE IN [facility] IM[facility] (Provation (Colonoscopy)) AUTO-INSTRUMENT DIAGNOSIS Procedure: NOTETYPE Nurse Note Release Status: Released Off-Line Verified Date Verified: Jun 02, 2023@15:19:39 COVID-19 ASSESSMENT Has the patient been tested for COVID-19: Have you experienced any of the following symptoms in the last 14 days: Temperature (F): Comments: CHECK-IN User:WeroEferio Procedure:Colon Upper procedure indication:N/A Lower procedure indication:Yes Lower procedure indication:Surveillance for colon polyp/cancer Patient identification:Name, ID band on:Yes Care Plan - monitor for procedural or sedation related events and to promote patient comfort and safety:Yes Any questions or patient concerns:No Time of last solid food:Wednesday no Bread, butter, cheese Time of last liquid intake:1100 gaterade Prep taken:Yes Prep type:Miralax Percentage of prep taken:90-100% Split:Yes Time prep finished:0700 Last BM:Yellow, cloudy Patient Labs:Yes INR: Hemoglobin (Hgb): PLT count: Ferritin: Iron saturation (%): Creatinine: Other: Other: Blood Glucose:135 @ 1100 New Pateint Labs:No Barrier to learning:No Can the patient sign their own consents:Yes Preferred Learning Style:Verbal, Written Pre and post procedure teaching given to:Patient Pre and post-procedure teaching completed:Yes Method:Verbal, Visual Response to teaching - Demonstrates by stating/acknowledging understandi and post-procedure/discharge instruc Patient Mobility:Ambulatory w/o assist Transportation after procedure:Yes Diesel Scoop Operator location:Waiting Room Drivers phone#:[phone] Diesel Scoop Operator's name / relationship:Venecia () Are we allowed to speak with your shuttle van driver about your medical information post procedure:YES Anesthesia case:No Pre-Procedure / Active Medications Aspirin use NSAID use: Anticoagulant use - Patient Denies Use Anticoagulant use: - Patient Denies Use Antiplatelet use: - Patient Denies Use NSAID use - Patient Denies Use Opioid antagonist use: - Patient Denies Use Steroid use - Patient Denies Use NSAID use: ASA QD Confirmed 06/02/2023 ALLERGIES Iodine/Contrast Medium Allergy - Patient Denies Allergy - Iodine/Contrast Medium Allergy: - Patient Denies Allergy - Latex Allergy - Patient Denies Allergy - Latex Allergy: - Patient Denies Allergy - Ezetimibe - Confirmed 06/02/2023 Lisinopril - Confirmed 06/02/2023 Merthiolate Tincture - Confirmed 06/02/2023 Metformin - Confirmed 06/02/2023 Minocycline - Confirmed 06/02/2023 Niacin - Confirmed 06/02/2023 Rosiglitazone - Confirmed 06/02/2023 Rosuvastatin - Confirmed 06/02/2023 HEALTH HISTORY User:Jesusita MEDICAL HISTORY status:N/A Cardiovascular:Yes Cardiovascular diagnoses:ASCVD, CABG, CVA, Hypertension Comments: Pulmonary:No GI:Yes GI diagnoses:Polyps Family History: Comments: Diabetes:Yes Treated with:Diet, Insulin, Oral medication Blood Glucose:135 @ 1100 Comments: Renal/Endocrine:No Neuro/Musculoskeletal:Yes Neuro/musculoskeletal diagnoses:TIA / CVA SCI patient: Comments: Miscellaneous / Infectious:Yes Miscellaneous diagnoses:Cancer Comments:Skin CA Psychiatric:No SURGICAL HISTORY Previous surgery:Yes Surgery:CABG, Hernia repair History of problems with anesthesia:No Risk factors for post-sedation delirium:Yes Following risk factors:Age >70, Hearing or Visual Impairment SOCIAL HISTORY Nicotine/Smoking history:No Alcohol history:No Recreational drug use:No ALERTS Alert Comments Last Updated By Last Updated On Merthiolate Tincture [facility] 06/02/2023 12:52:41 PM Metformin [facility] 06/02/2023 12:52:21 PM Minocycline [facility] 06/02/2023 12:52:27 PM Rosuvastatin [facility] 06/02/2023 12:52:38 PM Niacin [facility] 06/02/2023 12:52:28 PM Ezetimibe [facility] 06/02/2023 12:51:24 PM Rosiglitazone [facility] 06/02/2023 12:52:33 PM Latex Allergy Patient Denies Allergy Unconfirmed Iodine/Contrast Medium Allergy Patient Denies Allergy Unconfirmed Latex Allergy: Patient Denies Allergy [facility] 06/02/2023 12:48:28 PM Iodine/Contrast Medium Allergy: Patient Denies Allergy [facility] 06/02/2023 12:48:46 PM Lisinopril [facility] 06/02/2023 12:52:13 PM Metal - No Metal Hand, Kathya 06/02/2023 12:58:07 PM CODE STATUS - Full Hand, Kathya 06/02/2023 12:58:27 PM PATIENT ASSESSMENT - PREPROCEDURE User:[facility] Time:06/02/2023 12:58 Level of conciousness:2 Fully awake Emotional Status:Calm, Cooperative Baseline pain:No Skin:Warm, Dry Venous access device:No Pre-existing IV:No IV started:Yes IV Site:Left arm IV Type:Angiocath Size:22 gauge IV Solution:Saline Lock IV Rate: Inserted by:Staci Rodriguez RN PATIENT ASSESSMENT - INTRAPROCEDURE User:[facility] Pt condition unchanged from pre-sedation assessment:No Dentures, glasses or hearing aid removed and stored:Yes Type:Glasses, Hearing Aid(s) Loose Teeth:No Cardiac Rhythm Monitored:Yes Cardiac Rhythm:Regular, Sinus Rhythm Comments:BBB TIME OUT All team members must concur verbally to each item on the checklist - Correct patient identification (full name, full Date of or Social Security number) - Correct Procedure (check order) - Correct site, including laterality if applicable - Valid iMED consent for correct procedure - Patient position is confirmed - Pertinent medical images have been confirmed (film or original report) - Correct medical implant(s) are available - Appropriate antibiotic prophylaxis - Appropriate deep vein thrombosis prophylaxis if applicable - Blood availability if applicable TIME OUT - Fire Risk Assessment completed Time out: Post Procedure Debrief Nurse verbally confirms with team: To endoscopist, mesh cutter and nurse: DISCHARGE QUESTIONS User:herzo Pain now:No Cardiac Rhythm Monitored:Yes Cardiac Rhythm:Regular, Sinus Rhythm Comments: IV Discontinued:Yes Time IV Discontinued:06/02/2023 15:19 Total Amount Infused (mL): IV Site Condition:Intact Wristband:Removed from patient and placed in secure shred bin, per policy. Discharge Criteria met:Yes Post-procedure education completed:Yes Patient and/or Family given opportunity to ask questions and questions answered:Yes Patient and/or Family stated understanding of post-procedure instructions:Yes Patient/family/caregiver include signs and sympto activity/diet/medication Discharge instructions/pamphlets given:Yes Topic(s):Colonoscopy Follow up (months/years):Per Path Released to:Self with adult when applicable Transportation after procedure:Yes Diesel Scoop Operator location:Waiting Room Drivers phone#:[phone] Diesel Scoop Operator's name / relationship:Venecia () Are we allowed to speak with your shuttle van driver about your medical information post procedure:YES Comments:Pt left clinic ambulatory w/ Venecia. Events Reporting Report ADR Hotline #[id number] Should any of the following occur during the procedure, forward a copy of this form to C.I. (OOD).: Adverse event(s):No Oxygen Time Method Rate Entered By Notes 14:43:00 Nasal Cannula 0 L herzo 14:27:20 Nasal Cannula 2 L perrond 14:07:59 Nasal Cannula 4 L perrond No Notes Taken Medications Time Medication Dose Entered By Notes 14:11:08 Versed IV 1 mg Total: 3 mg perrond 14:11:08 Fentanyl IV 25 mcg Total: 75 mcg perrond 14:06:23 Versed IV 2 mg perrond 14:06:22 Fentanyl IV 50 mcg perrond No Notes Taken Willy Score Time Activity Resp Circulation LOC O2 Sat Entered By Total Score Notes 15:03:24 2 2 2 2 2 herzo 10 14:54:00 2 2 2 2 2 herzo 10 14:44:30 2 2 1 2 2 perrond 9 No Notes Taken Vitals Time BP HR RESP O2 Sat CO2 Entered By 15:03:00 133/80 59 25 95 - herzo 14:53:05 167/79 58 32 98 - herzo 14:41:42 143/71 55 13 96 - perrond 14:35:40 145/79 56 16 95 - perrond 14:32:37 140/76 53 15 99 - perrond 14:29:42 142/73 55 17 99 - perrond 14:26:52 134/71 52 16 99 - perrond 14:20:42 127/66 52 8 97 - perrond 14:18:43 141/71 54 10 98 - perrond 14:14:37 113/58 52 6 97 - perrond 14:11:27 111/59 54 18 99 - perrond 14:08:55 102/55 55 21 95 - perrond 14:07:02 140/63 56 25 97 - perrond 13:59:52 150/76 54 15 95 - perrond 13:49:43 147/80 56 14 96 - perrond 13:39:42 141/73 56 21 99 - perrond 13:29:40 152/80 61 38 98 - perrond 13:20:09 159/80 63 37 97 - perrond 13:10:09 168/82 60 15 96 - perrond 12:59:12 187/91 65 25 100 - McK No Notes Taken PROCEDURE LOG Time Data Entered By 15:16:53 Patient Activities : Getting dressed herzo 15:03:08 Pain now? : No herzo 15:03:06 Patient Monitoring : Level of comfort : Comfortable, Procedure tolerance : -, Level of conciousness : 2 Fully awake or returned to presedation LOC herzo 14:55:35 Patient Activities : Sitting at side of bed,Denies dizziness/light headedness,Denies nausea,Offers no complaints,Drinking fluids herzo 14:53:11 Pain now? : No herzo 14:53:09 Patient Monitoring : Level of comfort : Comfortable, Procedure tolerance : -, Level of conciousness : 2 Fully awake or returned to presedation LOC herzo 14:51:09 Notes: Report from Staci MEDRANO herzo 14:43:59 Response to medication/agent : Calming perrond 14:43:30 Patient Monitoring : Level of comfort : Comfortable, Procedure tolerance : Well,-, Level of conciousness : 2 Fully awake or returned to presedation LOC perrond 14:37:55 Response to medication/agent : Sedating perrond 14:37:53 Patient Monitoring : Level of comfort : Comfortable, Procedure tolerance : Well,-, Level of conciousness : 2 Fully awake or returned to presedation LOC perrond 14:32:56 Response to medication/agent : Sedating perrond 14:32:53 Patient Monitoring : Level of comfort : Comfortable, Procedure tolerance : Well,-, Level of conciousness : 1 Arousable on calling, presence of protective reflexes perrond 14:29:58 Response to medication/agent : Calming perrond 14:29:55 Patient Monitoring : Level of comfort : Comfortable, Procedure tolerance : Well,-, Level of conciousness : 1 Arousable on calling, presence of protective reflexes perrond 14:27:03 Response to medication/agent : Sedating perrond 14:27:00 Patient Monitoring : Level of comfort : Comfortable, Procedure tolerance : Well,-, Level of conciousness : 1 Arousable on calling, presence of protective reflexes perrond 14:20:52 Response to medication/agent : Sedating perrond 14:20:49 Patient Monitoring : Level of comfort : Comfortable, Procedure tolerance : Well,-, Level of conciousness : 1 Arousable on calling, presence of protective reflexes perrond 14:18:57 Response to medication/agent : Sedating perrond 14:18:50 Patient Monitoring : Level of comfort : Comfortable, Procedure tolerance : Well,-, Level of conciousness : 1 Arousable on calling, presence of protective reflexes perrond 14:18:35 Miscellaneous Maneuvers : Abdominal pressure applied perrond 14:14:51 Response to medication/agent : Sedating perrond 14:14:47 Patient Monitoring : Level of comfort : Comfortable, Procedure tolerance : Well,-, Level of conciousness : 1 Arousable on calling, presence of protective reflexes perrond 14:11:39 Response to medication/agent : Sedating perrond 14:11:36 Patient Monitoring : Level of comfort : Comfortable, Procedure tolerance : Well,-, Level of conciousness : 1 Arousable on calling, presence of protective reflexes perrond 14:09:10 Response to medication/agent : Sedating perrond 14:09:07 Patient Monitoring : Level of comfort : Comfortable, Procedure tolerance : Well,-, Level of conciousness : 1 Arousable on calling, presence of protective reflexes perrond 14:07:20 Response to medication/agent : Calming perrond 14:07:12 Patient Monitoring : Level of comfort : Comfortable, Procedure tolerance : Well,-, Level of conciousness : 1 Arousable on calling, presence of protective reflexes perrond 14:03:23 Notes: Pt positioned left lateral perrond 13:59:56 Level of comfort : Comfortable perrond 13:49:49 Level of comfort : Comfortable perrond 13:39:46 Level of comfort : Comfortable perrond 13:29:51 Level of comfort : Comfortable perrond 13:20:14 Patient Monitoring : Level of comfort : Comfortable, Procedure tolerance : -, Level of conciousness : - perrond 13:10:15 Patient Monitoring : Level of comfort : Comfortable, Procedure tolerance : -, Level of conciousness : - perrond 12:59:18 Pain now? : No K 12:59:17 Level of conciousness : 2 Fully awake or returned to presedation LOC K 12:59:15 Level of comfort : Comfortable [facility] Specimens Collected Jar Sample Type Procedure Lab Type Location Indication Entered By 1 Polypectomy Colonoscopy Histology Colon - Ascending Polyp, R/O Adenoma perrond 2 Polypectomy Colonoscopy Histology Colon - Transverse Polyp, R/O Adenoma perrond Time Tracking Time Event Entered By 15:19:08 Discharged herzo 14:44:40 To recovery room with RN perrond 14:37:45 Recovery start perrond 14:37:44 Scope out perrond 14:19:10 Extent Reached perrond 14:12:19 Scope in perrond 14:02:22 Time out perrond 14:02:21 in procedure room perrond 13:09:56 consenting patient perrond 13:09:55 in procedure room perrond 13:09:10 Patient in procedure room perrond 13:00:00 Patient Ready for Procedure perrond 12:43:47 Preprocedure McK 12:43:46 Arrival McK Provider Signatures Lachelle Faust (herzo) [facility]06/02/2023 15:19:18 Kathya Armenta RN (McK) [facility]06/02/2023 13:00:28 Staci Rodriguez, (perrond) [facility]06/02/2023 14:44:44 Administrative Closure: 06/02/2023 by: CLINICAL,DEVICE PROXY SERVICE CLINICAL,DEVICE PROXY SERVICE [facility] Jun 02, 2023 02:47 PM GASTROENTEROLOGY PROCEDURE NOTE: LOCAL TITLE: CP GASTROENTEROLOGY PROCEDURE STANDARD TITLE: GASTROENTEROLOGY PROCEDURE NOTE DATE OF NOTE: JUN 02, 2023@14:47:10 ENTRY DATE: JUN 02, 2023@14:47:10 AUTHOR: CLINICAL,DEVICE PRO EXP COSIGNER: URGENCY: STATUS: COMPLETED PROCEDURE SUMMARY CODE: Machine Resulted DATE/TIME PERFORMED: JUN 02, 2023@12:42:4 DOCUMENT IN [facility] [employer] IMAGING SEE FULL REPORT IN [facility] IMAGING SIGNATURE NOT REQUIRED SEE SIGNATURE IN VISTA IMAGING (Provation (Colonoscopy)) AUTO-INSTRUMENT DIAGNOSIS Procedure: [id number] GI PROCEDURE Release Status: Released Off-Line Verified Date Verified: Jun 02, 2023@14:47:03 Anticoagulation: No Fellow Participation : No fellow particpation. AI: AI was used. Polyps Per Colonoscopy: 4 Procedure: Colonoscopy Indications: High risk colon cancer surveillance: Personal history of colonic polyps Medicines: Fentanyl IV 75 mcgs, Versed IV 3 mgs Complications: No immediate complications. Procedure: After I obtained informed consent, the scope was passed under direct vision. Throughout the procedure, the patient's blood pressure, pulse, and oxygen saturations were monitored continuously. The Colonoscope was introduced through the anus and advanced to the cecum, identified by appendiceal orifice and ileocecal valve. The colonoscopy was performed without difficulty. The patient tolerated the procedure well. The quality of the bowel preparation was evaluated using the BBPS ([place] Bowel Preparation Scale) with scores of: Right Colon = 3 (entire mucosa seen well with no residual staining, small fragments of stool or opaque liquid), Transverse Colon = 3 (entire mucosa seen well with no residual staining, small fragments of stool or opaque liquid) and Left Colon = 3 (entire mucosa seen well with no residual staining, small fragments of stool or opaque liquid). The total BBPS score equals 9. The quality of the bowel preparation was excellent. Findings: The perianal and digital rectal examinations were normal. Three sessile polyps were found in the ascending colon. The polyps were 4 to 8 mm in size. These polyps were removed with a cold snare. Resection and retrieval were complete. A 4 mm, non-bleeding polyp was found in the transverse colon. The polyp was sessile. The polyp was removed with a cold snare. Resection and retrieval were complete. The exam was otherwise normal throughout the examined colon. The retroflexed view of the distal rectum and anal verge was normal and showed no anal or rectal abnormalities. Moderate Sedation: Moderate (conscious) sedation was administered by the endoscopy nurse and supervised by the endoscopist. The patient's oxygen saturation, heart rate, blood pressure and response to care were monitored. Total physician intraservice time was 30 minutes. Impression: - Three 4 to 8 mm polyps in the ascending colon, removed with a cold snare. Resected and retrieved. - One 4 mm, non-bleeding polyp in the transverse colon, removed with a cold snare. Resected and retrieved. - The distal rectum and anal verge are normal on retroflexion view. Recommendation: - Discharge patient to home (ambulatory). - Await pathology results. - Repeat colonoscopy in likely in 3 years for surveillance. Karen Lund MD 06/02/2023 2:46:47 PM Number of Addenda: 0 Note Initiated On: 06/02/2023 12:42 PM Scope In: 2:12:19 PM Scope Out: 2:37:29 PM [facility] [address] [place] [address] --- Administrative Closure: 06/02/2023 by: CLINICAL,DEVICE PROXY SERVICE CLINICAL,DEVICE PROXY SERVICE [facility]
--- OUTSIDE RECORDS SUMMARY | 2024-03-17 13:08 | XMS_ITS | Encounter Summary ---
Author Name [facility] Organization [facility] Address [address] [place] [address] Care Team Providers Care Development Planner Name Role Phone KWAN NAILS Primary Care [...] [place] MACY/C DHP Mar 22, 2009 [id number] [phone] LACI GRIFFITH PATIENT MEDICA HIGH DEDUCTIBL E HEALTH PLAN W/HEALTH REIMBURSE MENT ARRANGEME NT [place] MACY HRA Mar 22, 2009 [id number] [phone] LACI GRIFFITH PATIENT MEDICA BEHAVIORAL HEALTH MENTAL HEALTH [place] MACY HRA Mar 22, 2009 [id number] [phone] LACI GRIFFITH PATIENT MEDICA MCR (WNR) MEDICARE ADVANTAGE [facility] (WNR) Mar 22, 2018 [id number] [phone] LACI GRIFFITH PATIENT MEDICA MCR (WNR) MEDICARE ADVANTAGE MCR (WNR) Sep 19, 2012 [id number] [phone] LACI GRIFFITH PATIENT MEDICARE (WNR) MEDICARE (M) PART B Aug 20, 2012 PART B [id number] [phone] LACI GRIFFITH PATIENT MEDICARE (WNR) MEDICARE (M) PART A Sep 19, 2010 PART A [id number] [phone] LACI GRIFFITH PATIENT Selected Encounter This section includes the information on record at ME for the Encounter. Date/Time Encounter Type Encounter Description Reason Provider Source Jun 02, 2023 01:00 PM MOD SED SAME PHYS/QHP EA GI ENDOSCOPY ICD-10-CM K63.5 Polyp of colon GIACOMO GAGE Encounter Template Text not used by ME Assessments - Encounter Diagnoses This section includes the primary and secondary diagnoses documented for the Encounter. Date/Time Primary/Secondary Diagnosis Diagnosis Name Provider Source Jun 02, 2023 03:32 PM PRIMARY Polyp of colon SHARIFA XAVIER [facility] Jun 02, 2023 03:32 PM SECONDARY Personal history of colonic polyps SHARIFA XAVIER [facility] Plan of Treatment: Future Appointments (+ 6 months) and Future Tests (+/- 45 days) The Plan of Treatment section includes future care activities for the [facility] This section includes future appointments and future orders which are active, pending or scheduled. Future Appointments This section includes appointments that were scheduled to occur 6 months from the date of the Encounter, up to a maximum of 20 appointments. The data comes from all ME treatment facilities. Appointment Date/Time Appointment Type Appointme nt Facility Name Aug 30, 2023 10:30 AM [facility] Aug 30, 2023 12:00 PM [facility] Sep 14, 2023 01:00 PM [facility] Sep 20, 2023 04:15 PM [facility] Oct 04, 2023 12:45 PM [facility] Oct 12, 2023 11:00 AM AMBULATORY - SURGERY [facility] Oct 12, 2023 01:00 PM AMBULATORY - REHAB [facility] Nov 17, 2023 11:30 AM AMBUL[facility]ORY - SURGERY [facility] Nov 18, 2023 01:00 PM AMBULATORY - REHAB [facility]IC[facility] Nov 18, 2023 03:00 PM AMBULATORY - MEDICINE [facility] Social History: Smoking Status (Most current) and Tobacco Use (All prior to encounter date) This section includes the most current, and the historical, smoking and tobacco- related health factors from the ME facility where the Encounter took place. Current Smoking Status This section includes the most current smoking, or tobacco-related health factor, from the ME facility where the Encounter took place. Date/Time Current Smoking Status Comment Facil ity Mar 29, 2023 11:00 AM VA-TOBACCO NEVER USED [facility] Tobacco Use History This section includes a history of the smoking, or tobacco-related health factors, that were collected on or before the date of the Encounter. The data comes from the ME facility where the Encounter took place. Date/Time Smoking Status/Tobacco Use Comment F acility Feb 19, 2022 11:30 AM VA-TOBACCO FORMER USER [facility] Feb 19, 2022 11:30 AM VA-TOBACCO QUIT 15 YRS OR MORE [facility] August 14, 2020 08:30 AM VA-TOBACCO FORMER USER [facility] August 14, 2020 08:30 AM VA-TOBACCO QUIT 15 YRS OR MORE [facility] Jul 11, 2018 10:38 AM VA-TOBACCO FORMER USER [facility] Jul 11, 2018 10:38 AM VA-TOBACCO QUIT 15 YRS OR MORE [facility] Aug 25, 2017 10:47 AM FORMER TOBACCO USER 7Y OR GREATE R [facility] Nov 20, 2016 10:21 AM FORMER TOBACCO USER 7Y OR GREATE R [facility] Oct 08, 2015 08:27 AM FORMER TOBACCO USER 7Y OR GREATE R [facility] Dec 21, 2014 11:06 AM FORMER TOBACCO USER 7Y OR GREATE R [facility] Jan 05, 2014 08:09 AM FORMER TOBACCO USER 7Y OR GREATE R [facility] May 02, 2007 09:05 AM FORMER TOBACCO USER 7Y OR GREATE R [facility] May 12, 2006 10:31 AM FORMER TOBACCO USE >1Y <7Y [facility] Advance Directives: All historical and current Section Date Range: From patient's date of to the date document was created. This section includes ALL of a patient's completed or amended ME Advance and Rescinded Directives. The entries below indicate that a directive exists for the patient, but an actual copy is not included with this document. The data comes from all ME facilities. Date Advance Directives Provider Source Mar 26, 2015 ADVANCE DIRECTIVE DISCUSSION GABBY MISTRY [facility] Mar 26, 2015 ADVANCE DIRECTIVE MIGUEL MISTRY [facility] Jan 12, 2005 ADVANCE DIRECTIVE SHAANJENN Aguilar [facility] Pathology Reports: +/- 30 days [...] the Encounter. The data comes from all [place] treatment facilities. Date/Time Pathology Report Provider Source Jun 04, 2023 11:55 AM LR SURGICAL PATHOL OGY REPORT: LOCAL TITLE: LR SURGICAL PATHOLOGY REPORT STANDARD TITLE: PATHOLOGY REPORT DATE OF NOTE: JUN 04, 2023@11:55:04 ENTRY DATE: JUN 04, 2023@11:55:04 AUTHOR: AILYN EISENBERG EXP COSIGNER: URGENCY: STATUS: COMPLETED $APHDR Reporting Lab: [facility] [CLIA# [id number]] [place] [address] - - - - - - - [...] - PATHOLOGY REPORT Accession No. [id number] - - - - - [...] 1.0 cm in greatest dimension. CE (D[facility] [place] [facility] DES[facility]: SPECS. 1, 2. Microscopic examination performed. RS. DIAGNOSES: SPEC. 1 Colon, ascending polyp, polypectomy-- - Tubular adenoma, fragments - No evidence of high-grade dysplasia or malignancy SPEC. 2 Colon, transverse polyp, polypectomy-- - Tubular adenoma - No evidence of high-grade dysplasia or malignancy /nghia/ AILYN EISENBERG STAFF PATHOLOGIST, PATHOLOGY & LABORATORY [facility] Signed Jun 04, 2023@11:55 Performing Laboratory: Surgical Pathology Report Performed By: [facility] [CLIA# [id number]] [place] [address] $FTR - - - - - - - - - - - - - - - - - - - - - - - - - - - - - - - - - - - - - - - - (End of report) AILYN EISENBERG MD s Date Jun 04, 2023 - - - - - - - - - - - - - - - - - - - - - - - - - - - - - - - - - - - - - - - - LACI GRIFFITH STANDARD FORM 515 ID:[id number] SEX:M :1945 AGE: 77 LOC:[id number] PCP: Kwan Nails MD /nghia/ AILYN EISENBERG STAFF PATHOLOGIST, PATHOLOGY & LABORATORY [facility] Signed: 06/04/2023 11:55 AILYN EISENBERG [facility] Encounter Notes: All associated encounter notes This section contains the clinical notes associated to the Encounter. Date/Time Encounter Note(s) Provider Source Jun 07, 2023 01:25 PM LETTERS: LOCAL TITLE: FOLLOW UP RESULTS LETTER STANDARD TITLE: LETTERS DATE OF NOTE: JUN 07, 2023@13:25 ENTRY DATE: JUN 07, 2023@13:26:01 AUTHOR: THOMPSON GAGE COSIGNER: URGENCY: STATUS: COMPLETED [facility] [place] [address] May LACI GRIFFITH [address] [facility] [address] [place]: I am writing to inform you of the test results performed May for the following: Colonoscopy Results of microscopic examination: Polyp - Adenoma DIAGNOSES: SPEC. 1 Colon, ascending polyp, polypectomy-- - Tubular adenoma, fragments - No evidence of high-grade dysplasia or malignancy SPEC. 2 Colon, transverse polyp, polypectomy-- - Tubular adenoma - No evidence of high-grade dysplasia or malignancy Explanation of pathology results: An adenoma is a type of polyp that if left in the colon, could over a period of years, grow larger and/or even turn into a cancer, although most do not. After reviewing your results I recommend you complete a follow-up colonoscopy in 3 years. If you want to see the full pathology report, you may do this by logging on the inexio website at [email or web address]. Please note: Results can take up to 14 days to be viewable for pathology reports. If you have not already done so, I recommend you visit this web site to set up your account. You will then be able to review this result and all future results. If you have any questions, the GI department can be called between the hours of 7:30 a.m. and 3:30 p.m., Wednesday - Wednesday. The GI department can be reached at or toll free at [phone]. Sincerely, GIACOMO LUND MD. Gastroenterology and Hepatology. GIACOMO GAGE [facility] Jun 02, 2023 03:32 PM GASTROENTEROLOGY CONSULT: LOCAL TITLE: GASTROENTEROLOGY CONSULT STANDARD TITLE: GASTROENTEROLOGY CONSULT DATE OF NOTE: JUN 02, 2023@15:32 ENTRY DATE: JUN 02, 2023@15:32:30 AUTHOR: SHARIFA XAVIER EXP COSIGNER: URGENCY: STATUS: COMPLETED This patient's Colonoscopy was completed on May. Please see the G.I. Clinical Procedure (CP) consult or [facility] with this date for further information. /nghia/ SHARIFA XAVIER REGISTERED NURSE Signed: 06/02/2023 15:32 SHARIFA XAVIER [facility] Jun 02, 2023 01:13 PM GASTROENTEROLOGY PREPROCEDURE NOTE: LOCAL TITLE: GI PRE-PROCEDURE NOTE STANDARD TITLE: GASTROENTEROLOGY PREPROCEDURE NOTE DATE OF NOTE: JUN 02, 2023@13:13 ENTRY DATE: JUN 02, 2023@13:13:48 AUTHOR: THOMPSON GAGE EXP COSIGNER: URGENCY: STATUS: COMPLETED Gastroenterology Pre-procedure Assessment: Procedure planned: Endoscopy Pre-Op Diagnosis or Indication for Procedure: Surveillance for polyps or cancer Problem list Active problems - Computerized Problem List is the source for the followin. Diabetes mellitus type II (SNOMED CT [id number]) - Diagnosis @ 1999 2. Obesity, Unspec 3. Hypercholesterolemia * 4. ASCVD - 4v CAB 1995 @ [facility] 5. Impotence of organic origin 6. 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 Adenomatous polyp of colon - tubular adenoma x3 12/02/2012 8. Posterior vitreous detachment 9. Shoulder joint pain 10. Benign essential hypertension 11. Kidney stone 12. 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 Blood in urine 14. Thrombosis 15. Intracranial hemorrhage 16. Acquired complex renal cyst 17. Exposure to Agent Dingess Active Outpatient Medications (including Supplies): Active Outpatient [...] ACTIVE MOUTH AT BEDTIME FOR CHOLESTEROL 4) BISACODYL 5MG EC TAB TAKE TWO TABLETS BY MOUTH ONCE ACTIVE FOR COLON PREP 5) CARBOXYMETHYLCELLULOSE NA 0.25% OPH SOLN INSTILL 1 ACTIVE DROP IN BOTH EYES FOUR TIMES A DAY 6) CICLOPIROX 8% TOP SOLN APPLY TOPICALLY EVERY DAY TO ACTIVE AFFECTED NAILS(S) REMOVE WITH RUBBING ALCOHOL EVERY 7 DAYS* TREAT UNTIL NAIL CLEARANCE OR 48 WEEKS FOR NAIL FUNGUS 7) EMPAGLIFLOZIN 25MG TAB TAKE ONE-HALF TABLET BY MOUTH ACTIVE (S) EVERY DAY FOR DIABETES 8) FLUTICASONE PROP 50MCG 120D NASAL INHL SPRAY 2 SPRAYS ACTIVE IN EACH NOSTRIL EVERY DAY FOR CONGESTION FOR ALLERGIES 9) GLIPIZIDE 2.5MG SA TAB TAKE ONE TABLET BY MOUTH EVERY ACTIVE (S) DAY FOR DIABETES WITH BREAKFAST 10) LORATADINE 10MG TAB TAKE ONE TABLET BY MOUTH EVERY ACTIVE MORNING FOR ALLERGIES 11) LOSARTAN 25MG TAB TAKE ONE-HALF TABLET BY MOUTH TWICE ACTIVE A DAY FOR BLOOD PRESSURE 12) POLYETHYLENE GLYCOL 3350 ORAL PWDR TAKE ONE BOTTLE BY ACTIVE MOUTH DIRECTED FOR COLON PREP 13) SEMAGLUTIDE 0.25MG/0.375ML INJ PEN 3ML INJECT 0.5MG ACTIVE UNDER THE SKIN EVERY WEEK FOR DIABETES -INJECT ON THE SAME DAY EVERY WEEK -REFRIGERATE - PEN CONTAINS MULTIPLE DOSES 14) TERBINAFINE HCL 1% CREAM APPLY THIN LAYER TOPICALLY ACTIVE TWICE A DAY FOR TOENAIL FUNGUS Active Non-VA Medications Status 1) Non-VA ASPIRIN 81MG EC TAB 81MG MOUTH EVERY DAY ACTIVE 15 Total Medications Allergies: MERTHIOLATE TINCTURE (Jun 22, 2003) METFORMIN (Jan 12, 2005) NIACIN (Nov 03, 2006) EZETIMIBE (Nov 03, 2006) ROSIGLITAZONE (Aug 31, 2007) ROSUVASTATIN (Apr 17, 2008) MINOCYCLINE (Sep 15, 2012) LISINOPRIL (May 31, 2014) Mallampati Score: 2: (Visibility of hard and soft palate, upper portion of tonsils and uvula) Airway: Within normal limits Exam: Heart and lungs within normal limits Lab PT____ INR____ HCT: 47.2 (02/19/22) 47.5 (03/11/23) HGB: 15.9 (02/19/22) 15.7 (03/11/23) IPF: 3.8 (09/16/15) MCH: 32.1 (02/19/22) 31.7 (03/11/23) MCHC: 33.7 (02/19/22) 33.1 (03/11/23) MCV: 95.2 (02/19/22) 95.8 (03/11/23) MPV: 9.0 (02/19/22) 9.0 (03/11/23) PLT: 220 (02/19/22) 220 (03/11/23) RBC: 4.96 (02/19/22) 4.96 (03/11/23) RDW: 12.3 (02/19/22) 12.7 (03/11/23) WBC: 7.80 (02/19/22) 7.09 (03/11/23) Other Lab tests: [place] [employer]esthesi[employer] (ASA) Classification: II SPN - Selected Prog Notes No data available for: LIFE-SUSTAINING TREATMENT Sedation Plan: Moderate sedation I have reviewed the patient's pre-procedure baseline level of consciousness, current vital signs, time and nature of last oral intake, and any previous adverse experiences with sedation as documented in the [facility] note. The procedure report can be viewed in the Reports tab-->procedures or in [facility]. I will be conducting or supervising the procedure, although a different provider obtained consent. Patient informed and agrees to proceed. I will be conducting or supervising the procedure, although a different provider obtained consent. Patient informed and agrees to proceed. /es/ GIACOMO LUND MD. Gastroenterology and Hepatology. Signed: 06/02/2023 13:15 GIACOMO GAGE [facility]
== END 2024-03-20 13:52 | disposition home or self-care (01) ==
LOC: US 13:57
PROVIDERS: Visit Provider Chiropractor
DX: I73.9 Peripheral vascular disease, unspecified (principal)
CPT/HCPCS: 93922